=== PATIENT | female | born 1950 | race Caucasian/White ===

== ENCOUNTER 2016-08-28 10:46 | Outpatient (CLI) | payer OTHER | END 2016-08-28 10:47 | disposition home or self-care (01) | DX: C50.911 Malignant neoplasm of unspecified site of right female breast (principal); M89.9 Disorder of bone, unspecified | CPT/HCPCS: 78306; A9503 ==

== ENCOUNTER 2017-01-04 09:24 | Outpatient (CLI) | payer OTHER | END 2017-01-04 09:25 | disposition critical access hospital (66) | LOC: EMS 09:24 | PROVIDERS: ATTEND Surgery | DX: M25.551 Pain in right hip (principal); W17.89XA Other fall from one level to another, initial encounter; Y92.008 Other place in unspecified non-institutional (private) residence as the place of occurrence of the external cause | CPT/HCPCS: A0425; A0429 ==

== ENCOUNTER 2017-01-04 09:53 | Inpatient (IN) | payer OTHER ==
[2017-01-04] MEDS ORDERED: HYDROmorphone 1 MG/ML SYRINGE IVP STA ×2 (10:05→10:54)
[2017-01-04] MEDS ORDERED: HYDROmorphone 1 MG/ML SYRINGE ONE (10:12)
--- NOTE | 2017-01-04 10:17 | ED Physician Documentation ---
History of Present Illness - Stated complaint Stated Complaint: R LEG PX - Chief complaint Chief Complaint: Ext Problem - Additonal information Additional information: hx from pt 66 female metastatic breast cancer - met to bones and liver was standing to get into her car and her R hip gave way causing her to fall no head or neck injury RLE is ext rotated with pain at the hip Review of Systems Constitutional: denies: Fever Cardiac: denies: Chest pain / pressure Respiratory: denies: Dyspnea Musculoskeletal: reports: Joint pain Endocrine: denies: Easy bruising / bleeding Immunocompromised: reports: Immunocompromised (chemo) PD PAST MEDICAL HISTORY - Past Medical History Cardiovascular: Hypertension Respiratory: None Neuro: None Endocrine/Autoimmune: HyPOthyroidism GI: GERD : None, Incontinence HEENT: None Psych: None Musculoskeletal: Osteoarthritis Derm: None - Past Surgical History Past Surgical History: Yes General: EGD, Colonoscopy Ortho: Carpal Tunnel surgery HEENT: Tonsil/Adenoidectomy - Present Medications Home Medications: Ambulatory Orders Medication Instructions Recorded Confirmed Aspirin [Aspir-Low] 81 mg PO DAILY 01/06/13 12/09/16 Calcium Carbonate [Calcium] 600 mg PO BID 01/06/13 01/04/17 Cholecalciferol (Vitamin D3) 2,000 unit PO DAILY 01/06/13 01/04/17 [Vitamin D-3] Levothyroxine [Synthroid] 75 mcg PO Q48H 01/06/13 01/04/17 Multivitamins-Min/FA/Ginkgo 1 each PO DAILY 01/06/13 01/04/17 [Women's 50+ Daily Formula Tab] [place]-3 Fatty Acids/Fish Oil 1 each PO TID 01/06/13 01/04/17 [[place] 3 1,000 mg Softgel] Omeprazole [PriLOSEC] 20 mg PO BID 01/06/13 01/04/17 Simvastatin [Zocor] 20 mg PO QPM 01/06/13 01/04/17 Levothyroxine [Synthroid] 50 mcg PO Q48H 04/22/13 01/04/17 Ondansetron HCl [Zofran] 4 - 8 mg PO Q8H PRN 02/03/14 01/04/17 Scopolamine [Transderm-Scop] 1 each TOP Q72H PRN 02/21/14 01/04/17 Lidocaine/Prilocain 2.5% Cream 1 applic TOP ONCE 10/13/15 01/04/17 [Emla 2.5% Cream] Capecitabine [Xeloda] 1,500 mg PO BID 09/30/16 01/04/17 Urea [Ure-K] 1 applic TOP QID 11/18/16 01/04/17 Aspirin Chewable [St Zaki 1 tab PO DAILY 01/04/17 01/04/17 Aspirin] - Allergies Allergies/Adverse Reactions: Allergies Allergy/AdvReac Type Severity Reaction Status Date / Time everolimus [From Afinitor] Allergy Intermediate Rash Verified 01/04/17 11:04 shellfish derived Allergy Mild Respiratory Verified 01/04/17 11:04 - Social History Does the pt smoke?: No Smoking Status: Never smoker Does the pt drink ETOH?: Yes Does the pt have substance abuse?: No - Immunizations Immunizations are current?: Yes - POLST Patient has POLST: No PD ED PE NORMAL - Vitals Vital signs reviewed: Yes - Neck Neck: Supple, no meningeal sign - Cardiac Cardiac: RRR - Respiratory Respiratory: No respiratory distress, Clear bilaterally - Abdomen Abdomen: Soft, Non tender - Extremities Extremities: Other (severe TTP R hip ext rotated MSV intact) - Neuro Neuro: Alert and oriented X 3, No motor deficit, No sensory deficit Results - Vitals Vitals: Vital Signs - 24 hr 01/04/17 09:55 Temperature 36.5 C Heart Rate 93 Respiratory 16 Rate Blood Pressure 138/108 H O2 Saturation 98 Oxygen O2 Source Room air - Labs Labs: Laboratory Tests 01/04/17 01/04/17 10:50 10:50 WBC 6.6 RBC 3.91 L Hgb 13.7 Hct 39.0 MCV 99.7 H MCH 35.0 H MCHC 35.1 RDW 21.2 H Plt Count 92 L MPV 9.6 Neut # 5.4 Lymph # 0.3 L Door # 0.8 Eos # 0.1 Baso # 0.0 Absolute Nucleated RBC 0.00 Nucleated RBCs 0.0 Manual Slide Review Indicated Platelet Estimate DECREASED (<130,000) Sodium 141 Potassium 3.4 L Chloride 104 Carbon Dioxide 24 Anion Gap 13.0 BUN 14 Creatinine 0.8 Estimated GFR (MDRD) 72 L Glucose 117 H Calcium 9.5 - Rads (name of study) RLE Radiology: See rad report (displaced and angulated right femoral diaphyseal fracture, this site is near focus of increased activity on prior bone scan so pathalogic fracture not excluded, borad sclerotic lesion L iliac bone unchanged) PD MEDICAL DECISION MAKING - ED course ED course: NPO except coffee at 8 seen by ortho end medicine admitted for surgery this afternoon Departure - Departure Disposition: 66 [facility] DC/Xfer Clinical Impression: Metastatic breast cancer Femur fracture, right Qualifiers: Encounter type: initial encounter Femur location: unspecified portion of femur Fracture type: closed Fracture morphology: unspecified fracture morphology Qualified Code(s): S72.91XA - Unspecified fracture of right femur, initial encounter for closed fracture Condition: Fair Discharge Date/Time: 01/04/17 12:37
[2017-01-04] MEDS ORDERED: ONDANSETRON 4 MG/2 ML VIAL ONE (10:49)
[2017-01-04] MEDS ORDERED: ONDANSETRON 4 MG/2 ML VIAL IVP STA (10:54)
[2017-01-04 11:13] LABS: BASOPHILS % (AUTO) 0.6 %; EOSINOPHILS # (AUTO) 0.1 10^3/uL (0.0-0.7); EOSINOPHILS % (AUTO) 1.7 %; HGB - HEMOGLOBIN 13.7 g/dL (12.0-16.0); LYMPHOCYTES # (AUTO) 0.3 10^3/uL (1.5-3.5); LYMPHOCYTES % (AUTO) 5.1 %; MEAN CORPUSCULAR HGB CONC 35.1 g/dL (32.0-36.0); MEAN CORPUSCULAR VOLUME 99.7 fL (81.0-99.0); MEAN PLATELET VOLUME 9.6 fL (7.9-10.8); MONOCYTES # (AUTO) 0.8 10^3/uL (0.0-1.0); MONOCYTES % (AUTO) 11.5 %; NEUTROPHILS # (AUTO) 5.4 10^3/uL (1.5-6.6); NEUTROPHILS % (AUTO) 81.1 %; RED BLOOD COUNT 3.91 10^6/uL (4.20-5.40); RED CELL DISTRIBUTION WIDTH 21.2 % (12.0-15.0); UNCORRECTED WHITE BLOOD COUNT 7.3 x10^3/uL; WHITE BLOOD COUNT 6.6 x10^3/uL (4.8-10.8)
[2017-01-04] MEDS ORDERED: LIDOCAINE/PRILOCAINE 2.5% CREAM 5 GM TUBE TOP PRN (11:16)
[2017-01-04] MEDS ORDERED: SCOPOLAMINE PATCH TOP PRN (11:16)
[2017-01-04 11:18] LABS: CALCIUM 9.5 mg/dL (8.5-10.3); CREATININE 0.8 mg/dL (0.4-1.0); POTASSIUM 3.4 mmol/L (3.5-5.0)
[2017-01-04] MEDS ORDERED: PROMETHAZINE 25 MG/1 ML VIAL IM PRN (11:18)
[2017-01-04] MEDS ORDERED: ONDANSETRON 4 MG/2 ML VIAL IVP PRN ×2 (11:18→18:56)
[2017-01-04] MEDS ORDERED: HYDROcod/ACETAM 10 MG/325 MG TABLET PO PRN (11:18)
[2017-01-04] MEDS ORDERED: SODIUM CHLORIDE FLUSH 0.9% 10 ML SYRINGE IVP PRN ×2 (11:18→18:56)
[2017-01-04] MEDS ORDERED: PROCHLORPERAZINE 10 MG/2 ML VIAL IVP PRN ×2 (11:18→18:56)
[2017-01-04] MEDS ORDERED: HYDROmorphone 1 MG/ML SYRINGE IVP PRN (11:18)
[2017-01-04] MEDS ORDERED: ZOLPIDEM 5 MG TABLET PO PRN (11:18)
[2017-01-04 11:32] LABS: PLATELET ESTIMATE, MANUAL DECREASED (<130,000) (NORMAL)
--- NOTE | 2017-01-04 11:47 | XRAY Preliminary Report ---
Exam: XR Hip w/Pelvis 2-3V RT IMPRESSION: 1. Displaced and angulated proximal right femoral diaphyseal fracture. This is near or possibly just below the level of a focus of increased activity on a previous bone scan. Therefore, a pathologic fra cture is not excluded. 2. Broad sclerotic lesion within the left iliac bone is without significant change. [facility] SITE ID: [id number]
--- NOTE | 2017-01-04 11:50 | XRAY Report ---
EXAM: RIGHT HIP AND PELVIS RADIOGRAPHY EXAM DATE: 01/04/2017 10:45 AM. HISTORY: Fall ext rotation breast CA met to bones. COMPARISONS: No x-ray comparison.. On scan 08/28/2016. CT pelvis 10/24/2016 TECHNIQUE: 1 view of the pelvis and 1 view of the hip. FINDINGS: Bones: Oblique fracture of the proximal femur about 3 cm below the lesser trochanter with substantial angulation and moderate displacement. No gross lytic or blastic femoral lesion demonstrated. Broad s clerosis within left iliac bone is without fifi change. Joints: No dislocation. Mild degenerative disease of the right hip and pubic symphysis. Soft Tissues: Normal. No soft tissue swelling. IMPRESSION: 1. Displaced and angulated proximal right femoral diaphyseal fracture. This is near or possibly just below the level of a focus of increased activity on a previous bone scan. Therefore, a pathologic fra cture is not excluded. 2. Broad sclerotic lesion within the left iliac bone is without significant change. [facility] Referring Provider Line: [phone] SITE ID: [id number]
[2017-01-04] MEDS ORDERED: SODIUM CHLORIDE 0.9% 1,000 ML IV SCH (12:00)
[2017-01-04] MEDS ORDERED: MULTIVITAMIN TABLET PO SCH (12:15)
[2017-01-04] MEDS ORDERED: ATORVASTATIN 40 MG TABLET PO SCH (12:30)
--- NOTE | 2017-01-04 13:01 | PROVIDER PROGRESS NOTE ---
Subjective - Prog Note Date Prog Note Date: 01/04/17 Prog Note Time: 12:59 - Subjective Subjective: Hx of persistent right thigh pain since about Aug 2016. Still working 3 x week at local [employer]. Aparently putting a gym bag into her car this AM and noted sudden onset of increased right thigh pain and her leg coolapsed. Unable to stand or weight bear on right. No new distal weakness/numbness Objective - Vital Signs/Intake & Output Vital Signs: Vital Signs x48h Temp Pulse Resp BP Pulse Ox 01/04/17 12:50 36.5 C 91 16 179/96 H 99 - Lab Results Fish Bones: 01/04/17 10:50 01/04/17 10:50 - Diagnostic Imaging Diagnostic Imaging Comments: XR show probable pathologic fx of proximal 1/3 right femour - Other Results/Comments Other Results/Comments: Exam: Obvious deformity of right thigh. Painful right leg motion. Moves toes well. Sensation ok (has chronic toe /sole numbness from chemo). Cap filling ok Assessment/Plan - Problem List (1) Metastatic breast cancer Impression: Pathoilogic right proximal femur fracture, likely due to metastatic breast Ca PLAN: IM nailing of right femoral shaft fracture, possibly long interTan nailing. Risk and benefits of surgery explained, questions answered for patient and her . Will plan OR this afternoon. Consent signed. (2) Femur fracture, right Qualifiers: Encounter type: initial encounter Femur location: shaft Fracture type: closed Fracture morphology: unspecified fracture morphology Qualified Code(s ): S72.301A - Unspecified fracture of shaft of right femur, initial encounter for closed fracture
[2017-01-04] MEDS: OMEGA-3 ACID ETHYL ESTERS 1 GM CAPSULE PO SCH ×2 (13:52→21:45)
[2017-01-04] MEDS: SODIUM CHLORIDE FLUSH 0.9% 10 ML SYRINGE IVP SCH ×3 (13:56→21:45)
[2017-01-04] MEDS ORDERED: ceFAZolin 2 GM/50 ML 50 ML IV SCH ×2 (14:30→19:00)
[2017-01-04] MEDS ORDERED: INSULIN REGULAR HUMAN 100 UNIT/1 ML 10 ML MDV SUBQ ONE (14:38)
--- NOTE | 2017-01-04 15:23 | CONSULTATION NOTE ---
ORTHOPEDIC CONSULTATION DATE OF CONSULTATION: 01/04/2017 00:00:00 REQUESTING PROVIDER: Dr. Ely of the emergency room. CHIEF COMPLAINT: "My right leg hurts." HISTORY OF PRESENT ILLNESS: The patient is a 66-year-old female, with a history of metastat ic breast cancer, who apparently has had some intermittent but persistent right thigh pain since 2016. 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 She was putting a gym bag into her car on the morning of her admission when she noted immedi ate pain to her right thigh and she collapsed to the ground. She was unable to stand or weightbear du e to a deformity in her right leg as well as pain with an attempt to weightbear. She was taken by gabriella chu to the emergency room here at [facility] where x-rays showed a short oblique-typ e fracture of her proximal third right femoral shaft. This was a closed injury. The patient was neuro vascularly intact distally. It was in the vicinity of a previously hot spot noted on her bone scan in August 2016. She last had coffee in the morning at about 8 o'clock, no solid food today. PHYSICAL EXAMINATION: Physical examination showed an obvious deformity and swelling to her right thig h. Has painful range of motion of her right hip and knee. Moves her toes satisfactorily. Sensation ap peared to be grossly intact and symmetrical (has chronic numbness in her sole that she has had from h er chemotherapy in the past). Good capillary filling noted. X-RAYS: Show an oblique-type fracture of her proximal one-third of the right femoral shaft. Bone scan (taken on August 28, 2016) showed an increased area of uptake in her proximal right femoral shaft. ASSESSMENT 1. Probable pathologic right proximal third femoral shaft fracture. 2. History of metastatic breast cancer. PLAN: I have discussed treatment options with the patient and her . Plan on proceeding with in tramedullary nailing of her right femoral shaft fracture. Because of the step-off and the fracture mo rphology, we may be able to get by with just a straight nailing if her fracture interdigitates satisf actorily. If this is unsuccessful, we will proceed with a long InterTan nailing to lock the nail prox imally and distally to further stabilize her fracture. The risks and benefits of surgery were explain ed to the patient and her . They appear to understand and wish to proceed with surgery. All th eir questions were answered. Consents has been signed. We will plan then on proceeding with surgery later this afternoon after the current cases have been c ompleted. JOB #: [id number] EXT JOB #:[id number]
[2017-01-04] MEDS ORDERED: SCOPOLAMINE PATCH TOP ONE (16:04)
[2017-01-04] MEDS: UREA TOP SCH ×3 (16:15→21:46)
[2017-01-04] MEDS: ALPHA HYDROXY ACIDS TOP SCH ×3 (16:15→21:46)
[2017-01-04] MEDS ORDERED: SODIUM CHLORIDE 0.9% 1,000 ML IV ONE ×3 (16:43)
[2017-01-04] MEDS ORDERED: ONDANSETRON 4 MG/2 ML VIAL IVP ONE (16:45)
[2017-01-04] MEDS ORDERED: ROCURONIUM 50 MG/5 ML VIAL IVP ONE (16:45)
[2017-01-04] MEDS ORDERED: MIDAZOLAM 2 MG/2 ML VIAL IVP ONE (16:45)
[2017-01-04] MEDS ORDERED: KETOROLAC 30 MG/ML VIAL IVP ONE (16:45)
[2017-01-04] MEDS ORDERED: ceFAZolin 1 GM VIAL IV ONE (16:45)
[2017-01-04] MEDS ORDERED: fentaNYL 100 MCG/2 ML VIAL IVP ONE (16:45)
[2017-01-04] MEDS ORDERED: ePHEDrine 50 MG/ML AMP IVP ONE (16:45)
[2017-01-04] MEDS ORDERED: DEXAMETHASONE 4 MG/ML VIAL IVP ONE (16:45)
[2017-01-04] MEDS ORDERED: LIDOCAINE-MPF 2% 5 ML VIAL IM ONE (16:45)
[2017-01-04] MEDS ORDERED: ACETAMINOPHEN 1,000 MG/100 ML VIAL IV ONE (16:45)
[2017-01-04] MEDS ORDERED: PHENYLEPHRINE 50 MG/5 ML VIAL IV ONE (16:45)
[2017-01-04] MEDS ORDERED: ESMOLOL 100 MG/10 ML VIAL IVP ONE (16:45)
[2017-01-04] MEDS ORDERED: BUPIVACAINE 0.25%-EPI 1:200000 PF 10 ML VIAL SUBQ ONE ×2 (17:12→18:14)
[2017-01-04] MEDS ORDERED: LACTATED RINGERS 1,000 ML IV ONE ×3 (17:30→19:00)
[2017-01-04] MEDS ORDERED: ACETAMINOPHEN 325 MG TABLET PO PRN (18:56)
[2017-01-04] MEDS ORDERED: oxyCOD/ACETAMIN 5 MG/325 MG TABLET PO PRN (18:56)
[2017-01-04] MEDS ORDERED: ACETAMINOPHEN 1,000 MG/100 ML 100 ML IV PRN (18:56)
[2017-01-04] MEDS ORDERED: MORPHINE 2 MG/ML SYRINGE IVP PRN (18:56)
[2017-01-04] MEDS ORDERED: DOCUSATE SODIUM 100 MG CAPSULE PO PRN (18:56)
[2017-01-04] MEDS ORDERED: SENNA 8.6 MG TABLET PO PRN (18:56)
[2017-01-04] MEDS ORDERED: PROMETHAZINE 25 MG/1 ML VIAL ONE (19:36)
--- NOTE | 2017-01-04 20:13 | OPERATIVE REPORT ---
Operative Report - General Admit Date: 01/04/17 Procedure Date: 01/04/17 Planned Procedure: IM nailing of right proximal femoral shaft fracture Pre-Op Diagnosis: Cosed right proximal femur fracture Post Op Diagnosis: Same - Procedure Note Primary Surgeon: Mikey Silva Secondary Surgeon: Corona Anesthesia Provider: Delonte Anesthesia Technique: General mask Estimated Blood Loss (in cc): 300 Complications: None
[2017-01-04] MEDS: D5.45NS W/20 MEQ KCL 1,000 ML IV SCH (20:30)
--- NOTE | 2017-01-04 21:07 | OPERATIVE REPORT ---
DATE OF SURGERY: 01/04/2017 00:00:00 PREOPERATIVE DIAGNOSIS: Right proximal femoral shaft fracture. POSTOPERATIVE DIAGNOSIS: Right proximal femoral shaft fracture. NAME OF PROCEDURE: Closed reduction and intramedullary nailing of right proximal femur fracture using a long InterTan nail with only a proximal hip lag screw and gloria. SURGEON: Mikey Silva MD SLOT FLOOR SUPERVISOR: None. ANESTHESIA: General. DESCRIPTION OF PROCEDURE: The patient was taken to the operating room on the afternoon of 01/04/2017 where she was placed under a general anesthetic without any complications. She was then positioned vega pine onto the fracture table. Her left unfractured extremity was then placed in the well leg dickerson w ith the hip flexed and widely abducted. The fractured right lower extremity was then placed into long itudinal traction with the leg adducted about 20 degrees. The fluoroscopic views showed the fracture was out to length in both AP and lateral projection. Using a crutch to support her proximal femoral s haft, this improved the alignment of her fracture in both AP and lateral projections. Satisfied with the position of the fracture now, we then proceeded and prepped and draped the leg in the usual fashi on for our procedure. Making an oblique skin incision proximal to the tip of the greater trochanter, we dissected down to t he tip of the greater trochanter. We then placed the tip of our threaded guide pin on the tip of the greater trochanter. This was confirmed using fluoroscopic view. We then placed a mallet at the apex o f the fracture and had my business services assistant apply downward pressure to help improve the alignment of our frac ture further. We then with power drilled the guide tip pin from the tip of the greater trochanter dante n the proximal end of the femur to the level of the subtrochanteric level. Fluoroscopic view in AP an d lateral projection showed satisfactory position of our guide pin. We then used the guide pin and pl aced a cannulated 16 mm channel reamer and reamed the proximal femur. We then bent the end of our bal l-tipped guide and then manually inserted this guide pin down the hole at the tip of the greater troc hanter and with gentle manipulation was able to pass this guide pin down into the intramedullary tasha l of the femoral shaft. Fluoroscopic view in AP and lateral projections showed the interosseous locat ion of our guide pin. We advanced the pin until it was down into the distal femoral metaphysis at mariam roximately the level of the patella. The direct measuring device was then used and we determined we w ould use a 38 cm in length intramedullary long InterTan nail. We then sequentially reamed the femoral shaft with sequential reamers, starting with a 9 mm end cutting reamer and advanced until we had barbara med the femoral shaft 11.5 mm in diameter. At this point, we then introduced the selected long right InterTan nail which was 10 mm in diameter x 38 cm in length. This was attached to our insertion and a lignment guide and we were able to pass this down while reducing the fracture using the crutch and th e mallet, as we did initially when we passed our ball-tipped guide. We advanced this nail until the p roximal hole in the nail was aligned with the axis of the femoral neck. We removed the ball-tipped gu juliet from within the nail at this point. Making a small incision laterally in the proximal thigh, we advanced the oval drill sleeve in the dis janis end of our alignment guide and advanced the guide to the lateral proximal femoral cortex. We then drilled the threaded tip guidewire through the proximal femur, through the femoral neck and up into the femoral head. This was advanced until it was within a few millimeters of the subchondral bone. AP and lateral projections with the C-arm fluoroscopy showed satisfactory placement of our guide pin an d proper depth. The direct measuring guide was then utilized and we determined we would use a 95 mm l ength x 11 mm subtrochanteric hip lag screw. The channel reamer was then drilled over our inserted gu juliet pin to ream the proximal femur. We then inserted our selected subtrochanteric hip lag screw up in to the proximal femur and into the femoral head. We were having difficulty advancing the last 0.5 cm of this screw because of the patient's very hard trabecular bone. We removed the hip lag screw and jin arredondo placed the tap over our guide pin and tapped the femoral head. After removing the tap, we then wer e more easily able to advance the hip lag screw to within a few millimeters of the subchondral bone i n AP and lateral projections. Satisfied with this, we then locked the hip lag screw to the nail with the set screw in the proximal end of our nail with the hand screwdriver. After we got this snug, we robert martinez backed off by 90 degrees as recommended. At this point, we then removed our insertion/alignment g uide from the nail. We then irrigated the wound out thoroughly with saline. We then closed the wound in layers using buried simple stitch of 0 Vicryl to approximate the deep fascial layer incision proxi enrico. Then we closed the subcutaneous tissues in both wounds using buried simple stitches with 2-0 V icryl. Finally, skin braeden were used to approximate the skin edges of both wounds. We injected a to janis of 30 mL of 0.25% Marcaine with epinephrine to provide local anesthesia in both incision sites. T he patient then had the wounds dressed and was taken off the fracture table and onto her postoperativ e bed. She was taken to the recovery room in satisfactory condition. ESTIMATED BLOOD LOSS: 300-350 mL of blood. REPLACEMENT: 1700 mL of crystalloid. INTRAOPERATIVE COMPLICATIONS: None. PLAN: The patient will be advanced ambulating with a walker, weightbearing as tolerated on the right lower extremity beginning the first day postoperatively. Depending on her independence, she will eith er go to a skilled facility for additional postoperative rehabilitation versus transferred home. She will follow up in orthopedic clinic in approximately 2 weeks' time for removal of her skin braeden an d repeat x-rays as needed. JOB #: [id number] EXT JOB #:[id number]
[2017-01-04 21:42] LABS: CALCIUM 8.1 mg/dL (8.5-10.3); CREATININE 0.7 mg/dL (0.4-1.0); POTASSIUM 3.8 mmol/L (3.5-5.0)
[2017-01-04] MEDS: CAPECITABINE 1500 MG PO SCH (21:45)
[2017-01-04] MEDS: CALCIUM CARBONATE CHEW 500 MG TABLET PO SCH (21:45)
[2017-01-05] MEDS: ceFAZolin 2 GM/50 ML 50 ML IV SCH ×2 (00:34→08:41)
--- NOTE | 2017-01-05 02:26 | HISTORY & PHYSICAL EXAMINATION ---
DATE OF ADMISSION: 01/04/2017 CHIEF COMPLAINT: I was just getting in my car and my leg gave way. History obtained from patient, and Dr. Ramiers notes HISTORY OF PRESENT ILLNESS: The patient is a very pleasant 66-year-old female who was actually on her way to help at the organized run for the [employer] and when going to get in the car when she put weight on her leg, it simply gave out from under her. Of note she has known metastatic breast cancer (with details of the treatment course since 2001 under the care of Juan Pablo Costello as below under [facility]). In the emergency room, imaging of the right hip was very suspicious for pathological fracture, especially as the area of the break is near an area of increased update on a bone scan from 09/06/2016. She has had some pain in the right upper thigh. Dr. Silva of Orthopedic Surgery has been consulted and he will likely be taking her in for repair today. She already indicates that she is extremely eager to already be discharged as soon as tomorrow if possible, saying that she really does not want to have to spend any additional nights in the hospital. She denies any symptoms suggestive of cardiac ischemia, nor TIA, nor PAD she is not diabetic and has no known renal dysfunction (re: surgical risks) Regarding her breast cancer treatment , she is currently on Xeloda, and this is her week off and she reports the only side effect she is experiencing is finger and foot skin peeling. She actually went nearly 10 years cancer free from the time of diagnosis with only bone metastases initially found in 2009 and liver metastases as of 11/2015 again with details of treatment as follows below. Of note, regarding this hip fracture today, she does note that she had had some pain in the right hip area recently. PAST MEDICAL HISTORY: 1. Metastatic breast cancer with details as follows from Dr. Ramires notes. a) Originally diagnosed 04/2002, s/p lumpectomy/XRT and adjumant Adriamycin and Cytoxan x4 b) Subsequently, on tamoxifen x2 years, letrozole x4 years completed in 2007. c) In February of 2010, metastases to the bones identified (site not specified / pelvis per patient,: anastrozole / Faslodex, Afinitor/exemestane with progression. Subsequently she had Navelbine and Xeloda x12 cycles for 11/2013 with a complete response (CR). Maintenance Xeloda from 04/2014-11/2013, stopped due to toxicity (hand/foot syndrome): Xofigo effusions x6 cycles 08/06/2015 followed by chemotherapy vacation. d). Metastases to the liver diagnosed 11/2015 with progression in 03/2016: Faslodex/Ibrance x6 cycles 12/2015 with progression, followed by Navelbine/ Xeloda 03/2016 x10 weeks for which she achieved a partial remission. e) . Maintenance Xeloda 05/2016 to 07/2016, Y90 directive therapy on 08/2016 through 09/2016 and maintenance Xeloda started since 09/2016 with stable disease. 2) Hypothyroidism. 3). History of Hypertension, Atenolol discontinued ~ 1yr ago after a syncope a year ago related to the atenolol 4) Hx presumed vasovagal syncope; w/ follow up ECHO (01/2016 normal LV size and fxn, EF 70% mild aortic regurg, normal pulmonary presure). Pt reports atenolol was suspect/discontinued. 4). Gastroesophageal reflux disease. 5)). Hyperlipidemia. HOME MEDICATIONS: 1. Levothyroxine. She alternates 50 mg with 75 mg and reports that they were not able to find an intermediate dose. She reports she can tell them apart based on the purple and white pills. 2. Aspirin 81 mg daily. 3. Calcium carbonate 600 mg twice daily. 4. Vitamin D3 at 2000 units once daily. 5. Prilosec 20 mg twice daily. 6. Zocor 20 mg once daily. She is not recently needing her Zofran or scopolamine. 7. Vicodin 1-2 tabs every 4 hours if needed for pain. ALLERGIES: SHE IS ALLERGIC TO SHELLFISH AND TO THE CHEMO AGENT EVEROLIMUS. HABITS: She does not smoke, she does not drink alcohol, no history of illicits. SOCIAL HISTORY: [place]. She and her Shiva are both from [facility]. She is continuing to work for [employer] primarily in [employer]. She has a daughter and a son. FAMILY HISTORY: Her younger sister was diagnosed with breast cancer in her 40s. Her mother had breast cancer in her late 80s. REVIEW OF SYSTEMS GENERAL: She denies any unintentional weight loss or weight gain. No fevers, night sweats, or lymphadenopathy. HEAD, EARS, EYES, NOSE AND THROAT: No vision changes. CARDIOVASCULAR: No chest pain or palpitations. No edema. No orthopnea. A syncopal episode a year ago, was attributed to her blood pressure medications which was discontinued, and she has not had any episodes since. GASTROINTESTINAL : She denies nausea, vomiting, constipation. No diarrhea or hematochezia or black stool. GENITOURINARY: No dysuria, frequency, or hesitancy, although she says the coffee this morning had her bladder quite full. MUSCULOSKELETAL: She has had some right hip pain as noted above. SKIN: She notes peeling of her fingers and feet due to the Xeloda. She has been prescribed a special cream, which she cannot remember the name of. She says "I am loosing my finger prints." NEUROLOGIC: No confusion, memory loss of loss of consciousness. No myalgias or arthralgias, other than on the right hip as noted previously. HEMATOLOGIC: She denies easy bruising or bleeding. PHYSICAL EXAMINATION: VITAL SIGNS: She is afebrile 36.5, heart rate 93, respiratory rate 16, 138/108 and 98% oxygenation on room air. GENERAL: She is a very pleasant female who is wearing her makeup from today and her [employer] silas-shirt. She is just a little bit "dopey" from her dose of Dilaudid she received in the emergency room, but she responds to questions through the curtain when I was asking her them when they were working on her Infusaport. HEAD, EARS, EYES, NOSE AND THROAT: She is wearing makeup and appears ramey, although this is due to a concealer. Her pupils are round, and reactive. Extraocular movements are intact. Sclerae anicteric. NECK: Supple with no lymphadenopathy. Oral mucosa is moist. She has upper dentures and her own teeth lower. CHEST: Her chest anteriorly, is clear to auscultation. She was not moved for posterior exam due to the hip fracture, she has an Infusaport in her right upper chest. CARDIAC: Heart is a regular S1, S2 with a rate currently approximately 90 with no appreciable extra sounds. She has no lower extremity edema. SKIN: Warm and dry. ABDOMEN: Modestly rounded. It is soft, nontender. There is no appreciable hepatomegaly. The liver edge is smooth. She does have some suprapubic fullness and again reported due to a large cup of coffee this morning. HIP: Her hip is notable for soft tissue swelling of the upper femur. SKIN: Notable for peeling of the fingers and soles of her feet and her toes with no open sores. DIAGNOSTIC LABORATORY STUDIES: White count 6.6, hemoglobin 13.7, hematocrit 39, platelets 92,000. There were 100,000 in November. Sodium 141, potassium 3.4, chloride 104, bicarbonate 24, BUN 14, creatinine 0.8, calcium 9.5, glucose 117, total bilirubin 1.7, AST 51, ALT 44, alkaline phosphatase 206. These transaminases are consistent with labs since approximately August of 2016. DIAGNOSTIC IMAGING: An x-ray of her hip shows: 1. Displaced and angulated proximal right femoral diaphysis fracture. There is near or possibly just below the level of focus of increased activity on a previous bone scan. Pathological fracture not excluded. 2. Broad sclerotic lesion within the left iliac bone without significant change. A bone scan done 08/28/2016, showed: 1. Sclerotic bone lesion in the left ilium, does not demonstrate abnormal activity. 2. Small focus of mild increased activity proximal right femur. Possibly a small proximal femoral metaphysis. ASSESSMENT AND PLAN: 1. Hip fracture/very likely pathological frature. Dr. Silva is the orthopedic surgeon on-call today and he plans to likely take her to surgery today. Pain management and mobility post op will be per Orthopedics. VTE prophylaxis per surgeon post op 2. Risk assessment for surgery. The patient has no symptoms suggestive of cardiovascular disease. No angina. No symptoms of heart failure. No pulmonary complaints. She is not diabetic. She does not have an elevated creatinine. This is a moderate risk surgery, in a low risk patient which puts her at low risk for perioperative risk of major cardiac event 0.4% by RCRI calculator . On Friday we will contact Dr. Costello if there is an indication for bisphosphate (or if that would be done in [facility]. 3. Gastroesophageal reflux disease. Postoperative she can resume her twice daily Prilosec. She does indicate that she normally takes it twice a day only because "that is what the label says." Possibly we can reduce her to once daily dosing. 5. Hyperlipidemia. She can resume her home statin after surgery. 6. Hypothyroidism. She can resume her home dosing of levothyroxine which she confirms is 50 mcg alternating with 75 mcg. 7. Elevated diastolic blood pressure. I suspect that is currently related to pain and we will follow this and doubt any need for intervention. 8. Mild hypokalemia with a potassium of 3.4. No urgent need for replacement. We will repeat his orally postop. 9. Thrombocytopenia. Her platelet count is stable compared with prior readings in November of 100,000 and would not preclude surgery and with no indication for transfusion at this time. 10. Mild transaminase elevation; stable likley related to known liver metastases 10. CODE STATUS IS FULL. 11. Postop venous thromboembolism prophylaxis will be as per the orthopedic surgeon. JOB #: [id number] EXT JOB #:[id number] MTDComfort
[2017-01-05] MEDS: SODIUM CHLORIDE FLUSH 0.9% 10 ML SYRINGE IVP SCH ×7 (06:06→21:25)
[2017-01-05] MEDS: LEVOTHYROXINE 25 MCG TABLET PO SCH (06:14)
[2017-01-05] MEDS: OMEGA-3 ACID ETHYL ESTERS 1 GM CAPSULE PO SCH ×3 (06:15→21:17)
[2017-01-05] MEDS: PANTOPRAZOLE 40 MG TABLET PO SCH (06:15)
[2017-01-05] MEDS: HYDROcod/ACETAM 5/325 MG TABLET PO PRN (06:21)
[2017-01-05 06:23] LABS: BASOPHILS % (AUTO) 0.1 %; HCT - HEMATOCRIT 31.4 % (37.0-47.0); HGB - HEMOGLOBIN 10.5 g/dL (12.0-16.0); LYMPHOCYTES # (AUTO) 0.2 10^3/uL (1.5-3.5); MEAN CORPUSCULAR HEMOGLOBIN 34.2 pg (27.0-31.0); MEAN CORPUSCULAR HGB CONC 33.5 g/dL (32.0-36.0); MEAN CORPUSCULAR VOLUME 102.1 fL (81.0-99.0); MEAN PLATELET VOLUME 8.6 fL (7.9-10.8); MONOCYTES # (AUTO) 0.7 10^3/uL (0.0-1.0); MONOCYTES % (AUTO) 8.1 %; NEUTROPHILS # (AUTO) 7.2 10^3/uL (1.5-6.6); NEUTROPHILS % (AUTO) 88.8 %; NUCLEATED RED BLOOD CELLS AUTO 0.1 /100WBC; RED BLOOD COUNT 3.08 10^6/uL (4.20-5.40); RED CELL DISTRIBUTION WIDTH 20.9 % (12.0-15.0); UNCORRECTED WHITE BLOOD COUNT 8.1 x10^3/uL; WHITE BLOOD COUNT 8.1 x10^3/uL (4.8-10.8)
[2017-01-05 06:24] LABS: INR 1.3 (0.8-1.2); PT - PROTHROMBIN TIME 14.9 secs (9.9-12.6)
[2017-01-05 06:35] LABS: ALBUMIN/GLOBULIN RATIO 1.1 (1.0-2.2); CALCIUM 7.7 mg/dL (8.5-10.3); CREATININE 0.8 mg/dL (0.4-1.0); MAGNESIUM 1.7 mg/dL (1.7-2.8); PHOSPHORUS 2.6 mg/dL (2.5-4.6); POTASSIUM 4.1 mmol/L (3.5-5.0); TOTAL PROTEIN 5.8 g/dL (6.7-8.2)
--- NOTE | 2017-01-05 08:31 | PROVIDER PROGRESS NOTE ---
Subjective - Prog Note Date Prog Note Date: 01/05/17 Prog Note Time: 08:27 - Subjective Pt reports feeling: Improved (2/10 pain on oral pain meds this AM) Objective - Vital Signs/Intake & Output Vital Signs: Vital Signs x48h Temp Pulse Resp BP Pulse Ox 01/05/17 07:43 36.6 C 90 14 105/66 97 01/05/17 06:00 36.6 C 86 16 115/75 98 01/05/17 01:04 36.5 C 90 16 107/74 98 Intake & Output: Intake & Output 01/02/17 01/03/17 01/04/17 01/05/17 23:59 23:59 23:59 23:59 Intake Total 125 1050 Output Total 450 400 Balance -325 650 - Lab Results Fish Bones: 01/05/17 06:10 01/05/17 06:10 Other Labs: Lab Results x24hrs 01/05/17 01/05/17 01/05/17 Range/Units 06:10 06:10 06:10 WBC 8.1 (4.8-10.8) x10^3/uL RBC 3.08 L (4.20-5.40) 10^6/uL Hgb 10.5 L (12.0-16.0) g/dL Hct 31.4 L (37.0-47.0) % MCV 102.1 H (81.0-99.0) fL MCH 34.2 H (27.0-31.0) pg MCHC 33.5 (32.0-36.0) g/dL RDW 20.9 H (12.0-15.0) % Plt Count 106 L (130-450) 10^3/uL MPV 8.6 (7.9-10.8) fL Neut # 7.2 H (1.5-6.6) 10^3/uL Lymph # 0.2 L (1.5-3.5) 10^3/uL [place] # 0.7 (0.0-1.0) 10^3/uL Eos # 0.0 (0.0-0.7) 10^3/uL Baso # 0.0 (0.0-0.1) 10^3/uL Absolute Nucleated RBC 0.01 x10^3/uL Nucleated RBCs 0.1 /100WBC PT 14.9 H (9.9-12.6) secs INR 1.3 H (0.8-1.2) Sodium 136 (135-145) mmol/L Potassium 4.1 (3.5-5.0) mmol/L Chloride 104 (101-111) mmol/L Carbon Dioxide 25 (21-32) mmol/L Anion Gap 7.0 (6-13) BUN 13 (6-20) mg/dL Creatinine 0.8 (0.4-1.0) mg/dL Estimated GFR (MDRD) 72 L (>89) Glucose 188 H (70-100) mg/dL Calcium 7.7 L (8.5-10.3) mg/dL Phosphorus 2.6 (2.5-4.6) mg/dL Magnesium 1.7 (1.7-2.8) mg/dL Total Bilirubin 1.0 (0.2-1.0) mg/dL AST 44 H (10-42) IU/L ALT 32 (10-60) IU/L Alkaline Phosphatase 146 H (42-121) IU/L Total Protein 5.8 L (6.7-8.2) g/dL Albumin 3.1 L (3.2-5.5) g/dL Globulin 2.7 (2.1-4.2) g/dL Albumin/Globulin Ratio 1.1 (1.0-2.2) 01/04/17 Range/Units 21:25 WBC (4.8-10.8) x10^3/uL RBC (4.20-5.40) 10^6/uL Hgb (12.0-16.0) g/dL Hct (37.0-47.0) % MCV (81.0-99.0) fL MCH (27.0-31.0) pg MCHC (32.0-36.0) g/dL RDW (12.0-15.0) % Plt Count (130-450) 10^3/uL MPV (7.9-10.8) fL Neut # (1.5-6.6) 10^3/uL Lymph # (1.5-3.5) 10^3/uL [place] # (0.0-1.0) 10^3/uL Eos # (0.0-0.7) 10^3/uL Baso # (0.0-0.1) 10^3/uL Absolute Nucleated RBC x10^3/uL Nucleated RBCs /100WBC PT (9.9-12.6) secs INR (0.8-1.2) Sodium 138 (135-145) mmol/L Potassium 3.8 (3.5-5.0) mmol/L Chloride 105 (101-111) mmol/L Carbon Dioxide 24 (21-32) mmol/L Anion Gap 9.0 (6-13) BUN 13 (6-20) mg/dL Creatinine 0.7 (0.4-1.0) mg/dL Estimated GFR (MDRD) 84 L (>89) Glucose 183 H (70-100) mg/dL Calcium 8.1 L (8.5-10.3) mg/dL Phosphorus (2.5-4.6) mg/dL Magnesium (1.7-2.8) mg/dL Total Bilirubin (0.2-1.0) mg/dL AST (10-42) IU/L ALT (10-60) IU/L Alkaline Phosphatase (42-121) IU/L Total Protein (6.7-8.2) g/dL Albumin (3.2-5.5) g/dL Globulin (2.1-4.2) g/dL Albumin/Globulin Ratio (1.0-2.2) - Other Results/Comments Other Results/Comments: Exam: Dressing intact. Minimal pain with hip rotation and flexion. Moving toes well. Sensation same. Good cap filling Assessment/Plan - Problem List (1) Metastatic breast cancer Impression: Doing well post op PLAN: PT to begin mobilizing as tolerated. (2) Femur fracture, right Qualifiers: Encounter type: initial encounter Femur location: shaft Fracture type: closed Fracture morphology: unspecified fracture morphology Qualified Code(s ): S72.301A - Unspecified fracture of shaft of right femur, initial encounter for closed fracture
[2017-01-05] MEDS: D5.45NS W/20 MEQ KCL 1,000 ML IV SCH ×2 (08:39→21:18)
[2017-01-05] MEDS: CHOLECALCIFEROL 1,000 UNIT TABLET PO SCH (08:40)
[2017-01-05] MEDS: POLYETHYLENE GLYCOL 3350 17 GM PACKET PO SCH (08:40)
[2017-01-05] MEDS: CALCIUM CARBONATE CHEW 500 MG TABLET PO SCH ×2 (08:41→21:17)
[2017-01-05] MEDS: ASPIRIN 325 MG TABLET PO SCH ×2 (08:41→17:20)
[2017-01-05] MEDS: UREA TOP SCH ×4 (08:51→21:18)
[2017-01-05] MEDS: ALPHA HYDROXY ACIDS TOP SCH ×4 (08:51→21:18)
[2017-01-05] MEDS ORDERED: ENOXAPARIN 40 MG/0.4 ML SYRINGE SUBQ SCH (09:00)
[2017-01-05] MEDS ORDERED: ASPIRIN CHEW 81 MG TABLET PO SCH (09:00)
[2017-01-05] MEDS: CAPECITABINE 1500 MG PO SCH ×2 (10:49→21:18)
--- NOTE | 2017-01-05 12:28 | PROVIDER PROGRESS NOTE ---
Subjective - Prog Note Date Prog Note Date: 01/05/17 Prog Note Time: 12:23 (seen ~ 930) - Subjective Pt reports feeling: Improved (pain much better since repair, nausea / vomiting last pm, but not this am HAS gotten Xgeva from Dr. Costello Denies lightheadedness when upright todya) Current Medications - Current Medications Current Medications: Active Medications Generic Name Dose Route Start Last Admin Trade Name Freq PRN Reason Stop Dose Admin Acetaminophen 650 mg 01/04/17 11:18 Tylenol PO Q4HR PRN Pain 1 to 4 Acetaminophen 650 - 975 mg 01/04/17 18:56 Tylenol PO Q4HR PRN PAIN Acetaminophen/Hydrocodone Bitart 1 tab 01/04/17 11:18 01/05/17 06:21 Valentines 5/325 PO 1 tab Q4HR PRN Administration Pain 5 to 7 Acetaminophen/Hydrocodone Bitart 1 tab 01/04/17 11:18 Valentines 10 Mg/325 Mg PO Q4HR PRN Pain 8 to 10 Aspirin 325 mg 01/05/17 08:00 01/05/17 08:41 Norma PO 325 mg BIDWM TRENT Administration Calcium Carbonate/Glycine 500 mg 01/04/17 21:00 01/05/17 08:41 Tums PO 500 mg BID TRENT Administration Cholecalciferol 2,000 unit 01/05/17 09:00 01/05/17 08:40 Vitamin D3 PO 2,000 unit DAILY TRENT Administration Docusate Sodium 100 mg 01/04/17 18:56 Colace 100mg Capsule PO BID PRN Constipation Heparin Sodium (Beef Lung) 30 - 50 unit 01/05/17 06:00 01/05/17 05:13 IVP 02/03/17 23:03 Not Given Q8HR TRENT Hydromorphone HCl 1 mg 01/04/17 11:18 01/04/17 15:01 Dilaudid Inj IVP 1 mg Q2HR PRN Administration Pain 8 to 10 Potassium Chloride/Dextrose/Sod Cl 1,000 mls @ 100 mls/hr 01/04/17 19:00 08:39 D5.45ns W/20 Meq Kcl IV 100 mls/hr .Q10H TRENT Administration Acetaminophen 100 mls @ 400 mls/hr 01/04/17 18:56 01/05/17 03:32 Ofirmev IV 400 mls/hr Q6HR PRN Administration PAIN Levothyroxine Sodium 50 mcg 01/05/17 07:00 01/05/17 06:14 Synthroid PO 50 mcg Q48H TRENT Administration Levothyroxine Sodium 75 mcg 01/06/17 07:00 Synthroid PO Q48H TRENT Lidocaine/Prilocaine 1 applic 01/04/17 11:16 Emla 2.5% Cream TOP DAILY PRN PAIN Morphine Sulfate 2 mg 01/04/17 18:56 Morphine IVP Q2HR PRN Breakthrough Pain [id number] Ethyl Esters 1 gm 01/04/17 14:00 01/05/17 06:15 Lovaza PO 1 gm TID TRENT Administration Ondansetron HCl 4 mg 01/04/17 11:18 Zofran Inj IVP Q6HR PRN Nausea / Vomiting Ondansetron HCl 4 mg 01/04/17 18:56 Zofran Inj IVP Q6HR PRN Nausea / Vomiting Oxycodone/Acetaminophen 1 tab 01/04/17 18:56 Percocet 5 Mg/325 Mg PO Q4HR PRN PAIN Pantoprazole Sodium 40 mg 01/05/17 07:00 01/05/17 06:15 Protonix PO 40 mg QDAC TRENT Administration Patient Own Medication 1 each 01/04/17 21:00 01/05/17 10:49 Patient Own Medication PO Not Given BID TRENT Polyethylene Glycol 17 gm 01/05/17 09:00 01/05/17 08:40 Miralax PO 17 gm DAILY TRENT Administration Prochlorperazine Edisylate 10 mg 01/04/17 18:56 Compazine Inj IVP Q6HR PRN Nausea / Vomiting Promethazine HCl 25 mg 01/04/17 11:18 Phenergan Inj IM Q6HR PRN Nausea / Vomiting Senna 17.2 mg 01/04/17 18:56 Senokot PO Q12H PRN Constipation Sodium Chloride 10 ml 01/04/17 11:18 Normal Saline Flush 0.9% IVP PRN PRN NEEDED PER PROVIDER ORDERS Sodium Chloride 10 ml 01/04/17 14:00 01/05/17 06:06 Normal Saline Flush 0.9% IVP 10 ml Q8HR TRENT Administration Sodium Chloride 10 ml 01/04/17 18:56 Normal Saline Flush 0.9% IVP PRN PRN NEEDED PER PROVIDER ORDERS Sodium Chloride 10 ml 01/04/17 22:00 01/05/17 06:06 Normal Saline Flush 0.9% IVP 10 ml Q8HR TRENT Administration Urea 1 applic 01/04/17 13:00 01/05/17 08:51 Atrac-Tain TOP 1 applic QID TRENT Administration Zolpidem Tartrate 5 mg 01/04/17 11:18 Ambien PO QPM PRN Insomnia Aspirin [Aspir-Low] 81 mg PO DAILY 01/06/13 Calcium Carbonate [Calcium] 600 mg PO BID 01/06/13 Cholecalciferol (Vitamin D3) [Vitamin D-3] 2,000 unit PO DAILY 01/06/13 Levothyroxine [Synthroid] 75 mcg PO Q48H 01/06/13 Multivitamins-Min/FA/Ginkgo [Women's 50+ Daily Formula Tab] 1 each PO DAILY [place]phur-3 Fatty Acids/Fish Oil [S[place]ur 3 1,000 mg Softgel] 1 each PO TID 01/06/13 Omeprazole [PriLOSEC] 20 mg PO BID 01/06/13 Simvastatin [Zocor] 20 mg PO QPM 01/06/13 Levothyroxine [Synthroid] 50 mcg PO Q48H 04/22/13 Ondansetron HCl [Zofran] 4 - 8 mg PO Q8H PRN 02/03/14 Scopolamine [Transderm-Scop] 1 each TOP Q72H PRN 02/21/14 Lidocaine/Prilocain 2.5% Cream [Emla 2.5% Cream] 1 applic TOP ONCE 10/13/15 Capecitabine [Xeloda] 1,500 mg PO BID 09/30/16 Urea [Ure-K] 1 applic TOP QID 11/18/16 Aspirin Chewable [St Zaki Aspirin] 1 tab PO DAILY 01/04/17 Objective - Vital Signs/Intake & Output Reviewed Vital Signs: Yes Vital Signs: Vital Signs x48h Temp Pulse Pulse Pulse Resp BP BP 01/05/17 12:00 36.5 C 96 16 107/68 01/05/17 09:50 87 87 118/73 01/05/17 07:43 36.6 C 90 14 105/66 01/05/17 06:00 36.6 C 86 16 115/75 BP Pulse Ox Pulse Ox 01/05/17 12:00 98 01/05/17 09:50 111/73 98 01/05/17 07:43 97 01/05/17 06:00 98 Intake & Output: Intake & Output 01/02/17 01/03/17 01/04/17 01/05/17 23:59 23:59 23:59 23:59 Intake Total 125 1410 Output Total 450 400 Balance -325 1010 - Objective General Appearance: positive: No acute distress, Other (in bed, no acute distress, looks comfortable, in, gonzalez) ENT: positive: Oral lesions (tape jaylyn across cheeks from ET tube (tape removed some of her foundation)) Respiratory: positive: No respiratory distress, Breath sounds nml, Other ( unlabored resps, CTA, no 02) Cardiovascular: positive: Regular rate & rhythm Abdomen: positive: Nml bowel sounds, No distention. negative: Tenderness Skin: positive: Warm, Dry Extremities: positive: Other (has SCD's on AND plexipulses at the bottom of the bed R upper hip no longer deformed in appearance. 4/4 w/ serosang drainage covered by tegaderm over upper hip. No hematoma or ecchymosis) Neurologic/Psychiatric: positive: Oriented x3 - Lab Results Fish Bones: 01/05/17 06:10 01/05/17 06:10 Other Labs: Lab Results x24hrs 01/05/17 01/05/17 01/05/17 Range/Units 06:10 06:10 06:10 WBC 8.1 (4.8-10.8) x10^3/uL RBC 3.08 L (4.20-5.40) 10^6/uL Hgb 10.5 L (12.0-16.0) g/dL Hct 31.4 L (37.0-47.0) % MCV 102.1 H (81.0-99.0) fL MCH 34.2 H (27.0-31.0) pg MCHC 33.5 (32.0-36.0) g/dL RDW 20.9 H (12.0-15.0) % Plt Count 106 L (130-450) 10^3/uL MPV 8.6 (7.9-10.8) fL Neut # 7.2 H (1.5-6.6) 10^3/uL Lymph # 0.2 L (1.5-3.5) 10^3/uL [place] # 0.7 (0.0-1.0) 10^3/uL Eos # 0.0 (0.0-0.7) 10^3/uL Baso # 0.0 (0.0-0.1) 10^3/uL Absolute Nucleated RBC 0.01 x10^3/uL Nucleated RBCs 0.1 /100WBC PT 14.9 H (9.9-12.6) secs INR 1.3 H (0.8-1.2) Sodium 136 (135-145) mmol/L Potassium 4.1 (3.5-5.0) mmol/L Chloride 104 (101-111) mmol/L Carbon Dioxide 25 (21-32) mmol/L Anion Gap 7.0 (6-13) BUN 13 (6-20) mg/dL Creatinine 0.8 (0.4-1.0) mg/dL Estimated GFR (MDRD) 72 L (>89) Glucose 188 H (70-100) mg/dL Calcium 7.7 L (8.5-10.3) mg/dL Phosphorus 2.6 (2.5-4.6) mg/dL Magnesium 1.7 (1.7-2.8) mg/dL Total Bilirubin 1.0 (0.2-1.0) mg/dL AST 44 H (10-42) IU/L ALT 32 (10-60) IU/L Alkaline Phosphatase 146 H (42-121) IU/L Total Protein 5.8 L (6.7-8.2) g/dL Albumin 3.1 L (3.2-5.5) g/dL Globulin 2.7 (2.1-4.2) g/dL Albumin/Globulin Ratio 1.1 (1.0-2.2) 01/04/17 Range/Units 21:25 WBC (4.8-10.8) x10^3/uL RBC (4.20-5.40) 10^6/uL Hgb (12.0-16.0) g/dL Hct (37.0-47.0) % MCV (81.0-99.0) fL MCH (27.0-31.0) pg MCHC (32.0-36.0) g/dL RDW (12.0-15.0) % Plt Count (130-450) 10^3/uL MPV (7.9-10.8) fL Neut # (1.5-6.6) 10^3/uL Lymph # (1.5-3.5) 10^3/uL [place] # (0.0-1.0) 10^3/uL Eos # (0.0-0.7) 10^3/uL Baso # (0.0-0.1) 10^3/uL Absolute Nucleated RBC x10^3/uL Nucleated RBCs /100WBC PT (9.9-12.6) secs INR (0.8-1.2) Sodium 138 (135-145) mmol/L Potassium 3.8 (3.5-5.0) mmol/L Chloride 105 (101-111) mmol/L Carbon Dioxide 24 (21-32) mmol/L Anion Gap 9.0 (6-13) BUN 13 (6-20) mg/dL Creatinine 0.7 (0.4-1.0) mg/dL Estimated GFR (MDRD) 84 L (>89) Glucose 183 H (70-100) mg/dL Calcium 8.1 L (8.5-10.3) mg/dL Phosphorus (2.5-4.6) mg/dL Magnesium (1.7-2.8) mg/dL Total Bilirubin (0.2-1.0) mg/dL AST (10-42) IU/L ALT (10-60) IU/L Alkaline Phosphatase (42-121) IU/L Total Protein (6.7-8.2) g/dL Albumin (3.2-5.5) g/dL Globulin (2.1-4.2) g/dL Albumin/Globulin Ratio (1.0-2.2) Assessment/Plan - Problem List (1) Femur fracture, right Impression: Day 1 s/p IM naiiling of R prox femeroal shaft fracture. Possibly pathologic Fx given bone scan findings in aug (HAS gotten Xgeva) Plan per ortho; PT mobilization ASA 325 BID for VTE prophylaxis per ortho (will d/c lovenox ordered at admit) has both SCD's and plexipulses on; will d/c the plexipulses Patient was hopeful for d/c even on day 1 post op, but per PT eval, notQUITE so enthusiastic to try stairs today so soon post op (2 steps to get into house. Likely dc in am OF note , HAS gotten Xgeva in past by Dr. Costello for bone mets (not exactly a bisphosphonate but works similarly Qualifiers: Encounter type: initial encounter Femur location: shaft Fracture type: closed Fracture morphology: unspecified fracture morphology Qualified Code(s ): S72.301A - Unspecified fracture of shaft of right femur, initial encounter for closed fracture (2) Anemia Impression: 300 EBL blood loss Hct 39> 31 reflects intraop blood loss (300)and dilution (1400 crystalloid intra op and 100cc /hr since minimal blood on gauze over hip hemodynamically stable (SBP a bit lower than admit 100-110,but asymptomatic), plaletets stable, consistent with baseline Other chronic problems; GERD, hypothyroidism; stable , hyperlipidemia; continue home meds (PPI and LT4, statin)
[2017-01-05] MEDS: ACETAMINOPHEN 325 MG TABLET PO PRN (15:10)
[2017-01-06] MEDS: PANTOPRAZOLE 40 MG TABLET PO SCH (06:03)
[2017-01-06] MEDS: LEVOTHYROXINE 25 MCG TABLET PO SCH (06:03)
[2017-01-06] MEDS: ACETAMINOPHEN 325 MG TABLET PO PRN (06:03)
[2017-01-06] MEDS: OMEGA-3 ACID ETHYL ESTERS 1 GM CAPSULE PO SCH ×3 (06:03→21:01)
[2017-01-06] MEDS: D5.45NS W/20 MEQ KCL 1,000 ML IV SCH (06:05)
[2017-01-06] MEDS: SODIUM CHLORIDE FLUSH 0.9% 10 ML SYRINGE IVP SCH ×5 (06:06→21:28)
[2017-01-06 06:46] LABS: BASOPHILS % (AUTO) 0.7 %; EOSINOPHILS # (AUTO) 0.1 10^3/uL (0.0-0.7); EOSINOPHILS % (AUTO) 1.7 %; HCT - HEMATOCRIT 27.3 % (37.0-47.0); HGB - HEMOGLOBIN 9.1 g/dL (12.0-16.0); LYMPHOCYTES # (AUTO) 0.5 10^3/uL (1.5-3.5); LYMPHOCYTES % (AUTO) 6.8 %; MEAN CORPUSCULAR HEMOGLOBIN 34.2 pg (27.0-31.0); MEAN CORPUSCULAR HGB CONC 33.3 g/dL (32.0-36.0); MEAN CORPUSCULAR VOLUME 102.7 fL (81.0-99.0); MEAN PLATELET VOLUME 9.6 fL (7.9-10.8); MONOCYTES # (AUTO) 1.2 10^3/uL (0.0-1.0); MONOCYTES % (AUTO) 15.8 %; NEUTROPHILS # (AUTO) 5.7 10^3/uL (1.5-6.6); NUCLEATED RED BLOOD CELLS AUTO 0.1 /100WBC; RED BLOOD COUNT 2.66 10^6/uL (4.20-5.40); UNCORRECTED WHITE BLOOD COUNT 7.5 x10^3/uL; WHITE BLOOD COUNT 7.5 x10^3/uL (4.8-10.8)
[2017-01-06 06:47] LABS: RED CELL DISTRIBUTION WIDTH 20.8 % (12.0-15.0)
[2017-01-06 06:52] LABS: ALBUMIN/GLOBULIN RATIO 1.3 (1.0-2.2); BILIRUBIN,TOTAL 1.3 mg/dL (0.2-1.0); CALCIUM 8.4 mg/dL (8.5-10.3); CREATININE 0.8 mg/dL (0.4-1.0); POTASSIUM 4.2 mmol/L (3.5-5.0); TOTAL PROTEIN 5.3 g/dL (6.7-8.2)
[2017-01-06] MEDS ORDERED: LEVOTHYROXINE 75 MCG TABLET PO SCH (07:00)
--- NOTE | 2017-01-06 08:56 | XRAY Report ---
TWO-VIEW RIGHT FEMUR: 01/06/2017 CLINICAL INDICATION: Right hip popping. FINDINGS: Frontal and lateral views of the right femur demonstrate dynamic compression screw and compa g IM gloria fixation of the proximal femoral fracture. Alignment is improved from preoperative films. There is no evidence of new fracture or hardware complication. IMPRESSION: EXPECTED POSTOPERATIVE APPEARANCE OF RIGHT FEMORAL FRACTURE FIXATION. JOB #: [id number] EXT JOB #:[id number]
[2017-01-06] MEDS: POLYETHYLENE GLYCOL 3350 17 GM PACKET PO SCH (09:40)
[2017-01-06] MEDS: CALCIUM CARBONATE CHEW 500 MG TABLET PO SCH ×2 (09:41→21:02)
[2017-01-06] MEDS: CHOLECALCIFEROL 1,000 UNIT TABLET PO SCH (09:41)
[2017-01-06] MEDS: UREA TOP SCH ×4 (09:41→21:28)
[2017-01-06] MEDS: ASPIRIN 325 MG TABLET PO SCH ×2 (09:41→17:26)
[2017-01-06] MEDS: ALPHA HYDROXY ACIDS TOP SCH ×4 (09:41→21:28)
--- NOTE | 2017-01-06 09:58 | PROVIDER PROGRESS NOTE ---
Subjective - Prog Note Date Prog Note Date: 01/06/17 Prog Note Time: 09:56 - Subjective Pt reports feeling: Improved (Less pain postop. Did note a "pop" in right thigh while ambulating last evening. Two additional minor "pops" last night. Minimal additional pain in leg. No distal weakness/nubness. Able to continue WB on leg.) Objective - Vital Signs/Intake & Output Vital Signs: Vital Signs x48h Temp Pulse Resp BP Pulse Ox 01/06/17 08:00 36.7 C 89 18 111/80 97 01/06/17 04:15 37.2 C 99 16 112/77 97 Intake & Output: Intake & Output 01/03/17 01/04/17 01/05/17 01/06/17 23:59 23:59 23:59 23:59 Intake Total 125 3851 948 Output Total 450 800 950 Balance -325 3051 -2 - Lab Results Fish Bones: 01/06/17 06:15 01/06/17 06:15 Other Labs: Lab Results x24hrs 01/06/17 01/06/17 Range/Units 06:15 06:15 WBC 7.5 (4.8-10.8) x10^3/uL RBC 2.66 L (4.20-5.40) 10^6/uL Hgb 9.1 L (12.0-16.0) g/dL Hct 27.3 L (37.0-47.0) % MCV 102.7 H (81.0-99.0) fL MCH 34.2 H (27.0-31.0) pg MCHC 33.3 (32.0-36.0) g/dL RDW 20.8 H (12.0-15.0) % Plt Count 88 L (130-450) 10^3/uL MPV 9.6 (7.9-10.8) fL Neut # 5.7 (1.5-6.6) 10^3/uL Lymph # 0.5 L (1.5-3.5) 10^3/uL [place] # 1.2 H (0.0-1.0) 10^3/uL Eos # 0.1 (0.0-0.7) 10^3/uL Baso # 0.0 (0.0-0.1) 10^3/uL Absolute Nucleated RBC 0.00 x10^3/uL Nucleated RBCs 0.1 /100WBC Sodium 139 (135-145) mmol/L Potassium 4.2 (3.5-5.0) mmol/L Chloride 108 (101-111) mmol/L Carbon Dioxide 27 (21-32) mmol/L Anion Gap 4.0 L (6-13) BUN 14 (6-20) mg/dL Creatinine 0.8 (0.4-1.0) mg/dL Estimated GFR (MDRD) 72 L (>89) Glucose 104 H (70-100) mg/dL Calcium 8.4 L (8.5-10.3) mg/dL Total Bilirubin 1.3 H (0.2-1.0) mg/dL AST 45 H (10-42) IU/L ALT 27 (10-60) IU/L Alkaline Phosphatase 135 H (42-121) IU/L Total Protein 5.3 L (6.7-8.2) g/dL Albumin 3.0 L (3.2-5.5) g/dL Globulin 2.3 (2.1-4.2) g/dL Albumin/Globulin Ratio 1.3 (1.0-2.2) - Diagnostic Imaging Diagnostic Imaging Comments: XR showed more impaction of fracture with now [id number] contact laterally. Hardware ok. Fracture alignment good. - Other Results/Comments Other Results/Comments: Exam Usual tenderness over incision. Dressings ok. No pain with hip rotation or flexion. N/V ok distally Assessment/Plan - Problem List (1) Metastatic breast cancer Impression: Doing ok post op. Suspect the "pop" she experienced while walking post op was the "settling" of her fracture as evidenced by her interval change seen on her repea RIGHT FEMUR XR. PLAN: Continue to mobilize as tolerated. Likely able to discharge in 1-2 days (2) Femur fracture, right Qualifiers: Encounter type: initial encounter Femur location: shaft Fracture type: closed Fracture morphology: unspecified fracture morphology Qualified Code(s ): S72.301A - Unspecified fracture of shaft of right femur, initial encounter for closed fracture
--- NOTE | 2017-01-06 11:37 | Discharge Plan ---
Discharge Plan Disposition: Home, Self Care Condition: Fair Prescriptions: HYDROcod/ACETAM 5/325 [[place] 5/325] 1 tab PO Q4HR PRN #20 tablet PRN Reason: Pain 5 to 7 Ferrous Sulfate 325 mg PO BID #28 tablet Diet: Regular Activity Restrictions: Wt Bearing as Tolerated Shower Restrictions: No Driving Restrictions: Yes (Dont drive until ok per surgeon) Additional Instructions or Follow Up instructions: Fracture of Right femur / Intramedullary nailing of right proximal femoral shaft fracture 01/04/[address] Silva for clot prevention (even though you are moving around quite well already) 325 mg (full dose aspirin) twice daily x 2 more weeks. FOLLOW UP: Contact orthopedic clinic for suture removal [phone] in 2 weeks For moderate pain, you have hydrocodone/acetaminophen 5/325 prescription. This can cause constipation While taking it, take the stool softener prescription 1-2 x daily that you already have at home We contacted one of Dr. Ramires partners at the [facility] (Dr. Jacinto) and he indicated to continue the Xeloda CONTACT Dr. Ramires office for follow up once he is back from [place] in early January No change in your other prescription medications. You did have a 300 cc blood loss and are a little anemic after surgery (some of this is still dilutional from IV fluid after surgery) Take iron twice daily x 2 weeks (as on med list/ available over the counter) to help with iron stores No Smoking: If you smoke, Please STOP! Call for help.
[2017-01-06] MEDS: CAPECITABINE 1500 MG PO SCH ×2 (14:29→17:26)
[2017-01-06] MEDS: HYDROcod/ACETAM 5/325 MG TABLET PO PRN (15:54)
--- NOTE | 2017-01-06 16:50 | PROVIDER PROGRESS NOTE ---
Subjective - Prog Note Date Prog Note Date: 01/06/17 Prog Note Time: 16:48 (late entry ; seen ~ 8a, noon, 3p) - Subjective Pt reports feeling: No change (still not keen on doing stairs denies light headedness or palpitations or chestpain or shortness of breath when up [place] a pop in her hip last alejandrina, DR Silva aware, and she says he had not concernt this was a hardware failure or anything serious. hasnt moved bowels yet.) Current Medications - Current Medications Current Medications: Active Medications Generic Name Dose Route Start Last Admin Trade Name Freq PRN Reason Stop Dose Admin Acetaminophen 650 mg 01/04/17 11:18 01/06/17 06:03 Tylenol PO 650 mg Q4HR PRN Administration Pain 1 to 4 Acetaminophen 650 - 975 mg 01/04/17 18:56 Tylenol PO Q4HR PRN PAIN Acetaminophen/Hydrocodone [place] 1 tab 01/04/17 11:18 01/06/17 15:54 [place] 5/325 PO 1 tab Q4HR PRN Administration Pain 5 to 7 Acetaminophen/Hydrocodone [place] 1 tab 01/04/17 11:18 [place] 10 Mg/325 Mg PO Q4HR PRN Pain 8 to 10 Aspirin 325 mg 01/05/17 08:00 01/06/17 09:41 Norma PO 325 mg BIDWM TRENT Administration Calcium Carbonate/Glycine 500 mg 01/04/17 21:00 01/06/17 09:41 Tums PO 500 mg BID TRENT Administration Cholecalciferol 2,000 unit 01/05/17 09:00 01/06/17 09:41 Vitamin D3 PO 2,000 unit DAILY TRENT Administration Docusate Sodium 100 mg 01/04/17 18:56 Colace 100mg Capsule PO BID PRN Constipation Heparin Sodium (Beef Lung) 30 - 50 unit 01/05/17 06:00 01/06/17 14:39 IVP 02/03/17 23:03 50 unit Q8HR TRENT Administration Hydromorphone HCl 1 mg 01/04/17 11:18 01/04/17 15:01 Dilaudid Inj IVP 1 mg Q2HR PRN Administration Pain 8 to 10 Acetaminophen 100 mls @ 400 mls/hr 01/04/17 18:56 01/05/17 03:32 Ofirmev IV 400 mls/hr Q6HR PRN Administration PAIN Levothyroxine Sodium 50 mcg 01/05/17 07:00 01/06/17 06:03 Synthroid PO 50 mcg Q48H TRENT Administration Levothyroxine Sodium 75 mcg 01/06/17 07:00 01/06/17 14:26 Synthroid PO Not Given Q48H TRENT Lidocaine/Prilocaine 1 applic 01/04/17 11:16 Emla 2.5% Cream TOP DAILY PRN PAIN Morphine Sulfate 2 mg 01/04/17 18:56 Morphine IVP Q2HR PRN Breakthrough Pain [id number] Ethyl Esters 1 gm 01/04/17 14:00 01/06/17 14:40 Lovaza PO 1 gm TID TRENT Administration Ondansetron HCl 4 mg 01/04/17 11:18 Zofran Inj IVP Q6HR PRN Nausea / Vomiting Ondansetron HCl 4 mg 01/04/17 18:56 Zofran Inj IVP Q6HR PRN Nausea / Vomiting Oxycodone/Acetaminophen 1 tab 01/04/17 18:56 01/06/17 00:24 Percocet 5 Mg/325 Mg PO 1 tab Q4HR PRN Administration PAIN Pantoprazole Sodium 40 mg 01/05/17 07:00 01/06/17 06:03 Protonix PO 40 mg QDAC TRENT Administration Capecitabine (Xeloda 1 each 01/04/17 21:00 01/06/17 14:29 ) 1500 Mg Tab PO Not Given BID TRENT Polyethylene Glycol 17 gm 01/05/17 09:00 01/06/17 09:40 Miralax PO 17 gm DAILY TRENT Administration Prochlorperazine Edisylate 10 mg 01/04/17 18:56 Compazine Inj IVP Q6HR PRN Nausea / Vomiting Promethazine HCl 25 mg 01/04/17 11:18 Phenergan Inj IM Q6HR PRN Nausea / Vomiting Senna 17.2 mg 01/04/17 18:56 Senokot PO Q12H PRN Constipation Sodium Chloride 10 ml 01/04/17 11:18 Normal Saline Flush 0.9% IVP PRN PRN NEEDED PER PROVIDER ORDERS Sodium Chloride 10 ml 01/04/17 14:00 01/06/17 14:40 Normal Saline Flush 0.9% IVP 10 ml Q8HR TRENT Administration Sodium Chloride 10 ml 01/04/17 18:56 Normal Saline Flush 0.9% IVP PRN PRN NEEDED PER PROVIDER ORDERS Sodium Chloride 10 ml 01/04/17 22:00 01/06/17 14:40 Normal Saline Flush 0.9% IVP 10 ml Q8HR TRENT Administration Urea 1 applic 01/04/17 13:00 01/06/17 14:29 Atrac-Tain TOP 1 applic QID TRENT Administration Zolpidem Tartrate 5 mg 01/04/17 11:18 Ambien PO QPM PRN Insomnia Calcium Carbonate [Calcium] 600 mg PO BID 01/06/13 Cholecalciferol (Vitamin D3) [Vitamin D3] 2,000 unit PO DAILY 01/06/13 Levothyroxine [Synthroid] 75 mcg PO Q48H 01/06/13 Multivitamins-Min/FA/Ginkgo [Women's 50+ Daily Formula Tab] 1 each PO DAILY [place]-3 Fatty Acids/Fish Oil [[place] 3 1,000 mg Softgel] 1 each PO TID 01/06/13 Omeprazole [PriLOSEC] 20 mg PO BID 01/06/13 Simvastatin [Zocor] 20 mg PO QPM 01/06/13 Levothyroxine [Synthroid] 50 mcg PO Q48H 04/22/13 Ondansetron HCl [Zofran] 4 - 8 mg PO Q8H PRN 02/03/14 Lidocaine/Prilocain 2.5% Cream [Emla 2.5% Cream] 1 applic TOP ONCE 10/13/15 Capecitabine [Xeloda] 1,500 mg PO BID 09/30/16 Urea [Ure-K] 1 applic TOP QID 11/18/16 Aspirin Chewable [[place]aki Aspirin] 1 tab PO DAILY 01/04/17 Objective - Vital Signs/Intake & Output Reviewed Vital Signs: Yes Vital Signs: Vital Signs x48h Temp Pulse Resp BP Pulse Ox 01/06/17 13:20 36.8 C 87 18 94/65 94 Intake & Output: Intake & Output 01/03/17 01/04/17 01/05/17 01/06/17 23:59 23:59 23:59 23:59 Intake Total 125 3851 1548 Output Total 450 800 950 Balance -325 3051 598 - Objective General Appearance: positive: Other (seen in am, afternoon, and later in evening , looks tired, "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 negative: Tenderness Skin: positive: Warm, Dry, Other (R hip w/ tegaderm intact, 2x2 w/ serosang drainage) - Lab Results Fish Bones: 01/06/17 06:15 01/06/17 06:15 Other Labs: Lab Results x24hrs 01/06/17 01/06/17 Range/Units 06:15 06:15 WBC 7.5 (4.8-10.8) x10^3/uL RBC 2.66 L (4.20-5.40) 10^6/uL Hgb 9.1 L (12.0-16.0) g/dL Hct 27.3 L (37.0-47.0) % MCV 102.7 H (81.0-99.0) fL MCH 34.2 H (27.0-31.0) pg MCHC 33.3 (32.0-36.0) g/dL RDW 20.8 H (12.0-15.0) % Plt Count 88 L (130-450) 10^3/uL MPV 9.6 (7.9-10.8) fL Neut # 5.7 (1.5-6.6) 10^3/uL Lymph # 0.5 L (1.5-3.5) 10^3/uL [place] # 1.2 H (0.0-1.0) 10^3/uL Eos # 0.1 (0.0-0.7) 10^3/uL Baso # 0.0 (0.0-0.1) 10^3/uL Absolute Nucleated RBC 0.00 x10^3/uL Nucleated RBCs 0.1 /100WBC Sodium 139 (135-145) mmol/L Potassium 4.2 (3.5-5.0) mmol/L Chloride 108 (101-111) mmol/L Carbon Dioxide 27 (21-32) mmol/L Anion Gap 4.0 L (6-13) BUN 14 (6-20) mg/dL Creatinine 0.8 (0.4-1.0) mg/dL Estimated GFR (MDRD) 72 L (>89) Glucose 104 H (70-100) mg/dL Calcium 8.4 L (8.5-10.3) mg/dL Total Bilirubin 1.3 H (0.2-1.0) mg/dL AST 45 H (10-42) IU/L ALT 27 (10-60) IU/L Alkaline Phosphatase 135 H (42-121) IU/L Total Protein 5.3 L (6.7-8.2) g/dL Albumin 3.0 L (3.2-5.5) g/dL Globulin 2.3 (2.1-4.2) g/dL Albumin/Globulin Ratio 1.3 (1.0-2.2) Assessment/Plan - Problem List (1) Femur fracture, right Impression: Day 2 s/p IM pinning Per Dr. Richards ok post op. "Suspect the "pop" she experienced while walking post op was the "settling" of her fracture as evidenced by her interval change seen on her repea RIGHT FEMUR XR." PLAN: Continue to mobilize as tolerated. Likely able to discharge in 1-[address] Silva indicated patient and PT could determine together if she felt ready for d /c home, but still not confident on stairs Calli will reeval in am Per Dr. Silva, continue asa 325 mg bid x 2 wks on d/c Qualifiers: Encounter type: initial encounter Femur location: shaft Fracture type: closed Fracture morphology: unspecified fracture morphology Qualified Code(s ): S72.301A - Unspecified fracture of shaft of right femur, initial encounter for closed fracture (2) Anemia Impression: 01/06 hgb/hct sl decrease today, hip dressing unremarkable scant blood, no hematoma, as noted this still mostly reflects fluid shifts, not further blood loss, will reequilabrate in a few days not symptomatic will rec 325 bid ferrous sulfate ~ 2 weeks (qd if GI symptoms w/ bid) 01/05 300 EBL blood loss Hct 39> 31 reflects intraop blood loss (300)and dilution (1400 crystalloid intra op and 100cc /hr since minimal blood on gauze over hip hemodynamically stable (SBP a bit lower than admit 100-110,but asymptomatic), plaletets stable, consistent with baseline Other chronic problems; GERD, hypothyroidism; stable , hyperlipidemia; continue home meds (PPI and LT4, statin) (3) Metastatic breast cancer Impression: spoke with oncologist at [facility] (DR Csotello is in [place]) OK for her to resume her xeloda (and of note, she has gotten xgeva in past, re: the bone matrix strength noted by Dr. Silva
[2017-01-07] MEDS: ACETAMINOPHEN 325 MG TABLET PO PRN (05:32)
[2017-01-07] MEDS: SODIUM CHLORIDE FLUSH 0.9% 10 ML SYRINGE IVP SCH ×3 (06:08→13:45)
[2017-01-07] MEDS: PANTOPRAZOLE 40 MG TABLET PO SCH (06:08)
[2017-01-07] MEDS: OMEGA-3 ACID ETHYL ESTERS 1 GM CAPSULE PO SCH (06:08)
[2017-01-07 06:30] LABS: BASOPHILS % (AUTO) 0.5 %; EOSINOPHILS # (AUTO) 0.1 10^3/uL (0.0-0.7); HCT - HEMATOCRIT 27.7 % (37.0-47.0); HGB - HEMOGLOBIN 9.3 g/dL (12.0-16.0); LYMPHOCYTES # (AUTO) 0.4 10^3/uL (1.5-3.5); LYMPHOCYTES % (AUTO) 4.9 %; MEAN CORPUSCULAR HEMOGLOBIN 34.3 pg (27.0-31.0); MEAN CORPUSCULAR HGB CONC 33.4 g/dL (32.0-36.0); MEAN CORPUSCULAR VOLUME 102.7 fL (81.0-99.0); MEAN PLATELET VOLUME 9.5 fL (7.9-10.8); MONOCYTES % (AUTO) 11.2 %; NEUTROPHILS # (AUTO) 7.4 10^3/uL (1.5-6.6); NEUTROPHILS % (AUTO) 82.4 %; NUCLEATED RED BLOOD CELLS AUTO 0.1 /100WBC; RED CELL DISTRIBUTION WIDTH 19.9 % (12.0-15.0)
[2017-01-07 06:43] LABS: ALBUMIN/GLOBULIN RATIO 1.1 (1.0-2.2); BILIRUBIN,TOTAL 1.9 mg/dL (0.2-1.0); CALCIUM 8.7 mg/dL (8.5-10.3); CREATININE 0.7 mg/dL (0.4-1.0); POTASSIUM 3.9 mmol/L (3.5-5.0); TOTAL PROTEIN 5.6 g/dL (6.7-8.2)
[2017-01-07] MEDS ORDERED: CYANOCOBALAMIN 1,000 MCG/ML VIAL IM ONE (07:58)
[2017-01-07 08:24] LABS: MAGNESIUM 1.7 mg/dL (1.7-2.8)
[2017-01-07] MEDS ORDERED: CAPECITABINE 500 MG PO SCH (09:00)
[2017-01-07] MEDS: CHOLECALCIFEROL 1,000 UNIT TABLET PO SCH (09:05)
[2017-01-07] MEDS: POLYETHYLENE GLYCOL 3350 17 GM PACKET PO SCH (09:05)
[2017-01-07] MEDS: ASPIRIN 325 MG TABLET PO SCH (09:05)
[2017-01-07] MEDS: CALCIUM CARBONATE CHEW 500 MG TABLET PO SCH (09:05)
[2017-01-07] MEDS: CAPECITABINE 1500 MG PO SCH (09:06)
[2017-01-07] MEDS: ALPHA HYDROXY ACIDS TOP SCH (09:06)
[2017-01-07] MEDS: UREA TOP SCH (09:06)
[2017-01-07] MEDS: HYDROcod/ACETAM 5/325 MG TABLET PO PRN (09:40)
[2017-01-07] MEDS ORDERED: MAGNESIUM SULFATE 2 GRAM 50 ML IV ONE (10:00)
[2017-01-07 12:06] VITALS: BP 117/74
--- NOTE | 2017-01-07 12:17 | XRAY Preliminary Report ---
Exam: XR Hip w/Pelvis 2-3V RT IMPRESSION: Patient has a known recent proximal right femoral diaphyseal fracture located approximately 4 cm infe rior to lesser trochanter on prior exam. 3 intraoperative images of the right femur demonstrate place ment of a femoral IM gloria, and a proximal interlocking screw extending into femoral head. [facility] SITE ID: [id number]
--- NOTE | 2017-01-07 12:19 | XRAY Report ---
EXAM: RIGHT HIP AND PELVIS RADIOGRAPHY EXAM DATE: 01/04/2017 06:26 PM. HISTORY: ORIF HIP RT. COMPARISONS: Right hip series 01/04/2017. TECHNIQUE: 3 intraoperative fluoroscopic views of right femur. FINDINGS/IMPRESSION: Patient has a known recent proximal right femoral diaphyseal fracture located approximately 4 cm infe rior to lesser trochanter on prior exam. 3 intraoperative images of the right femur demonstrate place ment of a femoral IM gloria, and a proximal interlocking screw extending into femoral head. CHRISTIANA Referring Provider Line: [phone] SITE ID: [id number]
--- NOTE | 2017-01-10 18:37 | DISCHARGE SUMMARY ---
DATE OF ADMISSION: 01/04/2017 DATE OF DISCHARGE: 01/07/2017 DISCHARGE PROVIDER: Maribel Gonzales APRN ADMITTING DIAGNOSES: Acute displaced and angulated proximal right femoral diaphysis fracture. DISCHARGE DIAGNOSES: 1. Acute status post fall ground level with right proximal third femoral shaft fracture. 2. Metastatic breast cancer. 3. Gastroesophageal reflux disease. 4. Metastasis to the liver secondary to metastatic breast cancer. 5. Mixed hyperlipidemia. 6. Hypothyroidism, unspecified. 7. Secondary hypertension with hyperlipidemia. CONSULTATIONS: Dr. Silva, Orthopedic; Physical and Occupational Therapy. PROCEDURES: OR for right hip fixation for right femoral diaphysis fracture. HOSPITAL COURSE AND TREATMENT: The patient is a very pleasant 66-year-old female who was admitted through the ER with complaint of right hip pain. The patient had been in her car on the way to work when she was getting in her car, putting weight on her leg and it gave way from out under her. The patient fell onto her right hip. As she was getting up, she felt pain in the right hip and was unable to ambulate appropriately. The patient came to the ER for evaluation. The patient was seen by Dr. Silva, with orthopaedics, for assessment of the right hip fracture. The patient was taken to surgery for fixation of the right hip. The patient's pain management and mobility postop was managed through Orthopedics. She did see physical and occupational therapy for assessment and assist with ambulation. Pain was managed with Vicodin and morphine. For the patient's gastroesophageal reflux disease she remained on Prilosec b.i.d., home medication. For her hyperlipidemia she resumed her home statin dose after surgery. For hypothyroidism she resumed her home dose of levothyroxine 50 mcg and alternating with 75 mcg. For her elevated diastolic blood pressure she continued to be monitored since she does not take any immediate blood pressure medication at the time. For hyperlipidemia she was managed with Zocor and aspirin. The patient did have supplements to include vitamin D3 and calcium carbonate, which continued while inpatient. The patient did have an underlying history with mild hypokalemia. At presentation to the ER that day her potassium was 3.5. Supplementation was given. Thrombocytopenia, platelet count was stable at that time and continued to be monitored prior to surgery. The patient also has slightly elevated liver enzymes, with transaminitis, which is likely related to her known liver metastasis. During the course of inpatient treatment the patient was continued as a FULL CODE. Postop venous thromboembolism prophylaxis was managed with Orthopedic Surgery. The day of discharge, the patient was anxious to go home. Vital signs were within normal limits. She was given discharge information by nursing, Orthopedics and hospitalist staff. She understood she is supposed to followup with Orthopedics and primary care provider within 1 week of discharge. PHYSICAL EXAMINATION: CONSTITUTIONAL: The patient was alert, in no acute distress. EYES: Pupils are equal, round and react to light and accommodation. Conjunctivae and sclerae was nonicteric, not injected. ENT: Nares are patent. No nasal discharge. Extraocular movements intact. NECK: Supple. No lymphadenopathy. Oral mucosa is moist. Dentures noted. RESPIRATORY: Breath sounds are clear and equal bilaterally to auscultation and percussion, no retractions or nasal flaring. CARDIOVASCULAR: S1, S2 noted. No gallops, murmurs or rubs. No lower extremity edema. SKIN: Warm, dry, intact. Normal turgor. No evidence of rash, lesions, or cellulitis. GASTROINTESTINAL: Abdomen was soft, nontender. Bowel sounds present. No hepatosplenomegaly. MUSCULOSKELETAL: EXTREMITIES: The right hip noted to have pain with palpation, otherwise no cyanosis. Pulses were palpable. SKIN: Warm, dry, intact. Normal turgor. No evidence rash, lesions, or cellulitis. PSYCHIATRIC: Behavior is appropriate. Normal affect, pleasant mood. HEMATOLOGIC: No active bleeding. The patient is hemodynamically stable. LYMPHATICS: No cervical, axillary, supraclavicular lymphadenopathy is noted. NEUROLOGIC: The patient was alert, GCS 15. Cranial nerves 2-12 grossly intact. Sensory was intact. MEDICATIONS AT TIME OF DISCHARGE: 1. Calcium carbonate. 2. [place] 3. 3. Omeprazole. 4. Aspirin. 5. Levothyroxine. 6. Vitamin D3. 7. Multivitamin. 8. Xeloda. 9. Zocor. 10. Zofran. 11. [place] 10/325. 12. Tylenol. 13. EMLA cream. 14. Ferrous sulfate. INSTRUCTIONS AND INFORMATION FOR DISCHARGE: 1. Activity to be as tolerated. The patient understands she is to followup with Orthopedics as she is status post right hip fracture. 2. DIET: The patient is to continue to follow a heart healthy diet. Drink plenty of fluids throughout the day, avoid soda and limit caffeine. Since the patient does have history of mixed hyperlipidemia, low fat is recommended. 3. Followup: The patient verbally understood she is to followup with primary care provider, and Orthopaedics within 1 week of discharge. She understands she is to take all home medications as prescribed. The patient understands she is to try to get as much sleep as possible, at least 8 hours at night. She was also given instructions for [id number] sleep aid medication melatonin. TIME SPENT for discharge instructions and education was 40 minutes. The patient was to go home with . The patient was stable at the time of discharge. CODE: THE PATIENT TO REMAIN A FULL CODE AT THIS TIME. JOB #: [id number] EXT JOB #:[id number] VICENTA
--- NOTE | 2017-03-06 14:14 | XRAY Report ---
[facility]: Fluoroscopy time only, no images submitted for interpretation. Fluoroscopy time 1 minute, 3 seconds. VICENTA
== END 2017-01-07 14:15 | disposition home or self-care (01) | DRG 481 ==
LOC: EDUNIT# → ED 09:53 → MS 11:18
PROVIDERS: ADMIT Nurse Practitioner; ATTEND Nurse Practitioner
PROC: 0QS806Z Reposition Right Femoral Shaft with Intramedullary Internal Fixation Device, Open Approach (ICD-10-PCS; principal; 2017-01-04 14:30)
DX: M84.451A Pathological fracture, right femur, initial encounter for fracture (principal); C79.51 Secondary malignant neoplasm of bone; C78.7 Secondary malignant neoplasm of liver and intrahepatic bile duct; K21.9 Gastro-esophageal reflux disease without esophagitis; E78.2 Mixed hyperlipidemia; E03.9 Hypothyroidism, unspecified; I10 Essential (primary) hypertension; E87.6 Hypokalemia; D69.6 Thrombocytopenia, unspecified; D50.0 Iron deficiency anemia secondary to blood loss (chronic); Z85.3 Personal history of malignant neoplasm of breast; Z79.82 Long term (current) use of aspirin; Z79.891 Long term (current) use of opiate analgesic; Z79.899 Other long term (current) drug therapy
CPT/HCPCS: 36415; 80048; 80053; 83540; 83735; 84100; 84466; 85025; 85610; 86850; 86900; 86901; 96374; 96375; 99283; 99284

== ENCOUNTER 2017-03-06 12:33 | Outpatient (CLI) | payer OTHER ==
[2017-03-06] MEDS ORDERED: IOPAMIDOL-300 50 ML VIAL PO ONE (15:44)
[2017-03-06] MEDS ORDERED: IOPAMIDOL-300 100 ML VIAL IVP ONE (15:44)
--- NOTE | 2017-03-07 14:38 | CT Report ---
CT OF THE NECK WITH CONTRAST: 03/06/2017 CLINICAL INDICATION: Metastatic breast cancer. COMPARISON: 06/04/2016. TECHNIQUE: Axial CT images of the neck were obtained with 100 mL of Isovue-300 intravenously. FINDINGS: The visualized orbital contents and paranasal sinuses are unremarkable. The vascular struc tures enhance normally. The nasopharynx, oropharynx, and hypopharynx appear unremarkable. No cervical lymphadenopathy is appreciated. The salivary glands and thyroid appear unremarkable. The tracheal ai r column is widely patent. The osseous structures demonstrate degenerative changes. IMPRESSION: NO EVIDENCE OF CERVICAL LYMPHADENOPATHY. NO SIGNIFICANT INTERVAL CHANGE. In accordance with CT protocol optimization, one or more of the following dose reduction techniques w ere utilized for this exam: automated exposure control, adjustment of mA and/or KV based on patient size, or use of iterative reconstructive technique. JOB #: [id number] EXT JOB #:[id number]
--- NOTE | 2017-03-07 14:38 | CT Report ---
CT OF THE CHEST WITH CONTRAST: 03/06/2017 CLINICAL INDICATION: Metastatic breast cancer. TECHNIQUE: Axial CT images of the chest were obtained with 100 mL of Isovue-300 intravenously. COMPARISON: 10/24/2016. FINDINGS: The heart and great vessels demonstrate minimal atherosclerotic calcification. No hilar or mediastinal lymphadenopathy is present. The lungs demonstrate minimal linear atelectasis at the base s. No pulmonary nodule or mass lesion is present. No effusion or pneumothorax. The osseous structures demonstrate degenerative changes. IMPRESSION: NO EVIDENCE OF METASTATIC DISEASE. NO SIGNIFICANT INTERVAL CHANGE. In accordance with CT protocol optimization, one or more of the following dose reduction techniques w ere utilized for this exam: automated exposure control, adjustment of mA and/or KV based on patient size, or use of iterative reconstructive technique. JOB #: [id number] EXT JOB #:[id number]
--- NOTE | 2017-03-07 14:38 | CT Report ---
CT OF THE ABDOMEN AND PELVIS WITH CONTRAST: 03/06/2017 CLINICAL INDICATION: Metastatic breast cancer. COMPARISON: 10/24/2016. TECHNIQUE: Axial CT images of the abdomen and pelvis were obtained with 100 mL of Isovue-300 intravenously as well as oral contrast. FINDINGS: ABDOMEN: The previously noted lesions in the liver have regressed, with the nodule at the dome of the right lobe measuring 5 mm (previously 7 mm), and the previously enlarging lesion in the left lobe now measuring 7 mm in maximal diameter (previously 12 mm). The liver again appears heterogeneous, with a lobular contour, suggestive of underlying cirrhosis. The spleen, pancreas, and adrenal glands appear unremarkable. The kidneys again demonstrate cortical cysts and extrarenal pelves. No bowel dilatation, free gas, or free fluid is present. No abdominal adenopathy is appreciated. PELVIS: A small amount of free fluid is noted in the pelvis, new from previous. No pelvic adenopathy is seen. The appendix is seen in the right lower quadrant, and is normal in caliber. The osseous structures demonstrate degenerative and postoperative changes, with new right hip fracture fixation. IMPRESSION: 1. INTERVAL REGRESSION OF HEPATIC LESIONS. 2. LOBULAR CONTOUR TO THE LIVER, SUGGESTIVE OF UNDERLYING CIRRHOSIS. 3. SMALL AMOUNT OF FREE FLUID IN THE PELVIS, NEW FROM PREVIOUS. In accordance with CT protocol optimization, one or more of the following dose reduction techniques were utilized for this exam: automated exposure control, adjustment of mA and/or KV based on patient size, or use of iterative reconstructive technique. JOB #: [id number] EXT JOB #: [id number] [facility]
== END 2017-03-06 12:34 | disposition home or self-care (01) ==
LOC: DI 12:33
PROVIDERS: ATTEND Internal Medicine Hematology & Oncology
DX: C50.911 Malignant neoplasm of unspecified site of right female breast (principal); C78.7 Secondary malignant neoplasm of liver and intrahepatic bile duct
CPT/HCPCS: 70491; 71260; 74177; Q9967

== ENCOUNTER 2017-03-07 10:08 | Outpatient (CLI) | payer OTHER ==
--- NOTE | 2017-03-10 18:26 | Nuclear Medicine Report ---
EXAM: BONE SCAN EXAM DATE: 03/07/2017 12:58 p.m. CLINICAL HISTORY: Metastatic right breast cancer to the liver. COMPARISON: 08/28/2016. TECHNIQUE: Following the intravenous administration of 26.8 mCi of technetium 99m MDP and an appropri ate delay, a whole-body scan was performed in anterior and posterior projections. Site-specific spot views of the region of interest were obtained in various projections. FINDINGS: Exam Quality: Normal overall osseous radiotracer uptake. Physiological tracer uptake in bilateral col lecting systems. Skull: No focal uptake. Thorax: No focal lesions in ribs or sternum. Pelvis: Intense proximal right femur activity compatible with hip fracture with fixation. Spine: No focal uptake in the cervical or thoracic or lumbar spine. IMPRESSION: 1. No new focal bone abnormalities concerning for metastatic bone disease. 2. New intense proximal right femur activity compatible with fracture with fixation. [facility] Referring Provider Line: [phone] SITE ID: [id number]
== END 2017-03-07 10:09 | disposition home or self-care (01) ==
LOC: DI 10:08
PROVIDERS: ATTEND Internal Medicine Hematology & Oncology
DX: C50.911 Malignant neoplasm of unspecified site of right female breast (principal); C78.7 Secondary malignant neoplasm of liver and intrahepatic bile duct
CPT/HCPCS: 78306; A9503; 70491; 71260; 74177

== ENCOUNTER 2017-07-03 09:02 | Outpatient (CLI) | payer OTHER ==
--- NOTE | 2017-07-03 16:38 | Nuclear Medicine Report ---
EXAM: BONE SCAN EXAM DATE: 07/03/2017 01:10 PM. CLINICAL HISTORY: Right breast cancer with metastatic disease to the liver. Evaluate bony metastatic staging. COMPARISON: 03/07/2017, 08/28/2016. TECHNIQUE: Following the intravenous administration of 33 mCi of technetium 99m MDP and an appropriat e delay, a whole-body scan was performed in anterior and posterior projections. Site-specific spot vi ews of the region of interest were obtained in various projections. FINDINGS: Exam Quality: Normal overall osseous radiotracer uptake. Physiological tracer uptake in bilateral col lecting systems. Skull: No focal uptake. Thorax: No focal lesions in ribs or sternum. Pelvis: No focal lesions. Spine: Small foci mild increased activity posterior mid cervical spine, stable and consistent with de generative facet arthropathy. Lower extremities: Stable to slightly decreased activity in the right proximal femur at the site of a previous fracture and repair. IMPRESSION: 1. Stable proximal right femoral activity consistent with healing fracture after repair. 2. No other scintigraphic evidence of osseous metastatic disease. [facility] Referring Provider Line: [phone] SITE ID: [id number]
== END 2017-07-03 09:03 | disposition home or self-care (01) ==
LOC: DI 09:02
PROVIDERS: ATTEND Internal Medicine Hematology & Oncology
DX: C50.911 Malignant neoplasm of unspecified site of right female breast (principal); C78.7 Secondary malignant neoplasm of liver and intrahepatic bile duct
CPT/HCPCS: 78306; A9503

== ENCOUNTER 2017-08-07 13:23 | Outpatient (CLI) | payer OTHER ==
--- NOTE | 2017-08-07 15:39 | CONSULTATION NOTE ---
Palliative Care Consultation - Referral Referring Provider: Dr. Juan Pablo Costello Time of Visit: [id number] [place] [facility] [place] Reason: Goals of Care/Metatastic Breast Cancer - Information Sources Records reviewed: Previous records reviewed History/Review of Systems obtained from: Patient, Family ( Shiva present for visit) Exam limitations: No limitations - History of Present Illness Brief History of Present Illness: This is a christian 67-year-old woman with metastatic breast cancer to the liver and bones. Her original diagnosis was actually in April 2002, for which she was treated with a lumpectomy and sentinel lymph node biopsy. She was at that point in time positive for metastatic disease with extranodal involvement. Over the years she has had multiple rounds of chemotherapy, with her liver metastases she has had white 90 liver directed therapy in August and September 2016. She had a right femur pathologic fracture in December 2016 with open reduction internal fixation followed by radiation which finished in April 2017. She is currently on single agent novel being, for which she has had significant pancytopenia and had to have her does help this week. She did present to the oncologist this last week with neurologic symptoms, including near syncope, she had a stat MRI that this was negative in findings. Her symptoms include severe fatigue, she is anemic with her hematocrit sitting at 26.7 and neutropenic with her WBCs at 1.0 and her neutrophils at 0.8. She does not present with any signs or symptoms of infection currently. She does have residual right hip pain from her pathological fracture, does not identify any other areas of discomfort. She does have intermittent shortness of breath, does not perceive herself as depressed, but has long-term been treated over the last several years, does recognize that there is an endpoint at some point. Medical/Surgical History - Past Medical History Cardiovascular: reports: None, Hypertension Respiratory: reports: None Neuro: reports: None Endocrine/Autoimmune: reports: HyPOthyroidism GI: reports: GERD : reports: None, Incontinence HEENT: reports: None Psych: reports: None Musculoskeletal: reports: Osteoarthritis Derm: reports: None MRSA Hx?: No - Past Surgical History General: reports: EGD, Colonoscopy Ortho: reports: Carpal Tunnel surgery HEENT: reports: Tonsil/Adenoidectomy Social History - Living Situation Living arrangement: At home Living Situation: With spouse/s.o. Support System: Her Shiva, who is retired, accompanies patient today. He is very quiet to the visit, feels that this is his baseline. She does have a daughter and son in the area that are quite supportive as well as 1 grandchild. She is well connected as far as relay for life, her work buddies, and friends and family. She has been on [employer] since 1997. She comes [place].She continues to try and work 3 days a week, her boss is quite supportive of this, and does find this as a good distraction and something to look forward to. She has been struggling as far as energy and fatigue, she tends to cope through use of humor and positive attitude. Family History - Family History Family History: Mother: (breast ca lung/liver 91; ), Cancer, Father: , Alzheimer's Disease, Sister: Alive and Well (breast and thyroid cancer ) Medications/Allergies - Medications Home Medications: Ambulatory Orders Medication Instructions Recorded Confirmed Calcium Carbonate [Calcium] 600 mg PO BID 01/06/13 08/07/17 Cholecalciferol (Vitamin D3) 2,000 unit PO DAILY 01/06/13 08/07/17 [Vitamin D3] Levothyroxine [Synthroid] 75 mcg PO Q48H 01/06/13 08/07/17 Multivitamins-Min/FA/Ginkgo 1 each PO DAILY 01/06/13 08/07/17 [Women's 50+ Daily Formula Tab] [place]-3 Fatty Acids/Fish Oil 1 each PO TID 01/06/13 08/07/17 [[place] 3 1,000 mg Softgel] Omeprazole [PriLOSEC] 20 mg PO BID 01/06/13 08/07/17 Levothyroxine [Synthroid] 50 mcg PO Q48H 04/22/13 08/07/17 Ondansetron HCl [Zofran] 8 mg SL Q8H PRN 02/03/14 08/07/17 Aspirin Chewable [St Zaki 1 tab PO DAILY 01/04/17 08/07/17 Aspirin] Acetaminophen [Tylenol] 650 - 975 mg PO Q4HR PRN #0 tablet 01/07/17 08/07/17 Lidocaine/Prilocain 2.5% Cream 1 applic TOP ONCE #1 tube 01/07/17 08/07/17 [Emla 2.5% Cream] Prochlorperazine Maleate 10 mg PO Q6H PRN 05/01/17 08/07/17 [Compazine] Polyethylene Glycol 3350 [Miralax] 17 gm PO PRN PRN 08/07/17 08/07/17 Senna [Senokot] 1 - 2 tab PO DAILY PRN 08/07/17 08/07/17 - Allergies Allergies/Adverse Reactions: Allergies Allergy/AdvReac Type Severity Reaction Status Date / Time everolimus [From Afinitor] Allergy Intermediate Rash Verified 01/04/17 11:04 shellfish derived Allergy Mild Respiratory Verified 01/04/17 11:04 Review of Systems - Constitutional Constitutional: reports: Fatigue, Weight loss (mild per report) - Ears, Nose & Throat Ears, Nose & Throat: reports: Dry mouth - Cardiovascular Cardiovascular: reports: Lightheadedness, Syncope (no further episodes since early in week), Exertional dyspnea, Decr. exercise tolerance - Respiratory Respiratory: reports: Cough (at night; about 5-6 weeks), SOB with exertion - Gastrointestinal Gastrointestinal: reports: Constipation (currently controlled), Nausea (with chemotherapy;currently okay), Bloating, Poor appetite, Early satiety - Musculoskeletal Musculoskeletal: reports: Limited range of motion (right hip), Muscle weakness - Integumentary Integumentary: reports: Dryness, Other (hands with residual cracking from SE xeloda) - Neurological Neurological: reports: General weakness - Psychiatric Psychiatric: reports: Anxiety (at times). denies: Depression - Endocrine Endocrine: reports: Intolerance to cold - Hematologic/Lymphatic Hematologic/Lymphatic: reports: Anemia. denies: Recurrent infections - All Other Systems All Other Systems: reports: Reviewed and negative Physical Exam - Vital Signs Pulse Rate: 87 Respiratory Rate: 18 Blood Pressure: 131/77 - Physical Exam General Appearance: positive: No acute distress Eyes Bilateral: positive: Normal inspection ENT: positive: Dry mucous membranes. negative: Pharyngeal erythema Neck: positive: No JVD, Trachea midline Cardiovascular: positive: Regular rate & rhythm Respiratory: positive: Diminished in bases (right greater than left). negative : Wheezes, Rhonchi Abdomen: positive: Nml bowel sounds, Other (fullness;) Skin: positive: Pallor, Dryness, Other (peeling and cracking of hands) Extremities: positive: Pedal edema Neurologic/Psychiatric: positive: Oriented x3, Mood/affect nml Palliative Care - POLST Patient has POLST: No Pain: Pain unchanged, Location (right hip; does not take anything currently), Severity (1/10) Tiredness/Fatigue: Mild (1-3) Drowsiness/Sedation: None Nausea: None Depression: None Anxiety: None Dyspnea: Mild (1-3) Anorexia: Mild (1-3) Sleep: Variable sleep pattern Constipation: Yes, Managed Feelings of wellbeing/Perceived Quality of Life: Good, Acceptable Performance Status: Patient is ambulatory, she does have gait disturbance given her right hip pain. She is able to attend her own ADLs. She does fatigue with household tasks but is still managing to work. PPS is 70%. - Palliative Care Discussion: Discussed at length patient's goals, she has been on and off treatment for over a decade. She would like to "keep ongoing". Though does seem to have some understanding that she is having more more limited options for oncology treatment. She has significant confidence in Dr. Costello, is somewhat disappointed that she was unable to get treatment this week. She reports she sander with humor, trying to keep a positive attitude. Does appear things are getting a little bit more difficult though with fatigue, and activity intolerance. She has also had some neuro symptoms with no known etiology.She reports she has her wheels done her DPOAE as her Shiva, we did discuss in the context of decision-making if they felt they had any things that they needed to talk further about. She reports she would not want to be supported on machines, current quality of life is acceptable, but would not want to be more dependent.Does report has intermittent depressive symptoms, and underlying anxiety at times, for the most part feels that she is last as she has been doing this journey for a long time and has had other friends and noted other patient's decline over the years. Results - Lab Results Lab results reviewed: Yes Impression and Recommendations - Palliative Care Impression: This is a christian 67-year-old woman with metastatic breast cancer to the liver, bone, currently receiving chemotherapeutic treatment. She does have pancytopenia as result of her most recent treatment, currently does not present with any signs or symptoms of infection. She actually presents with fairly low symptom burden, mostly insomnia, fatigue, and intermittent right hip pain as result of a pathologic fracture. She also has intermittent constipation. Her goals currently are to continue on therapy for as long as possible, hoping at some point they will find a cure for metastatic breast cancer. Though she is able to acknowledge the seriousness of her illness. Recommendations/Counseling Done: 1. Insomnia. Counseling regarding sleep hygiene practices, did discuss in the context of other interventions to try will try some light therapy in the morning with 30 minutes, counseling regarding benefit for resetting circadian rhythms particularly in the context of woman with breast cancer and actively receiving treatment. Patient has used melatonin in the past, if to restart instructed to try at 3 mg at at bedtime. She will at this later if needed. 2. Fatigue, this is multifactorial in origin. She does have anemia is currently been recently treated, does not present with any signs or symptoms of infection at this point in time. She has taken this week off of work, counseling to pace activities as well as to keep up with her hydration status. 3. Constipation. This is most prominent when taking her ondansetron and during chemotherapeutic times. Instructed to obtain MiraLAX use 17 g 1/2-1 capful daily for softening as well as senna 8.6 mg 1-2 tabs in the evening as the "push". Teaching and counseling regarding titrating her meds finished. 4. Neurologic symptoms. These appear to have resolved as of today. Patient does not presents that with headache, dizziness, or recurrent syncope. We did discuss patient's fluid status as a contributing factor, does agree he could be doing a little bit better with this. 5. Advanced care planning. Did broach conversations regarding goals of care, DPOAE for medical legal advisor, decisions in the context of what is acceptable quality of life. Will confirm have current directives and explore further what might be of help to support them in long-term planning. Time Spent: 75 minutes with greater than 50% of this done in counseling regarding goals of care, management of insomnia, constipation, and anticipatory guidance
== END 2017-08-07 13:24 | disposition home or self-care (01) ==
LOC: PC 13:23
PROVIDERS: ATTEND Nurse Practitioner Adult Health
DX: Z51.5 Encounter for palliative care (principal); G47.00 Insomnia, unspecified; R53.83 Other fatigue; K59.00 Constipation, unspecified; D64.9 Anemia, unspecified; C50.919 Malignant neoplasm of unspecified site of unspecified female breast; C78.7 Secondary malignant neoplasm of liver and intrahepatic bile duct; C79.51 Secondary malignant neoplasm of bone; D61.818 Other pancytopenia; M25.551 Pain in right hip; Z79.82 Long term (current) use of aspirin; M62.81 Muscle weakness (generalized); Z79.899 Other long term (current) drug therapy
CPT/HCPCS: 99205

== ENCOUNTER 2017-09-25 10:06 | Emergency (ER) | payer OTHER ==
--- NOTE | 2017-09-25 11:30 | ED Physician Documentation ---
History of Present Illness - Stated complaint Stated Complaint: NECK SWELLING - Chief complaint Chief Complaint: Heent - Additonal information Additional information: hx from pt 67 female metastatic breast CA followed at [facility] [place] a week ago she notice soft swelling L supraclavicular region seen by MAC prt tested and not leaking swelling went down now it is back went to [facility] [place] and snt to PMD who sent pt to the ER no fever no change in pain from the cancer Review of Systems Constitutional: denies: Fever, Chills Cardiac: reports: Other (swelling) PD PAST MEDICAL HISTORY - Past Medical History Past Medical History: Yes Cardiovascular: None, Hypertension Respiratory: None Neuro: None Endocrine/Autoimmune: HyPOthyroidism GI: GERD : None, Incontinence HEENT: None Psych: None Musculoskeletal: Osteoarthritis Derm: None - Past Surgical History Past Surgical History: Yes General: EGD, Colonoscopy Ortho: Carpal Tunnel surgery HEENT: Tonsil/Adenoidectomy - Present Medications Home Medications: Ambulatory Orders Medication Instructions Recorded Confirmed Calcium Carbonate [Calcium] 600 mg PO BID 01/06/13 09/22/17 Cholecalciferol (Vitamin D3) 2,000 unit PO DAILY 01/06/13 09/22/17 [Vitamin D3] Levothyroxine [Synthroid] 75 mcg PO Q48H 01/06/13 09/22/17 Multivitamins-Min/FA/Ginkgo 1 each PO DAILY 01/06/13 09/22/17 [Women's 50+ Daily Formula Tab] [place]-3 Fatty Acids/Fish Oil 1 each PO TID 01/06/13 09/22/17 [[place] 3 1,000 mg Softgel] Omeprazole [PriLOSEC] 20 mg PO BID 01/06/13 09/22/17 Levothyroxine [Synthroid] 50 mcg PO Q48H 04/22/13 09/22/17 Ondansetron HCl [Zofran] 8 mg SL Q8H PRN 02/03/14 09/22/17 Aspirin Chewable [St Zaki 1 tab PO DAILY 01/04/17 09/22/17 Aspirin] Acetaminophen [Tylenol] 650 - 975 mg PO Q4HR PRN #0 tablet 01/07/17 09/22/17 Lidocaine/Prilocain 2.5% Cream 1 applic TOP ONCE #1 tube 01/07/17 09/22/17 [Emla 2.5% Cream] Prochlorperazine Maleate 10 mg PO Q6H PRN 05/01/17 09/22/17 [Compazine] Polyethylene Glycol 3350 [Miralax] 17 gm PO PRN PRN 08/07/17 09/22/17 Senna [Senokot] 1 - 2 tab PO DAILY PRN 08/07/17 09/22/17 Enoxaparin [Lovenox] 70 mg SQ BID #28 syringe 09/25/17 - Allergies Allergies/Adverse Reactions: Allergies Allergy/AdvReac Type Severity Reaction Status Date / Time everolimus [From Afinitor] Allergy Intermediate Rash Verified 09/25/17 10:13 shellfish derived Allergy Mild Respiratory Verified 09/25/17 10:13 iron dextran complex AdvReac Severe Chest Pain Verified 09/25/17 10:13 [From Infed] - Social History Does the pt smoke?: No Smoking Status: Never smoker Does the pt drink ETOH?: Yes Does the pt have substance abuse?: No - Immunizations Immunizations are current?: Yes - POLST Patient has POLST: No PD ED PE NORMAL - Vitals Vital signs reviewed: Yes - General General: Alert and oriented X 3 - HEENT HEENT: PERRL - Neck Neck: Supple, no meningeal sign - Cardiac Cardiac: RRR, Other (soft swelling medial L supraclavicular region no specific nodes felt, distended jugular) - Respiratory Respiratory: No respiratory distress, Clear bilaterally - Abdomen Abdomen: Soft, Non tender Results - Vitals Vitals: Vital Signs - 24 hr 09/25/17 09/25/17 09/25/17 10:09 11:59 15:30 Temperature 36.6 C 36.5 C Heart Rate 85 79 68 Respiratory 16 16 16 Rate Blood Pressure 127/70 146/70 H 139/75 H O2 Saturation 98 94 99 Oxygen O2 Source [] Room air O2 Source Room air - Labs Labs: Laboratory Tests 09/25/17 11:50 Creatinine 0.8 Estimated GFR (MDRD) 72 L - Rads (name of study) CT neck and chest with IV con Radiology: See rad report (thrombus L EJ and s L IJ and probable L subclavian vein thrombus as well, correlate clincially for phelbitis or cellulitis (exam not suggest infection) increasing mediastinal adenopathy and cancer, SVC wnl) PD MEDICAL DECISION MAKING - ED course ED course: GFR was fine in August d/wp Dr Costello oncology and he rec lovenox 1 mg/kg sq bid and fup MAC next week Departure - Departure Disposition: Home, Self Care Clinical Impression: Thrombosis of left subclavian vein Thrombosis of internal and external jugular veins Qualifiers: Laterality: left Qualified Code(s): I82.C12 - Acute embolism and thrombosis of left internal jugular vein Condition: Good Instructions: Enoxaparin injection Prescriptions: Enoxaparin [Lovenox] 70 mg SQ BID #28 syringe Comments: The CT scan shows that your have blood clot in the veins of your neck and upper chest region. Due to those clots there is a lot of edema which is the swelling you can see on the surface There does not appear to be an infection. I discussed with Dr Costello and he would like you to start a blood thinner called lovenox which is a shot you give yourself twice a day And he will see you at the MAC next week
[2017-09-25 12:02] LABS: CREATININE 0.8 mg/dL (0.4-1.0)
[2017-09-25] MEDS ORDERED: IOPAMIDOL-300 100 ML VIAL ONE (12:13)
[2017-09-25] MEDS ORDERED: IOPAMIDOL-300 100 ML VIAL IVP ONE (13:09)
--- NOTE | 2017-09-25 14:10 | CT Preliminary Report ---
Exam: CT NECK SOFT TISSUE W/ Impression: 1. Thrombosis, lower left external jugular vein as described. The intraluminal thrombus extends into the left subclavian vein for about a centimeter, Rashard significant narrowing of the vein (see image 2 1 of series #4 closing. But not completely occluding it. There also is some extension into the medial aspect of the lower left internal jugular vein. The left brachiocephalic vein appears patent. 2. There is edema/stranding in the fat of the left supraclavicular fossa with extension into the uppe r left mediastinum. This probably represents edema related to the thrombosed left external jugular ve in. However, the possibility of thrombophlebitis with associated cellulitis cannot be excluded. Clini maricarmen correlation is required. SITE ID: [id number]
--- NOTE | 2017-09-25 14:16 | CT Preliminary Report ---
Exam: CT CHEST W/ IMPRESSION: 1. Acute or subacute thrombophlebitis involving the left external jugular veins, and probably the lef t subclavian/axillary veins as well. Moderate amount of adjacent circumferential edema. 2. Small amount of clot extending into the inferior most aspect of the left internal jugular vein. 3. Increasing bone metastasis right ninth rib. 4. New mild cardiomegaly. 5. Increasing shotty mediastinal adenopathy. 6. No mechanical compromise nor intraluminal clot of the superior vena cava. 7. Mild ascites. 8. Suspect new metastatic lesion right lobe of the liver. 9. Increasing omental densities and/or edema worrisome for metastatic disease. 10. New mild splenomegaly. 11. Small bilateral pleural effusions. [facility] The above findings were discussed with Dr Ely by Dr. Kiersten Morales at 14:14 hrs on 09/25/17. SITE ID: [id number]
[2017-09-25] MEDS ORDERED: ENOXAPARIN 80 MG/0.8 ML SYRINGE SUBQ STA (14:46)
--- NOTE | 2017-09-25 15:21 | CT Report ---
CT SOFT TISSUE NECK WITH CONTRAST INDICATION: 67-year-old female with metastatic breast cancer and left supraclavicular swelling. TECHNIQUE: 100 mL of Isovue-300 contrast were injected intravenously. The neck was scanned helically and data wa s reconstructed into 5 mm axial images. In addition, sagittal and coronal reformations have been gene rated. In accordance with CT protocol optimization, one or more of the following dose reduction techniques w ere utilized for this exam: automated exposure control, adjustment of mA and/or KV based on patient s ize, or use of iterative reconstructive technique. COMPARISON: 03/06/2017. FINDINGS: There has been interval development of intraluminal thrombus in a vein, located within the fat of the posterior triangle of the lower left neck. This appears to represent the lower aspect of the left ex ternal jugular vein. It was patent on the study of 03/06/2017. It now appears thrombosed over a dista nce of about 4.5 cm from about the level of the cricoid cartilage, inferiorly to the junction between this vein, the left subclavian vein and the lower left internal jugular vein (see image 21 of series 4). The thrombus within this vein appears to extend into the left subclavian vein for a short distan ce. In addition, there is extension into the medial aspect of the lower left internal jugular vein wi th associated mild narrowing of the lower left internal jugular vein. There is more significant narro wing in the left subclavian vein. The imaged left brachiocephalic vein appears patent. There is fairl y extensive stranding in the fat, within the left supraclavicular fossa, probably representing edema related to this venous thrombosis. However, the possibility of infection (i. e. thrombophlebitis) can not be excluded. No abscess is seen in the supraclavicular fossa. The edema extends into the upper l eft mediastinal fat. The right internal jugular vein appears patent. Right-sided chest port is identified in place. The im aged right subclavian vein and right brachiocephalic vein are patent. The nasopharyngeal and oropharyngeal soft tissues are symmetric. The oral tongue is obscured due to b eam-trevizo artifact from metal dental hardware. No tongue base mass is demonstrated. There is parame lit displacement of both focal cords, similar to previous examination. No enhancing laryngeal mass i s demonstrated. The imaged trachea is patent. The thyroid is small without a focal mass. The submandi bular and parotid glands are unremarkable. The carotid arteries and vertebral arteries appear patent. No significant lymphadenopathy is identified in the neck. In particular, no lymph nodes meeting the s ize criterion for malignancy are identified. For imaging of the included upper chest, please refer to the report for the patient's chest CT perfor med at same visit but dictated separately under accession [id number]. Degenerative changes are demonstrated in the cervical spine. The regional bony structures are otherwi se unremarkable. No lytic or destructive bone lesion is demonstrated. There appears to be a small amount of fluid in left-sided mastoid air cells. No evidence of bone dest ruction, overlying soft tissue swelling or other specific finding to suggest the possibility of activ e infection. The right mastoid and both middle ear cavities are essentially clear. Imaged paranasal s inuses appear clear. No mass is identified in either orbit. No obvious acute pathology is seen in the imaged brain. IMPRESSION: 1. Thrombosis, lower left external jugular vein as described. The intraluminal thrombus extends into the left subclavian vein for about one centimeter, causing significant narrowing of the vein (see salazar ge 21 of series 4) but not completely occluding it. There also is some extension into the medial aspe ct of the lower left internal jugular vein. The left brachiocephalic vein appears patent. 2. There is edema/stranding in the fat of the left supraclavicular fossa with extension into the uppe r left mediastinum. This probably represents edema related to the thrombosed left external jugular ve in. However, the possibility of thrombophlebitis with associated cellulitis cannot be excluded. Clini maricarmen correlation is required. Referring Provider Line: [phone] SITE ID: [id number]
[2017-09-25 15:31] VITALS: BP 139/75
--- NOTE | 2017-09-25 17:06 | CT Report ---
EXAM: CT CHEST EXAM DATE: 09/25/2017 01:10 PM. CLINICAL HISTORY: Metastatic breast cancer. Left supraclavicular swelling. COMPARISONS: 07/09/2017. TECHNIQUE: Routine helical CT imaging was performed through the chest. IV contrast: 100 mL Isovue-300 . Reconstructions: Coronal and sagittal. In accordance with CT protocol optimization, one or more of the following dose reduction techniques w ere utilized for this exam: automated exposure control, adjustment of mA and/or KV based on patient s ize, or use of iterative reconstructive technique. FINDINGS: Lungs/Pleura: New small bilateral pleural effusions. Chronic lung disease. No pulmonary nodules, focal consolidation nor pneumothorax. Mediastinum: Heart has increased in caliber, now mildly enlarged without significant pericardial fluid. New mild edema pretracheal region and posterior mediastinum. Increasing shotty pretracheal and aortopulmonary window lymph nodes, measuring less than 1 cm cross-s ectional diameter. Thoracic aorta is of normal caliber without dissection. No central filling defects within the pulmonary arterial vessels. Interval thrombosis of several left inferior external jugular vessels. Moderate amount of edema in th e left thoracic inlet and extending superiorly along the scalenes. Moderate amount of edema surroundi ng the left subclavian vessels down to the left axilla. Left subclavian artery is patent. No contrast in either subclavian vein although the left subclavian vein is less well defined due to t he adjacent edema. Superior vena cava of normal caliber without filling defects. Right jugular Port-A-Cath tip inferior third SVC. No mass lesions compromising the superior vena cava. Bones: Marked increasing caliber of the sclerotic lesion involving the anterior lateral aspect of the right ninth rib. Old left sixth rib fracture. Visualized Abdomen: New mild ascites. Cholecystectomy. New faint inhomogeneous enhancement over a 2 x 3 cm region dome right lobe of the liver, axial image 50. Stable 8 mm low density right lobe as well. New mild splenomegaly. 2 cm right renal cyst. New multiple ill-defined nodular densities in the omentum. Other: Prior right breast surgery. IMPRESSION: 1. Acute or subacute thrombophlebitis involving the left external jugular veins and probably the left subclavian/axillary veins as well. Moderate amount of adjacent circumferential edema. 2. Small amount of clot extending into the inferior-most aspect of the left internal jugular vein. 3. Increasing bone metastasis right ninth rib. 4. New mild cardiomegaly. 5. Increasing shotty mediastinal adenopathy. 6. No mechanical compromise nor intraluminal clot of the superior vena cava. 7. Mild ascites. 8. Suspect new metastatic lesion right lobe of the liver. 9. Increasing omental densities and/or edema worrisome for metastatic disease. 10. New mild splenomegaly. 11. Small bilateral pleural effusions. RADIA The above findings were discussed with Dr Ely by Dr. Kiersten Morales at 14:14 hrs on 09/25/17. Referring Provider Line: [phone] SITE ID: [id number]
== END 2017-09-25 16:30 | disposition home or self-care (01) ==
LOC: ED 10:06
DX: I82.B12 Acute embolism and thrombosis of left subclavian vein (principal); I82.C12 Acute embolism and thrombosis of left internal jugular vein; C79.81 Secondary malignant neoplasm of breast; C79.51 Secondary malignant neoplasm of bone; I10 Essential (primary) hypertension; E03.9 Hypothyroidism, unspecified; K21.9 Gastro-esophageal reflux disease without esophagitis; M19.90 Unspecified osteoarthritis, unspecified site
CPT/HCPCS: 36415; 70491; 71260; 82565; 96372; 99283; J1650; Q9967

== ENCOUNTER 2017-10-02 15:40 | Outpatient (CLI) | payer OTHER ==
--- NOTE | 2017-10-02 17:35 | CONSULTATION NOTE ---
Palliative Care Follow Up - Referral Referring Provider: Dr. Juan Pablo Costello Time of Visit: [id number] Referral setting: [facility] [place] Reason: Metastatic Breast Cancer - Information Sources Records reviewed: Previous records reviewed History/Review of Systems obtained from: Patient, Family (Shiva present for visit) Exam limitations: No limitations - History of Present Illness Update Brief HPI Update: This is a christian 67-year-old woman with metastatic breast cancer to the liver and bones. Her original diagnosis was actually in April 2002. She was originally treated with a lumpectomy and sentinel lymph node biopsy, she was at that time positive for metastatic disease with extranodal involvement. She had a lumpectomy, radiation therapy, and adjuvant chemotherapy as well as follow-up hormonal therapy. She did have further metastatic disease with a diagnosis of stage IV breast cancer to the bone only in February 2012. She has had multiple different kinds of chemotherapy and was diagnosed with metastatic disease to the liver in . She continues to have treatment, including Y 90 liver directed therapy in early 2016, she was on Xeloda maintenance therapy with poor tolerance and progression, she is currently finishing up novel being single agent. Most recently she was having symptoms of dizziness, she did actually present to the ER had a negative MRI of the brain. On 09/25 she did go to the ER with neck swelling in left clavicular area. She was found to have a thrombosis of the left external jugular vein, and intraluminal thrombosis that extended into the left subclavian vein as well as significant edema around the area. He did a CT of the chest as well and found new small bilateral pleural effusions, a sclerotic lesion involving the anterior aspect of the right rib abdominal ascites and a new suspected metastatic lesion of the right lobe of her liver. Of note she also had some increasing omental densities and/edema worrisome for metastatic disease. Patient was started on twice a day Lovenox, she is having some bruising on her abdomen at the site, her is administering the injections. The swelling is going down on examination it is only slightly tender, and only faintly noticeable. Her abdomen is somewhat distended, she does report some pressure, early satiety, I suspect this is related to her ascites. She still is having some dizziness particularly on arising. She does still have a low hematocrit at 24.6, she is keeping up with her fluids, and is currently receiving iron transfusions. Social History - Living Situation Living arrangement: At home Living Situation: With spouse/s.o. (continues to work 3 days a week; close with sisters and children; large community of friends) Medications/Allergies - Medications Home Medications: Ambulatory Orders Medication Instructions Recorded Confirmed Calcium Carbonate [Calcium] 600 mg PO BID 01/06/13 09/29/17 Cholecalciferol (Vitamin D3) 2,000 unit PO DAILY 01/06/13 09/29/17 [Vitamin D3] Levothyroxine [Synthroid] 75 mcg PO Q48H 01/06/13 09/29/17 Multivitamins-Min/FA/Ginkgo 1 each PO DAILY 01/06/13 09/29/17 [Women's 50+ Daily Formula Tab] Knott-3 Fatty Acids/Fish Oil 1 each PO TID 01/06/13 09/29/17 [Knott 3 1,000 mg Softgel] Omeprazole [PriLOSEC] 20 mg PO BID 01/06/13 09/29/17 Levothyroxine [Synthroid] 50 mcg PO Q48H 04/22/13 09/29/17 Ondansetron HCl [Zofran] 8 mg SL Q8H PRN 02/03/14 09/29/17 Acetaminophen [Tylenol] 650 - 975 mg PO Q4HR PRN #0 tablet 01/07/17 09/29/17 Lidocaine/Prilocain 2.5% Cream 1 applic TOP ONCE #1 tube 01/07/17 09/29/17 [Emla 2.5% Cream] Prochlorperazine Maleate 10 mg PO Q6H PRN 05/01/17 09/29/17 [Compazine] Polyethylene Glycol 3350 [Miralax] 17 gm PO PRN PRN 08/07/17 09/29/17 Senna [Senokot] 1 - 2 tab PO DAILY PRN 08/07/17 09/29/17 Enoxaparin [Lovenox] 70 mg SQ BID #28 syringe 09/25/17 09/29/17 Enoxaparin [Lovenox] 70 mg SUBQ Q12H 09/26/17 09/29/17 Enoxaparin [Lovenox] 100 mg SQ DAILY 09/29/17 09/29/17 - Allergies Allergies/Adverse Reactions: Allergies Allergy/AdvReac Type Severity Reaction Status Date / Time everolimus [From Afinitor] Allergy Intermediate Rash Verified 09/25/17 10:13 shellfish derived Allergy Mild Respiratory Verified 09/25/17 10:13 iron dextran complex AdvReac Severe Chest Pain Verified 09/25/17 10:13 [From Infed] Review of Systems - Constitutional Constitutional: reports: Fatigue, Poor appetite - Ears, Nose & Throat Ears, Nose & Throat: reports: Other (no difficulty with swallowing) - Cardiovascular Cardiovascular: reports: Chest pain (episode last week), Lightheadedness, Decr. exercise tolerance - Respiratory Respiratory: reports: SOB with exertion - Gastrointestinal Gastrointestinal: reports: Abdominal distention, Nausea (with last chemotherapy) , Reflux/heartburn, Bloating, Poor appetite, Early satiety - Genitourinary Genitourinary: denies: Incontinence - Musculoskeletal Musculoskeletal: reports: Stiffness, Muscle weakness - Integumentary Integumentary: reports: Dryness - Neurological Neurological: reports: General weakness, Abnormal gait (related to hip surgery) - Psychiatric Psychiatric: reports: Anxiety - Endocrine Endocrine: reports: Hypothyroidism - Hematologic/Lymphatic Hematologic/Lymphatic: reports: Anemia - All Other Systems All Other Systems: reports: Reviewed and negative Physical Exam - Vital Signs Temperature: 36.2 C Pulse Rate: 77 Respiratory Rate: 18 Blood Pressure: 124/72 - Physical Exam General Appearance: positive: Alert, Anxious Eyes Bilateral: positive: Conjunctivae nml, No scleral icterus ENT: positive: ENT inspection nml Neck: positive: No JVD, Trachea midline, Other (only a small amount of residual swelling in left neck area; slightly tender to touch) Cardiovascular: positive: Regular rate & rhythm Respiratory: positive: Diminished in bases. negative: Wheezes, Rales, Rhonchi Abdomen: positive: Soft, Nml bowel sounds, Distended Skin: positive: Pallor, Dryness, Other (bruising over site of lovenox injection ; left greater than right) Extremities: positive: No pedal edema Neurologic/Psychiatric: positive: Oriented x3, Mood/affect nml Palliative Care - POLST Patient has POLST: No Pain: No pain Tiredness/Fatigue: Moderate (4-6) Drowsiness/Sedation: None Nausea: None Depression: Mild (1-3) Anxiety: Moderate (4-6) Dyspnea: Mild (1-3) Anorexia: Mild (1-3) Sleep: Variable sleep pattern Constipation: Yes, Managed Feelings of wellbeing/Perceived Quality of Life: Fair, Acceptable, No change Performance Status: Patient does easily fatigue, does have dizziness from sitting to standing, she does have a somewhat awkward gait both from him some changes in her fatigue and weakness as well as her postop surgery. She is able to attend her own ADLs. - Palliative Care Discussion: Patient does present with some high anxiety about talking about end of life, though she herself actually is the one that introduced the topic this time. She did reported that Dr. Costello had asked her if she had ever thought about with deep. This actually was a great opening as far as being able to discuss the continuum of care, but her concerns are around end-of-life, and explained the with dignity process if she were indeed thinking of pursuing this. We did discuss at length the role of hospice and supporting people who choose to use medications as well as those who choose to focus on comfort and at home. She does have a sister who is a nurse, as well as several other sisters who are weighing in, her is withholding comment. Patient continues to hope for the best, her numbers are actually going down, though it does appear her tumor burden is going up. She is having her sisters come in November and is looking forward to that visit. Working on continuing to build rapport, patient has many questions that she tries to understand both her disease process and her impending decline and choices. Patient's perception is she has more than a year. Results - Lab Results Lab results reviewed: Yes Impression and Recommendations - Palliative Care Impression: This is a 67-year-old woman with metastatic breast cancer to the liver and bones. She has presented acutely to the ED with thrombosis, is currently now on lovenox. Her most recent scans do show progressive disease, though her tumor marker is improving. Patient is quite resilient and positive in her coping, though does appear anxious and has very thoughtful questions regarding her future. Palliative care to provide ongoing support and assist in establishing goals of care. Recommendations/Counseling Done: 1.New thrombosis. Patient currently on heparin, has been concerned about his administration and bruising noted on abdomen. Did discuss traveling across and can give it further up. He reports needles were fairly lengthy, it is difficult to modify this. Reassurance given on his technique, and answered questions regarding administration. 2. Constipation. Patient currently titrating medications appropriately no further intervention needed 3. Insomnia. Patient had tried the light therapy, found it was too harsh for her eyes, she currently feels like she is managing does not need further intervention as far as medications. 4. Early satiety. I suspect this is influenced by her ascites, and counseling given regarding frequent small meals and use of supplements for calories. 5. Advanced care planning. Did follow patient's lead as far as questions regarding end-of-life, with dignity, and end-of-life planning. Anticipatory guidance was provided. Time Spent: 45 minutes with greater than 50% of this done in counseling, follow-up and interpretation of information provided by ED, as well as symptom management and anticipatory guidance
== END 2017-10-02 15:41 | disposition home or self-care (01) ==
LOC: PC 15:40
PROVIDERS: ATTEND Nurse Practitioner Adult Health
DX: Z51.5 Encounter for palliative care (principal); I82.C12 Acute embolism and thrombosis of left internal jugular vein; G47.00 Insomnia, unspecified; R68.81 Early satiety; F41.9 Anxiety disorder, unspecified; C50.919 Malignant neoplasm of unspecified site of unspecified female breast; C78.7 Secondary malignant neoplasm of liver and intrahepatic bile duct; C79.51 Secondary malignant neoplasm of bone; R42 Dizziness and giddiness; R53.83 Other fatigue; E03.9 Hypothyroidism, unspecified; D64.9 Anemia, unspecified; K21.9 Gastro-esophageal reflux disease without esophagitis; M62.81 Muscle weakness (generalized); Z79.01 Long term (current) use of anticoagulants; Z92.3 Personal history of irradiation; Z92.21 Personal history of antineoplastic chemotherapy
CPT/HCPCS: 99215

== ENCOUNTER 2017-10-16 10:56 | Outpatient (CLI) | payer OTHER ==
--- NOTE | 2017-10-16 16:50 | CONSULTATION NOTE ---
Palliative Care Follow Up - Referral Referring Provider: Dr. Juan Pablo Costello Time of Visit: 06-29 Referral setting: [facility] [place]erral Reason: Metastatic Breast Cancer/ Goals of Care - Information Sources Records reviewed: Previous records reviewed History/Review of Systems obtained from: Patient, Family ( Shiva at visit ) Exam limitations: No limitations - History of Present Illness Update Brief HPI Update: This is a christian 67-year-old woman with metastatic breast cancer to the liver and bones. She was initially treated stage II right breast cancer in 04/2002. She recurrent disease with bone metastases only on 02/2012, and diagnosed with liver metastases 11/2015. She has been undergoing treatment on multiple agents , she is also received Y90 liver directed therapy early 2016. She most recently was on Xeloda for maintenance, with significant side effects. She has currently been on a break but will be initiating Cytoxan and methotrexate next week. She has had a negative MRI of the brain, as she was having symptoms of dizziness. She continues to have intermittent dizziness but not as severe. 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 She is currently on Lovenox for this. She does have insight and understanding, that she is getting to the end of her treatment options, though she remains optimistic and hopeful that she will continue to respond and other options may emerge. She presents overall with fairly low symptom burden, mostly fatigue, but continues to struggle with anticipatory grief and mild anxiety Social History - Living Situation Living arrangement: At home Living Situation: With spouse/s.o. Medications/Allergies - Medications Home Medications: Ambulatory Orders Medication Instructions Recorded Confirmed Calcium Carbonate [Calcium] 600 mg PO BID 01/06/13 10/13/17 Cholecalciferol (Vitamin D3) 2,000 unit PO DAILY 01/06/13 10/13/17 [Vitamin D3] Levothyroxine [Synthroid] 75 mcg PO Q48H 01/06/13 10/13/17 Multivitamins-Min/FA/Ginkgo 1 each PO DAILY 01/06/13 10/13/17 [Women's 50+ Daily Formula Tab] [place]-3 Fatty Acids/Fish Oil 1 each PO TID 01/06/13 10/13/17 [[place] 3 1,000 mg Softgel] Omeprazole [PriLOSEC] 20 mg PO BID 01/06/13 10/13/17 Levothyroxine [Synthroid] 50 mcg PO Q48H 04/22/13 10/13/17 Ondansetron HCl [Zofran] 8 mg SL Q8H PRN 02/03/14 10/13/17 Acetaminophen [Tylenol] 650 - 975 mg PO Q4HR PRN #0 tablet 01/07/17 10/13/17 Lidocaine/Prilocain 2.5% Cream 1 applic TOP ONCE #1 tube 01/07/17 10/13/17 [Emla 2.5% Cream] Prochlorperazine Maleate 10 mg PO Q6H PRN 05/01/17 10/13/17 [Compazine] Polyethylene Glycol 3350 [Miralax] 17 gm PO PRN PRN 08/07/17 10/13/17 Senna [Senokot] 1 - 2 tab PO DAILY PRN 08/07/17 10/13/17 Enoxaparin [Lovenox] 100 mg SQ DAILY 09/29/17 10/13/17 Cyclophosphamide 50 mg PO DAILY 10/15/17 10/15/17 Methotrexate [Methotrexate] 2.5 mg PO ONCE 10/15/17 10/15/17 - Allergies Allergies/Adverse Reactions: Allergies Allergy/AdvReac Type Severity Reaction Status Date / Time everolimus [From Afinitor] Allergy Intermediate Rash Verified 09/25/17 10:13 shellfish derived Allergy Mild Respiratory Verified 09/25/17 10:13 iron dextran complex AdvReac Severe Chest Pain Verified 09/25/17 10:13 [From Infed] Review of Systems - Constitutional Constitutional: reports: Fatigue, Poor appetite, Weight loss - Ears, Nose & Throat Ears, Nose & Throat: reports: Dry mouth - Cardiovascular Cardiovascular: reports: Lightheadedness, Exertional dyspnea, Decr. exercise tolerance - Respiratory Respiratory: reports: Cough (dry non productive), SOB with exertion - Gastrointestinal Gastrointestinal: reports: Abdominal distention, Bloating, Poor appetite, Early satiety - Genitourinary Genitourinary: denies: Incontinence - Musculoskeletal Musculoskeletal: reports: Muscle aches, Stiffness, Limited range of motion, Muscle weakness - Integumentary Integumentary: reports: Dryness, Nail changes - Neurological Neurological: reports: General weakness, Headache, Memory problems - Psychiatric Psychiatric: reports: Anxiety - Hematologic/Lymphatic Hematologic/Lymphatic: reports: Anemia. denies: Recurrent infections - All Other Systems All Other Systems: reports: Reviewed and negative Physical Exam - Physical Exam General Appearance: positive: No acute distress, Alert Eyes Bilateral: positive: Normal inspection ENT: positive: No signs of dehydration Neck: positive: No JVD, Trachea midline Cardiovascular: positive: Regular rate & rhythm Respiratory: positive: Breath sounds nml, Diminished in bases Abdomen: positive: Soft, Nml bowel sounds, Distended Skin: positive: Pallor, Dryness, Other (peeling of hands/feet continues) Extremities: positive: No pedal edema Neurologic/Psychiatric: positive: Oriented x3, Weakness Palliative Care - POLST Patient has POLST: Yes POLST Status: DNR, Selective Treatment Pain: No pain Tiredness/Fatigue: Mild (1-3) Drowsiness/Sedation: None Nausea: None Depression: None Anxiety: None Dyspnea: Mild (1-3) Anorexia: Mild (1-3) Sleep: Variable sleep pattern Constipation: No Feelings of wellbeing/Perceived Quality of Life: Good, Acceptable Performance Status: Patient is independent in all ADLs, she has continued to work several times a week depending on her energy. Does find this a supportive environment and helpful as far as her ongoing coping - Palliative Care Discussion: Patient did complete a RHONDA ST, with selective treatments. She did this with Dr. Costello, at the initiation of when the oncology nurses. They did not complete the back side. We did discuss at length and context of her goals, and help to further her understanding regarding the role of the pulse and to clarify her goals. She is quite clear when it hurts time she would like to allow natural , would like to consider a at home with hospice. The continue to explore the continuum of care regarding this, and interpret this for her. She is very much looking forward to time with her sisters, counseling regarding Legacy work, and anticipatory guidance. She does feel it would be of help to have a conversation and support for her daughter, she has been living with this disease along. It time and has some anxiety about her understanding the seriousness and what is to come. They are preparing for travel in January, patient is "plantar", agreed would follow up on some of her questions regarding her Lovenox for her. Results - Lab Results Lab results reviewed: Yes Impression and Recommendations - Palliative Care Impression: This is a christian 67-year-old woman with metastatic breast cancer to the liver and bones. She is to start Cytoxan and methotrexate next week, she has residual fatigue, and continues to explore questions regarding her future. Palliative care to provide support for symptom management and anticipatory guidance. Recommendations/Counseling Done: 1. Metastatic breast cancer with liver and bone metastases. Follow-up with Dr. Costello regarding CT scan of abdomen if indicated, Patient does present with fullness in her abdomen as well as early satiety and recent findings on her CT of her chest. Patient to start Cytoxan and methotrexate, she is to start this Friday. Has not met for chemo teaching, did provide teaching she is on Cytoxan and methotrexate, and strategies for taking as patient does not always eat breakfast. She has been on oral medications before, and does understand safety implications. 2. Fatigue. This is multifactorial in origin, she has remains fairly significantly anemic. This does result in some breathlessness, mild dizziness, and poor activity tolerance. Instruction on pacing activities to tolerance, as well as caution getting from sitting to standing. Encouraged to continue keep up her fluids as well as calories. 3.weight loss. She does have early satiety, we did discuss given she is to restart chemotherapy the need to focus again on nutrition for support. She does have some strategies, encouraged again small frequent meals and supplements as indicated. 4. Advanced care planning. RHONDA BALLESTEROS, completed with oncologist. Follow-up teaching and counseling regarding goals of care and implications of this. Request to bring it in so we can complete the back. Counseling regarding addressing questions around the continuum of care, family support, and planning for her trip in the future, encouraged to continue goal setting and planning. Time Spent: 60 minutes with greater than 50% of this done in counseling and addressing patient's questions regarding anticipatory guidance and follow-up on chemotherapy.
== END 2017-10-16 10:57 | disposition home or self-care (01) ==
LOC: PC 10:56
PROVIDERS: ATTEND Nurse Practitioner Adult Health
DX: Z51.5 Encounter for palliative care (principal); C50.919 Malignant neoplasm of unspecified site of unspecified female breast; C78.7 Secondary malignant neoplasm of liver and intrahepatic bile duct; C79.51 Secondary malignant neoplasm of bone; R53.83 Other fatigue; R63.4 Abnormal weight loss; R42 Dizziness and giddiness; I82.C12 Acute embolism and thrombosis of left internal jugular vein; I82.B12 Acute embolism and thrombosis of left subclavian vein; M62.81 Muscle weakness (generalized); D64.9 Anemia, unspecified; F41.9 Anxiety disorder, unspecified; Z66 Do not resuscitate
CPT/HCPCS: 99215

== ENCOUNTER 2017-12-18 11:01 | Outpatient (CLI) | payer OTHER ==
--- NOTE | 2017-12-18 20:16 | CONSULTATION NOTE ---
Palliative Care Follow Up - Referral Referring Provider: Dr. Juan Pablo Costello Time of Visit: Referral setting: [facility] – [place] Referral Reason: Metastatic Breast Cancer - Information Sources Records reviewed: RN notes reviewed, Previous records reviewed History/Review of Systems obtained from: Patient, Family Exam limitations: No limitations - History of Present Illness Update Brief HPI Update: This is a christian 67-year-old woman with metastatic breast cancer to the liver and bones, she has undergone multiple rounds of chemotherapy, as well as Y90 directed liver therapy. She is currently on maintenance Cytoxan/methotrexate since 10/2017. She is tolerating her treatment with minimal nausea or side effects. She does remain somewhat anemic, but has had no infections, or further complications. 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 She has no further residual swelling or discomfort in that area. She does have insight and understanding that she is getting to the end of her treatment options, though she remains quite optimistic and hopeful and continues to set goals including upcoming travel plans to [place]. Her main complaint today is right shoulder discomfort. She does have limited range of motion, this is most bothersome with reaching or extension over her head. It is interfering with her dressing. She is considering cortisone injection to her shoulder to see if it improves. She does present with low symptom burden, no symptoms of depression or anxiety, and continues to work based on her fluctuating energy status. Social History - Living Situation Living arrangement: At home Living Situation: With spouse/s.o. Medications/Allergies - Medications Home Medications: Ambulatory Orders Medication Instructions Recorded Confirmed Calcium Carbonate [Calcium] 600 mg PO BID 01/06/13 12/18/17 Cholecalciferol (Vitamin D3) 2,000 unit PO DAILY 01/06/13 12/18/17 [Vitamin D3] Levothyroxine [Synthroid] 75 mcg PO Q48H 01/06/13 12/18/17 Multivitamins-Min/FA/Ginkgo 1 each PO DAILY 01/06/13 12/18/17 [Women's 50+ Daily Formula Tab] [place]-3 Fatty Acids/Fish Oil 1 each PO TID 01/06/13 12/18/17 [[place] 3 1,000 mg Softgel] Omeprazole [PriLOSEC] 20 mg PO BID 01/06/13 12/18/17 Levothyroxine [Synthroid] 50 mcg PO Q48H 04/22/13 12/18/17 Ondansetron HCl [Zofran] 8 mg SL Q8H PRN 02/03/14 12/18/17 Acetaminophen [Tylenol] 650 - 975 mg PO Q4HR PRN #0 tablet 01/07/17 12/18/17 Lidocaine/Prilocain 2.5% Cream 1 applic TOP ONCE #1 tube 01/07/17 12/18/17 [Emla 2.5% Cream] Prochlorperazine Maleate 10 mg PO Q6H PRN 05/01/17 12/18/17 [Compazine] Polyethylene Glycol 3350 [Miralax] 17 gm PO PRN PRN 08/07/17 12/18/17 Senna [Senokot] 1 - 2 tab PO DAILY PRN 08/07/17 12/18/17 Enoxaparin [Lovenox] 100 mg SQ DAILY 09/29/17 12/18/17 Cyclophosphamide 50 mg PO DAILY 10/15/17 12/18/17 Methotrexate [Methotrexate] 2.5 mg PO .MON 10/15/17 12/18/17 - Allergies Allergies/Adverse Reactions: Allergies Allergy/AdvReac Type Severity Reaction Status Date / Time everolimus [From Afinitor] Allergy Intermediate Rash Verified 09/25/17 10:13 shellfish derived Allergy Mild Respiratory Verified 09/25/17 10:13 iron dextran complex AdvReac Severe Chest Pain Verified 09/25/17 10:13 [From Infed] Review of Systems - Constitutional Constitutional: reports: Fatigue, Weight stable (146.5) - Ears, Nose & Throat Ears, Nose & Throat: denies: Mouth lesions - Cardiovascular Cardiovascular: reports: Decr. exercise tolerance - Respiratory Respiratory: reports: SOB with exertion - Gastrointestinal Gastrointestinal: reports: Reflux/heartburn, Good appetite. denies: Constipation, Diarrhea - Genitourinary Genitourinary: denies: Incontinence - Musculoskeletal Musculoskeletal: reports: Limited range of motion (right shoulder new last few weeks;), Muscle weakness - Integumentary Integumentary: reports: Hair changes (reports some thinning) - Neurological Neurological: denies: Dizziness - Psychiatric Psychiatric: reports: Anxiety (mild). denies: Depression - Hematologic/Lymphatic Hematologic/Lymphatic: reports: Anemia (hct 32.1; hgb 29.5), Other (alk phos 291 ) - All Other Systems All Other Systems: reports: Reviewed and negative Physical Exam - Vital Signs Pulse Rate: 70 Respiratory Rate: 18 O2 Saturation: 99 (ra @ rest) Blood Pressure: 117/69 - Physical Exam General Appearance: positive: No acute distress, Alert Eyes Bilateral: positive: Normal inspection ENT: positive: No signs of dehydration Neck: positive: Nml inspection (no residual swelling from thrombosis left side) Cardiovascular: positive: Regular rate & rhythm Respiratory: positive: Breath sounds nml Abdomen: positive: Non-tender, Soft, Nml bowel sounds, Distended Skin: positive: Pallor, Dryness Extremities: positive: No pedal edema, Other (gait impacted by left hip surgery ; limited ROM right shoulder/arm) Neurologic/Psychiatric: positive: Oriented x3, Mood/affect nml Palliative Care - POLST Patient has POLST: Yes POLST Status: DNR, Selective Treatment Pain: Location (new discomfort in shoulder right/movement only not needing medication) Tiredness/Fatigue: Moderate (4-6) (paces activities) Drowsiness/Sedation: None Nausea: Moderate (4-6) (mostly with lunch or larger meals; ODT zofran about once a day with good effect) Depression: None Anxiety: Mild (1-3) Dyspnea: None Anorexia: None Sleep: Sleeps well Constipation: No Feelings of wellbeing/Perceived Quality of Life: Good, Acceptable, No change Performance Status: Patient independent in all the ADLs. She does have some activity intolerance, at this point in time she just paces her activity. She does use wheelchair for long distances particular when she had her family visiting. She did get over fatigued, but recognizes limitations. - Palliative Care Discussion: Discussion and counseling regarding normal grief and loss, setting goals, and coping. Addressed patient's questions and concerns, continues to stay engaged in community and family. Patient without high symptom burden, remains quite hopeful, but does recognize the seriousness of her illness. Results - Lab Results Lab results reviewed: Yes Impression and Recommendations - Palliative Care Impression: This is a 67-year-old woman with metastatic breast cancer to the liver and the bones, she does appear to be tolerating her current maintenance chemotherapy. She does recognize she is running out of options, but remains quite hopeful and optimistic though realistic. She is setting goals, plans to travel to [place] at the end of January, staying connected to her community and family. She has low symptom burden, her most significant complaint is her new limited range of motion and discomfort in her right shoulder. Palliative care to provide support and anticipatory guidance on intermittent basis. Recommendations/Counseling Done: 1. Right shoulder pain. Patient does appear to have some point tenderness and limitation of range of motion. Does impact her ADLs, and is patient's biggest complaint currently. Called to Dr. Beebe's office, follow-up with office staff that he does do injections, requested patient follow up with primary care to evaluate appropriateness. 2. Metastatic breast cancer with liver and bone metastases. Patient currently being maintained on her current regimen, continue to monitor through tumor marker, patient is pancytopenic but other than fatigue is tolerating this fine. No recent symptoms of infection, and remains functional. Addressed patient's questions regarding anticipatory guidance. 3. Advanced care planning. Patient does have a RHONDA ST with DNA R/selected treatment. She did fill this out with Dr. Costello, she is requested to bring in the original to be able to further expand on backseat as well as define goals of care. Counseling to provide normal isolation of grief and loss experiences, as well as dealing with anxiety regarding the future Time Spent: 45 minutes with greater than 50% of this done in counseling regarding normalizing feelings of grief and loss, exploring goals of care, and anticipatory guidance
== END 2017-12-18 11:02 | disposition home or self-care (01) ==
LOC: PC 11:01
PROVIDERS: ATTEND Nurse Practitioner Adult Health
DX: Z51.5 Encounter for palliative care (principal); M25.511 Pain in right shoulder; C50.911 Malignant neoplasm of unspecified site of right female breast; C78.7 Secondary malignant neoplasm of liver and intrahepatic bile duct; C79.51 Secondary malignant neoplasm of bone; Z66 Do not resuscitate; Z79.01 Long term (current) use of anticoagulants; Z79.899 Other long term (current) drug therapy; Z86.718 Personal history of other venous thrombosis and embolism
CPT/HCPCS: 99215

== ENCOUNTER 2018-01-21 01:07 | Inpatient (IN) | payer OTHER, MEDICARE ==
[2018-01-21] MEDS ORDERED: SODIUM CHLORIDE 0.9% 1,000 ML IV ONE (01:16)
[2018-01-21] MEDS ORDERED: PANTOPRAZOLE 40 MG VIAL IVP STA (01:16)
[2018-01-21] MEDS ORDERED: ONDANSETRON 4 MG/2 ML VIAL IVP STA ×2 (01:16→02:32)
--- NOTE | 2018-01-21 01:38 | ED Physician Documentation ---
PD HPI GI BLEED - Stated complaint Stated Complaint: VOMITING BLOOD - Chief complaint Chief Complaint: Abd Pain - History obtained from History obtained from: Patient, Family - History of Present Illness Timing - onset: Today Timing - details: Abrupt onset, Intermittant Associated symptoms: Hematemesis Contributing factors: Anticoagulated. No: Sick contact, Bad food, Alcohol use Similar symptoms before: Has not had sx before Recently seen: Not recently seen - Additional information Additional information: Patient is a 67 year old female with a history of metastatic breast ca who is presenting to the emergency department for GI bleeding. According to patient and family patient has had three episodes of bright red blood and clots. patient called the clinical program consultant oncologist who told the patient to come in. patient is on lovenox for recurrent clots. Patient has never had these symptoms before. Patient denies any history of alcoholism. Patient denies chest pain, shortness of breath, dizziness, or syncope. Review of Systems Constitutional: denies: Fever, Myalgias Cardiac: denies: Chest pain / pressure, Palpitations Respiratory: denies: Dyspnea GI: reports: Abdominal Pain, Nausea, Vomiting, Hematemesis. denies: Bloody / black stool Immunocompromised: reports: Chemotherapy PD PAST MEDICAL HISTORY - Past Medical History Cardiovascular: None, Hypertension Respiratory: None Endocrine/Autoimmune: HyPOthyroidism GI: GERD : None, Incontinence HEENT: None Psych: None Musculoskeletal: Osteoarthritis Derm: None - Past Surgical History Past Surgical History: Yes General: EGD, Colonoscopy Ortho: Carpal Tunnel surgery HEENT: Tonsil/Adenoidectomy - Present Medications Home Medications: Ambulatory Orders Medication Instructions Recorded Confirmed Calcium Carbonate [Calcium] 600 mg PO BID 01/06/13 01/19/18 Cholecalciferol (Vitamin D3) 2,000 unit PO DAILY 01/06/13 01/19/18 [Vitamin D3] Levothyroxine [Synthroid] 75 mcg PO Q48H 01/06/13 01/19/18 Multivitamins-Min/FA/Ginkgo 1 each PO DAILY 01/06/13 01/19/18 [Women's 50+ Daily Formula Tab] [place]-3 Fatty Acids/Fish Oil 1 each PO TID 01/06/13 01/19/18 [[place] 3 1,000 mg Softgel] Omeprazole [PriLOSEC] 20 mg PO BID 01/06/13 01/19/18 Levothyroxine [Synthroid] 50 mcg PO Q48H 04/22/13 01/19/18 Ondansetron HCl [Zofran] 8 mg SL Q8H PRN 02/03/14 01/19/18 Acetaminophen [Tylenol] 650 - 975 mg PO Q4HR PRN #0 tablet 01/07/17 01/19/18 Lidocaine/Prilocain 2.5% Cream 1 applic TOP ONCE #1 tube 01/07/17 01/19/18 [Emla 2.5% Cream] Prochlorperazine Maleate 10 mg PO Q6H PRN 05/01/17 01/19/18 [Compazine] Polyethylene Glycol 3350 [Miralax] 17 gm PO PRN PRN 08/07/17 01/19/18 Senna [Senokot] 1 - 2 tab PO DAILY PRN 08/07/17 01/19/18 Enoxaparin [Lovenox] 100 mg SQ DAILY 09/29/17 01/19/18 Cyclophosphamide 50 mg PO DAILY 10/15/17 01/19/18 Methotrexate [Methotrexate] 2.5 mg PO .MON 10/15/17 01/19/18 - Allergies Allergies/Adverse Reactions: Allergies Allergy/AdvReac Type Severity Reaction Status Date / Time everolimus [From Afinitor] Allergy Intermediate Rash Verified 09/25/17 10:13 shellfish derived Allergy Mild Respiratory Verified 09/25/17 10:13 iron dextran complex AdvReac Severe Chest Pain Verified 09/25/17 10:13 [From Infed] - Social History Does the pt smoke?: No Smoking Status: Never smoker Does the pt drink ETOH?: Yes Does the pt have substance abuse?: No - Immunizations Immunizations are current?: Yes - POLST Patient has POLST: Yes PD ED PE NORMAL - Vitals Vital signs reviewed: Yes - General General: Alert and oriented X 3, No acute distress - HEENT HEENT: Atraumatic - Respiratory Respiratory: No respiratory distress - Abdomen Abdomen: Soft - Derm Derm: Normal color, No rash - Extremities Extremities: No deformity, Normal ROM s pain, No calf tenderness / cord - Neuro Neuro: Alert and oriented X 3, No motor deficit, Normal speech Eye Opening: Spontaneous Motor: Obeys Commands Verbal: Oriented GCS Score: 15 PD ED PE EXPANDED - HEENT HEENT: Dry mucous membranes - Cardiac Cardiac: Tachy - Abdomen Abdomen: Tender to palpation, Epigastric. No: Rebound, Guarding Results - Vitals Vitals: Vital Signs - 24 hr 01/21/18 01/21/18 01/21/18 01:11 01:57 02:17 Temperature 36.3 C L Heart Rate 106 H 99 101 H Respiratory 18 16 19 Rate Blood Pressure 109/60 116/67 102/67 O2 Saturation 100 97 99 01/21/18 02:38 Temperature Heart Rate 108 H Respiratory 19 Rate Blood Pressure 99/57 L O2 Saturation 100 Oxygen O2 Source [Without Activity] Room air O2 Source Room air - Labs Labs: Laboratory Tests 01/21/18 01/21/18 01/21/18 01:35 01:35 01:56 WBC 5.5 RBC 2.90 L Hgb 9.7 L Hct 28.9 L MCV 99.6 H MCH 33.5 H MCHC 33.6 RDW 17.5 H Plt Count 85 L MPV 9.3 Neut # (Auto) 4.4 Lymph # (Auto) 0.3 L [place] # (Auto) 0.6 Eos # (Auto) 0.2 Baso # (Auto) 0.0 Absolute Nucleated RBC 0.00 Nucleated RBC % 0.0 PT 14.2 H INR 1.3 H APTT 39.8 H Sodium 139 Potassium 3.6 Chloride 105 Carbon Dioxide 25 Anion Gap 9.0 BUN 13 Creatinine 0.7 Estimated GFR (MDRD) 84 L Glucose 124 H Calcium 8.8 Total Bilirubin 2.2 H AST 70 H ALT 55 Alkaline Phosphatase 254 H Total Protein 6.1 L Albumin 3.1 L Globulin 3.0 Albumin/Globulin Ratio 1.0 Lipase 27 PD MEDICAL DECISION MAKING - ED course Complexity details: reviewed old records, reviewed results, re-evaluated patient , considered differential, d/w patient, d/w family, d/w bridal sales consultant ED course: Patient was seen and examined at bedside. Iv access was gained and labs were drawn. Patient was started on a fluid bolus. patient was treated with zofran and protonix. When patient's labs came back there was a drop in her hemoglobin but it was stll stable. Dr. Dyson was contacted and the case was discussed with him. he stated he would consult on the patient. Hospitalist was contacted and the case was discussed with her. txa was discussed but it was decided to hold it due to patient's significant clotting history. Hospitalist agreed to admission to the intensive care unit. Departure - Departure Disposition: 67 [facility] DC/Jacquie Clinical Impression: Hematemesis with nausea Condition: Critical
[2018-01-21 01:51] LABS: BASOPHILS % (AUTO) 0.7 %; EOSINOPHILS # (AUTO) 0.2 10^3/uL (0.0-0.7); EOSINOPHILS % (AUTO) 3.5 %; HGB - HEMOGLOBIN 9.7 g/dL (12.0-16.0); LYMPHOCYTES # (AUTO) 0.3 10^3/uL (1.5-3.5); LYMPHOCYTES % (AUTO) 5.3 %; MEAN CORPUSCULAR HEMOGLOBIN 33.5 pg (27.0-31.0); MEAN CORPUSCULAR HGB CONC 33.6 g/dL (32.0-36.0); MEAN CORPUSCULAR VOLUME 99.6 fL (81.0-99.0); MEAN PLATELET VOLUME 9.3 fL (7.9-10.8); MONOCYTES # (AUTO) 0.6 10^3/uL (0.0-1.0); NEUTROPHILS # (AUTO) 4.4 10^3/uL (1.5-6.6); NEUTROPHILS % (AUTO) 79.5 %; PLT - PLATELET COUNT 85 10^3/uL (130-450); RED CELL DISTRIBUTION WIDTH 17.5 % (12.0-15.0); WHITE BLOOD COUNT 5.5 x10^3/uL (4.8-10.8)
[2018-01-21 02:02] LABS: ALBUMIN 3.1 g/dL (3.2-5.5); BILIRUBIN,TOTAL 2.2 mg/dL (0.2-1.0); CALCIUM 8.8 mg/dL (8.5-10.3); CREATININE 0.7 mg/dL (0.4-1.0); TOTAL PROTEIN 6.1 g/dL (6.7-8.2)
[2018-01-21 02:12] LABS: INR 1.3 (0.8-1.2); PT - PROTHROMBIN TIME 14.2 secs (9.9-12.6)
[2018-01-21] MEDS ORDERED: ONDANSETRON 4 MG/2 ML VIAL ONE (02:34)
[2018-01-21] MEDS ORDERED: DEXTROSE 5%-0.9% NACL 1,000 ML IV SCH (03:00)
[2018-01-21] MEDS ORDERED: ACETAMINOPHEN 1,000 MG/100 ML 100 ML IV PRN (03:10)
[2018-01-21] MEDS: DEXTROSE 5%-0.9% NACL 1,000 ML IV SCH ×3 (03:49→21:03)
[2018-01-21 05:40] LABS: BASOPHILS % (AUTO) 0.7 %; EOSINOPHILS % (AUTO) 0.6 %; HGB - HEMOGLOBIN 8.1 g/dL (12.0-16.0); LYMPHOCYTES # (AUTO) 0.3 10^3/uL (1.5-3.5); LYMPHOCYTES % (AUTO) 6.2 %; MEAN CORPUSCULAR HEMOGLOBIN 33.2 pg (27.0-31.0); MEAN CORPUSCULAR HGB CONC 33.1 g/dL (32.0-36.0); MEAN CORPUSCULAR VOLUME 100.2 fL (81.0-99.0); MEAN PLATELET VOLUME 9.7 fL (7.9-10.8); MONOCYTES # (AUTO) 0.3 10^3/uL (0.0-1.0); MONOCYTES % (AUTO) 5.7 %; NEUTROPHILS # (AUTO) 4.6 10^3/uL (1.5-6.6); NEUTROPHILS % (AUTO) 86.8 %; PLT - PLATELET COUNT 90 10^3/uL (130-450); RED BLOOD COUNT 2.44 10^6/uL (4.20-5.40); RED CELL DISTRIBUTION WIDTH 17.8 % (12.0-15.0); WHITE BLOOD COUNT 5.3 x10^3/uL (4.8-10.8)
[2018-01-21 05:46] LABS: ALBUMIN 2.8 g/dL (3.2-5.5); BILIRUBIN,DIRECT 0.7 mg/dL (0.1-0.5); CALCIUM 7.9 mg/dL (8.5-10.3); CREATININE 0.9 mg/dL (0.4-1.0); TOTAL PROTEIN 5.3 g/dL (6.7-8.2)
--- NOTE | 2018-01-21 06:48 | ADVANCE CARE PLANNING NOTE ---
Advance Care Planning - Date/Time Date: 01/21/18 Time: 06:25 - Purpose of encounter Text: To establish or confirm patient's wishes regarding management during a Code Blue - Parties in attendance Parties in attendance: I spoke to the patient in her room - Decisional capacity Decisional capacity of: She has full decisional capacity - Subjective/Patient's story Subjective/Patient's story: The patient was in remission of breast CA for 10 years. It recurred and has mets to the bone and liver. She also got a thrombosis of the R jugular and subclavian veins and has been on Lovenox and also on methotrexate for the CA, since Aug 2017. She has discussed her Code wishes with family, Marilee Leal and has written her obituary, which helped her decide that she wants to naturally. - Objective/Medical story Objective/Medical Story: The patient came in with recurrent bloody emesis, which she has never had. She has breast CA with mets and thrombocytopenia and elevated LFTs. - Goals of Care Goals of care determinations: She will follow her doctor's orders, which are to be re-planned by her Oncologist. She currently has no pain except where she ahd recent femur surgery , after it was fractured. - Plan Plan: DNR, DNI, otherwise complete medical care. - Code Status Code Status: Do Not Attempt Resuscitation
[2018-01-21] MEDS: PANTOPRAZOLE 40 MG VIAL IVP SCH ×2 (08:26→21:03)
[2018-01-21] MEDS: SODIUM CHLORIDE FLUSH 0.9% 10 ML SYRINGE IVP SCH ×3 (08:26→21:03)
[2018-01-21] MEDS ORDERED: LEVOTHYROXINE 25 MCG TABLET PO ONE (09:00)
--- NOTE | 2018-01-21 09:46 | HISTORY & PHYSICAL EXAMINATION ---
DATE OF SERVICE: 01/21/2018 Physician: Angeles Aguero MD HISTORY OF PRESENT ILLNESS: This is a 67-year-old white female with a history of metastatic breast cancer, hypothyroidism, femur fracture after a fall and surgery done successfully 1 year ago. The patient has been followed by Oncology and is undergoing methotrexate treatment for metastatic breast cancer to the bone and liver. She had jugular and subclavian clots. is on subq Lovenox. Today, she developed nausea and had 3 hematemesis at home with visible blood and clots and presented to the emergency room after she checking with her oncologist. In the emergency room, she had 1 more episode of witnessed bloody emesis. She received Zofran several times, which improved her nausea. She denied any previous occurrences like this, denies melena, denies cardiopulmonary complaints. She has been compliant with her medications. She is being admitted for GI blood loss anemia. PAST MEDICAL HISTORY: Breast cancer with metastasis to the bone and liver, hypothyroidism, previous hypertension currently on no active medications, hyperlipidemia, intravascular clots, on subq Lovenox. She has an indewelling port. REVIEW OF SYSTEMS: A comprehensive review of systems was performed and the pertinent positives are above. FAMILY HISTORY: Breast cancer in her mother and sister. MEDICATIONS AT HOME: 1. Calcium carbonate. 2. Vitamin D3. 3. Synthroid 125 mcg every other day. 4. Multivitamin daily. 5. [place]-3 daily. 6. Prilosec 20 mg b.i.d. 7. Zofran p.r.n. 8. Tylenol p.r.n. 9. Lidocaine cream p.r.n. 10. Compazine p.r.n. 11. MiraLax p.r.n. 12. Senna p.r.n. 12. Lovenox 100 mg subcutaneous daily. 13. Cyclophosphamide 50 mg daily. 14. Methotrexate 2.5 mg every Friday and Friday. 15. Possibly Simvastatin. ALLERGIES: EVEROLIMUS, SHELLFISH, IRON. SOCIAL HISTORY: The patient is a nonsmoker, drinks rare alcohol, does not use illicit drugs. 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 She lives with her ( retired) , who is very caring and supportive (and he administers the subq Lovenox). PHYSICAL EXAMINATION: GENERAL: Small and thin white female who appears younger than her age. She is icteric. VITAL SIGNS: Blood pressure 103/61, heart rate 105, afebrile, room air saturation 98%. HEENT: Reveals icterus and she also has skin pigmentation consistent with elevated bilirubin. Her oral mucosa is dry. NECK: No JVD in the supine position. No carotid bruits. LUNGS: Clear. HEART: Sounds normal. ABDOMEN: Soft and nontender to light palpation. Normal bowel sounds. No organomegaly. Legs without edema. No clubbing or cyanosis. NEUROLOGIC: Grossly intact. No nystagmus, no asterixis. LABORATORIES: Normal electrolytes. Normal BUN and creatinine, AST 70, ALT 55. Bilirubin 2.2. Just 1 month ago the bilirubin was 1.0. Her alkaline phosphatase is 254, albumin 3.1. INR 1.3, hemoglobin 9.7 (baseline Hgb 10.5), platelet count low at 85. White blood count normal. No EKG was done. No chest x-ray was done. No abdominal imaging was done. IMPRESSION/DIAGNOSES: 1. Hematemesis. Upper GI bleeding, source unknown. 2. Anemia, likely from gastrointestinal blood loss and present previously. 3. Elevated liver tests and thrombocytopenia. 4. Tachycardia, possible volume depletion due to the GI blood loss anemia. 5. Breast cancer with metastasis, on Methotrexate immunosuppressant.. 6. Hypothyroidism, on treatment. 7. Intravascular clot history, on Lovenox. PLAN: Admit the patient to the ICU. Continue with IV fluid hydration, type and cross the patient, follow her CBC every 6 hours for possible blood transfusion. Bowel rest with n.p.o., and start IV H2 blockers. Hold the Lovenox. Surgery consult for an EGD. Continue with her Synthroid, Cyclophosphamide, and Methotrexate. Follow her LFTs daily. CODE STATUS: DNR. ATTESTATION: The patient is expected to be discharged or transferred to another facility within 96 hours: Yes. TD: 01/21/2018 03:31 VICENTA
[2018-01-21 12:17] LABS: BASOPHILS % (AUTO) 0.7 %; EOSINOPHILS % (AUTO) 0.7 %; HGB - HEMOGLOBIN 7.2 g/dL (12.0-16.0); LYMPHOCYTES # (AUTO) 0.5 10^3/uL (1.5-3.5); MEAN CORPUSCULAR HEMOGLOBIN 33.9 pg (27.0-31.0); MEAN CORPUSCULAR HGB CONC 34.2 g/dL (32.0-36.0); MEAN CORPUSCULAR VOLUME 99.2 fL (81.0-99.0); MEAN PLATELET VOLUME 9.6 fL (7.9-10.8); MONOCYTES # (AUTO) 0.5 10^3/uL (0.0-1.0); MONOCYTES % (AUTO) 11.2 %; NEUTROPHILS # (AUTO) 3.5 10^3/uL (1.5-6.6); NEUTROPHILS % (AUTO) 77.4 %; PLT - PLATELET COUNT 77 10^3/uL (130-450); RED BLOOD COUNT 2.13 10^6/uL (4.20-5.40); RED CELL DISTRIBUTION WIDTH 17.7 % (12.0-15.0); WHITE BLOOD COUNT 4.5 x10^3/uL (4.8-10.8)
[2018-01-21] MEDS ORDERED: ACETAMINOPHEN 1,000 MG/100 ML 100 ML IV SCH (13:12)
[2018-01-21] MEDS ORDERED: ACETAMINOPHEN 325 MG TABLET PO PRN (13:12)
[2018-01-21] MEDS ORDERED: diphenhydrAMINE INJ 50 MG/ML VIAL IVP SCH (13:13)
[2018-01-21] MEDS: PROCHLORPERAZINE 10 MG/2 ML VIAL IVP PRN (13:43)
[2018-01-21] MEDS: SODIUM CHLORIDE FLUSH 0.9% 10 ML SYRINGE IVP PRN (13:44)
[2018-01-21] MEDS ORDERED: LORazepam 2 MG/ML VIAL IVP PRN (15:43)
[2018-01-21] MEDS ORDERED: LIDO GARGLE 30 ML BOTTLE ONE (18:15)
[2018-01-21] MEDS ORDERED: LIDO GARGLE 30 ML BOTTLE TOP ONE (18:25)
[2018-01-21] MEDS ORDERED: BENZOCAINE/TETRACAINE/BUTAMBEN 20 GM TOP ONE (18:25)
[2018-01-21] MEDS ORDERED: LIDOCAINE-MPF 2% 5 ML VIAL IM ONE (18:40)
[2018-01-21] MEDS ORDERED: PROPOFOL 200 MG/20 ML VIAL IVP ONE (18:40)
[2018-01-22] MEDS: DEXTROSE 5%-0.9% NACL 1,000 ML IV SCH ×4 (00:17→15:01)
[2018-01-22] MEDS: SODIUM CHLORIDE FLUSH 0.9% 10 ML SYRINGE IVP SCH ×4 (00:17→20:57)
[2018-01-22 05:26] LABS: BASOPHILS % (AUTO) 0.8 %; EOSINOPHILS # (AUTO) 0.1 10^3/uL (0.0-0.7); EOSINOPHILS % (AUTO) 2.9 %; HGB - HEMOGLOBIN 8.5 g/dL (12.0-16.0); LYMPHOCYTES # (AUTO) 0.4 10^3/uL (1.5-3.5); LYMPHOCYTES % (AUTO) 10.7 %; MEAN CORPUSCULAR HEMOGLOBIN 32.7 pg (27.0-31.0); MEAN CORPUSCULAR VOLUME 96.1 fL (81.0-99.0); MEAN PLATELET VOLUME 9.1 fL (7.9-10.8); MONOCYTES # (AUTO) 0.4 10^3/uL (0.0-1.0); MONOCYTES % (AUTO) 12.7 %; NEUTROPHILS # (AUTO) 2.4 10^3/uL (1.5-6.6); NEUTROPHILS % (AUTO) 72.9 %; PLT - PLATELET COUNT 64 10^3/uL (130-450); WHITE BLOOD COUNT 3.3 x10^3/uL (4.8-10.8)
[2018-01-22 05:38] LABS: ALBUMIN 2.3 g/dL (3.2-5.5); BILIRUBIN,DIRECT 0.4 mg/dL (0.1-0.5); BILIRUBIN,TOTAL 1.6 mg/dL (0.2-1.0); CREATININE 0.7 mg/dL (0.4-1.0); MAGNESIUM 1.8 mg/dL (1.7-2.8); PHOSPHORUS 2.6 mg/dL (2.5-4.6); TOTAL PROTEIN 4.5 g/dL (6.7-8.2)
[2018-01-22] MEDS ORDERED: LEVOTHYROXINE 75 MCG TABLET PO SCH (07:00)
[2018-01-22] MEDS ORDERED: IOPAMIDOL-300 100 ML VIAL ONE (09:42)
[2018-01-22] MEDS ORDERED: IOPAMIDOL-300 50 ML VIAL ONE (09:42)
--- NOTE | 2018-01-22 10:06 | Discharge Plan ---
Discharge Plan Disposition: Home, Self Care Condition: Good Prescriptions: Levothyroxine [Synthroid] 75 mcg PO DAILY #30 tablet Diet: Soft Activity Restrictions: No Restrictions Shower Restrictions: No Driving Restrictions: No Weight Bearing: Full Weight Additional Instructions or Follow Up instructions: You were admitted after throwing up blood. A EGD was completed by Dr. Linn. You have esophageal varicies, which is thought to be the most likely source of your bleeding. The Lovenox (stomach injections) should no longer be given. Oncology, Leonela Anderson reviewed your medications. You should NOT take Cyclophosphamide and Methotrexate and expect a phone call from Leonela in the next few days. Palliative care, Marilee Leal was consulted and she made a visit. I checked your thyroid lab, and this was elevated at 6.09, so you should not alternate the Synthroid doses, and just continue on 75mcg daily. Dr. Beebe will get a copy of my discharge summary. Please see your PCP within one week. No Smoking: If you smoke, Please STOP! Call for help. Follow-up with: Jimmy Beebe MD [Primary Care Provider] -
--- NOTE | 2018-01-22 10:15 | DISCHARGE SUMMARY ---
Discharge Summary Admit Date: 01/21/18 Discharge Date: 01/22/18 Discharging Provider: NICOLE Mosqueda Primary Care Provider: Marquis Beebe Code Status: Do Not Attempt Resuscitation Condition at Discharge: Good Discharge Disposition: 01 Home, Self Care - HPI History of Present Illness: Chrissy Antoine is a 67-year-old female with a past medical history of metastatic breast cancer, hypothyroidism, femur fracture after a fall, lumbar disc disorder , epistaxis, right thyroid nodule, GERD, hyperlipidemia, neck/jugular/ subclavian DVT- on Lovenox, and recent right shoulder pain. The patient has been followed by oncology and is being treated with methotrexate for bone and liver mets. Prior to presentation to our ED she developed nausea with at least 3 episodes of hematemesis with fifi blood. Once in the ED, she had one more witnessed episode of bloody emesis. She has recieved Zofran several times, which has improved her nausea. She denies previous episodes of hematemesis, black stools, chest pain, dizziness or shortness of breath. She states that she is very compliant with her medications. Lab results show normal electrolytes, low platelets at 85, a normal WBC count, and slightly lower than base line hemoglobin at 9.7. She will be admitted for symptom management and a general surgery consult with possible scope. - HOSPITAL COURSE Hospital Course: The following diagnoses were prevalent during this hospital stay: Hematemesis- The patient had one more episode of nausea then, a moderate amount of bloody vomiting, became symptomatic; including feeling dizzy, having an increased pale appearance and slightly lower blood pressures. She received 2 units of blood that she was type and crossed for when arriving in the ED. Esophageal varicies- This was discovered via EGD with Dr. Linn and found to be not actively bleeding in the time frame of the scope. Banding or clipping is not ideal as this could further complicate the patient's condition and/or potentially cause a more fatal bleed. Her Lovenox will be on hold indefinitely, she is NOT to continue her oncology medications as per Leonela Anderson , and she and her were told that these could bleed at any moment. - ALLERGIES Allergies/Adverse Reactions: Allergies Allergy/AdvReac Type Severity Reaction Status Date / Time everolimus [From Afinitor] Allergy Intermediate Rash Verified 09/25/17 10:13 shellfish derived Allergy Mild Respiratory Verified 09/25/17 10:13 iron dextran complex AdvReac Severe Chest Pain Verified 09/25/17 10:13 [From Infed] - MEDICATIONS Home Medications: Ambulatory Orders Medication Instructions Recorded Confirmed Omeprazole [PriLOSEC] 20 mg PO BID 01/06/13 01/21/18 Ondansetron HCl [Zofran] 8 mg SL Q8H PRN 02/03/14 01/21/18 Prochlorperazine Maleate 10 mg PO Q6H PRN 05/01/17 01/21/18 [Compazine] Multivitamin [Theragran] 1 tab PO DAILY 01/21/18 01/21/18 Simvastatin 20 mg PO QPM 01/21/18 01/21/18 Levothyroxine [Synthroid] 75 mcg PO DAILY #30 tablet 01/22/18 - PHYSICAL EXAM AT DISCHARGE General Appearance: positive: No acute distress, Alert Eyes Bilateral: positive: Normal inspection, PERRL ENT: positive: ENT inspection nml, Pharynx nml, Dry mucous membranes Neck: positive: Nml inspection, Thyroid nml, No JVD, Trachea midline Respiratory: positive: Chest non-tender, No respiratory distress, Breath sounds nml Cardiovascular: positive: Regular rate & rhythm, No gallop Peripheral Pulses: positive: 2+ Abdomen: positive: Nml bowel sounds, Guarding, Hepatomegaly, Other (bruises in lower bilateral abdomen from previous lovenox injections.) Back: positive: Nml inspection Skin: positive: No rash, Warm, Dry, Pallor Extremities: positive: Non-tender, Full ROM, Nml appearance, No pedal edema Neurologic/Psychiatric: positive: Oriented x3, CN's nml (2-12), Motor nml, Sensation nml, Depressed mood/affect Reflexes: Bicep (R): 3+, Bicep (L): 3+ - LABS Result Diagrams: 01/22/18 04:50 01/22/18 04:50 - DIAGNOSTIC IMAGING Diagnostic Imaging Results: Final report reviewed - TIME SPENT Time Spent in Discharge (Minutes): 60
[2018-01-22] MEDS: PANTOPRAZOLE 40 MG VIAL IVP SCH ×2 (10:26→20:02)
[2018-01-22] MEDS ORDERED: IOPAMIDOL-300 50 ML VIAL PO ONE (12:13)
[2018-01-22] MEDS ORDERED: IOPAMIDOL-300 100 ML VIAL IVP ONE (12:13)
--- NOTE | 2018-01-22 14:27 | CONSULTATION NOTE ---
Referring Provider Name of Referring Provider:: Nani Ortega NP Consult Date: 01/21/18 Chief Complaint - Chief Complaint Chief Complaint: Hematemesis History of Present Illness - Admitted From Admitted From:: [facility] ED - History Obtained From Records Reviewed: Yes History obtained from: Patient Exam Limitations: None - History of Present Illness HPI Comment/Other: Is very pleasant but unfortunate 67-year-old female was evaluated and history was obtained in room 2203 at [facility] unit. She presented to our emergency department after several episodes of hematemesis (3) . This symptom was new to her as she had not had previously. She vomited one more time while she was here. She states that it was fresh blood. Importantly , she is being treated with palliative care for metastatic breast cancer History - Past Medical History Cardiovascular: reports: Hypertension, High cholesterol Respiratory: reports: None Neuro: reports: None Endocrine/Autoimmune: reports: HyPOthyroidism GI: reports: GERD : reports: None HEENT: reports: None Psych: reports: None Musculoskeletal: reports: Osteoarthritis Derm: reports: None MRSA Hx?: Yes Other Past Medical History: Breast CA met to liver and bone - Past Surgical History General: reports: EGD, Colonoscopy Ortho: reports: Carpal Tunnel surgery HEENT: reports: Tonsil/Adenoidectomy - POLST Patient has POLST: Yes Meds/Allgy - Home Medications Home Medications: Ambulatory Orders Medication Instructions Recorded Confirmed Omeprazole [PriLOSEC] 20 mg PO BID 01/06/13 01/21/18 Ondansetron HCl [Zofran] 8 mg SL Q8H PRN 02/03/14 01/21/18 Prochlorperazine Maleate 10 mg PO Q6H PRN 05/01/17 01/21/18 [Compazine] Multivitamin [Theragran] 1 tab PO DAILY 01/21/18 01/21/18 Simvastatin 20 mg PO QPM 01/21/18 01/21/18 Levothyroxine [Synthroid] 75 mcg PO DAILY #30 tablet 01/22/18 - Allergies Allergies/Adverse Reactions: Allergies Allergy/AdvReac Type Severity Reaction Status Date / Time everolimus [From Afinitor] Allergy Intermediate Rash Verified 09/25/17 10:13 shellfish derived Allergy Mild Respiratory Verified 09/25/17 10:13 iron dextran complex AdvReac Severe Chest Pain Verified 09/25/17 10:13 [From Infed] Review of Systems - All Other Systems All Other Systems: reports: Other (Asked constitutional, eyes, ears, nose, mouth , throat, cardiovascular, respiratory, gastrointestinal, genitourinary, musculoskeletal, integumentary, neurological, psychiatric, endocrine, hematologic, lymphatic, allergic, and immunologic and is diffusely positive.) Exam - Vital Signs Reviewed Vital Signs: Yes Vital Signs: Vital Signs x48h Temp Pulse Resp BP Pulse Ox 01/22/18 12:55 37.3 C 101 H 18 121/65 100 01/22/18 07:41 36.6 C 86 16 110/61 99 - Physical Exam General Appearance: positive: No acute distress Eyes Bilateral: positive: No lid inflammation, Conjunctivae nml, Other (Very mildly icteric.) ENT: positive: Dry mucous membranes Neck: positive: Trachea midline Respiratory: positive: Chest non-tender, No respiratory distress, Breath sounds nml Cardiovascular: positive: Regular rate & rhythm (Slightly tachycardic to low 100 's.) Abdomen: positive: Non-tender, Nml bowel sounds Skin: positive: Other (Slightly icteric. May be the light in the room.) Extremities: positive: Nml appearance Neurologic/Psychiatric: positive: Oriented x3 Conclusion/Plan - Diagnosis Diagnosis: Hematemesis - Plan Plan: Esophagogastroduodenoscopy with possible biopsies and/or polypectomies. Indications, procedure, alternatives (such as barium studies and even no procedure at all) and risks including but not limited to perforation requiring operative repair, bleeding with its risks, and were fully explained to her. I explained that her posterior oropharynx would also be anesthetized for the procedure. I explained that MAC anesthesia is associated with a higher incidence of intestinal perforation. Review of her history does not reveal any significant systemic disease that would contraindicate use of conscious sedation or MAC anesthesia. All questions were fully answered. Verbal and written consent was obtained. The patient in preparation for her esophagogastroduodenoscopy will be n.p.o. 35 minutes of domy-af-kgdd time spent with the patient the majority of which was spent in discussion - Lab Results Lab results reviewed: Yes Fish Bones: 01/22/18 04:50 01/22/18 04:50
[2018-01-22 14:42] LABS: BASOPHILS # (AUTO) 0.1 10^3/uL (0.0-0.1); BASOPHILS % (AUTO) 0.6 %; EOSINOPHILS # (AUTO) 0.1 10^3/uL (0.0-0.7); EOSINOPHILS % (AUTO) 1.1 %; HGB - HEMOGLOBIN 8.2 g/dL (12.0-16.0); LYMPHOCYTES # (AUTO) 0.3 10^3/uL (1.5-3.5); LYMPHOCYTES % (AUTO) 3.6 %; MEAN CORPUSCULAR HEMOGLOBIN 32.5 pg (27.0-31.0); MEAN CORPUSCULAR VOLUME 95.5 fL (81.0-99.0); MEAN PLATELET VOLUME 9.3 fL (7.9-10.8); MONOCYTES # (AUTO) 0.9 10^3/uL (0.0-1.0); MONOCYTES % (AUTO) 9.6 %; NEUTROPHILS # (AUTO) 8.3 10^3/uL (1.5-6.6); NEUTROPHILS % (AUTO) 85.1 %; PLT - PLATELET COUNT 115 10^3/uL (130-450); RED BLOOD COUNT 2.52 10^6/uL (4.20-5.40); RED CELL DISTRIBUTION WIDTH 19.1 % (12.0-15.0); WHITE BLOOD COUNT 9.8 x10^3/uL (4.8-10.8)
--- NOTE | 2018-01-22 14:53 | PROVIDER PROGRESS NOTE ---
Subjective - Prog Note Date Prog Note Date: 01/22/18 Prog Note Time: 14:51 - Subjective Pt reports feeling: No change Subjective: Chrissy states, I just want to go home. She denies SOB, chest pain, or a new cough. She has had no further episodes of bloody emesis, although, now has started to have blood stool since beginning her contrast ingestion for her up coming CT scan. Current Medications - Current Medications Current Medications: Omeprazole [PriLOSEC] 20 mg PO BID 01/06/13 Ondansetron HCl [Zofran] 8 mg SL Q8H PRN 02/03/14 Prochlorperazine Maleate [Compazine] 10 mg PO Q6H PRN 05/01/17 Multivitamin [Theragran] 1 tab PO DAILY 01/21/18 Simvastatin 20 mg PO QPM 01/21/18 Objective - Vital Signs/Intake & Output Reviewed Vital Signs: Yes Vital Signs: Vital Signs x48h Temp Pulse Resp BP Pulse Ox 01/22/18 12:55 37.3 C 101 H 18 121/65 100 01/22/18 07:41 36.6 C 86 16 110/61 99 Intake & Output: Intake & Output 01/19/18 01/20/18 01/21/18 01/22/18 23:59 23:59 23:59 23:59 Intake Total 2900 1630 Output Total 375 Balance 2525 1630 - Objective General Appearance: positive: Moderate distress, Anxious, Lethargic Eyes Bilateral: positive: Normal inspection Eyes: OU Conjunctivae pale ENT: positive: ENT inspection nml, Pharynx nml, Dry mucous membranes Neck: positive: Trachea midline Respiratory: positive: Chest non-tender, No respiratory distress Cardiovascular: positive: Regular rate & rhythm, No gallop, Systolic murmur, Decreased pulse(s) Peripheral Pulses: 1+ Radial (R), 1+ Radial (L) Abdomen: positive: Tenderness (low quadrants.), Rebound, Abnml bowel sounds, Other (rounded, obese, soft) Rectal: positive: Bloody stool, Tenderness Back: positive: Nml inspection Skin: positive: No rash, Warm, Dry, Diaphoresis, Pallor Extremities: positive: Non-tender, No pedal edema Neurologic/Psychiatric: positive: Oriented x3, CN's nml (2-12), Motor nml, Sensation nml, Weakness, Depressed mood/affect Reflexes: Bicep (R): 3+, Bicep (L): 3+ - Lab Results Fish Bones: 01/22/18 14:35 01/22/18 04:50 Other Labs: Lab Results x24hrs 01/22/18 01/22/18 01/22/18 Range/Units 14:35 04:50 04:50 WBC 9.8 (4.8-10.8) x10^3/uL RBC 2.52 L (4.20-5.40) 10^6/uL Hgb 8.2 L (12.0-16.0) g/dL Hct 24.1 L (37.0-47.0) % MCV 95.5 (81.0-99.0) fL MCH 32.5 H (27.0-31.0) pg MCHC 34.0 (32.0-36.0) g/dL RDW 19.1 H (12.0-15.0) % Plt Count 115 L (130-450) 10^3/uL MPV 9.3 (7.9-10.8) fL Neut # (Auto) 8.3 H (1.5-6.6) 10^3/uL Lymph # (Auto) 0.3 L (1.5-3.5) 10^3/uL [place] # (Auto) 0.9 (0.0-1.0) 10^3/uL Eos # (Auto) 0.1 (0.0-0.7) 10^3/uL Baso # (Auto) 0.1 (0.0-0.1) 10^3/uL Absolute Nucleated RBC 0.00 x10^3/uL Nucleated RBC % 0.0 /100WBC Sodium 139 (135-145) mmol/L Potassium 3.4 L (3.5-5.0) mmol/L Chloride 111 (101-111) mmol/L Carbon Dioxide 22 (21-32) mmol/L Anion Gap 6.0 (6-13) BUN 15 (6-20) mg/dL Creatinine 0.7 (0.4-1.0) mg/dL Estimated GFR (MDRD) 84 L (>89) Glucose 136 H (70-100) mg/dL Calcium 7.0 L (8.5-10.3) mg/dL Phosphorus 2.6 (2.5-4.6) mg/dL Magnesium 1.8 (1.7-2.8) mg/dL Total Bilirubin 1.6 H (0.2-1.0) mg/dL Direct Bilirubin 0.4 (0.1-0.5) mg/dL GGT 119 H (8-38) IU/L AST 101 H (10-42) IU/L ALT 65 H (10-60) IU/L Alkaline Phosphatase 144 H (42-121) IU/L Total Protein 4.5 L (6.7-8.2) g/dL Albumin 2.3 L (3.2-5.5) g/dL Globulin 2.2 (2.1-4.2) g/dL Triglycerides 81 ( - 149) mg/dL TSH 6.05 H (0.34-5.60) uIU/mL 01/22/18 Range/Units 04:50 WBC 3.3 L (4.8-10.8) x10^3/uL RBC 2.60 L (4.20-5.40) 10^6/uL Hgb 8.5 L (12.0-16.0) g/dL Hct 25.0 L (37.0-47.0) % MCV 96.1 (81.0-99.0) fL MCH 32.7 H (27.0-31.0) pg MCHC 34.0 (32.0-36.0) g/dL RDW 19.0 H (12.0-15.0) % Plt Count 64 L (130-450) 10^3/uL MPV 9.1 (7.9-10.8) fL Neut # (Auto) 2.4 (1.5-6.6) 10^3/uL Lymph # (Auto) 0.4 L (1.5-3.5) 10^3/uL [place] # (Auto) 0.4 (0.0-1.0) 10^3/uL Eos # (Auto) 0.1 (0.0-0.7) 10^3/uL Baso # (Auto) 0.0 (0.0-0.1) 10^3/uL Absolute Nucleated RBC 0.01 x10^3/uL Nucleated RBC % 0.2 /100WBC Sodium (135-145) mmol/L Potassium (3.5-5.0) mmol/L Chloride (101-111) mmol/L Carbon Dioxide (21-32) mmol/L Anion Gap (6-13) BUN (6-20) mg/dL Creatinine (0.4-1.0) mg/dL Estimated GFR (MDRD) (>89) Glucose (70-100) mg/dL Calcium (8.5-10.3) mg/dL Phosphorus (2.5-4.6) mg/dL Magnesium (1.7-2.8) mg/dL Total Bilirubin (0.2-1.0) mg/dL Direct Bilirubin (0.1-0.5) mg/dL GGT (8-38) IU/L AST (10-42) IU/L ALT (10-60) IU/L Alkaline Phosphatase (42-121) IU/L Total Protein (6.7-8.2) g/dL Albumin (3.2-5.5) g/dL Globulin (2.1-4.2) g/dL Triglycerides ( - 149) mg/dL TSH (0.34-5.60) uIU/mL - Diagnostic Imaging Diagnostic Imaging Results: positive: Prelim report reviewed, Final report reviewed ABX Reporting Has patient been on IV antibiotics over the past 48 hours?: No Assessment/Plan - Problem List (1) Esophageal varices determined by endoscopy Impression: The patient underwent an EGD last evening with Dr. Linn, who noted multiple esophageal varicies. (2) Liver metastases Impression: She has a known history of this and is seen by Dr. Juan Pablo Costello, Oncology who is aware of this admission. She has been taking 2 oral agents at home that are now on hold. She is only slightly jaundice appearing and does have a rounded abdomen that is mildly tender upon exam. She has new extensive esophageal varicies likely due to increased portal HTN. Propranolol has been added for this reason. Plan: Continue to hold medications due to esophageal varicies. (3) History of right breast cancer Impression: The patient is now post-op lumpectomy ~10 years ago. The cancer is considered in remission, but now she suffers from metastases to her liver and bone. Plan: Continue to monitor. (4) Hematemesis with nausea Impression: This was the patient's presenting complaint that has now subsided since her EGD last evening. She still remains with a poor appetite and mild nausea of which she can have zofran or compazine for. It was determined that the likely source of bleeding was from her esophageal varicies. The cause of the varicies are medication induced or portal HTN caused by extensive liver mets. Plan: Continue to monitor. (5) Anemia Impression: This anemia is due to acute blood loss, first by vomiting, and today by diarrhea after beginning the bowel prep. She has baseline anemia. She was noted to be down to 7.2 and 21.2, received 2 units of PRBCs and improved to 8.5/ 25.0. But today has been having constant output from her rectum that is mostly contrast and blood. RE-checked H/H and this is now 8.2/24.1. I will replace this since she is staying another night and for symptom management. Plan: Monitor labs and plan for one more unit of blood this evening. Qualifiers: Other causes of anemia: acute posthemorrhagic (6) Metastatic breast cancer Impression: The patient had right breast cancer and underwent treatment with a lumpectomy about 10 years ago. She states that she has been cancer free since. In October of this year, she was found to have advanced bone and liver mets and has been under treatment with our oncology clinic. Plan: Continue to monitor. (7) Thrombocythemia Impression: The patient has a known history of this and has been in the 60's. She may do better with replacement if she continues to bleed, although, I am leery of this due to her recent subclavian/jugular DVT. Generally we would not replace platelets unless the platelets become less than ~10, but with her continued complication of active bleeding by rectum, we may have no other choice. Plan: Replace blood, and replace platelets as a last resort. (8) Hypothyroidism Impression: TSH today was elevated at 6.09, so I will prescribe IV form of Levothyroxine at 1/2 the oral dose of 75mg. This will be given IV due to potential lack of absorption. Plan: Continue IV dose, starting in AM. Qualifiers: Hypothyroidism type: unspecified Qualified Code(s): E03.9 - Hypothyroidism , unspecified (9) Has end of life care plan Impression: Marilee Leal, Palliative care has previously seen this patient and had an extensive talk again today with extended family, and the patient about what her end of life might be like now that she has esophageal varicies. She and her family want to ensure [place] can still [place]. She continues to be realistic about her life expectancy and disease process and uses humor in such trying times. [facility] GI team was called and Hospitalist service who will accept her and she may undergo procedures to rule out any further possibilities of surviving for her late [place] trip [place]. This transfer is pending by the end of this note, but likely a transfer will happen before the AM due to ongoing blood diarrhea. She will get one more unit of blood en route. Plan: Continue to provide support and transfer to a higher level of care for a Colonoscopy due to her new rectal bleeding and our lack of blood products and specialties.
--- NOTE | 2018-01-22 16:22 | CONSULTATION NOTE ---
Palliative Care Follow Up - Referral Referring Provider: Nani RIVERA Time of Visit: [id number]; [id number] Referral setting: Hospitalized patient Referral Reason: Metastatic Breast Cancer/Esoph. Varicies/Pal Care - Information Sources Records reviewed: Previous records reviewed History/Review of Systems obtained from: Patient, Family (daughter Velma, Son Lenny, Shiva present) - History of Present Illness Update Brief HPI Update: This is a christian 67-year-old woman with metastatic breast cancer to the liver and bones, she has undergone multiple rounds of chemotherapy and treatment from her initial stage II right breast cancer diagnosed in 04/2002. She has had Y 90 directed liver therapy in 08/2016 and 09/2016. She is currently on Cytoxan and methotrexate since 10/2017 for maintenance. Her tumor markers have continued to increase. She has currently in the hospital for an acute GI bleed, does present with Esophageal varices is a results of cirrhosis most likely related to her liver metastases/treatment. She had an EGD yesterday, without any active bleeding, she is currently of concern is she is passing some liquid bright red bloody stool with barium, awaiting the results if will need further transfusion, or intervention with call into surgeon. Patient is known to me from outside palliative care setting, she does recognize the seriousness of her illness, though I suspect not the acuteness of her current situation. [address] of the abdomen does show progressive liver metastases, and enlargement. Also shows ascites. In the context of progressive disease, continued bleeding, and patient's goals of care, patient willing to accept further intervention in the hopes to improve her quality and quantity of life, though recognizes the progression of disease. In agreement with her treatment plan will be transferred to higher level of care to evaluate options. Social History - Living Situation Living arrangement: At home Living Situation: With spouse/s.o. (Patient is well loved and respected in her community, she is to her Shiva. She has actually continued to work, they have been very supportive of her over the years as she has had multiple treatments. Her was quite rattled by the occurrence.) Medications/Allergies - Medications Active Medication List: Active Medications Acetaminophen (Tylenol) 650 mg PO Q4HR PRN PRN Reason: Pain or Fever > 38C (100.4F) Acetaminophen (Ofirmev) 100 mls @ 400 mls/hr IV Q6HR PRN PRN Reason: PAIN Dextrose/Sodium Chloride (D5ns) 1,000 mls @ 150 mls/hr IV .Q6H40M [facility] Last Admin: 01/22/18 15:01 Dose: 150 mls/hr Levothyroxine Sodium (Synthroid) 75 mcg PO QDAC [facility] Lorazepam (Ativan Inj (Vial)) 0.5 mg IVP Q2H PRN PRN Reason: Anxiety Last Admin: 01/21/18 15:56 Dose: 0.5 mg Pantoprazole Sodium (Protonix) 40 mg IVP BID [facility] Last Admin: 01/22/18 10:26 Dose: 40 mg (Cyclophosphamide [ Cyclophosphamide] 50 Mg) Capsule 1 each PO DAILY [facility] Last Admin: 01/21/18 10:14 Dose: Not Given Prochlorperazine Edisylate (Compazine Inj) 10 mg IVP Q6HR PRN PRN Reason: Nausea / Vomiting Last Admin: 01/21/18 13:43 Dose: 10 mg Sodium Chloride (Normal Saline Flush 0.9%) 10 ml IVP 0100,0900,1700 [facility] Last Admin: 01/22/18 10:26 Dose: 10 ml Sodium Chloride (Normal Saline Flush 0.9%) 10 ml IVP PRN PRN PRN Reason: NEEDED PER PROVIDER ORDERS Last Admin: 01/21/18 13:44 Dose: 10 ml Omeprazole [PriLOSEC] 20 mg PO BID 01/06/13 Ondansetron HCl [Zofran] 8 mg SL Q8H PRN 02/03/14 Prochlorperazine Maleate [Compazine] 10 mg PO Q6H PRN 05/01/17 Multivitamin [Theragran] 1 tab PO DAILY 01/21/18 Simvastatin 20 mg PO QPM 01/21/18 - Allergies Allergies/Adverse Reactions: Allergies Allergy/AdvReac Type Severity Reaction Status Date / Time everolimus [From Afinitor] Allergy Intermediate Rash Verified 09/25/17 10:13 shellfish derived Allergy Mild Respiratory Verified 09/25/17 10:13 iron dextran complex AdvReac Severe Chest Pain Verified 09/25/17 10:13 [From Infed] Review of Systems - Constitutional Constitutional: reports: Fatigue, Weakness - Ears, Nose & Throat Ears, Nose & Throat: reports: Dry mouth - Cardiovascular Cardiovascular: reports: Lightheadedness, Exertional dyspnea, Decr. exercise tolerance - Respiratory Respiratory: reports: SOB at rest, SOB with exertion - Gastrointestinal Gastrointestinal: reports: Rectal bleeding, Bloody stools. denies: Abdominal pain, Nausea, Reflux/heartburn - Musculoskeletal Musculoskeletal: reports: Muscle weakness - Neurological Neurological: reports: General weakness, Dizziness - Endocrine Endocrine: reports: Intolerance to cold - Hematologic/Lymphatic Hematologic/Lymphatic: reports: Anemia Physical Exam - Vital Signs Vital Signs: Vital Signs x48h Temp Pulse Resp BP Pulse Ox 01/22/18 14:57 104 H 125/83 H 100 01/22/18 12:55 37.3 C 101 H 18 121/65 100 - Physical Exam General Appearance: positive: Moderate distress, Anxious Eyes Bilateral: positive: Normal inspection ENT: positive: No signs of dehydration Neck: positive: No JVD, Trachea midline Cardiovascular: positive: Tachycardia (pulse up t o147 when up to BR) Respiratory: positive: Other (SOB with any exertion) Abdomen: positive: Non-tender, Soft, Abnml bowel sounds (hyperactive) Skin: positive: Pallor Extremities: positive: No pedal edema Neurologic/Psychiatric: positive: Oriented x3, Weakness Palliative Care - POLST Patient has POLST: Yes POLST Status: DNR, Selective Treatment - Palliative Care Discussion: 1430 Awaiting results of exam, patient is starting to have liquid bloody stools. Refocused family has was worried about diet and pending trip, discussed current acute complication more life-threatening. We did discuss in the context of her disease process complications regarding disease can be a pathway to demise. Patients goal has been to go to [place] in two weeks, a very important trip as far as "bucket list". Discussed awaiting results of scan and labs to inform the seriousness of the current situation, and follow up needed. Dr. Costello had relayed to stop the oral chemotherapy, the hospitalist has this information. Patient has been functional, working, though has expected decline, was not at a "transition" point in her decision making, and would most likely accept further intervention for her bleeding. 1800 Family meeting including Shiva, daughter Velma, patient Dr. Dyson surgeon, and hospitalist Nani RIVERA. Discussion regarding current status, progression of disease, worsening ascites, and concern for recurrent and current bleeding. At this point in time, patient would be accepting of further intervention and evaluation regarding her varices and bleeding, does recognize the seriousness of her illness, and the tenuousness of her situation, she does tend to deflect with humor, but is feeling quite vulnerable. Patient was given the option to go home, with the focus only on comfort. Given the acute nature of her problem and patient's goals final decision was made to arrange for transfer. Results - Lab Results Lab results reviewed: Yes Fish Bones: 01/22/18 14:35 01/22/18 04:50 Lab and Imaging Results: Lab Results x24hrs 01/22/18 01/22/18 01/22/18 Range/Units 14:35 04:50 04:50 WBC 9.8 (4.8-10.8) x10^3/uL RBC 2.52 L (4.20-5.40) 10^6/uL Hgb 8.2 L (12.0-16.0) g/dL Hct 24.1 L (37.0-47.0) % MCV 95.5 (81.0-99.0) fL MCH 32.5 H (27.0-31.0) pg MCHC 34.0 (32.0-36.0) g/dL RDW 19.1 H (12.0-15.0) % Plt Count 115 L (130-450) 10^3/uL MPV 9.3 (7.9-10.8) fL Neut # (Auto) 8.3 H (1.5-6.6) 10^3/uL Lymph # (Auto) 0.3 L (1.5-3.5) 10^3/uL Buchanan # (Auto) 0.9 (0.0-1.0) 10^3/uL Eos # (Auto) 0.1 (0.0-0.7) 10^3/uL Baso # (Auto) 0.1 (0.0-0.1) 10^3/uL Absolute Nucleated RBC 0.00 x10^3/uL Nucleated RBC % 0.0 /100WBC Sodium 139 (135-145) mmol/L Potassium 3.4 L (3.5-5.0) mmol/L Chloride 111 (101-111) mmol/L Carbon Dioxide 22 (21-32) mmol/L Anion Gap 6.0 (6-13) BUN 15 (6-20) mg/dL Creatinine 0.7 (0.4-1.0) mg/dL Estimated GFR (MDRD) 84 L (>89) Glucose 136 H (70-100) mg/dL Calcium 7.0 L (8.5-10.3) mg/dL Phosphorus 2.6 (2.5-4.6) mg/dL Magnesium 1.8 (1.7-2.8) mg/dL Total Bilirubin 1.6 H (0.2-1.0) mg/dL Direct Bilirubin 0.4 (0.1-0.5) mg/dL GGT 119 H (8-38) IU/L AST 101 H (10-42) IU/L ALT 65 H (10-60) IU/L Alkaline Phosphatase 144 H (42-121) IU/L Total Protein 4.5 L (6.7-8.2) g/dL Albumin 2.3 L (3.2-5.5) g/dL Globulin 2.2 (2.1-4.2) g/dL Triglycerides 81 ( - 149) mg/dL TSH 6.05 H (0.34-5.60) uIU/mL 01/22/18 Range/Units 04:50 WBC 3.3 L (4.8-10.8) x10^3/uL RBC 2.60 L (4.20-5.40) 10^6/uL Hgb 8.5 L (12.0-16.0) g/dL Hct 25.0 L (37.0-47.0) % MCV 96.1 (81.0-99.0) fL MCH 32.7 H (27.0-31.0) pg MCHC 34.0 (32.0-36.0) g/dL RDW 19.0 H (12.0-15.0) % Plt Count 64 L (130-450) 10^3/uL MPV 9.1 (7.9-10.8) fL Neut # (Auto) 2.4 (1.5-6.6) 10^3/uL Lymph # (Auto) 0.4 L (1.5-3.5) 10^3/uL Buchanan # (Auto) 0.4 (0.0-1.0) 10^3/uL Eos # (Auto) 0.1 (0.0-0.7) 10^3/uL Baso # (Auto) 0.0 (0.0-0.1) 10^3/uL Absolute Nucleated RBC 0.01 x10^3/uL Nucleated RBC % 0.2 /100WBC Sodium (135-145) mmol/L Potassium (3.5-5.0) mmol/L Chloride (101-111) mmol/L Carbon Dioxide (21-32) mmol/L Anion Gap (6-13) BUN (6-20) mg/dL Creatinine (0.4-1.0) mg/dL Estimated GFR (MDRD) (>89) Glucose (70-100) mg/dL Calcium (8.5-10.3) mg/dL Phosphorus (2.5-4.6) mg/dL Magnesium (1.7-2.8) mg/dL Total Bilirubin (0.2-1.0) mg/dL Direct Bilirubin (0.1-0.5) mg/dL GGT (8-38) IU/L AST (10-42) IU/L ALT (10-60) IU/L Alkaline Phosphatase (42-121) IU/L Total Protein (6.7-8.2) g/dL Albumin (3.2-5.5) g/dL Globulin (2.1-4.2) g/dL Triglycerides ( - 149) mg/dL TSH (0.34-5.60) uIU/mL Impression and Recommendations - Palliative Care Impression: This is a 67-year-old woman with metastatic breast cancer with metastases to the liver, and bone. Now presents with acute GI bleeding secondary to esophageal varices as a result of her cirrhosis/metastatic disease. Currently evaluating acuteness of situation, as far as next steps and plan. Palliative care to provide support, ongoing conversation regarding goals of care. Facilitation and support of family meetings provided. Recommendations/Counseling Done: 1Metastatic breast cancer to liver and bones. CT scan did confirm progressive disease, 6 months changes with increased liver metastases, ascites, and enlargement. Patient is discontinued on oral chemotherapeutic agents in light of her acute hospitalization. Had spoken with Dr. Costello, patient's bone marrow is less tolerant of ongoing treatment, as well as patient having increased complications from her disease process, looking forward weighing benefits and burdens of further treatment options vs comfort care. This will be decided after acute bleeding/varices addressed on outpatient basis. 2. Esophageal Varices, acute bleeding. Decision has been made to transfer to higher level of care, to evaluate further options to address current acute status with GI specialist. Patient to be supported with fluids and blood currently in acute care setting. Patient is aware of the seriousness of this nature, and there may or may not be options or of benefit but would like to meet goal of trip to [place]. 3. Advanced care planning. Palliative care has been having ongoing conversations regarding patient's end-of-life wishes over several months, patient has remained quite hopeful as she has had fairly good quality of life, and low symptom burden. Patient does have a RHONDA ST form as DNAR, but would accept treatments to prolong her quantity as well as to improve her quality of life. This is include pursuing further options regarding her current situation. Time Spent: The minutes with greater than 50% of this done in counseling regarding goals of care, addressing concerns, participating in family meetings, and anticipatory guidance
[2018-01-22] MEDS ORDERED: PROPRANOLOL 10 MG TABLET PO SCH (17:00)
--- NOTE | 2018-01-22 17:23 | CT Report ---
CT SCAN ABDOMEN AND PELVIS: 01/22/2018 HISTORY: Followup esophageal varices. Breast cancer. GI Bleed. CONTRAST: 50 mL Isovue 300 p.o. 100 mL Isovue 300 IV. TECHNIQUE: Axial images of the abdomen and pelvis with multiplanar reconstructions. In accordance with CT protocol optimization, one or more of the following dose reduction techniques were utilized for this exam: Automated exposure control, adjustment of mA and/or KV based on patient size, or use of iterative reconstructive technique. New left greater than right pleural effusions. Cirrhotic contour of the liver as before. Multiple tubular structures adjacent to the distal esophagus consistent with esophageal varices. Multiple hepatic lesions/metastases are now present/more conspicuous , the largest measuring approximately 1.2 cm in the right lobe, image 15. The spleen is enlarged in size. Nodular appearance of the adrenal glands stable. No definite pancreatic lesions. Right renal cyst and left extrarenal pelvis; no evidence of hydroureteronephrosis or renal stone is seen. No definite gallstones are appreciated. The bladder appears unremarkable. Uterus is present. There is increasing free fluid in the upper abdomen and in the pelvis. Soft tissue density in the omentum worrisome for metastases. Increasing density abdominal fat question metastases or lymphatic congestion. No evidence of bowel obstruction. Scattered colonic diverticulosis without diverticulitis. Multiple subcutaneous nodules in the anterior abdomen, not present on the preceding study likely recent injections. Bilateral L4 pars interarticularis defects with grade 1 anterolisthesis L4 on L5 and disk space narrowing at this level. Mild scattered degenerative changes. Sclerotic left ilium. S/P ORIF right hip. IMPRESSION: WORSENING APPEARANCE OF THE ABDOMEN AND PELVIC CT COMPARED WITH WITH NEW LEFT GREATER THAN RIGHT PLEURAL EFFUSIONS AND MODERATE ASCITES IN BOTH THE ABDOMEN AND PELVIS. CIRRHOTIC APPEARANCE OF THE LIVER WITH INCREASING METASTATIC DISEASE. SUSPECT OMENTAL TUMOR IMPLANTS. SPLENOMEGALY. ESOPHAGEAL VARICES. TD: 01/22/2018 15:30 [facility]
[2018-01-22] MEDS: PROPRANOLOL 10 MG TABLET PO SCH ×2 (20:07→20:43)
[2018-01-22] MEDS: PROCHLORPERAZINE 10 MG/2 ML VIAL IVP PRN (20:56)
[2018-01-22 23:55] VITALS: BP 97/47
--- NOTE | 2018-01-23 03:38 | DISCHARGE SUMMARY ---
Physician: Angeles Aguero MD DATE OF ADMISSION: 01/21/2018 DATE OF DISCHARGE: 01/23/2018 HISTORY OF PRESENT ILLNESS: This is a 67-year-old white female with a history of hypothyroidism, hyperlipidemia, breast cancer that was in remission for 10 years that recurred approximately half a year ago. She sustained a fall and a pathologic fracture of her femur. She required surgery for this done 1 year ago. She is followed by the Oncology Department at the [facility] here at [facility]. She has undergone chemotherapy. There is a history of jugular and subclavian clots for which she is on subcutaneous Lovenox for about 6 months. There is also a history of bone metastasis and liver metastasis, according to the [facility] Oncology records. The patient presented after developing nausea and then hematemesis 3 times at home, presented to the emergency room and had another episode of witnessed bloody emesis. She received Zofran, which did improve her nausea and was admitted for evaluation and management of GI blood loss anemia. HOSPITAL COURSE AND DISCHARGE DIAGNOSES 1. Hematemesis due to esophageal varices. The patient was seen by ophthalmic surgical assistant who performed EGD on the day after admission and this showed extensive esophageal varices. A biopsy of the stomach and ALFONZO test were done. Her diet was only advanced to a full liquid diet and she was also started on propranolol for treating presumed portal hypertension as well as her tachycardia. The patient had further episodes of hematemesis and also began to have lower GI bleeding. She did require blood transfusions for a dropping hemoglobin on both the second and third day of this hospitalization. 2. Lower gastrointestinal bleeding, source unknown. On the second and third day of admission, she reported bright red blood per rectum and started to have a prep for a colonoscopy. However, after discussion and meetings with the ophthalmic surgical assistant, palliative administrator health care facility, contacting her oncology nurse practitioner, it was determined that she should be transferred for a higher level of care. She was accepted in transfer to [facility] for further management of her gastrointestinal bleeding and colonoscopy. 3. Anemia from gastrointestinal blood loss and also present before this admission. The patient's usual hemoglobin was approximately 9.5, felt to be from her malignancy , anemia of chronic disease. At this admission, her first hemoglobin was 9.7. This dropped to 7.2 in half a day and she was transfused with 2 units of packed red cells. When her bright red blood per rectum also developed, she received a third unit while hospitalized here. The Lovenox was discontinued at admission and the recommendations from her oncologist was to also stop the methotrexate and other cancer management drugs. 4. Thrombocytopenia. Her platelet count was 85 at admission. Clinic notes from her Oncologist stated that this was due to chemotherapy. 5. Elevated liver function tests. The patient had a bilirubin of 2.0 on presentation, which was 1.0 just 1 month previously. Her AST was 70, ALT 54, alkaline phosphatase 214. The patient did have icterus, but no other evidence of chronic liver disease such as asterixis or nystagmus. The patient did have a CT of the abdomen and pelvis to evaluate her abdominal organs and this showed: worsening findings compared to June 2017, new pleural effusions and ascites in the abdomen and pelvis. Cirrhotic appearance of the liver, now with multiple low-density lesions consistent with metastatic disease. Splenomegaly present. Esophageal varices seen. Open reduction internal fixation of the right femoral neck. Sclerosis of the left ilium. Nodular appearance of the adrenal glands was a stable finding. There were no definite pancreatic lesions. There were no gallstones seen. 6. Tachycardia. The patient's heart rate was often over 100 throughout the admission. At the time of transfer, she was tachycardic at a rate of 110. Propranolol had been started for this reason as well. The etiology was felt to be from her gastrointestinal blood loss anemia and possible volume depletion. She was on intravenous fluids during the initial n.p.o. order. 7. Breast cancer with metastasis to liver. This was being treated currently with immuno- suppressants. These were all stopped at admission, advised by her Oncologist. The patient had previously been seen by palliative care. At this admission, she signed a POLST form to be a DNR. 8. Hypothyroidism. Her medication was continued. 9. Subclavian vein thrombosis. She was on Lovenox as an outpatient. The Lovenox was discontinued because of the active bleeding. Deep venous thrombosis prophylaxis was done using sequential compression devices. ALLERGIES 1. EVEROLIMUS. 2. SHELLFISH. 3. IRON. MEDICATIONS AT THE TIME OF TRANSFER 1. Tylenol IV p.r.n. 2. Tylenol p.o. p.r.n. 3. Synthroid 37.5 mcg IV daily. 4. Lorazepam 0.5 mg q.2h. p.r.n. anxiety. 5. Protonix 40 mg IV b.i.d. 6. Compazine p.r.n. 7. Propranolol 10 mg p.o. b.i.d. (she only received 1 dose while here). PHYSICAL EXAMINATION AT DISCHARGE VITAL SIGNS: Blood pressure 97/47, heart rate 85-110 in sinus rhythm, afebrile , respiratory rate 16, room air saturation 95%. HEENT: Scleral icterus and pale but moist mucous membranes. NECK: Without JVD. She has a right-sided port inserted. LUNGS: Breath sounds are normal. HEART: Heart sounds are normal. No audible murmur. ABDOMEN: Mildly distended, nontender. Normal bowel sounds. EXTREMITIES: No clubbing, cyanosis, or edema. NEUROLOGIC: Intact. CODE STATUS: DNR. FOLLOWUP: This will be determined after her stay at [facility]. Time required to complete this entire discharge, transfer orders, chart review: 60 minutes. cc: Jimmy Beebe MD TD: 01/23/2018 02:10 MTDD
[2018-01-23] MEDS: PROCHLORPERAZINE 10 MG/2 ML VIAL IVP PRN (04:02)
[2018-01-23] MEDS: SODIUM CHLORIDE FLUSH 0.9% 10 ML SYRINGE IVP PRN (04:03)
[2018-01-23] MEDS: SODIUM CHLORIDE FLUSH 0.9% 10 ML SYRINGE IVP SCH (04:11)
[2018-01-23] MEDS ORDERED: LEVOTHYROXINE 75 MCG TABLET PO SCH (07:00)
[2018-01-23] MEDS ORDERED: LEVOTHYROXINE 100 MCG VIAL IVP SCH (07:00)
[2018-01-23] MEDS ORDERED: LEVOTHYROXINE 25 MCG TABLET PO SCH (07:00)
[2018-01-26] MEDS ORDERED: METHOTREXATE 2.5 MG TABLET PO SCH (09:00)
== END 2018-01-23 04:25 | disposition short-term general hospital (02) | DRG 369 ==
LOC: ED 01:07 → ICU 02:58 → MS2 18:21
PROVIDERS: ADMIT Internal Medicine; ATTEND Nurse Practitioner
PROC: 30243N1 Transfusion of Nonautologous Red Blood Cells into Central Vein, Percutaneous Approach (ICD-10-PCS; 2018-01-21)
PROC: 0DB68ZX Excision of Stomach, Via Natural or Artificial Opening Endoscopic, Diagnostic (ICD-10-PCS; principal; 2018-01-21 15:15)
DX: I85.01 Esophageal varices with bleeding (principal); D62 Acute posthemorrhagic anemia; C78.7 Secondary malignant neoplasm of liver and intrahepatic bile duct; C79.51 Secondary malignant neoplasm of bone; R17 Unspecified jaundice; J90 Pleural effusion, not elsewhere classified; R18.8 Other ascites; R00.0 Tachycardia, unspecified; R16.1 Splenomegaly, not elsewhere classified; E03.9 Hypothyroidism, unspecified; E78.5 Hyperlipidemia, unspecified; C50.919 Malignant neoplasm of unspecified site of unspecified female breast; I27.20 Pulmonary hypertension, unspecified; K92.1 Melena; D63.0 Anemia in neoplastic disease; D69.59 Other secondary thrombocytopenia; K21.9 Gastro-esophageal reflux disease without esophagitis; M19.90 Unspecified osteoarthritis, unspecified site; Z66 Do not resuscitate; T45.1X5D Adverse effect of antineoplastic and immunosuppressive drugs, subsequent encounter; Z79.01 Long term (current) use of anticoagulants; Z87.81 Personal history of (healed) traumatic fracture; Z86.718 Personal history of other venous thrombosis and embolism
CPT/HCPCS: 36415; 36569; 74177; 80048; 80053; 80076; 82977; 83690; 83735; 84100; 84443; 84478; 84484; 85025; 85610; 85730; 86850; 86900; 86901; 86920; 87081; 87150; 96361; 96374; 96376; 99233; 99284

== ENCOUNTER 2018-01-28 19:43 | Emergency (ER) | payer OTHER ==
--- NOTE | 2018-01-28 21:34 | XRAY Report ---
Procedure Date: 01/28/2018 Accession Number: [id number] / [id number] Procedure: XR - Chest 1 View X-Ray CPT Code: 49091 FULL RESULT: EXAM: CHEST RADIOGRAPHY EXAM DATE: 01/28/2018 09:00 PM. CLINICAL HISTORY: Sob. COMPARISON: CT 09/25/2017. TECHNIQUE: 1 view. FINDINGS: Lungs/Pleura: Low lung volumes. Mild left basilar opacity with blunting at the costophrenic angle. No pneumothorax. Mediastinum: Cardiac silhouette size appears stable. Right port catheter appears stable. Other: Surgical clips again noted projecting at the right lung base. IMPRESSION: 1. Low lung volumes. Mild left basilar opacity with mild blunting at the costophrenic angle. This may reflect pneumonia with small effusion in the proper setting. Mild atelectasis also likely present. RADIA
--- NOTE | 2018-01-28 21:48 | ED Physician Documentation ---
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 Patient was recently admitted here and then transferred to the [facility] after having a GI bleed. patient was inpatient for awhile before recently going home. Patient states that her abdomen was slightly distended and it was causing her to be short of breath. Izzy talked to the substation superintendent nurse who told her to come to the emergency department. patient denies nausea, vomiting, fever chills or cough. Review of Systems Constitutional: denies: Fever, Chills Respiratory: reports: Dyspnea. denies: Cough, Wheezing GI: reports: Abdominal Swelling. denies: Abdominal Pain, Nausea, Vomiting, Constipation, Diarrhea : denies: Dysuria, Frequency, Hesitancy Skin: denies: Rash, Lesions Musculoskeletal: reports: Reviewed and negative PD PAST MEDICAL HISTORY - Past Medical History Past Medical History: Yes Cardiovascular: Hypertension, High cholesterol Respiratory: None Neuro: None Endocrine/Autoimmune: HyPOthyroidism GI: GERD : None HEENT: None Psych: None Musculoskeletal: Osteoarthritis Derm: None - Past Surgical History Past Surgical History: Yes General: EGD, Colonoscopy Ortho: Carpal Tunnel surgery HEENT: Tonsil/Adenoidectomy - Present Medications Home Medications: Ambulatory Orders Medication Instructions Recorded Confirmed Omeprazole [PriLOSEC] 20 mg PO BID 01/06/13 01/21/18 Ondansetron HCl [Zofran] 8 mg SL Q8H PRN 02/03/14 01/21/18 Prochlorperazine Maleate 10 mg PO Q6H PRN 05/01/17 01/21/18 [Compazine] Multivitamin [Theragran] 1 tab PO DAILY 01/21/18 01/21/18 Simvastatin 20 mg PO QPM 01/21/18 01/21/18 Levothyroxine [Synthroid] 75 mcg PO DAILY #30 tablet 01/22/18 - Allergies Allergies/Adverse Reactions: Allergies Allergy/AdvReac Type Severity Reaction Status Date / Time everolimus [From Afinitor] Allergy Intermediate Rash Verified 01/28/18 19:51 shellfish derived Allergy Mild Respiratory Verified 01/28/18 19:51 - Social History Does the pt smoke?: No Smoking Status: Never smoker Does the pt drink ETOH?: Yes Does the pt have substance abuse?: No - Immunizations Immunizations are current?: Yes - POLST Patient has POLST: Yes PD ED PE NORMAL - Vitals Vital signs reviewed: Yes - General General: Alert and oriented X 3, No acute distress - HEENT HEENT: Atraumatic - Neck Neck: Supple, no meningeal sign - Cardiac Cardiac: RRR - Respiratory Respiratory: No respiratory distress, Clear bilaterally PD ED PE EXPANDED - Abdomen Abdomen: Distended. No: Tender to palpation - Derm Derm: Bruising (lower abdomen, likely secondary to inpatient anticoagulation) - Extremities Extremities: Pedal edema bilateral Results - Vitals Vitals: Vital Signs - 24 hr 01/28/18 01/28/18 01/28/18 19:45 20:03 21:49 Temperature 36.8 C Heart Rate 91 80 76 Respiratory 22 16 16 Rate Blood Pressure 133/75 H 125/62 125/61 O2 Saturation 96 94 95 Oxygen O2 Source [Without Activity] Room air O2 Source Room air - Rads (name of study) chest x-ray Radiology: Final report received (mild edema vs atelecatsis) PD MEDICAL DECISION MAKING - ED course Complexity details: reviewed old records, reviewed results, re-evaluated patient , considered differential, d/w patient, d/w family ED course: Patient was seen and examined at bedside. Patient's abdomen was viewed at bedside and there was no large drainable pocket that did not have bowel floating throughout. Patient was made aware that the paracentisis would need to be performed outpatient. diagnostic imaging was contacted and the procedure was ordered. Patient's PMD was contacted and the substation superintendent doctor stated that they would call [facility] to get clearance. chest x-ray was performed and showed possible infiltrate but patient had no fever or other sign of infection. Patient and family were given detailed discharge and follow up instructions. Patient required no further work up and was stable for discharge with outpatient follow up. - Sepsis Event Vital Signs: Vital Signs - 24 hr 01/28/18 01/28/18 01/28/18 19:45 20:03 21:49 Temperature 36.8 C Heart Rate 91 80 76 Respiratory 22 16 16 Rate Blood Pressure 133/75 H 125/62 125/61 O2 Saturation 96 94 95 Oxygen O2 Source [Without Activity] Room air O2 Source Room air Departure - Departure Disposition: 01 Home, Self Care Clinical Impression: Ascites Condition: Good Instructions: ED Ascites Follow-Up: Jimmy Beebe MD [Primary Care Provider] - Tomorrow Comments: Your symptoms are being caused at least in part by ascites. An order has been placed for a paracentisis for tomorrow. You should be getting a phone call, but you should also call Dr. De Los Santos office. You had a small amount of fluid on your chest x-ray but without any fevers no antibiotics have been started. You will likely need to start diuretics and can talk to your doctor about that. You may return to the emergency department at any time for new, worsening or uncontrollable symptoms. Discharge Date/Time: 01/28/18 21:52
[2018-01-28 21:51] VITALS: BP 125/61
== END 2018-01-28 21:52 | disposition home or self-care (01) ==
LOC: ED 19:43
DX: R18.8 Other ascites (principal); C78.7 Secondary malignant neoplasm of liver and intrahepatic bile duct; K72.90 Hepatic failure, unspecified without coma; I10 Essential (primary) hypertension; Z95.828 Presence of other vascular implants and grafts
CPT/HCPCS: 71045; 99283

== ENCOUNTER 2018-01-29 13:47 | Outpatient (CLI) | payer OTHER ==
[2018-01-29 14:22] LABS: INR 1.3 (0.8-1.2); PT - PROTHROMBIN TIME 14.5 secs (9.9-12.6)
--- NOTE | 2018-01-29 16:39 | Ultrasound Report ---
Procedure Date: 01/29/2018 Accession Number: [id number] / [id number] Procedure: US - Abdominal Paracentesis CPT Code: FULL RESULT: EXAM: Abdominal Paracentesis DATE: 01/29/2018 4:26 PM CLINICAL HISTORY: ASCITES COMPARISON: CT 01/22/2018 FINDINGS: Following obtaining informed consent, a suitable site in the patient's right lower abdomen was selected with ultrasound. The skin was prepped and draped in the usual sterile fashion. The skin and soft tissues were anesthetized with buffered lidocaine. A Safetycentesis catheter was inserted into the peritoneal cavity, and approximately 1100 mL of fluid was removed without difficulty. The patient tolerated the procedure well. No immediate complications. Fluid submitted to the lab for further evaluation as directed by the clinical service. IMPRESSION: Successful ultrasound-guided paracentesis, yielding approximately 1100 mL of fluid.
[2018-01-29 18:02] LABS: CC,BF RBC 389 /mm^3
[2018-01-29 18:11] VITALS: BP 132/63
[2018-01-29 18:25] LABS: BF COLOR YELLOW; BF SOURCE PERITONEAL
[2018-01-29 19:10] LABS: LYMPHOCYTES %,BODY FLUID 4
[2018-01-29 19:11] LABS: MESOTHELIAL %, BF 8 %; MONOCYTES %,BODY FLUID 82 %
[2018-01-29] MEDS ORDERED: BUFFERED LIDOCAINE 10 ML SYRINGE IU ONE (19:23)
== END 2018-01-29 13:48 | disposition home or self-care (01) ==
LOC: LAB 13:47
PROVIDERS: ATTEND Family Medicine
DX: R18.8 Other ascites (principal); C50.919 Malignant neoplasm of unspecified site of unspecified female breast
CPT/HCPCS: 36415; 49083; 85610; 85730; 87070; 87205; 88108; 88305; 89051

== ENCOUNTER 2018-02-02 11:15 | Outpatient (CLI) | payer OTHER ==
--- NOTE | 2018-02-02 14:57 | Ultrasound Report ---
Procedure Date: 02/02/2018 Accession Number: [id number] / [id number] Procedure: US - Abdominal Paracentesis CPT Code: FULL RESULT: EXAM: Abdominal Paracentesis DATE: 02/02/2018 12:55 PM CLINICAL HISTORY: BREAST CANCER COMPARISON: 01/22/2018 CT scan abdomen and pelvis FINDINGS: Initial ultrasound demonstrates a small amount of fluid in the abdomen and pelvis. Following obtaining informed consent, the largest fluid pocket in the patient's right abdomen was selected with ultrasound. The skin was prepped and draped in the usual sterile fashion. The skin and soft tissues were anesthetized with buffered lidocaine. A [id number] catheter was inserted into the peritoneal cavity with catheter position confirmed by ultrasound. Unfortunately no fluid could be aspirated. The fluid may be loculated and/or peritoneal implants may be present. The patient tolerated the procedure well. No immediate complications. IMPRESSION: Unsuccessful ultrasound-guided paracentesis. Fluid was not obtained despite confirmation of catheter tip position with ultrasound.
[2018-02-02] MEDS ORDERED: BUFFERED LIDOCAINE 10 ML SYRINGE IU ONE (16:31)
== END 2018-02-02 11:16 | disposition home or self-care (01) ==
LOC: DI 11:15
PROVIDERS: ATTEND Internal Medicine Hematology & Oncology
DX: C50.919 Malignant neoplasm of unspecified site of unspecified female breast (principal)
CPT/HCPCS: 49083

== ENCOUNTER 2018-02-09 16:04 | Outpatient (CLI) | payer OTHER | END 2018-02-09 16:05 | disposition critical access hospital (66) | LOC: EMS 16:04 | PROVIDERS: ATTEND Surgery | DX: S79.912A Unspecified injury of left hip, initial encounter (principal); W18.30XA Fall on same level, unspecified, initial encounter; Y92.510 Bank as the place of occurrence of the external cause; Y99.0 Civilian activity done for income or pay | CPT/HCPCS: A0425; A0427 ==

== ENCOUNTER 2018-02-09 16:27 | Inpatient (IN) | payer MEDICARE, OTHER ==
--- NOTE | 2018-02-09 16:42 | ED Physician Documentation ---
PD HPI LOWER EXT INJURY - Stated complaint Stated Complaint: GLF/ POSS FEMUR FX - History obtained from History obtained from: Patient, Family, EMS - History of Present Illness PD HPI LOW EXT INJURY LOCATION: Left (This is a 67-year-old woman whose had a long go of it with metastatic breast cancer. She has had a rather rapid progression lately with peritoneal carcinomatosis and ascites as well as liver lesions. She has been having paracenteses and despite therapy has had rapid progression. She has had metastases to bone and had a pathologic fracture of the right hip last year status post nailing. A bone scan done in June of last year was negative. Today she was at work and she got up to go to the bathroom and her leg collapsed on her and she has severe left hip pain status post [address] of [address] on the way here and declines pain medication on initial evaluation. No other injuries.) Review of Systems Ten Systems: 10 systems reviewed and negative Constitutional: denies: Fever, Chills Cardiac: denies: Chest pain / pressure, Palpitations Respiratory: denies: Dyspnea, Cough PD PAST MEDICAL HISTORY - Past Medical History Cardiovascular: Hypertension, High cholesterol Respiratory: None Neuro: None Endocrine/Autoimmune: HyPOthyroidism GI: GERD, Esophageal varices : None HEENT: None Psych: None Musculoskeletal: Osteoarthritis Derm: None - Past Surgical History Past Surgical History: Yes General: EGD, Colonoscopy Ortho: Carpal Tunnel surgery HEENT: Tonsil/Adenoidectomy - Present Medications Home Medications: Ambulatory Orders Medication Instructions Recorded Confirmed Omeprazole [PriLOSEC] 20 mg PO BIDAC 01/06/13 02/09/18 Ondansetron HCl [Zofran] 8 mg SL Q8H PRN 02/03/14 02/09/18 Prochlorperazine Maleate 10 mg PO Q6H PRN 05/01/17 02/09/18 [Compazine] Multivitamin [Theragran] 1 tab PO DAILY 01/21/18 02/09/18 Simvastatin 20 mg PO QPM 01/21/18 02/09/18 Furosemide [Lasix] 20 mg PO BIDDIURETIC 02/02/18 02/09/18 Spironolactone 50 mg PO BID 02/02/18 02/09/18 Cyclophosphamide [Cyclophosphamide] 50 mg PO DAILY 02/09/18 Denosumab [Xgeva] 120 mg SUBQ Q90D 02/09/18 02/09/18 Levothyroxine [Synthroid] 75 mcg PO QDAC 02/09/18 02/09/18 Methotrexate [Methotrexate] 2.5 mg PO MOTU@0900,2100 02/09/18 - Allergies Allergies/Adverse Reactions: Allergies Allergy/AdvReac Type Severity Reaction Status Date / Time everolimus [From Afinitor] Allergy Intermediate Rash Verified 01/28/18 19:51 shellfish derived Allergy Mild Respiratory Verified 01/28/18 19:51 - Social History Does the pt smoke?: No Smoking Status: Never smoker Does the pt drink ETOH?: Yes Does the pt have substance abuse?: No - Family History Family history: reports: Non contributory - Immunizations Immunizations are current?: Yes - POLST Patient has POLST: Yes PD ED PE NORMAL - Vitals Vital signs reviewed: Yes - General General: Alert and oriented X 3, No acute distress - HEENT HEENT: PERRL, EOMI - Neck Neck: Supple, no meningeal sign, No bony TTP - Cardiac Cardiac: RRR, No murmur - Respiratory Respiratory: No respiratory distress, Clear bilaterally - Abdomen Abdomen: Non tender, Other (She has ascites, it is not tense.) - Back Back: No CVA TTP, No spinal TTP - Derm Derm: Normal color, Warm and dry - Extremities Extremities: Other (The left hip is obviously deformed, shortened and slightly rotated and she has severe pain with internal and external rotation of the left knee.) - Neuro Neuro: Alert and oriented X 3, Normal speech - Psych Psych: Normal mood, Normal affect Results - Vitals Vitals: Vital Signs - 24 hr 02/09/18 16:33 Temperature 36.5 C Heart Rate 115 H Respiratory 22 Rate Blood Pressure 144/101 H O2 Saturation 98 Oxygen O2 Source [Without Activity] Room air O2 Source Room air - EKG (time done) 1647 Rate: Rate (enter#) (110) Rhythm: Sinus tachycardia [place]: Normal Intervals: Normal AR QRS: Normal Ischemia: Non specific changes. No: ST elevation c/w ischemia Computer interpretation: Agree with computer - Labs Labs: Laboratory Tests 02/09/18 02/09/18 02/09/18 16:46 16:46 16:46 WBC 6.0 RBC 4.03 L Hgb 12.8 Hct 38.5 MCV 95.4 MCH 31.9 H MCHC 33.4 RDW 18.9 H Plt Count 130 MPV 8.8 Neut # (Auto) 4.3 Lymph # (Auto) 0.6 L [place] # (Auto) 0.8 Eos # (Auto) 0.1 Baso # (Auto) 0.1 Absolute Nucleated RBC 0.01 Nucleated RBC % 0.2 PT 13.5 H INR 1.2 Sodium 133 L Potassium 2.8 L Chloride 97 L Carbon Dioxide 23 Anion Gap 13.0 BUN 10 Creatinine 1.0 Estimated GFR (MDRD) 55 L Glucose 135 H Calcium 8.9 Total Bilirubin 1.9 H AST 86 H ALT 47 Alkaline Phosphatase 319 H Total Protein 6.3 L Albumin 3.1 L Globulin 3.2 Albumin/Globulin Ratio 1.0 Lipase 24 PD MEDICAL DECISION MAKING - ED course ED course: 67-year-old woman with metastatic breast cancer and recently a rapid progression of disease presents with a history of what looks like a pathologic fracture of the left hip just now. She was given pain medication and prepped for surgery, x-ray shows angulated proximal femur fracture. Case discussed with the on-call orthopedist, Dr. Mckeon by phone at 5:20 PM who will take her to the OR and with Dr. Welsh the hospitalist who will admit at 5:[address] Mckeon did recommend Menezes's traction on the floor and this was passed along to Dr. Welsh. - Sepsis Event Vital Signs: Vital Signs - 24 hr 02/09/18 16:33 Temperature 36.5 C Heart Rate 115 H Respiratory 22 Rate Blood Pressure 144/101 H O2 Saturation 98 Oxygen O2 Source [Without Activity] Room air O2 Source Room air Departure - Departure Disposition: 67 [facility] DC/Xfer Clinical Impression: Liver metastases, History of right breast cancer, Metastatic breast cancer Ascites Qualifiers: Ascites type: malignant Qualified Code(s): R18.0 - Malignant ascites Closed left femoral fracture Qualifiers: Encounter type: initial encounter Femur location: shaft Fracture morphology: comminuted Fracture alignment: displaced Qualified Code(s): S72.352A - Displaced comminuted fracture of shaft of left femur, initial encounter for closed fracture Condition: Serious
[2018-02-09 16:54] LABS: BASOPHILS # (AUTO) 0.1 10^3/uL (0.0-0.1); BASOPHILS % (AUTO) 1.1 %; EOSINOPHILS # (AUTO) 0.1 10^3/uL (0.0-0.7); EOSINOPHILS % (AUTO) 1.8 %; HGB - HEMOGLOBIN 12.8 g/dL (12.0-16.0); LYMPHOCYTES # (AUTO) 0.6 10^3/uL (1.5-3.5); LYMPHOCYTES % (AUTO) 10.9 %; MEAN CORPUSCULAR HEMOGLOBIN 31.9 pg (27.0-31.0); MEAN CORPUSCULAR HGB CONC 33.4 g/dL (32.0-36.0); MEAN CORPUSCULAR VOLUME 95.4 fL (81.0-99.0); MEAN PLATELET VOLUME 8.8 fL (7.9-10.8); MONOCYTES # (AUTO) 0.8 10^3/uL (0.0-1.0); MONOCYTES % (AUTO) 14.3 %; NEUTROPHILS # (AUTO) 4.3 10^3/uL (1.5-6.6); NEUTROPHILS % (AUTO) 71.9 %; PLT - PLATELET COUNT 130 10^3/uL (130-450); RED BLOOD COUNT 4.03 10^6/uL (4.20-5.40); RED CELL DISTRIBUTION WIDTH 18.9 % (12.0-15.0)
[2018-02-09 17:01] LABS: INR 1.2 (0.8-1.2); PT - PROTHROMBIN TIME 13.5 secs (9.9-12.6)
[2018-02-09 17:07] LABS: ALBUMIN 3.1 g/dL (3.2-5.5); BILIRUBIN,TOTAL 1.9 mg/dL (0.2-1.0); CALCIUM 8.9 mg/dL (8.5-10.3); TOTAL PROTEIN 6.3 g/dL (6.7-8.2)
[2018-02-09] MEDS ORDERED: POTASSIUM CHLOR 10 MEQ/100 ML 10 MEQ/100 ML BAG IV ONE (17:11)
[2018-02-09] MEDS ORDERED: HYDROmorphone 2 MG/ML VIAL IVP STA (17:25)
[2018-02-09] MEDS ORDERED: ONDANSETRON 4 MG/2 ML VIAL IVP STA (17:25)
[2018-02-09] MEDS ORDERED: ACETAMINOPHEN 325 MG TABLET PO PRN (17:29)
[2018-02-09] MEDS ORDERED: IBUPROFEN 600 MG TABLET PO PRN (17:29)
[2018-02-09] MEDS ORDERED: PROMETHAZINE 25 MG/1 ML VIAL IM PRN (17:29)
[2018-02-09] MEDS ORDERED: ZOLPIDEM 5 MG TABLET PO PRN (17:29)
--- NOTE | 2018-02-09 17:35 | XRAY Report ---
Procedure Date: 02/09/2018 Accession Number: [id number] / [id number] Procedure: XR - Hip w/Pelvis 2-3V LT CPT Code: FULL RESULT: EXAM: LEFT HIP AND PELVIS RADIOGRAPHY EXAM DATE: 02/09/2018 05:23 PM. HISTORY: Hip injury. COMPARISONS: None. TECHNIQUE: 1 view of the pelvis and 1 view of the hip. FINDINGS: Bones: There is an acute, comminuted proximal left femur diaphyseal fracture with mild medial angulation. No involvement of the left femoral neck appreciated. No fracture of the bony pelvis. Postoperative fixation of a right femur neck fracture is noted. Joints: The bilateral hip, pubis symphysis, and sacroiliac joints are preserved. Soft Tissues: Normal. No soft tissue swelling. IMPRESSION: 1. Acute, mildly comminuted proximal left femur diaphyseal fracture with mild to moderate medial angulation. No definite lytic lesion to suggest a pathologic process. 2. Normal alignment of both hip joints. No new bony pelvis fracture. 3. Previous operative fixation of a right femur neck fracture. RADIA
--- NOTE | 2018-02-09 17:44 | XRAY Report ---
Procedure Date: 02/09/2018 Accession Number: [id number] / [id number] Procedure: XR - Chest 1 View X-Ray CPT Code: 78670 FULL RESULT: EXAM: CHEST RADIOGRAPHY EXAM DATE: 02/09/2018 04:52 PM. CLINICAL HISTORY: Preop. COMPARISON: 09/25/2017. TECHNIQUE: 1 view. FINDINGS: Lungs/Pleura: Hazy opacities are present in the mid and lower lung on the left. No pneumothorax. Possible blunting of the left costophrenic angle. Mediastinum: Stable cardiac silhouette. Other: Postoperative changes noted in the right breast. Right-sided port terminates in the upper SVC. IMPRESSION: 1. Left mid and lower lung opacities could represent a combination of infiltrates, atelectasis and effusion. 2. No pneumothorax. RADIA
[2018-02-09] MEDS ORDERED: SODIUM CHLORIDE 0.9% 1,000 ML IV ONE (17:55)
[2018-02-09 19:23] LABS: HGB - HEMOGLOBIN 12.1 g/dL (12.0-16.0); MEAN CORPUSCULAR HEMOGLOBIN 32.2 pg (27.0-31.0); MEAN CORPUSCULAR HGB CONC 33.5 g/dL (32.0-36.0); MEAN PLATELET VOLUME 8.5 fL (7.9-10.8); RED BLOOD COUNT 3.75 10^6/uL (4.20-5.40); RED CELL DISTRIBUTION WIDTH 18.3 % (12.0-15.0); WHITE BLOOD COUNT 7.3 x10^3/uL (4.8-10.8)
[2018-02-09] MEDS: MORPHINE 2 MG/ML SYRINGE IVP PRN (19:51)
[2018-02-09] MEDS: SODIUM CHLORIDE FLUSH 0.9% 10 ML SYRINGE IVP PRN ×2 (19:51→20:09)
[2018-02-09] MEDS ORDERED: HYDROmorphone 1 MG/ML CARPUJECT ONE (20:14)
[2018-02-09] MEDS: ONDANSETRON 4 MG/2 ML VIAL IVP PRN (20:47)
[2018-02-09] MEDS ORDERED: HYDROmorphone 2 MG/ML VIAL IVP SCH (21:00)
[2018-02-09] MEDS: ATORVASTATIN 10 MG TABLET PO SCH (21:06)
[2018-02-09] MEDS: FUROSEMIDE 20 MG TABLET PO SCH (21:06)
--- NOTE | 2018-02-09 23:45 | HISTORY & PHYSICAL EXAMINATION ---
Chief Complaint - Chief Complaint Chief Complaint: Left hip pain History of Present Illness - Admitted From Admitted From:: Home - History Obtained From History obtained from: Patient, ED physician - History of Present Illness HPI Comment/Other: Mrs. Chrissy Antoine is a very pleasant but unfortunate 67-year-old female with a history of metastatic breast cancer who was walking earlier today and suddenly fell down. X-rays in the emergency department found the patient to have a fractured left hip. The patient did have a pathologic fracture to her right hip approximately 1 year ago and does have liver metastasis. Of note is that she was also seen here at [facility] a couple of weeks ago with bleeding esophageal varices. She was stabilized and transferred to [place] where she successfully underwent banding. [facility] orthopedic surgery was called and has asked the hospitalist group to consult for medical management. At this time the patient's pain is fairly well-managed, and she denies any fever or chills, nausea or vomiting. History - Past Medical History Cardiovascular: reports: Hypertension, High cholesterol Respiratory: reports: None Neuro: reports: None Endocrine/Autoimmune: reports: HyPOthyroidism GI: reports: GERD, Esophageal varices : reports: None HEENT: reports: None Psych: reports: None Musculoskeletal: reports: Osteoarthritis Derm: reports: None MRSA Hx?: Yes Other Past Medical History: Metastis into liver/bone - Past Surgical History General: reports: EGD, Colonoscopy Ortho: reports: Carpal Tunnel surgery HEENT: reports: Tonsil/Adenoidectomy - Family & Social History Family History: Mother: (Mother of breast cancer at age 87, father of unknown causes), Father: , Sister: , Asthma, Cancer (One sister with breast cancer and thyroid cancer), Other family: Asthma Family History Comment/Other: There is extensive breast cancer throughout the patient's family including the patient's mother and sister. Living arrangement: At home Living Situation: With spouse/s.o. - Substance History Use: Uses substance without health or social issues: NONE Abuse: Recurrent use of substance despite neg consequences: NONE Dependence: Experiences withdrawal or developed tolerances: NONE - POLST Patient has POLST: Yes POLST Status: DNR Meds/Allgy - Home Medications Home Medications: Ambulatory Orders Medication Instructions Recorded Confirmed Omeprazole [PriLOSEC] 20 mg PO BIDAC 01/06/13 02/09/18 Ondansetron HCl [Zofran] 8 mg SL Q8H PRN 02/03/14 02/09/18 Prochlorperazine Maleate 10 mg PO Q6H PRN 05/01/17 02/09/18 [Compazine] Multivitamin [Theragran] 1 tab PO DAILY 01/21/18 02/09/18 Simvastatin 20 mg PO QPM 01/21/18 02/09/18 Furosemide [Lasix] 20 mg PO BIDDIURETIC 02/02/18 02/09/18 Spironolactone 50 mg PO BID 02/02/18 02/09/18 Denosumab [Xgeva] 120 mg SUBQ Q90D 02/09/18 02/09/18 Levothyroxine [Synthroid] 75 mcg PO QDAC 02/09/18 02/09/18 - Allergies Allergies/Adverse Reactions: Allergies Allergy/AdvReac Type Severity Reaction Status Date / Time shellfish derived Allergy Mild Respiratory Verified 01/28/18 19:51 Review of Systems - Constitutional Constitutional: denies: Fatigue, Fever, Chills, Malaise, Weakness - Eyes Eyes: denies: Pain, Irritation, Amaurosis, Blurred vision, Vision loss, Dipolpia - Ears, Nose & Throat Ears, Nose & Throat: denies: Ear pain, Hearing loss, Hearing aids, Tinnitus, Vertigo, Nasal pain, Nasal discharge - Cardiovascular Cariovascular: denies: Palpitations, Chest pain, Edema, Syncope - Respiratory Respiratory: denies: Cough, Sputum production, Wheezing, Snoring, Hemoptysis, SOB at rest, SOB with exertion - Gastrointestinal Gastrointestinal: denies: Abdominal pain, Abdominal distention, Constipation, Diarrhea, Change in bowel habits, Rectal bleeding, Black stools, Bloody stools - Genitourinary Genitourinary: denies: Dysuria, Frequency, Urgency, Hematuria - Musculoskeletal Musculoskeletal: reports: Limited range of motion, Joint pain (Left hip), Joint swelling, Other (Patient has a left hip fracture, suspect pathologic) - Integumentary Integumentary: denies: Rash, Pruritis, Lesions, Dryness - Neurological Neurological: denies: General weakness, Focal weakness, Headache, Dizziness, Numbness, Memory problems - Psychiatric Psychiatric: denies: Depression, Anxiety, Suicidal, Hallucinations - Endocrine Endocrine: denies: Polyuria, Polydypsia, Polyphagia - Hematologic/Lymphatic Hematologic/Lymphatic: denies: Anemia, Bruising, Petechiae, Lymphadenopathy - All Other Systems All Other Systems: reports: Reviewed and negative Exam - Vital Signs Reviewed Vital Signs: Yes Vital Signs: Vital Signs x48h Temp Pulse Pulse Resp BP BP Pulse Ox 02/09/18 19:48 36.7 C 108 H 18 149/82 H 98 02/09/18 19:30 36.7 C 108 H 18 149/82 H 98 02/09/18 18:44 102 H 16 95 - Physical Exam General Appearance: positive: No acute distress, Alert Eyes Bilateral: positive: Normal inspection, PERRL, EOMI, No lid inflammation, Conjunctivae nml, No scleral icterus ENT: positive: ENT inspection nml, Pharynx nml, No signs of dehydration Neck: positive: Nml inspection, Thyroid nml, No JVD, Trachea midline. negative : Thyromegaly Respiratory: positive: Chest non-tender, No respiratory distress, Breath sounds nml. negative: Wheezes, Rales, Rhonchi Cardiovascular: positive: Regular rate & rhythm, No murmur, No gallop Peripheral Pulses: positive: 1+ Abdomen: positive: Non-tender, No organomegaly, Nml bowel sounds, No distention. negative: Guarding, Rebound Back: positive: Nml inspection. negative: CVA tenderness (R), CVA tenderness (L ) Skin: positive: Color nml, No rash, Warm, Dry. negative: Cyanosis Extremities: positive: No pedal edema, Joint swelling (Left hip). negative: Full ROM, Nml appearance Neurologic/Psychiatric: positive: Oriented x3, CN's nml (2-12), Motor nml, Sensation nml, Mood/affect nml Conclusion/Plan - Problem List (1) Closed left femoral fracture Conclusion/Plan: The patient will be seen by orthopedics tomorrow, and appears to be low risk for cardiac event during surgery with a revised cardiac risk index of 0.4%. At this time her pain is well-managed and she has no new complaints. Qualifiers: Encounter type: initial encounter Femur location: shaft Fracture morphology: comminuted Fracture alignment: displaced Qualified Code(s): S72.352A - Displaced comminuted fracture of shaft of left femur, initial encounter for closed fracture (2) Metastatic breast cancer Conclusion/Plan: The patient most likely has a pathologic fracture to her left hip, although none was seen on x-ray. She also has widespread metastasis, especially in her liver. We will continue to monitor closely and address any issues as they arise. (3) Liver metastases Conclusion/Plan: We will continue the patient on her home dosing of spironolactone and furosemide.We will correct any electrolyte abnormalities. (4) Hypothyroidism Conclusion/Plan: Presumably well-managed, we will continue the patient on her home dosing of Synthroid, and check a TSH. Qualifiers: Hypothyroidism type: unspecified Qualified Code(s): E03.9 - Hypothyroidism , unspecified (5) Hyperlipidemia Conclusion/Plan: Presumably well-managed, we will continue the patient on his simvastatin. - Lab Results Lab results reviewed: Yes Fish Bones: 02/09/18 19:15 02/09/18 16:46 - Diagnostic Imaging Results Diagnostic Imaging Results: positive: Final report reviewed Diagnostic Imaging Results Comments: EXAM: LEFT HIP AND PELVIS RADIOGRAPHY EXAM DATE: 02/09/2018 05:23 PM. HISTORY: Hip injury. COMPARISONS: None. TECHNIQUE: 1 view of the pelvis and 1 view of the hip. FINDINGS: Bones: There is an acute, comminuted proximal left femur diaphyseal fracture with mild medial angulation. No involvement of the left femoral neck appreciated. No fracture of the bony pelvis. Postoperative fixation of a right femur neck fracture is noted. Joints: The bilateral hip, pubis symphysis, and sacroiliac joints are preserved. Soft Tissues: Normal. No soft tissue swelling. IMPRESSION: 1. Acute, mildly comminuted proximal left femur diaphyseal fracture with mild to moderate medial angulation. No definite lytic lesion to suggest a pathologic process. 2. Normal alignment of both hip joints. No new bony pelvis fracture. 3. Previous operative fixation of a right femur neck fracture. EXAM: CHEST RADIOGRAPHY EXAM DATE: 02/09/2018 04:52 PM. CLINICAL HISTORY: Preop. COMPARISON: 09/25/2017. TECHNIQUE: 1 view. FINDINGS: Lungs/Pleura: Hazy opacities are present in the mid and lower lung on the left. No pneumothorax. Possible blunting of the left costophrenic angle. Mediastinum: Stable cardiac silhouette. Other: Postoperative changes noted in the right breast. Right-sided port terminates in the upper SVC. IMPRESSION: 1. Left mid and lower lung opacities could represent a combination of infiltrates, atelectasis and effusion. 2. No pneumothorax. - EKG Results EKG Interpreted Independently: Yes EKG Comparison: Old EKG unavailable (Sinus tachycardia, rate 110) EKG Findings: Sinus tachycardia, rate 110 Core Measures - Anticipated LOS I expect patient to be DC'd or transferred within 96 hours.: Yes - DVT/VTE - Prophylaxis VTE/DVT Device ordered at admit?: Yes
[2018-02-10] MEDS: LISINOPRIL 5 MG TABLET PO SCH ×2 (00:22→08:10)
[2018-02-10] MEDS: POTASSIUM CHLOR 10 MEQ/100 ML 10 MEQ/100 ML BAG IV SCH ×4 (00:27→03:57)
[2018-02-10] MEDS: SODIUM CHLORIDE FLUSH 0.9% 10 ML SYRINGE IVP SCH ×3 (00:29→16:09)
[2018-02-10] MEDS: SODIUM CHLORIDE FLUSH 0.9% 10 ML SYRINGE IVP PRN ×2 (01:09→06:02)
[2018-02-10] MEDS: PROCHLORPERAZINE 10 MG/2 ML VIAL IVP PRN (01:10)
[2018-02-10] MEDS: LEVOTHYROXINE 75 MCG TABLET PO SCH (06:01)
[2018-02-10 06:19] LABS: BASOPHILS % (AUTO) 0.5 %; EOSINOPHILS % (AUTO) 0.2 %; HGB - HEMOGLOBIN 11.8 g/dL (12.0-16.0); LYMPHOCYTES # (AUTO) 0.4 10^3/uL (1.5-3.5); LYMPHOCYTES % (AUTO) 5.3 %; MEAN CORPUSCULAR HEMOGLOBIN 32.2 pg (27.0-31.0); MEAN CORPUSCULAR HGB CONC 33.3 g/dL (32.0-36.0); MEAN CORPUSCULAR VOLUME 96.6 fL (81.0-99.0); MEAN PLATELET VOLUME 8.6 fL (7.9-10.8); MONOCYTES # (AUTO) 0.9 10^3/uL (0.0-1.0); MONOCYTES % (AUTO) 11.4 %; NEUTROPHILS # (AUTO) 6.3 10^3/uL (1.5-6.6); NEUTROPHILS % (AUTO) 82.6 %; PLT - PLATELET COUNT 120 10^3/uL (130-450); RED BLOOD COUNT 3.68 10^6/uL (4.20-5.40); RED CELL DISTRIBUTION WIDTH 18.6 % (12.0-15.0); WHITE BLOOD COUNT 7.7 x10^3/uL (4.8-10.8)
[2018-02-10 06:34] LABS: ALBUMIN 2.6 g/dL (3.2-5.5); ALBUMIN/GLOBULIN RATIO 0.9 (1.0-2.2); BILIRUBIN,TOTAL 1.8 mg/dL (0.2-1.0); CALCIUM 8.1 mg/dL (8.5-10.3); CREATININE 0.6 mg/dL (0.4-1.0); MAGNESIUM 1.7 mg/dL (1.7-2.8); PHOSPHORUS 3.6 mg/dL (2.5-4.6); TOTAL PROTEIN 5.6 g/dL (6.7-8.2)
[2018-02-10] MEDS ORDERED: LEVOTHYROXINE 75 MCG TABLET PO SCH (07:00)
[2018-02-10 07:31] LABS: INR 1.2 (0.8-1.2); PT - PROTHROMBIN TIME 13.9 secs (9.9-12.6)
[2018-02-10] MEDS: FAMOTIDINE 20 MG TABLET PO SCH (08:09)
[2018-02-10] MEDS: POTASSIUM CHLORIDE 20 MEQ TABLET PO SCH ×2 (08:09→20:46)
[2018-02-10] MEDS: POLYETHYLENE GLYCOL 3350 17 GM PACKET PO SCH (08:09)
[2018-02-10] MEDS: SPIRONOLACTONE 25 MG TABLET PO SCH ×2 (08:09→20:45)
[2018-02-10] MEDS: FUROSEMIDE 20 MG TABLET PO SCH ×2 (08:09→20:46)
[2018-02-10] MEDS: MULTIVITAMIN TABLET PO SCH (08:10)
[2018-02-10] MEDS ORDERED: BUPIVACAINE 0.25%-EPI 1:200000 PF 10 ML VIAL SUBQ ONE (12:18)
[2018-02-10] MEDS ORDERED: LACTATED RINGERS 1,000 ML IV ONE ×2 (12:18→14:10)
[2018-02-10] MEDS ORDERED: fentaNYL 100 MCG/2 ML VIAL IVP ONE (13:50)
[2018-02-10] MEDS ORDERED: NEOSTIGMINE 1 MG/1 ML 10 ML MDV IVP ONE (13:50)
[2018-02-10] MEDS ORDERED: MIDAZOLAM 2 MG/2 ML VIAL IVP ONE (13:50)
[2018-02-10] MEDS ORDERED: TRANEXAMIC ACID 1,000 MG/10 ML VIAL IV ONE (13:50)
[2018-02-10] MEDS ORDERED: ROCURONIUM 50 MG/5 ML VIAL IVP ONE (13:50)
[2018-02-10] MEDS ORDERED: GLYCOPYRROLATE 1 MG/5 ML VIAL IVP ONE (13:50)
[2018-02-10] MEDS ORDERED: PROPOFOL 200 MG/20 ML VIAL IVP ONE (13:50)
[2018-02-10] MEDS ORDERED: ceFAZolin 1 GM VIAL IV ONE (13:50)
[2018-02-10] MEDS ORDERED: ACETAMINOPHEN 1,000 MG/100 ML 100 ML IV ONE (13:50)
[2018-02-10] MEDS ORDERED: ONDANSETRON 4 MG/2 ML VIAL IVP ONE (13:50)
--- NOTE | 2018-02-10 14:44 | XRAY Report ---
Procedure Date: 02/10/2018 Accession Number: [id number] / [id number] Procedure: FL - OR C-Arm Procedure CPT Code: FULL RESULT: EXAM: Femur 2V LT, OR C-Arm Procedure DATE: 02/10/2018 2:12 PM CLINICAL HISTORY: SURGERY TECHNIQUE: 1 minute 39 seconds of intraoperative fluoroscopy was provided to Dr. Mckeon. 3 spot images obtained. COMPARISON: 02/09/2018 FINDINGS: Intraoperative imaging of dynamic compression screw and IM gloria fixation of the left femoral fracture. IMPRESSION: Intraoperative imaging of fracture fixation.
--- NOTE | 2018-02-10 14:50 | OPERATIVE REPORT ---
Operative Report - General Admit Date: 02/09/18 Procedure Date: 02/10/18 Planned Procedure: im rodding left femur Pre-Op Diagnosis: left proximal femoral shaft fracture Procedure Performed: intramedullary rodding left femur Post Op Diagnosis: closed transverse fracture left femoral shaft - Procedure Note Primary Surgeon: mary Anesthesia Technique: General ET tube Estimated Blood Loss (mL): 160
[2018-02-10] MEDS ORDERED: ENOXAPARIN 40 MG/0.4 ML SYRINGE SUBQ SCH (17:29)
--- NOTE | 2018-02-10 17:32 | PROVIDER PROGRESS NOTE ---
Assessment/Plan - Problem List (1) Closed left femoral fracture Qualifiers: Encounter type: initial encounter Femur location: shaft Fracture morphology: comminuted Fracture alignment: displaced Qualified Code(s): S72.352A - Displaced comminuted fracture of shaft of left femur, initial encounter for closed fracture Assessment/Plan: Pt had hip surgery today. Increase activity as per Dr Mckeon. (2) Shoulder pain, right Qualifiers: Chronicity: acute Qualified Code(s): M25.511 - Pain in right shoulder Assessment/Plan: Will XRay if not done in ER. Pain meds prn. (3) Esophageal varices determined by endoscopy Assessment/Plan: Pt had these banded in [place] then declined a repeat EGD since her Oncologist told her she has "3 months to live". Begin a diet, soft, due to varices. (4) Liver metastases Assessment/Plan: This is causing ascites and she was started on a diuretic. Monitor LFTs. (5) Metastatic breast cancer Assessment/Plan: Diagnosed after the liver mets were found. No further treatment planned. - Current Meds Current Meds: Current Medications Generic Name Dose Route Start Last Admin Trade Name Freq PRN Reason Stop Dose Admin Atorvastatin Calcium 10 mg 02/09/18 21:00 02/09/18 21:06 Lipitor PO Not Given QPM TRENT Famotidine 20 mg 02/10/18 09:00 02/10/18 08:09 Pepcid PO 20 mg DAILY TRENT Administration Furosemide 20 mg 02/09/18 21:00 02/10/18 08:09 Lasix PO 20 mg BID TRENT Administration Levothyroxine Sodium 75 mcg 02/10/18 07:00 02/10/18 06:01 Synthroid PO 75 mcg QDAC TRENT Administration Lisinopril 10 mg 02/09/18 23:00 02/10/18 08:10 Zestril PO Not Given DAILY TRENT Morphine Sulfate 2 mg 02/09/18 17:29 02/09/18 19:51 Morphine IVP 2 mg Q2H PRN Administration Pain 8 to 10 Multivitamins 1 tab 02/10/18 09:00 02/10/18 08:10 Theragran PO Not Given DAILY TRENT Ondansetron HCl 4 mg 02/09/18 17:29 02/09/18 20:47 Zofran Inj IVP 4 mg Q6HR PRN Administration Nausea / Vomiting Polyethylene Glycol 17 gm 02/10/18 09:00 02/10/18 08:09 Miralax PO Not Given DAILY TRENT Potassium Chloride 20 meq 02/10/18 09:00 02/10/18 08:09 K-Dur PO 20 meq BID TRENT Administration Prochlorperazine Edisylate 10 mg 02/09/18 17:29 02/10/18 01:10 Compazine Inj IVP 10 mg Q6HR PRN Administration Nausea / Vomiting Sodium Chloride 10 ml 02/09/18 17:29 02/10/18 06:02 Normal Saline Flush 0.9% IVP 30 ml PRN PRN Administration NEEDED PER PROVIDER ORDERS Sodium Chloride 10 ml 02/10/18 01:00 02/10/18 16:09 Normal Saline Flush 0.9% IVP 10 ml 0100,0900,1700 TRENT Administration Spironolactone 50 mg 02/10/18 09:00 02/10/18 08:09 Aldactone PO 50 mg BID TRENT Administration - Lab Result Fish Bone Diagrams: 02/10/18 06:14 02/10/18 06:15 Subjective - Subjective Patient Reports: Resting Comfortably Nursing Reports: Other (R shoulder pain, thinks she hit it on doorknob as she fell, or laid on it a long time.) Objective Vital Signs: Vital Signs - 24 hr 02/09/18 02/09/18 02/09/18 18:44 19:30 19:48 Temperature 36.7 C 36.7 C Heart Rate 102 H Heart Rate [ 108 H 108 H Brachial] Respiratory 16 18 18 Rate Blood Pressure 149/82 H [Left Brachial artery] Blood Pressure 149/82 H [Right Brachial artery] O2 Saturation 95 98 98 02/10/18 02/10/18 02/10/18 00:00 05:00 07:33 Temperature 36.6 C 36.6 C 36.7 C Heart Rate Heart Rate [ 109 H 94 99 Brachial] Respiratory 16 16 16 Rate Blood Pressure 123/73 112/58 L 129/66 [Left Brachial artery] Blood Pressure [Right Brachial artery] O2 Saturation 94 94 94 02/10/18 02/10/18 02/10/18 13:50 13:55 14:00 Temperature Heart Rate Heart Rate [ Brachial] Respiratory Rate Blood Pressure [Left Brachial artery] Blood Pressure [Right Brachial artery] O2 Saturation 100 97 97 06/26/18 06/26/18 06/26/18 14:05 14:10 14:15 Temperature Heart Rate Heart Rate [ Brachial] Respiratory Rate Blood Pressure [Left Brachial artery] Blood Pressure [Right Brachial artery] O2 Saturation 97 98 98 02/10/18 02/10/18 02/10/18 14:20 14:25 14:30 Temperature Heart Rate Heart Rate [ Brachial] Respiratory Rate Blood Pressure [Left Brachial artery] Blood Pressure [Right Brachial artery] O2 Saturation 99 97 98 02/10/18 02/10/18 02/10/18 14:35 14:40 14:56 Temperature 36.4 C L Heart Rate Heart Rate [ 92 Brachial] Respiratory 18 Rate Blood Pressure 128/78 [Left Brachial artery] Blood Pressure [Right Brachial artery] O2 Saturation 98 95 96 02/10/18 02/10/18 02/10/18 14:59 15:14 16:04 Temperature 36.5 C 36.5 C Heart Rate Heart Rate [ 93 93 95 Brachial] Respiratory 14 14 16 Rate Blood Pressure 128/78 138/61 H 139/71 H [Left Brachial artery] Blood Pressure [Right Brachial artery] O2 Saturation 98 96 98 02/10/18 17:14 Temperature Heart Rate Heart Rate [ 99 Brachial] Respiratory 18 Rate Blood Pressure 124/71 [Left Brachial artery] Blood Pressure [Right Brachial artery] O2 Saturation 99 Oxygen O2 Source Nasal cannula I&O (Last 24 Hrs): Intake and Output Totals x24h 02/08/18 02/09/18 02/10/18 23:59 23:59 23:59 Intake Total 100 400 Output Total 200 150 Balance -100 250 General: Alert, Oriented x3 HEENT: Mucous membr. moist/pink Neck: Supple, No JVD Neuro: Non Focal Cardiovascular: Regular rate, No murmurs Respiratory: No respiratory distress, Breath sounds nml Abdomen: Soft Extremities: No edema, Other (R shoulder not dislocated or bruised.) - Results Results: Laboratory Results WBC 7.7 x10^3/uL (4.8-10.8) 02/10/18 06:14 RBC 3.68 10^6/uL (4.20-5.40) L 02/10/18 06:14 Hgb 11.8 g/dL (12.0-16.0) L 02/10/18 06:14 Hct 35.5 % (37.0-47.0) L 02/10/18 06:14 MCV 96.6 fL (81.0-99.0) 02/10/18 06:14 MCH 32.2 pg (27.0-31.0) H 02/10/18 06:14 MCHC 33.3 g/dL (32.0-36.0) 02/10/18 06:14 RDW 18.6 % (12.0-15.0) H 02/10/18 06:14 Plt Count 120 10^3/uL (130-450) L 02/10/18 06:14 MPV 8.6 fL (7.9-10.8) 02/10/18 06:14 Neut # (Auto) 6.3 10^3/uL (1.5-6.6) 02/10/18 06:14 Lymph # (Auto) 0.4 10^3/uL (1.5-3.5) L 02/10/18 06:14 Blanco # (Auto) 0.9 10^3/uL (0.0-1.0) 02/10/18 06:14 Eos # (Auto) 0.0 10^3/uL (0.0-0.7) 02/10/18 06:14 Baso # (Auto) 0.0 10^3/uL (0.0-0.1) 02/10/18 06:14 Absolute Nucleated RBC 0.01 x10^3/uL 02/10/18 06:14 Nucleated RBC % 0.1 /100WBC 02/10/18 06:14 PT 13.9 secs (9.9-12.6) H 02/10/18 06:14 INR 1.2 (0.8-1.2) 02/10/18 06:14 Sodium 134 mmol/L (135-145) L 02/10/18 06:15 Potassium 4.3 mmol/L (3.5-5.0) 02/10/18 06:15 Chloride 100 mmol/L (101-111) L 02/10/18 06:15 Carbon Dioxide 27 mmol/L (21-32) 02/10/18 06:15 Anion Gap 7.0 (6-13) 02/10/18 06:15 BUN 10 mg/dL (6-20) 02/10/18 06:15 Creatinine 0.6 mg/dL (0.4-1.0) 02/10/18 06:15 Estimated GFR (MDRD) 100 (>89) 02/10/18 06:15 Glucose 105 mg/dL (70-100) H 02/10/18 06:15 Calcium 8.1 mg/dL (8.5-10.3) L 02/10/18 06:15 Phosphorus 3.6 mg/dL (2.5-4.6) 02/10/18 06:15 Magnesium 1.7 mg/dL (1.7-2.8) 02/10/18 06:15 Total Bilirubin 1.8 mg/dL (0.2-1.0) H 02/10/18 06:15 AST 73 IU/L (10-42) H 02/10/18 06:15 ALT 41 IU/L (10-60) 02/10/18 06:15 Alkaline Phosphatase 264 IU/L (42-121) H 02/10/18 06:15 Total Protein 5.6 g/dL (6.7-8.2) L 02/10/18 06:15 Albumin 2.6 g/dL (3.2-5.5) L 02/10/18 06:15 Globulin 3.0 g/dL (2.1-4.2) 02/10/18 06:15 Albumin/Globulin Ratio 0.9 (1.0-2.2) L 02/10/18 06:15 Lipase 24 U/L (22-51) 02/09/18 16:46 TSH 16.05 uIU/mL (0.34-5.60) H 02/10/18 06:14 Blood Type O NEGATIVE 02/09/18 17:37 Antibody Screen NEGATIVE 02/09/18 17:37 - Procedures Procedures: Procedures EXCISION OF STOMACH, ENDO, DIAGN (01/21/18) INSERTION OF TOTALLY IMPLANTABLE VASC ACCESS DEVIC (04/23/13) REPOSITION R FEMUR SHAFT WITH INTRAMED FIX, OPEN APPROACH (01/04/17) TRANSFUSE NONAUT RED BLOOD CELLS IN CENTRAL VEIN, PERC (01/21/18)
--- NOTE | 2018-02-10 18:55 | XRAY Report ---
Procedure Date: 02/10/2018 Accession Number: [id number] / [id number] Procedure: XR - Femur 2V LT CPT Code: FULL RESULT: EXAM: Femur 2V LT, OR C-Arm Procedure DATE: 02/10/2018 2:12 PM CLINICAL HISTORY: SURGERY TECHNIQUE: 1 minute 39 seconds of intraoperative fluoroscopy was provided to Dr. Mckeon. 3 spot images obtained. COMPARISON: 02/09/2018 FINDINGS: Intraoperative imaging of dynamic compression screw and IM gloria fixation of the left femoral fracture. IMPRESSION: Intraoperative imaging of fracture fixation.
[2018-02-10] MEDS: ATORVASTATIN 10 MG TABLET PO SCH (20:46)
[2018-02-10] MEDS: oxyCODONE 5 MG TABLET PO PRN (20:46)
[2018-02-11] MEDS: SODIUM CHLORIDE FLUSH 0.9% 10 ML SYRINGE IVP SCH ×4 (00:23→23:49)
[2018-02-11] MEDS: oxyCODONE 5 MG TABLET PO PRN ×3 (00:28→10:15)
[2018-02-11] MEDS: SODIUM CHLORIDE FLUSH 0.9% 10 ML SYRINGE IVP PRN ×3 (00:29→10:31)
--- NOTE | 2018-02-11 02:00 | XRAY Report ---
Procedure Date: 02/10/2018 Accession Number: [id number] / [id number] Procedure: XR - Shoulder 3 View RT CPT Code: FULL RESULT: EXAM: RIGHT SHOULDER RADIOGRAPHY EXAM DATE: 02/10/2018 09:33 PM. CLINICAL HISTORY: R shoulder pain after a fall yesterday. COMPARISON: None. TECHNIQUE: 3 views. FINDINGS: Bones: No acute fracture seen. Joints: No dislocation. Mild degenerative joint disease in the acromioclavicular joint. Soft tissues: Right-sided PowerPort in place. IMPRESSION: 1. Mild degenerative changes. No acute fracture or dislocation seen. RADIA
--- NOTE | 2018-02-11 03:04 | OPERATIVE REPORT ---
DATE OF SERVICE: 02/09/2018 Physician: Timothy Mckeon MD PREOPERATIVE DIAGNOSIS: Left proximal femoral shaft closed fracture. POSTOPERATIVE DIAGNOSIS: Left proximal femoral shaft closed fracture. PROCEDURE PERFORMED: Intramedullary rodding of the left femur. OPERATING SURGEON: Timothy Mckeon MD ANESTHESIA: General by Luke Chauhan CRNA INDICATIONS FOR SURGERY: The patient is a 67-year-old female who unfortunately has metastatic severe breast cancer in its terminal stages, and she also has been on chronic bisphosphonate therapy and has previously a year ago suffered a right proximal third femoral shaft transverse fracture and now yesterday suffered a minor twisting event and fell to the ground, suffering a left proximal femur fracture of the same configuration. These fractures have not occurred through metastatic lesions. She has done well with previous IM rodding and has been an ambulator and has actually returned to employment 3 days a week. She states that she has a chronic limp but does not have pain. Based on evaluation, it was felt that she should have stabilizing intramedullary rodding of her left femur. FINDINGS AT SURGERY: The patient's fracture was transverse, and the configuration was typical in that it was very hard to reduce and made for a difficult rodding. The patient's bone quality appeared good, and the femoral head in particular had very hard bone. The size gloria accommodated was similar to what was used on the opposite femur, 38 cm x 10 mm diameter gloria. DESCRIPTION OF OPERATIVE PROCEDURE: The patient was taken to the operating room, given a general anesthetic. She was positioned on the fracture table supine, and her torso was bent towards the well hip. Her hip was placed in traction and lightly adducted and the well leg positioned out of the way for C-arm access. Initial images showed very good position of the fracture as viewed from the AP plane and complete offset as viewed from the lateral plane, with the proximal fragment flexed and externally rotated. The patient was sterilely prepped and draped in standard fashion. Surgical timeout was held. The approach was extending above the greater trochanter a longitudinal oriented incision with dissection down to the tip of the trochanter. Access was difficult because of the extreme external rotation of the proximal fragment and flexion, and this had to be controlled by placing a bone hook on the fragment and bringing it up into a better position for a trochanteric entry. Ultimately, a satisfactory position was gained. It was not optimal, as it was somewhat lateralized, but entry was gained into the femur and a guide gloria worked down to the fracture site. With attempts we made with the reduction finger and a guide gloria to bypass and cross the fracture site multiple times, with complete paralysis of the patient and with various devices to reduce the fracture with traction on and off, ultimately reduction was gained with traction mostly released and a digital small opening planned to be where the trochanteric crosslink would be and through this window accessing the fracture and helping the guide gloria across. When this was accomplished, the surgery proceeded with reaming up to 12 mm of the canal, sizing a 38 mm gloria, 130-degree offset head and neck angle, and inserting the gloria uneventfully across the fracture and seating it well. A 95 mm screw was measured for and reamed. A guide pin was placed central in the head and neck, and then reaming and, in this case, tapping were performed because of hard bone. The screw was inserted through the gloria into the femoral neck. It was locked in place with a proximal screw. It was elected not to interlock distally, as the patient had a very tight isthmus and a very tight fit of the gloria. It was felt to have essentially captured things by distal fixation of the gloria. C-arm images confirmed placement of the gloria, alignment. Rotation had been reestablished. The wounds were irrigated and closed with Vicryl deep and Vicryl subcutaneous braeden in skin and sterile dressings. The patient was taken off the fracture table then and placed into a hospital bed and taken to the recovery room in stable condition. ESTIMATED BLOOD LOSS: 120 mL COMPLICATIONS: None. TD: 02/10/2018 15:37
[2018-02-11] MEDS: LEVOTHYROXINE 75 MCG TABLET PO SCH (06:09)
[2018-02-11 06:18] LABS: BASOPHILS % (AUTO) 0.5 %; LYMPHOCYTES # (AUTO) 0.5 10^3/uL (1.5-3.5); LYMPHOCYTES % (AUTO) 5.4 %; MEAN CORPUSCULAR HEMOGLOBIN 31.9 pg (27.0-31.0); MEAN CORPUSCULAR HGB CONC 32.9 g/dL (32.0-36.0); MEAN CORPUSCULAR VOLUME 96.9 fL (81.0-99.0); MONOCYTES # (AUTO) 1.4 10^3/uL (0.0-1.0); MONOCYTES % (AUTO) 14.6 %; NEUTROPHILS # (AUTO) 7.4 10^3/uL (1.5-6.6); NEUTROPHILS % (AUTO) 79.5 %; PLT - PLATELET COUNT 173 10^3/uL (130-450); RED BLOOD COUNT 3.44 10^6/uL (4.20-5.40); RED CELL DISTRIBUTION WIDTH 18.6 % (12.0-15.0); WHITE BLOOD COUNT 9.3 x10^3/uL (4.8-10.8)
[2018-02-11 06:33] LABS: ALBUMIN 2.3 g/dL (3.2-5.5); ALBUMIN/GLOBULIN RATIO 0.9 (1.0-2.2); BILIRUBIN,TOTAL 2.3 mg/dL (0.2-1.0); CALCIUM 7.4 mg/dL (8.5-10.3); CREATININE 0.9 mg/dL (0.4-1.0); MAGNESIUM 1.5 mg/dL (1.7-2.8); PHOSPHORUS 2.6 mg/dL (2.5-4.6)
--- NOTE | 2018-02-11 07:43 | PROVIDER PROGRESS NOTE ---
Subjective - General Admit Date: 02/09/18 Procedure Date: 02/10/18 Post Op Days: 1 Procedure Performed: left femur Intramedullary rodding - Review of Systems Wound/Incisions: positive: Dressing dry and intact Musculoskeletal: positive: Joint pain All Other Systems: positive: Reviewed and negative Objective - Patient Data Reviewed Vital Signs: Yes Vital Signs: Vital Signs x48h Temp Pulse Resp BP Pulse Ox 02/11/18 00:10 37.2 C 109 H 16 119/65 94 Weight: Weight 02/09/18 02/10/18 02/11/18 23:59 23:59 23:59 Weight (kg) 71 kg Intake & Output: Intake and Output Totals x24h 02/09/18 02/10/18 02/11/18 23:59 23:59 23:59 Intake Total 100 400 350 Output Total 200 750 375 Balance -100 -350 -25 - Lab Results Lab Results: 02/11/18 06:08 02/11/18 06:08 Other Lab Results: Lab Results x24hrs 02/11/18 02/11/18 Range/Units 06:08 06:08 WBC 9.3 (4.8-10.8) x10^3/uL RBC 3.44 L (4.20-5.40) 10^6/uL Hgb 11.0 L (12.0-16.0) g/dL Hct 33.4 L (37.0-47.0) % MCV 96.9 (81.0-99.0) fL MCH 31.9 H (27.0-31.0) pg MCHC 32.9 (32.0-36.0) g/dL RDW 18.6 H (12.0-15.0) % Plt Count 173 (130-450) 10^3/uL MPV 9.0 (7.9-10.8) fL Neut # (Auto) 7.4 H (1.5-6.6) 10^3/uL Lymph # (Auto) 0.5 L (1.5-3.5) 10^3/uL [place] # (Auto) 1.4 H (0.0-1.0) 10^3/uL Eos # (Auto) 0.0 (0.0-0.7) 10^3/uL Baso # (Auto) 0.0 (0.0-0.1) 10^3/uL Absolute Nucleated RBC 0.00 x10^3/uL Nucleated RBC % 0.0 /100WBC Sodium 133 L (135-145) mmol/L Potassium 4.6 (3.5-5.0) mmol/L Chloride 101 (101-111) mmol/L Carbon Dioxide 25 (21-32) mmol/L Anion Gap 7.0 (6-13) BUN 11 (6-20) mg/dL Creatinine 0.9 (0.4-1.0) mg/dL Estimated GFR (MDRD) 63 L (>89) Glucose 112 H (70-100) mg/dL Calcium 7.4 L (8.5-10.3) mg/dL Phosphorus 2.6 (2.5-4.6) mg/dL Magnesium 1.5 L (1.7-2.8) mg/dL Total Bilirubin 2.3 H (0.2-1.0) mg/dL AST 99 H (10-42) IU/L ALT 36 (10-60) IU/L Alkaline Phosphatase 197 H (42-121) IU/L Total Protein 5.0 L (6.7-8.2) g/dL Albumin 2.3 L (3.2-5.5) g/dL Globulin 2.7 (2.1-4.2) g/dL Albumin/Globulin Ratio 0.9 L (1.0-2.2) - Imaging Results Radiology Imaging: positive: EMP read indepedently - Current Medications Current Medications: Current Medications Generic Name Dose Route Start Last Admin Trade Name Freq PRN Reason Stop Dose Admin Atorvastatin Calcium 10 mg 02/09/18 21:00 02/10/18 20:46 Lipitor PO 10 mg QPM TRENT Administration Famotidine 20 mg 02/10/18 09:00 02/10/18 08:09 Pepcid PO 20 mg DAILY TRENT Administration Furosemide 20 mg 02/09/18 21:00 02/10/18 20:46 Lasix PO 20 mg BID TRENT Administration Heparin Sodium (Beef Lung) 30 - 50 unit 02/11/18 05:38 02/11/18 05:56 IVP 50 unit PRN PRN Administration Port Protocol (<24 hours) Levothyroxine Sodium 75 mcg 02/10/18 07:00 02/11/18 06:09 Synthroid PO 75 mcg QDAC TRENT Administration Lisinopril 10 mg 02/09/18 23:00 02/10/18 08:10 Zestril PO Not Given DAILY [facility] Morphine Sulfate 2 mg 02/09/18 17:29 02/09/18 19:51 Morphine IVP 2 mg Q2H PRN Administration Pain 8 to 10 Multivitamins 1 tab 02/10/18 09:00 02/10/18 08:10 Theragran PO Not Given DAILY [facility] Ondansetron HCl 4 mg 02/09/18 17:29 02/09/18 20:47 Zofran Inj IVP 4 mg Q6HR PRN Administration Nausea / Vomiting Oxycodone HCl 5 mg 02/09/18 17:29 02/11/18 06:10 Roxicodone PO 5 mg Q4HR PRN Administration Pain 5 to 7 Polyethylene Glycol 17 gm 02/10/18 09:00 02/10/18 08:09 Miralax PO Not Given DAILY [facility] Potassium Chloride 20 meq 02/10/18 09:00 02/10/18 20:46 K-Dur PO 20 meq BID [facility] Administration Prochlorperazine Edisylate 10 mg 02/09/18 17:29 02/10/18 01:10 Compazine Inj IVP 10 mg Q6HR PRN Administration Nausea / Vomiting Sodium Chloride 10 ml 02/09/18 17:29 02/11/18 05:56 Normal Saline Flush 0.9% IVP 30 ml PRN PRN Administration NEEDED PER PROVIDER ORDERS Sodium Chloride 10 ml 02/10/18 01:00 02/11/18 00:23 Normal Saline Flush 0.9% IVP 10 ml 0100,0900,1700 TRENT Administration Spironolactone 50 mg 02/10/18 09:00 02/10/18 20:45 Aldactone PO 50 mg BID TRENT Administration - Physical Exam Wound/Incisions: positive: Dressing dry and intact General Appearance: positive: No acute distress Skin: positive: Warm, Dry Extremities: positive: Joint swelling Neurologic/Psychiatric: positive: Motor nml, Sensation nml, Mood/affect nml Impression/Plan - Problem List Problem List: POD #1 Pt is more comfortable and able to control leg slightly. n/v exam is normal. Plan for early PT.
[2018-02-11] MEDS: FAMOTIDINE 20 MG TABLET PO SCH (08:54)
[2018-02-11] MEDS: ENOXAPARIN 40 MG/0.4 ML SYRINGE SUBQ SCH ×2 (08:54→09:00)
[2018-02-11] MEDS: SPIRONOLACTONE 25 MG TABLET PO SCH ×2 (08:54→20:04)
[2018-02-11] MEDS: MULTIVITAMIN TABLET PO SCH (08:55)
[2018-02-11] MEDS: MAGNESIUM OXIDE 400 MG TABLET PO SCH (08:55)
[2018-02-11] MEDS: POTASSIUM CHLORIDE 20 MEQ TABLET PO SCH ×2 (08:55→20:04)
[2018-02-11] MEDS: FUROSEMIDE 20 MG TABLET PO SCH ×2 (08:55→20:04)
[2018-02-11] MEDS: LISINOPRIL 5 MG TABLET PO SCH (08:56)
[2018-02-11] MEDS: POLYETHYLENE GLYCOL 3350 17 GM PACKET PO SCH (08:56)
[2018-02-11] MEDS: ONDANSETRON 4 MG/2 ML VIAL IVP PRN (10:45)
--- NOTE | 2018-02-11 17:28 | XRAY Report ---
Procedure Date: 02/11/2018 Accession Number: [id number] / [id number] Procedure: XR - Chest 1 View X-Ray CPT Code: 61781 FULL RESULT: EXAM: CHEST RADIOGRAPHY EXAM DATE: 02/11/2018 04:51 PM. CLINICAL HISTORY: Follow up lung infiltrates. COMPARISON: 02/09/2018. TECHNIQUE: 1 view. FINDINGS: Lungs/Pleura: Right lung remains clear. Moderate decrease in the degree of opacification involving the inferior half left lung. Suspect small posterior pleural effusion contributing to this appearance. No vascular congestion nor pneumothorax. Mediastinum: Within exam limitations, the cardiomediastinal contour is normal. Other: Right jugular Port-A-Cath tip remains superior third SVC. Right mastectomy. Cholecystectomy. IMPRESSION: Decreasing effusion and consolidation left lung base. RADIA
[2018-02-12] MEDS: LEVOTHYROXINE 75 MCG TABLET PO SCH (06:05)
[2018-02-12 06:22] LABS: BASOPHILS % (AUTO) 0.4 %; EOSINOPHILS % (AUTO) 0.2 %; HGB - HEMOGLOBIN 11.3 g/dL (12.0-16.0); LYMPHOCYTES # (AUTO) 0.5 10^3/uL (1.5-3.5); LYMPHOCYTES % (AUTO) 4.3 %; MEAN CORPUSCULAR HEMOGLOBIN 32.5 pg (27.0-31.0); MEAN CORPUSCULAR HGB CONC 33.7 g/dL (32.0-36.0); MEAN CORPUSCULAR VOLUME 96.3 fL (81.0-99.0); MEAN PLATELET VOLUME 8.9 fL (7.9-10.8); MONOCYTES # (AUTO) 1.4 10^3/uL (0.0-1.0); MONOCYTES % (AUTO) 13.4 %; NEUTROPHILS # (AUTO) 8.7 10^3/uL (1.5-6.6); NEUTROPHILS % (AUTO) 81.7 %; PLT - PLATELET COUNT 146 10^3/uL (130-450); RED BLOOD COUNT 3.49 10^6/uL (4.20-5.40); RED CELL DISTRIBUTION WIDTH 18.8 % (12.0-15.0); WHITE BLOOD COUNT 10.6 x10^3/uL (4.8-10.8)
[2018-02-12 06:35] LABS: ALBUMIN 2.4 g/dL (3.2-5.5); ALBUMIN/GLOBULIN RATIO 0.8 (1.0-2.2); CREATININE 0.8 mg/dL (0.4-1.0); MAGNESIUM 1.9 mg/dL (1.7-2.8); TOTAL PROTEIN 5.6 g/dL (6.7-8.2)
--- NOTE | 2018-02-12 08:35 | PROVIDER PROGRESS NOTE ---
Subjective - General Admit Date: 02/09/18 Procedure Date: 02/10/18 Post Op Days: 2 Procedure Performed: left femur Intramedullary rodding - Review of Systems Wound/Incisions: positive: Dressing dry and intact Musculoskeletal: positive: Joint pain All Other Systems: positive: Reviewed and negative Objective - Patient Data Reviewed Vital Signs: Yes Intake & Output: Intake and Output Totals x24h 02/10/18 02/11/18 02/12/18 23:59 23:59 23:59 Intake Total 400 1240 200 Output Total 750 675 250 Balance -350 565 -50 - Lab Results Lab Results: 02/12/18 06:00 02/12/18 06:00 Other Lab Results: Lab Results x24hrs 02/12/18 02/12/18 Range/Units 06:00 06:00 WBC 10.6 (4.8-10.8) x10^3/uL RBC 3.49 L (4.20-5.40) 10^6/uL Hgb 11.3 L (12.0-16.0) g/dL Hct 33.6 L (37.0-47.0) % MCV 96.3 (81.0-99.0) fL MCH 32.5 H (27.0-31.0) pg MCHC 33.7 (32.0-36.0) g/dL RDW 18.8 H (12.0-15.0) % Plt Count 146 (130-450) 10^3/uL MPV 8.9 (7.9-10.8) fL Neut # (Auto) 8.7 H (1.5-6.6) 10^3/uL Lymph # (Auto) 0.5 L (1.5-3.5) 10^3/uL Esmeralda # (Auto) 1.4 H (0.0-1.0) 10^3/uL Eos # (Auto) 0.0 (0.0-0.7) 10^3/uL Baso # (Auto) 0.0 (0.0-0.1) 10^3/uL Absolute Nucleated RBC 0.00 x10^3/uL Nucleated RBC % 0.0 /100WBC Sodium 130 L (135-145) mmol/L Potassium 5.0 (3.5-5.0) mmol/L Chloride 97 L (101-111) mmol/L Carbon Dioxide 27 (21-32) mmol/L Anion Gap 6.0 (6-13) BUN 14 (6-20) mg/dL Creatinine 0.8 (0.4-1.0) mg/dL Estimated GFR (MDRD) 72 L (>89) Glucose 141 H (70-100) mg/dL Calcium 8.0 L (8.5-10.3) mg/dL Magnesium 1.9 (1.7-2.8) mg/dL Total Bilirubin 3.0 H (0.2-1.0) mg/dL AST 168 H (10-42) IU/L ALT 56 (10-60) IU/L Alkaline Phosphatase 186 H (42-121) IU/L Total Protein 5.6 L (6.7-8.2) g/dL Albumin 2.4 L (3.2-5.5) g/dL Globulin 3.2 (2.1-4.2) g/dL Albumin/Globulin Ratio 0.8 L (1.0-2.2) - Current Medications Current Medications: Current Medications Generic Name Dose Route Start Last Admin Trade Name Freq PRN Reason Stop Dose Admin Famotidine 20 mg 02/10/18 09:00 02/11/18 08:54 Pepcid PO 20 mg DAILY TRENT Administration Furosemide 20 mg 02/09/18 21:00 02/11/18 20:04 Lasix PO 20 mg BID TRENT Administration Heparin Sodium (Beef Lung) 30 - 50 unit 02/11/18 05:38 02/11/18 23:49 IVP 50 unit PRN PRN Administration Port Protocol (<24 hours) Levothyroxine Sodium 75 mcg 02/10/18 07:00 02/12/18 06:05 Synthroid PO 75 mcg QDAC TRENT Administration Magnesium Oxide 400 mg 02/11/18 09:00 02/11/18 08:55 Mag Ox PO 400 mg DAILYWM TRENT Administration Morphine Sulfate 2 mg 02/09/18 17:29 02/09/18 19:51 Morphine IVP 2 mg Q2H PRN Administration Pain 8 to 10 Multivitamins 1 tab 02/10/18 09:00 02/11/18 08:55 Theragran PO 1 tab DAILY [facility] Administration Ondansetron HCl 4 mg 02/09/18 17:29 02/11/18 10:45 Zofran Inj IVP 4 mg Q6HR PRN Administration Nausea / Vomiting Oxycodone HCl 5 mg 02/09/18 17:29 02/11/18 06:10 Roxicodone PO 5 mg Q4HR PRN Administration Pain 5 to 7 Oxycodone HCl 10 mg 02/09/18 17:29 02/11/18 10:15 Roxicodone PO 10 mg Q4HR PRN Administration Pain 8 to 10 Polyethylene Glycol 17 gm 02/10/18 09:00 02/11/18 08:56 Miralax PO Not Given DAILY [facility] Potassium Chloride 20 meq 02/10/18 09:00 02/11/18 20:04 K-Dur PO 20 meq BID TRENT Administration Prochlorperazine Edisylate 10 mg 02/09/18 17:29 02/10/18 01:10 Compazine Inj IVP 10 mg Q6HR PRN Administration Nausea / Vomiting Sodium Chloride 10 ml 02/09/18 17:29 02/11/18 10:31 Normal Saline Flush 0.9% IVP 10 ml PRN PRN Administration NEEDED PER PROVIDER ORDERS Sodium Chloride 10 ml 02/10/18 01:00 02/11/18 23:49 Normal Saline Flush 0.9% IVP 10 ml 0100,0900,1700 TRENT Administration Spironolactone 50 mg 02/10/18 09:00 02/11/18 20:04 Aldactone PO 50 mg BID TRENT Administration - Physical Exam Wound/Incisions: positive: Dressing dry and intact Skin: positive: Warm, Dry Extremities: positive: Joint swelling Neurologic/Psychiatric: positive: Motor nml, Sensation nml, Mood/affect nml Impression/Plan - Problem List Problem List: POD #2 Pt is improving with less pain. Dressing has mild stains. thigh swelling normal for surgery post op
[2018-02-12] MEDS ORDERED: LEVOTHYROXINE 25 MCG TABLET PO ONE (09:15)
[2018-02-12] MEDS: FAMOTIDINE 20 MG TABLET PO SCH (09:35)
[2018-02-12] MEDS: MULTIVITAMIN TABLET PO SCH (09:35)
[2018-02-12] MEDS: MAGNESIUM OXIDE 400 MG TABLET PO SCH (09:35)
[2018-02-12] MEDS: POTASSIUM CHLORIDE 20 MEQ TABLET PO SCH (09:35)
[2018-02-12] MEDS: FUROSEMIDE 20 MG TABLET PO SCH (09:35)
[2018-02-12] MEDS: SPIRONOLACTONE 25 MG TABLET PO SCH (09:35)
[2018-02-12] MEDS: D5.45NS W/20 MEQ KCL 1,000 ML IV SCH ×2 (10:08→17:54)
[2018-02-12] MEDS: oxyCODONE 5 MG TABLET PO PRN ×2 (10:09→21:31)
[2018-02-12] MEDS: SODIUM CHLORIDE FLUSH 0.9% 10 ML SYRINGE IVP SCH ×2 (10:11→16:03)
[2018-02-12] MEDS: POLYETHYLENE GLYCOL 3350 17 GM PACKET PO SCH (10:15)
[2018-02-12] MEDS: SODIUM CHLORIDE 1 GM TABLET PO SCH ×2 (10:53→21:29)
[2018-02-12] MEDS: ONDANSETRON 4 MG/2 ML VIAL IVP PRN ×2 (10:58→21:19)
--- NOTE | 2018-02-12 11:21 | PROVIDER PROGRESS NOTE ---
Assessment/Plan - Problem List (1) Closed left femoral fracture Qualifiers: Encounter type: subsequent encounter Femur location: shaft Fracture morphology: comminuted Fracture alignment: displaced Qualified Code(s): S72.352A - Displaced comminuted fracture of shaft of left femur, initial encounter for closed fracture Assessment/Plan: Continue progress with OOB to chair and PT when OK with Orthopedist. Continue pain meds, which may be the cause of her nausea however. A CXR was obtained due to RN noticing "crackles at lung bases", but this showed improvement in her atalectasis, no worsening. Continue Incentive Spirometry. (2) Shoulder pain, right Qualifiers: Chronicity: unspecified Qualified Code(s): M25.511 - Pain in right shoulder Assessment/Plan: No fracture or dislocation by imaging yesterday. (3) Esophageal varices determined by endoscopy Assessment/Plan: Stable without UGI bleeding. (4) Liver metastases Assessment/Plan: Continue low dose Lasix for known ascites. (5) Metastatic breast cancer Assessment/Plan: Poor prognosis and continue symptomatic care. - Current Meds Current Meds: Current Medications Generic Name Dose Route Start Last Admin Trade Name Freq PRN Reason Stop Dose Admin Famotidine 20 mg 02/10/18 09:00 02/12/18 09:35 Pepcid PO 20 mg DAILY TRENT Administration Heparin Sodium (Beef Lung) 30 - 50 unit 02/11/18 05:38 02/11/18 23:49 IVP 50 unit PRN PRN Administration Port Protocol (<24 hours) Potassium Chloride/Dextrose/Sod Cl 1,000 mls @ 125 mls/hr 02/12/18 09:00 10:08 D5.45ns W/20 Meq Kcl IV 125 mls/hr .Q8H TRENT Administration Magnesium Oxide 400 mg 02/11/18 09:00 02/12/18 09:35 Mag Ox PO 400 mg DAILYWM TRENT Administration Morphine Sulfate 2 mg 02/09/18 17:29 02/09/18 19:51 Morphine IVP 2 mg Q2H PRN Administration Pain 8 to 10 Multivitamins 1 tab 02/10/18 09:00 02/12/18 09:35 Theragran PO 1 tab DAILY [facility] Administration Ondansetron HCl 4 mg 02/09/18 17:29 02/12/18 10:58 Zofran Inj IVP 4 mg Q6HR PRN Administration Nausea / Vomiting Oxycodone HCl 5 mg 02/09/18 17:29 02/11/18 06:10 Roxicodone PO 5 mg Q4HR PRN Administration Pain 5 to 7 Oxycodone HCl 10 mg 02/09/18 17:29 02/12/18 10:09 Roxicodone PO 10 mg Q4HR PRN Administration Pain 8 to 10 Polyethylene Glycol 17 gm 02/10/18 09:00 02/12/18 10:15 Miralax PO Not Given DAILY TRENT Prochlorperazine Edisylate 10 mg 02/09/18 17:29 02/10/18 01:10 Compazine Inj IVP 10 mg Q6HR PRN Administration Nausea / Vomiting Sodium Chloride 10 ml 02/09/18 17:29 02/11/18 10:31 Normal Saline Flush 0.9% IVP 10 ml PRN PRN Administration NEEDED PER PROVIDER ORDERS Sodium Chloride 10 ml 02/10/18 01:00 02/12/18 10:11 Normal Saline Flush 0.9% IVP 10 ml 0100,0900,1700 TRENT Administration Sodium Chloride 1 gm 02/12/18 09:00 02/12/18 10:53 Salt Tab PO 1 gm BID TRENT Administration - Lab Result Fish Bone Diagrams: 02/12/18 06:00 02/12/18 06:00 - Additional Planning My Orders: My Active Orders 02/11/18 16:25 IS [Incentive Spirometry - RT] [RC] .TID Subjective - Subjective Patient Reports: Nausea Nursing Reports: Other (Lung bases have crackles.) Objective Vital Signs: Vital Signs - 24 hr 02/11/18 02/11/18 02/11/18 12:47 15:49 19:52 Temperature 36.7 C Heart Rate [ 108 H 109 H Brachial] Heart Rate [ 110 H Sitting] Heart Rate [ 96 Supine] Respiratory 20 17 Rate Blood Pressure 124/63 140/51 H [Left Brachial artery] Blood Pressure 124/71 [Sitting] Blood Pressure 113/67 [Supine] O2 Saturation 96 95 O2 Saturation [ 95 With Activity] O2 Saturation [ 90 L Without Activity] 02/11/18 02/12/18 23:40 08:36 Temperature 36.7 C 36.8 C Heart Rate [ 106 H 99 Brachial] Heart Rate [ Sitting] Heart Rate [ Supine] Respiratory 16 18 Rate Blood Pressure 138/63 H 131/64 H [Left Brachial artery] Blood Pressure [Sitting] Blood Pressure [Supine] O2 Saturation 95 98 O2 Saturation [ With Activity] O2 Saturation [ Without Activity] Oxygen O2 Source [With Activity] Nasal cannula O2 Source [Without Activity] Room air O2 Source Nasal cannula I&O (Last 24 Hrs): Intake and Output Totals x24h 02/10/18 02/11/18 02/12/18 23:59 23:59 23:59 Intake Total 400 1240 440 Output Total 750 675 250 Balance -350 565 190 General: Alert, Oriented x3 HEENT: Mucous membr. moist/pink Neck: Supple, No JVD Neuro: Non Focal Cardiovascular: Regular rate, No murmurs Respiratory: No respiratory distress, Breath sounds nml Abdomen: Soft, No tenderness Extremities: No edema - Results Results: Laboratory Results WBC 10.6 x10^3/uL (4.8-10.8) 02/12/18 06:00 RBC 3.49 10^6/uL (4.20-5.40) L 02/12/18 06:00 Hgb 11.3 g/dL (12.0-16.0) L 02/12/18 06:00 Hct 33.6 % (37.0-47.0) L 02/12/18 06:00 MCV 96.3 fL (81.0-99.0) 02/12/18 06:00 MCH 32.5 pg (27.0-31.0) H 02/12/18 06:00 MCHC 33.7 g/dL (32.0-36.0) 02/12/18 06:00 RDW 18.8 % (12.0-15.0) H 02/12/18 06:00 Plt Count 146 10^3/uL (130-450) 02/12/18 06:00 MPV 8.9 fL (7.9-10.8) 02/12/18 06:00 Neut # (Auto) 8.7 10^3/uL (1.5-6.6) H 02/12/18 06:00 Lymph # (Auto) 0.5 10^3/uL (1.5-3.5) L 02/12/18 06:00 Prentiss # (Auto) 1.4 10^3/uL (0.0-1.0) H 02/12/18 06:00 Eos # (Auto) 0.0 10^3/uL (0.0-0.7) 02/12/18 06:00 Baso # (Auto) 0.0 10^3/uL (0.0-0.1) 02/12/18 06:00 Absolute Nucleated RBC 0.00 x10^3/uL 02/12/18 06:00 Nucleated RBC % 0.0 /100WBC 02/12/18 06:00 PT 13.9 secs (9.9-12.6) H 02/10/18 06:14 INR 1.2 (0.8-1.2) 02/10/18 06:14 Sodium 130 mmol/L (135-145) L 02/12/18 06:00 Potassium 5.0 mmol/L (3.5-5.0) 02/12/18 06:00 Chloride 97 mmol/L (101-111) L 02/12/18 06:00 Carbon Dioxide 27 mmol/L (21-32) 02/12/18 06:00 Anion Gap 6.0 (6-13) 02/12/18 06:00 BUN 14 mg/dL (6-20) 02/12/18 06:00 Creatinine 0.8 mg/dL (0.4-1.0) 02/12/18 06:00 Estimated GFR (MDRD) 72 (>89) L 02/12/18 06:00 Glucose 141 mg/dL (70-100) H 02/12/18 06:00 Calcium 8.0 mg/dL (8.5-10.3) L 02/12/18 06:00 Phosphorus 2.6 mg/dL (2.5-4.6) 02/11/18 06:08 Magnesium 1.9 mg/dL (1.7-2.8) 02/12/18 06:00 Total Bilirubin 3.0 mg/dL (0.2-1.0) H 02/12/18 06:00 AST 168 IU/L (10-42) H 02/12/18 06:00 ALT 56 IU/L (10-60) 02/12/18 06:00 Alkaline Phosphatase 186 IU/L (42-121) H 02/12/18 06:00 Total Protein 5.6 g/dL (6.7-8.2) L 02/12/18 06:00 Albumin 2.4 g/dL (3.2-5.5) L 02/12/18 06:00 Globulin 3.2 g/dL (2.1-4.2) 02/12/18 06:00 Albumin/Globulin Ratio 0.8 (1.0-2.2) L 02/12/18 06:00 Lipase 24 U/L (22-51) 02/09/18 16:46 TSH 16.05 uIU/mL (0.34-5.60) H 02/10/18 06:14 Blood Type O NEGATIVE 02/09/18 17:37 Antibody Screen NEGATIVE 02/09/18 17:37 - Procedures Procedures: Procedures EXCISION OF STOMACH, ENDO, DIAGN (01/21/18) INSERTION OF TOTALLY IMPLANTABLE VASC ACCESS DEVIC (04/23/13) REPOSITION R FEMUR SHAFT WITH INTRAMED FIX, OPEN APPROACH (01/04/17) TRANSFUSE NONAUT RED BLOOD CELLS IN CENTRAL VEIN, PERC (01/21/18) ABX Reporting Has patient been on IV antibiotics over the past 48 hours?: No
--- NOTE | 2018-02-12 14:06 | PROVIDER PROGRESS NOTE ---
Subjective - Prog Note Date Prog Note Date: 02/12/18 Prog Note Time: 12:00 - Subjective Pt reports feeling: Improved Subjective: Patient says she is feeling better today. She says her pain is very well controlled; she says she has no pain at this time. She denies any fever, chills , shortness of breath, nausea or vomiting. She says she slept well last night. Current Medications - Current Medications Current Medications: Active Medications Generic Name Dose Route Start Last Admin Trade Name Freq PRN Reason Stop Dose Admin Acetaminophen 650 mg 02/09/18 17:29 Tylenol PO Q4HR PRN Pain 1 to 4 Famotidine 20 mg 02/10/18 09:00 02/12/18 09:35 Pepcid PO 20 mg DAILY TRENT Administration Furosemide 20 mg 02/13/18 09:00 Lasix PO DAILY TRENT Glycerin 1 supp 02/12/18 11:03 NE DAILY PRN Constipation Heparin Sodium (Beef Lung) 30 - 50 unit 02/11/18 05:38 02/11/18 23:49 IVP 50 unit PRN PRN Administration Port Protocol (<24 hours) Potassium Chloride/Dextrose/Sod Cl 1,000 mls @ 125 mls/hr 02/12/18 09:00 10:08 D5.45ns W/20 Meq Kcl IV 125 mls/hr .Q8H TRENT Administration Ibuprofen 600 mg 02/09/18 17:29 02/12/18 12:30 Motrin PO 600 mg Q6HR PRN Administration Pain 1 to 4 Levothyroxine Sodium 100 mcg 02/13/18 07:00 Synthroid PO QDAC TRENT Magnesium Oxide 400 mg 02/11/18 09:00 02/12/18 09:35 Mag Ox PO 400 mg DAILYWM TRENT Administration Morphine Sulfate 2 mg 02/09/18 17:29 02/09/18 19:51 Morphine IVP 2 mg Q2H PRN Administration Pain 8 to 10 Multivitamins 1 tab 02/10/18 09:00 02/12/18 09:35 Theragran PO 1 tab DAILY TRENT Administration Ondansetron HCl 4 mg 02/09/18 17:29 02/12/18 10:58 Zofran Inj IVP 4 mg Q6HR PRN Administration Nausea / Vomiting Oxycodone HCl 5 mg 02/09/18 17:29 02/11/18 06:10 Roxicodone PO 5 mg Q4HR PRN Administration Pain 5 to 7 Oxycodone HCl 10 mg 02/09/18 17:29 02/12/18 10:09 Roxicodone PO 10 mg Q4HR PRN Administration Pain 8 to 10 Polyethylene Glycol 17 gm 02/10/18 09:00 02/12/18 10:15 Miralax PO Not Given DAILY TRENT Prochlorperazine Edisylate 10 mg 02/09/18 17:29 02/10/18 01:10 Compazine Inj IVP 10 mg Q6HR PRN Administration Nausea / Vomiting Promethazine HCl 25 mg 02/09/18 17:29 Phenergan Inj IM Q6HR PRN Nausea / Vomiting Sodium Chloride 10 ml 02/09/18 17:29 02/11/18 10:31 Normal Saline Flush 0.9% IVP 10 ml PRN PRN Administration NEEDED PER PROVIDER ORDERS Sodium Chloride 10 ml 02/10/18 01:00 02/12/18 10:11 Normal Saline Flush 0.9% IVP 10 ml 0100,0900,1700 TRENT Administration Sodium Chloride 1 gm 02/12/18 09:00 02/12/18 10:53 Salt Tab PO 1 gm BID TRENT Administration Zolpidem Tartrate 5 mg 02/09/18 17:29 Ambien PO QPM PRN Insomnia Omeprazole [PriLOSEC] 20 mg PO BIDAC 01/06/13 Ondansetron HCl [Zofran] 8 mg SL Q8H PRN 02/03/14 Prochlorperazine Maleate [Compazine] 10 mg PO Q6H PRN 05/01/17 Multivitamin [Theragran] 1 tab PO DAILY 01/21/18 Simvastatin 20 mg PO QPM 01/21/18 Furosemide [Lasix] 20 mg PO BIDDIURETIC 02/02/18 Spironolactone 50 mg PO BID 02/02/18 Denosumab [Xgeva] 120 mg SUBQ Q90D 02/09/18 Levothyroxine [Synthroid] 75 mcg PO QDAC 02/09/18 Objective - Vital Signs/Intake & Output Reviewed Vital Signs: Yes Vital Signs: Vital Signs x48h Temp Pulse Resp BP Pulse Ox 02/12/18 08:36 36.8 C 99 18 131/64 H 98 Intake & Output: Intake & Output 02/09/18 02/10/18 02/11/18 02/12/18 23:59 23:59 23:59 23:59 Intake Total 063 743 2366 440 Output Total 200 750 675 250 Balance -100 -350 565 190 - Objective General Appearance: positive: No acute distress, Alert Eyes Bilateral: positive: Normal inspection, PERRL, EOMI, No lid inflammation, Conjunctivae nml, No scleral icterus ENT: positive: ENT inspection nml, Pharynx nml, No signs of dehydration Neck: positive: Nml inspection, Thyroid nml, No JVD, Trachea midline. negative : Thyromegaly Respiratory: positive: Chest non-tender, No respiratory distress, Breath sounds nml. negative: Wheezes, Rales, Rhonchi Cardiovascular: positive: Regular rate & rhythm, No murmur, No gallop Abdomen: positive: Non-tender, No organomegaly, Nml bowel sounds, No distention. negative: Guarding, Rebound Back: positive: Nml inspection. negative: CVA tenderness (R), CVA tenderness (L ) Skin: positive: Color nml, No rash, Warm, Dry. negative: Cyanosis Extremities: positive: Non-tender, Full ROM, Nml appearance, No pedal edema Neurologic/Psychiatric: positive: Oriented x3, CN's nml (2-12), Motor nml, Sensation nml, Mood/affect nml - Lab Results Fish Bones: 02/12/18 06:00 02/12/18 06:00 Other Labs: Lab Results x24hrs 02/12/18 02/12/18 Range/Units 06:00 06:00 WBC 10.6 (4.8-10.8) x10^3/uL RBC 3.49 L (4.20-5.40) 10^6/uL Hgb 11.3 L (12.0-16.0) g/dL Hct 33.6 L (37.0-47.0) % MCV 96.3 (81.0-99.0) fL MCH 32.5 H (27.0-31.0) pg MCHC 33.7 (32.0-36.0) g/dL RDW 18.8 H (12.0-15.0) % Plt Count 146 (130-450) 10^3/uL MPV 8.9 (7.9-10.8) fL Neut # (Auto) 8.7 H (1.5-6.6) 10^3/uL Lymph # (Auto) 0.5 L (1.5-3.5) 10^3/uL Union # (Auto) 1.4 H (0.0-1.0) 10^3/uL Eos # (Auto) 0.0 (0.0-0.7) 10^3/uL Baso # (Auto) 0.0 (0.0-0.1) 10^3/uL Absolute Nucleated RBC 0.00 x10^3/uL Nucleated RBC % 0.0 /100WBC Sodium 130 L (135-145) mmol/L Potassium 5.0 (3.5-5.0) mmol/L Chloride 97 L (101-111) mmol/L Carbon Dioxide 27 (21-32) mmol/L Anion Gap 6.0 (6-13) BUN 14 (6-20) mg/dL Creatinine 0.8 (0.4-1.0) mg/dL Estimated GFR (MDRD) 72 L (>89) Glucose 141 H (70-100) mg/dL Calcium 8.0 L (8.5-10.3) mg/dL Magnesium 1.9 (1.7-2.8) mg/dL Total Bilirubin 3.0 H (0.2-1.0) mg/dL AST 168 H (10-42) IU/L ALT 56 (10-60) IU/L Alkaline Phosphatase 186 H (42-121) IU/L Total Protein 5.6 L (6.7-8.2) g/dL Albumin 2.4 L (3.2-5.5) g/dL Globulin 3.2 (2.1-4.2) g/dL Albumin/Globulin Ratio 0.8 L (1.0-2.2) - Diagnostic Imaging Diagnostic Imaging Results: positive: Final report reviewed Diagnostic Imaging Comments: EXAM: Femur 2V LT, OR C-Arm Procedure DATE: 02/10/2018 2:12 PM CLINICAL HISTORY: SURGERY TECHNIQUE: 1 minute 39 seconds of intraoperative fluoroscopy was provided to Dr. Mckeon. 3 spot images obtained. COMPARISON: 02/09/2018 FINDINGS: Intraoperative imaging of dynamic compression screw and IM gloria fixation of the left femoral fracture. IMPRESSION: Intraoperative imaging of fracture fixation. EXAM: RIGHT SHOULDER RADIOGRAPHY EXAM DATE: 02/10/2018 09:33 PM. CLINICAL HISTORY: R shoulder pain after a fall yesterday. COMPARISON: None. TECHNIQUE: 3 views. FINDINGS: Bones: No acute fracture seen. Joints: No dislocation. Mild degenerative joint disease in the acromioclavicular joint. Soft tissues: Right-sided PowerPort in place. IMPRESSION: 1. Mild degenerative changes. No acute fracture or dislocation seen. EXAM: CHEST RADIOGRAPHY EXAM DATE: 02/11/2018 04:51 PM. CLINICAL HISTORY: Follow up lung infiltrates. COMPARISON: 02/09/2018. TECHNIQUE: 1 view. FINDINGS: Lungs/Pleura: Right lung remains clear. Moderate decrease in the degree of opacification involving the inferior half left lung. Suspect small posterior pleural effusion contributing to this appearance. No vascular congestion nor pneumothorax. Mediastinum: Within exam limitations, the cardiomediastinal contour is normal. Other: Right jugular Port-A-Cath tip remains superior third SVC. Right mastectomy. Cholecystectomy. IMPRESSION: Decreasing effusion and consolidation left lung base. ABX Reporting Has patient been on IV antibiotics over the past 48 hours?: No Assessment/Plan - Problem List (1) Metastatic breast cancer Impression: The patient has an extremely poor prognosis and is estimated to have just a few months to live. I asked palliative care to see the patient today and she is considering hospice. (2) Closed left femoral fracture Impression: The patient underwent intramedullary rodding with Dr. Mckeon. She has been getting up out of bed to the bedside chair working with physical therapy. She will be discharged when orthopedics clears her. Qualifiers: Encounter type: subsequent encounter Femur location: shaft Fracture morphology: comminuted Fracture alignment: displaced Qualified Code(s): S72.352A - Displaced comminuted fracture of shaft of left femur, initial encounter for closed fracture (3) Liver metastases Impression: We are giving the patient diuretics to help prevent/slow down collection of ascites, otherwise no interventions necessary at this time. (4) Hyperlipidemia Impression: Presumably well-managed, we will continue the patient on his simvastatin. (5) Hypothyroidism Impression: The patient's TSH was elevated at 16.05 and I have increased her levothyroxine from 75 mcg 200 mcg daily. She will recheck the TSH level in 6 weeks. Qualifiers: Hypothyroidism type: unspecified Qualified Code(s): E03.9 - Hypothyroidism , unspecified
[2018-02-12] MEDS: MORPHINE 2 MG/ML SYRINGE IVP PRN (15:57)
--- NOTE | 2018-02-12 17:08 | CONSULTATION NOTE ---
Palliative Care Follow Up - Referral Referring Provider: Dr. Myrna Griffin Time of Visit: [id number] Referral setting: Hospitalized patient Referral Reason: Met Breast Cancer with peritoneal carcinomatosis; ascites; liver/bone - Information Sources Records reviewed: Previous records reviewed History/Review of Systems obtained from: Patient Exam limitations: No limitations - History of Present Illness Update Brief HPI Update: This is a christian 67-year-old woman with metastatic breast cancer to the liver and bones, her history includes multiple rounds of chemotherapy and treatment for her initial stage II right breast cancer diagnosed in 04/2002. Se gardneras most recently hospitalized for an acute GI bleed 01/21, from esophageal varices as a result of cirrhosis most likely related to her liver metastases and past treatment with Y-90. She did receive banding of down at [facility] after transfer from [facility], and has had no further bleeding. Unfortunately she has also significant peritoneal carcinomatosis, and increasing ascites, putting her at risk for obstruction. Her last paracentesis was on 01/27/2018, on last exam they were unable to drain secondary to the fluid being loculated. Her bilirubin today is at a 3.0, she is having increased nausea and vomiting, is difficult to differentiate if this is related to her disease progression or from her acute postop medications and stress. I have been seeing Chrissy for the last 6 months, we have been working towards supporting her for her end-of-life plans. We had a standing appointment already , to discuss considering transitioning to hospice. She did see her oncologist on 625 he did offer her perhaps a vaccine trial, given her most recent complications, her increasing bilirubin, and her high symptom burden and I suspect at this time she would not meet criteria. Social History - Living Situation Living arrangement: At home Living Situation: With spouse/s.o. (Patient's spouse Shiva, is very supportive and willing to support any decision that Chrissy wants to make. She has just recently retired from work, her daughter Velma has very concerned as well. She is very supportive family and friends.) Medications/Allergies - Medications Active Medication List: Active Medications Acetaminophen (Tylenol) 650 mg PO Q4HR PRN PRN Reason: Pain 1 to 4 Famotidine (Pepcid) 20 mg PO DAILY TRENT Last Admin: 02/12/18 09:35 Dose: 20 mg Furosemide (Lasix) 20 mg PO DAILY TRENT Glycerin () 1 supp OR DAILY PRN PRN Reason: Constipation Heparin Sodium (Beef Lung) () 30 - 50 unit IVP PRN PRN PRN Reason: Port Protocol (<24 hours) Last Admin: 02/11/18 23:49 Dose: 50 unit Potassium Chloride/Dextrose/Sod Cl (D5.45ns W/20 Meq Kcl) 1,000 mls @ 125 mls/ hr IV .Q8H [facility] Last Admin: 02/12/18 10:08 Dose: 125 mls/hr Ibuprofen (Motrin) 600 mg PO Q6HR PRN PRN Reason: Pain 1 to 4 Last Admin: 02/12/18 12:30 Dose: 600 mg Levothyroxine Sodium (Synthroid) 100 mcg PO QDAC [facility] Magnesium Oxide (Mag Ox) 400 mg PO DAILYWM [facility] Last Admin: 02/12/18 09:35 Dose: 400 mg Morphine Sulfate (Morphine) 2 mg IVP Q2H PRN PRN Reason: Pain 8 to 10 Last Admin: 02/12/18 15:57 Dose: 2 mg Multivitamins (Theragran) 1 tab PO DAILY [facility] Last Admin: 02/12/18 09:35 Dose: 1 tab Ondansetron HCl (Zofran Inj) 4 mg IVP Q6HR PRN PRN Reason: Nausea / Vomiting Last Admin: 02/12/18 10:58 Dose: 4 mg Oxycodone HCl (Roxicodone) 5 mg PO Q4HR PRN PRN Reason: Pain 5 to 7 Last Admin: 02/11/18 06:10 Dose: 5 mg Oxycodone HCl (Roxicodone) 10 mg PO Q4HR PRN PRN Reason: Pain 8 to 10 Last Admin: 02/12/18 10:09 Dose: 10 mg Polyethylene Glycol (Miralax) 17 gm PO DAILY [facility] Last Admin: 02/12/18 10:15 Dose: Not Given Prochlorperazine Edisylate (Compazine Inj) 10 mg IVP Q6HR PRN PRN Reason: Nausea / Vomiting Last Admin: 02/10/18 01:10 Dose: 10 mg Promethazine HCl (Phenergan Inj) 25 mg IM Q6HR PRN PRN Reason: Nausea / Vomiting Last Admin: 02/12/18 15:57 Dose: 25 mg Sodium Chloride (Normal Saline Flush 0.9%) 10 ml IVP PRN PRN PRN Reason: NEEDED PER PROVIDER ORDERS Last Admin: 02/11/18 10:31 Dose: 10 ml Sodium Chloride (Normal Saline Flush 0.9%) 10 ml IVP 0100,0900,1700 [facility] Last Admin: 02/12/18 16:03 Dose: Not Given Sodium Chloride (Salt Tab) 1 gm PO BID [facility] Last Admin: 02/12/18 10:53 Dose: 1 gm Zolpidem Tartrate (Ambien) 5 mg PO QPM PRN PRN Reason: Insomnia Omeprazole [PriLOSEC] 20 mg PO BIDAC 01/06/13 Ondansetron HCl [Zofran] 8 mg SL Q8H PRN 02/03/14 Prochlorperazine Maleate [Compazine] 10 mg PO Q6H PRN 05/01/17 Multivitamin [Theragran] 1 tab PO DAILY 01/21/18 Simvastatin 20 mg PO QPM 01/21/18 Furosemide [Lasix] 20 mg PO BIDDIURETIC 02/02/18 Spironolactone 50 mg PO BID 02/02/18 Denosumab [Xgeva] 120 mg SUBQ Q90D 02/09/18 Levothyroxine [Synthroid] 75 mcg PO QDAC 02/09/18 - Allergies Allergies/Adverse Reactions: Allergies Allergy/AdvReac Type Severity Reaction Status Date / Time shellfish derived Allergy Mild Respiratory Verified 01/28/18 19:51 Review of Systems - Constitutional Constitutional: reports: Fatigue, Poor appetite, Weight loss - Ears, Nose & Throat Ears, Nose & Throat: reports: Dry mouth - Cardiovascular Cardiovascular: reports: Decr. exercise tolerance - Respiratory Respiratory: reports: SOB with exertion, Other (right sided chest pain at old incisional site) - Gastrointestinal Gastrointestinal: reports: Abdominal distention, Constipation, Nausea, Vomiting , Bloating, Poor appetite, Other (ascited) - Genitourinary Genitourinary: reports: Other (loza catheter with increased bili/dark anamaria in color) - Musculoskeletal Musculoskeletal: reports: Stiffness, Limited range of motion (working with PT; up in dontae), Muscle weakness, Other (has equipment at home from last hip) - Integumentary Integumentary: reports: Dryness, Other (surgical incision left hip) - Neurological Neurological: reports: General weakness - Psychiatric Psychiatric: reports: Anxiety - Endocrine Endocrine: reports: Hypothyroidism (recently adjusted med today) - Hematologic/Lymphatic Hematologic/Lymphatic: reports: Anemia, Blood clots (hx of left subclavian clot) - All Other Systems All Other Systems: reports: Reviewed and negative Physical Exam - Vital Signs Vital Signs: Vital Signs x48h Temp Pulse Resp BP Pulse Ox 02/12/18 15:42 37.0 C 95 20 145/79 H 100 - Physical Exam General Appearance: positive: Moderate distress (having difficulty with nausea/ vomiting) Eyes Bilateral: positive: Normal inspection ENT: positive: Dry mucous membranes Neck: positive: No JVD, Trachea midline Cardiovascular: positive: Tachycardia Respiratory: positive: Other (decreased breath sound right about 1/3 up; diminished base on left;no respiratory distress) Abdomen: positive: Abnml bowel sounds (sluggish), Distended, Taut (increased firmness over yesterday;) Skin: positive: Pallor, Dryness Extremities: positive: Other (has scds on) Neurologic/Psychiatric: positive: Oriented x3, Weakness, Other (feeling somewhat overwhelmed) Palliative Care - POLST Patient has POLST: Yes POLST Status: DNR, Selective Treatment Pain: Location (left hip controlled; new pain right breast-sharp shooting not relieved with oxycodone 10 mg two hours ago has been present since am; not painful with increased depth of respiration; not relieved with position changes) Tiredness/Fatigue: Severe (7-10) Drowsiness/Sedation: Mild (1-3) Nausea: Severe (7-10), With vomiting Depression: Moderate (4-6) Anxiety: Moderate (4-6) Dyspnea: None Anorexia: Severe (7-10) Constipation: Yes, Unmanaged Performance Status: Patient did transfer to the chair today, she is working with PT but this is impacted by her underlying nausea and vomiting and severe fatigue. She does have known 2 steps into her house, is feeling quite weak and shaky. - Palliative Care Discussion: Discussion included reviewing options in the continuum of care, including transition to rehab, home with home health PT, or consider discharging with hospice. Pros and cons were evaluated, counseling regarding the hospice benefit and implications, questions were addressed. Focus on goals of care, given her limited prognosis and life expectancy, where she might want to spend the rest of her time. Will continue to follow, but are leaning towards discharge to the hospice team Results - Lab Results Lab results reviewed: Yes Fish Bones: 02/12/18 06:00 02/12/18 06:00 Lab and Imaging Results: Lab Results x24hrs 02/12/18 02/12/18 Range/Units 06:00 06:00 WBC 10.6 (4.8-10.8) x10^3/uL RBC 3.49 L (4.20-5.40) 10^6/uL Hgb 11.3 L (12.0-16.0) g/dL Hct 33.6 L (37.0-47.0) % MCV 96.3 (81.0-99.0) fL MCH 32.5 H (27.0-31.0) pg MCHC 33.7 (32.0-36.0) g/dL RDW 18.8 H (12.0-15.0) % Plt Count 146 (130-450) 10^3/uL MPV 8.9 (7.9-10.8) fL Neut # (Auto) 8.7 H (1.5-6.6) 10^3/uL Lymph # (Auto) 0.5 L (1.5-3.5) 10^3/uL Mcdonald # (Auto) 1.4 H (0.0-1.0) 10^3/uL Eos # (Auto) 0.0 (0.0-0.7) 10^3/uL Baso # (Auto) 0.0 (0.0-0.1) 10^3/uL Absolute Nucleated RBC 0.00 x10^3/uL Nucleated RBC % 0.0 /100WBC Sodium 130 L (135-145) mmol/L Potassium 5.0 (3.5-5.0) mmol/L Chloride 97 L (101-111) mmol/L Carbon Dioxide 27 (21-32) mmol/L Anion Gap 6.0 (6-13) BUN 14 (6-20) mg/dL Creatinine 0.8 (0.4-1.0) mg/dL Estimated GFR (MDRD) 72 L (>89) Glucose 141 H (70-100) mg/dL Calcium 8.0 L (8.5-10.3) mg/dL Magnesium 1.9 (1.7-2.8) mg/dL Total Bilirubin 3.0 H (0.2-1.0) mg/dL AST 168 H (10-42) IU/L ALT 56 (10-60) IU/L Alkaline Phosphatase 186 H (42-121) IU/L Total Protein 5.6 L (6.7-8.2) g/dL Albumin 2.4 L (3.2-5.5) g/dL Globulin 3.2 (2.1-4.2) g/dL Albumin/Globulin Ratio 0.8 L (1.0-2.2) Impression and Recommendations - Palliative Care Impression: This is a christian 67-year-old woman who has had a long journey with her 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 She presents today with high symptom burden, she does have high risk as a sequela of her disease for obstruction, liver failure, bleeding from varices, and clots secondary to currently off anticoagulant therapy. Palliative care to provide support regarding pain and symptom management and transition to hospice when appropriate Recommendations/Counseling Done: 1. Nausea and vomiting multifactorial in origin. Patient does present with constipation, will need aggressive bowel program. Currently patient having difficulty with oral medications, may benefit from scheduled metoclopramide both for N/V and increase peristalsis. When able needs to start Miralax/Senna. Discussed with hospitalist, will ordered scheduled antiemetics. 2. Ascites. Patient is having reaccumulating fluid, with increased pressure and distention. May need to limit aggressive hydration, as well as would suggest prior to discharge consider paracentesis for comfort. 3. Right side chest pain unknown etiology, at old lumpectomy scar. Does have present with risk for PE/pleural effusions receiving repeat medication for pain , will need monitoring. 4. Advanced care planning. Counseling done regarding goals of care, counseling regarding end-of-life wishes, reviewed hospice benefit and questions addressed. Tentative plan to discharge from hospital to hospice support, will continue to evaluate if this meets patients goals, hospice contacted in the context if will need hospital bed on discharge/and availability for weekend admit. Time Spent: 45 minutes with greater than 50% of this done in counseling and coordination of care and anticipatory guidance.
[2018-02-12] MEDS: GLYCERIN ADULT SUPP PR PRN (17:54)
[2018-02-13] MEDS: PROCHLORPERAZINE 10 MG/2 ML VIAL IVP PRN (00:50)
[2018-02-13] MEDS: D5.45NS W/20 MEQ KCL 1,000 ML IV SCH (01:38)
[2018-02-13 06:20] LABS: BASOPHILS % (AUTO) 0.2 %; EOSINOPHILS # (AUTO) 0.1 10^3/uL (0.0-0.7); EOSINOPHILS % (AUTO) 1.4 %; HGB - HEMOGLOBIN 9.6 g/dL (12.0-16.0); LYMPHOCYTES # (AUTO) 0.4 10^3/uL (1.5-3.5); LYMPHOCYTES % (AUTO) 4.8 %; MEAN CORPUSCULAR HEMOGLOBIN 32.1 pg (27.0-31.0); MEAN CORPUSCULAR HGB CONC 32.9 g/dL (32.0-36.0); MEAN CORPUSCULAR VOLUME 97.5 fL (81.0-99.0); MEAN PLATELET VOLUME 8.8 fL (7.9-10.8); MONOCYTES # (AUTO) 0.9 10^3/uL (0.0-1.0); MONOCYTES % (AUTO) 12.1 %; NEUTROPHILS # (AUTO) 6.3 10^3/uL (1.5-6.6); NEUTROPHILS % (AUTO) 81.5 %; PLT - PLATELET COUNT 99 10^3/uL (130-450); RED BLOOD COUNT 2.99 10^6/uL (4.20-5.40); RED CELL DISTRIBUTION WIDTH 17.8 % (12.0-15.0); WHITE BLOOD COUNT 7.7 x10^3/uL (4.8-10.8)
[2018-02-13 06:21] LABS: ALBUMIN 2.2 g/dL (3.2-5.5); ALBUMIN/GLOBULIN RATIO 0.8 (1.0-2.2); BILIRUBIN,TOTAL 2.8 mg/dL (0.2-1.0); CALCIUM 7.7 mg/dL (8.5-10.3); CREATININE 0.6 mg/dL (0.4-1.0); MAGNESIUM 1.9 mg/dL (1.7-2.8)
[2018-02-13] MEDS: SODIUM CHLORIDE FLUSH 0.9% 10 ML SYRINGE IVP SCH ×4 (06:38→17:22)
[2018-02-13] MEDS: LEVOTHYROXINE 100 MCG TABLET PO SCH (07:58)
[2018-02-13] MEDS: POLYETHYLENE GLYCOL 3350 17 GM PACKET PO SCH (09:05)
[2018-02-13] MEDS: SODIUM CHLORIDE 1 GM TABLET PO SCH ×2 (09:07→21:29)
[2018-02-13] MEDS: FAMOTIDINE 20 MG TABLET PO SCH (09:08)
[2018-02-13] MEDS: MAGNESIUM OXIDE 400 MG TABLET PO SCH (09:08)
[2018-02-13] MEDS: MULTIVITAMIN TABLET PO SCH (09:08)
[2018-02-13] MEDS: FUROSEMIDE 20 MG TABLET PO SCH (09:08)
--- NOTE | 2018-02-13 09:48 | PROVIDER PROGRESS NOTE ---
Subjective - General Admit Date: 02/09/18 Procedure Date: 02/10/18 Post Op Days: 3 Procedure Performed: left femur Intramedullary rodding - Review of Systems Wound/Incisions: positive: Dressing dry and intact Musculoskeletal: positive: Joint pain All Other Systems: positive: Reviewed and negative Objective - Patient Data Reviewed Vital Signs: Yes Vital Signs: Vital Signs x48h Temp Pulse Resp BP Pulse Ox 02/13/18 08:02 36.7 C 91 16 116/68 96 Intake & Output: Intake and Output Totals x24h 02/11/18 02/12/18 02/13/18 23:59 23:59 23:59 Intake Total 1240 0588.909 0231 Output Total 675 1300 530 Balance 565 707.558 2469 - Lab Results Lab Results: 02/13/18 05:35 02/13/18 05:35 Other Lab Results: Lab Results x24hrs 02/13/18 02/13/18 Range/Units 05:35 05:35 WBC 7.7 (4.8-10.8) x10^3/uL RBC 2.99 L (4.20-5.40) 10^6/uL Hgb 9.6 L (12.0-16.0) g/dL Hct 29.2 L (37.0-47.0) % MCV 97.5 (81.0-99.0) fL MCH 32.1 H (27.0-31.0) pg MCHC 32.9 (32.0-36.0) g/dL RDW 17.8 H (12.0-15.0) % Plt Count 99 L (130-450) 10^3/uL MPV 8.8 (7.9-10.8) fL Neut # (Auto) 6.3 (1.5-6.6) 10^3/uL Lymph # (Auto) 0.4 L (1.5-3.5) 10^3/uL [facility] # (Auto) 0.9 (0.0-1.0) 10^3/uL Eos # (Auto) 0.1 (0.0-0.7) 10^3/uL Baso # (Auto) 0.0 (0.0-0.1) 10^3/uL Absolute Nucleated RBC 0.00 x10^3/uL Nucleated RBC % 0.0 /100WBC Sodium 129 L (135-145) mmol/L Potassium 4.8 (3.5-5.0) mmol/L Chloride 98 L (101-111) mmol/L Carbon Dioxide 27 (21-32) mmol/L Anion Gap 4.0 L (6-13) BUN 12 (6-20) mg/dL Creatinine 0.6 (0.4-1.0) mg/dL Estimated GFR (MDRD) 100 (>89) Glucose 138 H (70-100) mg/dL Calcium 7.7 L (8.5-10.3) mg/dL Magnesium 1.9 (1.7-2.8) mg/dL Total Bilirubin 2.8 H (0.2-1.0) mg/dL AST 114 H (10-42) IU/L ALT 47 (10-60) IU/L Alkaline Phosphatase 167 H (42-121) IU/L Total Protein 5.0 L (6.7-8.2) g/dL Albumin 2.2 L (3.2-5.5) g/dL Globulin 2.8 (2.1-4.2) g/dL Albumin/Globulin Ratio 0.8 L (1.0-2.2) - Current Medications Current Medications: Current Medications Generic Name Dose Route Start Last Admin Trade Name Kraigq PRN Reason Stop Dose Admin Famotidine 20 mg 02/10/18 09:00 02/13/18 09:08 Pepcid PO 20 mg DAILY TRENT Administration Furosemide 20 mg 02/13/18 09:00 02/13/18 09:08 Lasix PO 20 mg DAILY TRENT Administration Glycerin 1 supp 02/12/18 11:03 02/12/18 17:54 DC 1 supp DAILY PRN Administration Constipation Heparin Sodium (Beef Lung) 30 - 50 unit 02/11/18 05:38 02/13/18 09:20 IVP 50 unit PRN PRN Administration Port Protocol (<24 hours) Ibuprofen 600 mg 02/09/18 17:29 02/12/18 12:30 Motrin PO 600 mg Q6HR PRN Administration Pain 1 to 4 Levothyroxine Sodium 100 mcg 02/13/18 07:00 02/13/18 07:58 Synthroid PO Not Given QDAC TRENT Magnesium Oxide 400 mg 02/11/18 09:00 02/13/18 09:08 Mag Ox PO 400 mg DAILYWM TRENT Administration Morphine Sulfate 2 mg 02/09/18 17:29 02/12/18 15:57 Morphine IVP 2 mg Q2H PRN Administration Pain 8 to 10 Multivitamins 1 tab 02/10/18 09:00 02/13/18 09:08 Theragran PO 1 tab DAILY TRENT Administration Ondansetron HCl 4 mg 02/09/18 17:29 02/12/18 21:19 Zofran Inj IVP 4 mg Q6HR PRN Administration Nausea / Vomiting Oxycodone HCl 5 mg 02/09/18 17:29 02/11/18 06:10 Roxicodone PO 5 mg Q4HR PRN Administration Pain 5 to 7 Oxycodone HCl 10 mg 02/09/18 17:29 02/12/18 21:31 Roxicodone PO 10 mg Q4HR PRN Administration Pain 8 to 10 Polyethylene Glycol 17 gm 02/10/18 09:00 02/13/18 09:05 Miralax PO 17 gm DAILY TRENT Administration Prochlorperazine Edisylate 10 mg 02/09/18 17:29 02/13/18 00:50 Compazine Inj IVP 10 mg Q6HR PRN Administration Nausea / Vomiting Promethazine HCl 25 mg 02/09/18 17:29 02/12/18 15:57 Phenergan Inj IM 25 mg Q6HR PRN Administration Nausea / Vomiting Sodium Chloride 10 ml 02/09/18 17:29 02/11/18 10:31 Normal Saline Flush 0.9% IVP 10 ml PRN PRN Administration NEEDED PER PROVIDER ORDERS Sodium Chloride 10 ml 02/10/18 01:00 02/13/18 09:14 Normal Saline Flush 0.9% IVP 10 ml 0100,0900,1700 TRENT Administration Sodium Chloride 1 gm 02/12/18 09:00 02/13/18 09:07 Salt Tab PO 1 gm BID TERNT Administration
--- NOTE | 2018-02-13 09:54 | CONSULTATION NOTE ---
Palliative Care Follow Up - Referral Referring Provider: Dr. Myrna Griffin Time of Visit: [id number] Referral setting: Hospitalized patient Referral Reason: Met Breast Ca/Liver Mets/Ascites/Goals of Care - Information Sources Records reviewed: RN notes reviewed, Previous records reviewed History/Review of Systems obtained from: Patient Exam limitations: No limitations - History of Present Illness Update Brief HPI Update: Patient here for acute left fracture and repair. Please see HPI from 02/12 for hx on Met. Breast with progressive liver mets. Reports N/V improved, ascites more firm today, diminished BS RLL concerning for effusion. Pain controlled. Social History - Living Situation Living arrangement: At home Living Situation: With spouse/s.o. Support System: Shiva has helped patient with previous care last year with hip fx. Discussion regarding EOL wishes, would like to go home vs rehab though both aware will be slow recovery and has generalized decline from progressive illness. Conversation regarding hospital bed, remain ambivalent, will have PT weigh in as well. Medications/Allergies - Medications Active Medication List: Active Medications Acetaminophen (Tylenol) 650 mg PO Q4HR PRN PRN Reason: Pain 1 to 4 Famotidine (Pepcid) 20 mg PO DAILY [facility] Last Admin: 02/13/18 09:08 Dose: 20 mg Furosemide (Lasix) 20 mg PO DAILY [facility] Last Admin: 02/13/18 09:08 Dose: 20 mg Glycerin () 1 supp MT DAILY PRN PRN Reason: Constipation Last Admin: 02/12/18 17:54 Dose: 1 supp Heparin Sodium (Beef Lung) () 30 - 50 unit IVP PRN PRN PRN Reason: Port Protocol (<24 hours) Last Admin: 02/13/18 09:20 Dose: 50 unit Ibuprofen (Motrin) 600 mg PO Q6HR PRN PRN Reason: Pain 1 to 4 Last Admin: 02/12/18 12:30 Dose: 600 mg Levothyroxine Sodium (Synthroid) 100 mcg PO QDAC [facility] Last Admin: 02/13/18 07:58 Dose: Not Given Magnesium Oxide (Mag Ox) 400 mg PO DAILYWM [facility] Last Admin: 02/13/18 09:08 Dose: 400 mg Morphine Sulfate (Morphine) 2 mg IVP Q2H PRN PRN Reason: Pain 8 to 10 Last Admin: 02/12/18 15:57 Dose: 2 mg Multivitamins (Theragran) 1 tab PO DAILY [facility] Last Admin: 02/13/18 09:08 Dose: 1 tab Ondansetron HCl (Zofran Inj) 4 mg IVP Q6HR PRN PRN Reason: Nausea / Vomiting Last Admin: 02/12/18 21:19 Dose: 4 mg Oxycodone HCl (Roxicodone) 5 mg PO Q4HR PRN PRN Reason: Pain 5 to 7 Last Admin: 02/11/18 06:10 Dose: 5 mg Oxycodone HCl (Roxicodone) 10 mg PO Q4HR PRN PRN Reason: Pain 8 to 10 Last Admin: 02/12/18 21:31 Dose: 10 mg Polyethylene Glycol (Miralax) 17 gm PO DAILY [facility] Last Admin: 02/13/18 09:05 Dose: 17 gm Prochlorperazine Edisylate (Compazine Inj) 10 mg IVP Q6HR PRN PRN Reason: Nausea / Vomiting Last Admin: 02/13/18 00:50 Dose: 10 mg Promethazine HCl (Phenergan Inj) 25 mg IM Q6HR PRN PRN Reason: Nausea / Vomiting Last Admin: 02/12/18 15:57 Dose: 25 mg Sodium Chloride (Normal Saline Flush 0.9%) 10 ml IVP PRN PRN PRN Reason: NEEDED PER PROVIDER ORDERS Last Admin: 02/11/18 10:31 Dose: 10 ml Sodium Chloride (Normal Saline Flush 0.9%) 10 ml IVP 0100,0900,1700 [facility] Last Admin: 02/13/18 09:14 Dose: 10 ml Sodium Chloride (Salt Tab) 1 gm PO BID [facility] Last Admin: 02/13/18 09:07 Dose: 1 gm Zolpidem Tartrate (Ambien) 5 mg PO QPM PRN PRN Reason: Insomnia Omeprazole [PriLOSEC] 20 mg PO BIDAC 01/06/13 Ondansetron HCl [Zofran] 8 mg SL Q8H PRN 02/03/14 Prochlorperazine Maleate [Compazine] 10 mg PO Q6H PRN 05/01/17 Multivitamin [Theragran] 1 tab PO DAILY 01/21/18 Simvastatin 20 mg PO QPM 01/21/18 Furosemide [Lasix] 20 mg PO BIDDIURETIC 02/02/18 Spironolactone 50 mg PO BID 02/02/18 Denosumab [Xgeva] 120 mg SUBQ Q90D 02/09/18 Levothyroxine [Synthroid] 75 mcg PO QDAC 02/09/18 - Allergies Allergies/Adverse Reactions: Allergies Allergy/AdvReac Type Severity Reaction Status Date / Time shellfish derived Allergy Mild Respiratory Verified 01/28/18 19:51 Review of Systems - Constitutional Constitutional: reports: Fatigue - Respiratory Respiratory: reports: SOB with exertion, Other (mild breathlessness noted with conversation) - Gastrointestinal Gastrointestinal: reports: Abdominal distention (more firm and distended; no LE edema), Nausea (improved; significant last night; better this am), Bloating, Early satiety. denies: Constipation - Genitourinary Genitourinary: reports: Other (has loza catheter; awaiting removal) - Musculoskeletal Musculoskeletal: reports: Muscle weakness, Transfer issues (working with PT; goal to maximize function and safety) - Neurological Neurological: reports: General weakness. denies: Memory problems - Psychiatric Psychiatric: reports: Anxiety. denies: Depression - Endocrine Endocrine: reports: Hypothyroidism - Hematologic/Lymphatic Hematologic/Lymphatic: reports: Anemia, Blood clots (hx) - All Other Systems All Other Systems: reports: Reviewed and negative Physical Exam - Vital Signs Vital Signs: Vital Signs x48h Temp Pulse Resp BP Pulse Ox 02/13/18 08:02 36.7 C 91 16 116/68 96 - Physical Exam General Appearance: positive: No acute distress Eyes Bilateral: positive: Normal inspection ENT: positive: No signs of dehydration Neck: positive: No JVD, Trachea midline Cardiovascular: positive: Regular rate & rhythm Respiratory: positive: Other (diminished RLL; breathless with conversatioin) Abdomen: positive: Nml bowel sounds, Distended, Taut Skin: positive: Wound (drsg intact) Extremities: positive: No pedal edema, Other (scds on) Neurologic/Psychiatric: positive: Oriented x3, Sensation nml, Weakness, Other ( deflects anxiety with humor) Palliative Care - POLST Patient has POLST: Yes POLST Status: DNR, Selective Treatment Pain: Pain improved, Location (left hip) Tiredness/Fatigue: Moderate (4-6) Drowsiness/Sedation: Mild (1-3) - Palliative Care Discussion: Patient did not talk with daughter/family yesterday about moving on to hospice. Remains tentative though this is what aligns with her goals and where she wants to go. Discussed can defer and revisit when home, but if needing equipment etc. and would be helpful to have clinical support in transition from acute setting. Letting patient still settle in, aware of her prognosis and impending decline. Will complete paperwork per request for benefits, checked with MAC will complete and then I will finish on Friday. Counseling for support and anticipatory guidance. Results - Lab Results Lab results reviewed: Yes Fish Bones: 02/13/18 05:35 02/13/18 05:35 Lab and Imaging Results: Lab Results x24hrs 02/13/18 02/13/18 Range/Units 05:35 05:35 WBC 7.7 (4.8-10.8) x10^3/uL RBC 2.99 L (4.20-5.40) 10^6/uL Hgb 9.6 L (12.0-16.0) g/dL Hct 29.2 L (37.0-47.0) % MCV 97.5 (81.0-99.0) fL MCH 32.1 H (27.0-31.0) pg MCHC 32.9 (32.0-36.0) g/dL RDW 17.8 H (12.0-15.0) % Plt Count 99 L (130-450) 10^3/uL MPV 8.8 (7.9-10.8) fL Neut # (Auto) 6.3 (1.5-6.6) 10^3/uL Lymph # (Auto) 0.4 L (1.5-3.5) 10^3/uL [place] # (Auto) 0.9 (0.0-1.0) 10^3/uL Eos # (Auto) 0.1 (0.0-0.7) 10^3/uL Baso # (Auto) 0.0 (0.0-0.1) 10^3/uL Absolute Nucleated RBC 0.00 x10^3/uL Nucleated RBC % 0.0 /100WBC Sodium 129 L (135-145) mmol/L Potassium 4.8 (3.5-5.0) mmol/L Chloride 98 L (101-111) mmol/L Carbon Dioxide 27 (21-32) mmol/L Anion Gap 4.0 L (6-13) BUN 12 (6-20) mg/dL Creatinine 0.6 (0.4-1.0) mg/dL Estimated GFR (MDRD) 100 (>89) Glucose 138 H (70-100) mg/dL Calcium 7.7 L (8.5-10.3) mg/dL Magnesium 1.9 (1.7-2.8) mg/dL Total Bilirubin 2.8 H (0.2-1.0) mg/dL AST 114 H (10-42) IU/L ALT 47 (10-60) IU/L Alkaline Phosphatase 167 H (42-121) IU/L Total Protein 5.0 L (6.7-8.2) g/dL Albumin 2.2 L (3.2-5.5) g/dL Globulin 2.8 (2.1-4.2) g/dL Albumin/Globulin Ratio 0.8 L (1.0-2.2) Impression and Recommendations - Palliative Care Impression: This is a christian 67-year-old woman who has had a long journey with her 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 She presents today feeling somewhat better, though worsening ascites. Palliative care to provide support regarding pain and symptom management and transition to hospice when ready. Recommendations/Counseling Done: 1. Ascites. Consult with hospitalist for possible paracentesis prior to discharge, has been scheduled for weekly, difficult last time so fluroscopy would be preferred, is showing some signs of third spacing / fluid overload. IV capped today. 2. Constipation. Reports bowels moved with relief yesterday, encouraged to take Miralax secondary to continued pain meds. 3. Advanced care planning. Revisited timing and referral to hospice, does want to make that transition, remains ambivalent as far as timing etc. Appointment made for Friday if discharged over the weekend, will follow up with home visit if decides to wait this week. She is hesistant related to her family, daughter on vacation this weekend, sister who is RN may be coming to provide some support. Counseling continued regarding hospice benefit. Time Spent: 45 minutes with greater than 50% done in counseling and coordination of care.
[2018-02-13] MEDS: MORPHINE 2 MG/ML SYRINGE IVP PRN (12:28)
--- NOTE | 2018-02-13 16:11 | PROVIDER PROGRESS NOTE ---
Subjective - Prog Note Date Prog Note Date: 02/13/18 Prog Note Time: 15:45 - Subjective Pt reports feeling: Improved Subjective: The patient says her pain is well-managed. She has no pain at rest and does get uncomfortable when she ambulates. She denies any fevers, chills, shortness of breath, or chest pain. Her appetite is fair and she has moved her bowels since the surgery. Current Medications - Current Medications Current Medications: Active Medications Generic Name Dose Route Start Last Admin Trade Name Freq PRN Reason Stop Dose Admin Acetaminophen 650 mg 02/09/18 17:29 Tylenol PO Q4HR PRN Pain 1 to 4 Famotidine 20 mg 02/10/18 09:00 02/13/18 09:08 Pepcid PO 20 mg DAILY TRENT Administration Furosemide 20 mg 02/13/18 09:00 02/13/18 09:08 Lasix PO 20 mg DAILY TRENT Administration Glycerin 1 supp 02/12/18 11:03 02/12/18 17:54 ME 1 supp DAILY PRN Administration Constipation Heparin Sodium (Beef Lung) 30 - 50 unit 02/11/18 05:38 02/13/18 09:20 IVP 50 unit PRN PRN Administration Port Protocol (<24 hours) Ibuprofen 600 mg 02/09/18 17:29 02/12/18 12:30 Motrin PO 600 mg Q6HR PRN Administration Pain 1 to 4 Levothyroxine Sodium 100 mcg 02/13/18 07:00 02/13/18 07:58 Synthroid PO Not Given QDAC TRENT Magnesium Oxide 400 mg 02/11/18 09:00 02/13/18 09:08 Mag Ox PO 400 mg DAILYWM TRENT Administration Morphine Sulfate 2 mg 02/09/18 17:29 02/13/18 12:28 Morphine IVP 2 mg Q2H PRN Administration Pain 8 to 10 Multivitamins 1 tab 02/10/18 09:00 02/13/18 09:08 Theragran PO 1 tab DAILY TRENT Administration Ondansetron HCl 4 mg 02/09/18 17:29 02/12/18 21:19 Zofran Inj IVP 4 mg Q6HR PRN Administration Nausea / Vomiting Oxycodone HCl 5 mg 02/09/18 17:29 02/11/18 06:10 Roxicodone PO 5 mg Q4HR PRN Administration Pain 5 to 7 Oxycodone HCl 10 mg 02/09/18 17:29 02/12/18 21:31 Roxicodone PO 10 mg Q4HR PRN Administration Pain 8 to 10 Polyethylene Glycol 17 gm 02/10/18 09:00 02/13/18 09:05 Miralax PO 17 gm DAILY TRENT Administration Prochlorperazine Edisylate 10 mg 02/09/18 17:29 02/13/18 00:50 Compazine Inj IVP 10 mg Q6HR PRN Administration Nausea / Vomiting Promethazine HCl 25 mg 02/09/18 17:29 02/12/18 15:57 Phenergan Inj IM 25 mg Q6HR PRN Administration Nausea / Vomiting Sodium Chloride 10 ml 02/09/18 17:29 02/11/18 10:31 Normal Saline Flush 0.9% IVP 10 ml PRN PRN Administration NEEDED PER PROVIDER ORDERS Sodium Chloride 10 ml 02/10/18 01:00 02/13/18 12:28 Normal Saline Flush 0.9% IVP 10 ml 0100,0900,1700 TRENT Administration Sodium Chloride 1 gm 02/12/18 09:00 02/13/18 09:07 Salt Tab PO 1 gm BID TRENT Administration Zolpidem Tartrate 5 mg 02/09/18 17:29 Ambien PO QPM PRN Insomnia Omeprazole [PriLOSEC] 20 mg PO BIDAC 01/06/13 Ondansetron HCl [Zofran] 8 mg SL Q8H PRN 02/03/14 Prochlorperazine Maleate [Compazine] 10 mg PO Q6H PRN 05/01/17 Multivitamin [Theragran] 1 tab PO DAILY 01/21/18 Simvastatin 20 mg PO QPM 01/21/18 Furosemide [Lasix] 20 mg PO BIDDIURETIC 02/02/18 Spironolactone 50 mg PO BID 02/02/18 Denosumab [Xgeva] 120 mg SUBQ Q90D 02/09/18 Levothyroxine [Synthroid] 75 mcg PO QDAC 02/09/18 Objective - Vital Signs/Intake & Output Reviewed Vital Signs: Yes Vital Signs: Vital Signs x48h Temp Pulse Resp BP Pulse Ox 02/13/18 15:21 36.9 C 106 H 16 122/75 94 Intake & Output: Intake & Output 02/10/18 02/11/18 02/12/18 02/13/18 23:59 23:59 23:59 23:59 Intake Total 400 1240 4492.761 7612 Output Total 419 073 9874 1430 Balance -350 565 475.217 5580 - Objective General Appearance: positive: No acute distress, Alert Eyes Bilateral: positive: Normal inspection, PERRL, EOMI, No lid inflammation, Conjunctivae nml, No scleral icterus ENT: positive: ENT inspection nml, Pharynx nml, No signs of dehydration Neck: positive: Nml inspection, Thyroid nml, No JVD, Trachea midline. negative : Thyromegaly Respiratory: positive: Chest non-tender, No respiratory distress, Breath sounds nml. negative: Wheezes, Rales, Rhonchi Cardiovascular: positive: Regular rate & rhythm, No murmur, No gallop Abdomen: positive: Non-tender, No organomegaly, Nml bowel sounds, No distention. negative: Guarding, Rebound Back: positive: Nml inspection. negative: CVA tenderness (R), CVA tenderness (L ) Skin: positive: Color nml, No rash, Warm, Dry. negative: Cyanosis Extremities: positive: Non-tender, Full ROM, Nml appearance, No pedal edema, Other (Left lower extremity immobilized, status post surgical repair of a hip fracture) Neurologic/Psychiatric: positive: Oriented x3, CN's nml (2-12), Motor nml, Sensation nml, Mood/affect nml - Lab Results Fish Bones: 02/13/18 05:35 02/13/18 05:35 Other Labs: Lab Results x24hrs 02/13/18 02/13/18 Range/Units 05:35 05:35 WBC 7.7 (4.8-10.8) x10^3/uL RBC 2.99 L (4.20-5.40) 10^6/uL Hgb 9.6 L (12.0-16.0) g/dL Hct 29.2 L (37.0-47.0) % MCV 97.5 (81.0-99.0) fL MCH 32.1 H (27.0-31.0) pg MCHC 32.9 (32.0-36.0) g/dL RDW 17.8 H (12.0-15.0) % Plt Count 99 L (130-450) 10^3/uL MPV 8.8 (7.9-10.8) fL Neut # (Auto) 6.3 (1.5-6.6) 10^3/uL Lymph # (Auto) 0.4 L (1.5-3.5) 10^3/uL [place] # (Auto) 0.9 (0.0-1.0) 10^3/uL Eos # (Auto) 0.1 (0.0-0.7) 10^3/uL Baso # (Auto) 0.0 (0.0-0.1) 10^3/uL Absolute Nucleated RBC 0.00 x10^3/uL Nucleated RBC % 0.0 /100WBC Sodium 129 L (135-145) mmol/L Potassium 4.8 (3.5-5.0) mmol/L Chloride 98 L (101-111) mmol/L Carbon Dioxide 27 (21-32) mmol/L Anion Gap 4.0 L (6-13) BUN 12 (6-20) mg/dL Creatinine 0.6 (0.4-1.0) mg/dL Estimated GFR (MDRD) 100 (>89) Glucose 138 H (70-100) mg/dL Calcium 7.7 L (8.5-10.3) mg/dL Magnesium 1.9 (1.7-2.8) mg/dL Total Bilirubin 2.8 H (0.2-1.0) mg/dL AST 114 H (10-42) IU/L ALT 47 (10-60) IU/L Alkaline Phosphatase 167 H (42-121) IU/L Total Protein 5.0 L (6.7-8.2) g/dL Albumin 2.2 L (3.2-5.5) g/dL Globulin 2.8 (2.1-4.2) g/dL Albumin/Globulin Ratio 0.8 L (1.0-2.2) - Diagnostic Imaging Diagnostic Imaging Results: positive: Final report reviewed Diagnostic Imaging Comments: EXAM: Femur 2V LT, OR C-Arm Procedure DATE: 02/10/2018 2:12 PM CLINICAL HISTORY: SURGERY TECHNIQUE: 1 minute 39 seconds of intraoperative fluoroscopy was provided to Dr. Mckeon. 3 spot images obtained. COMPARISON: 02/09/2018 FINDINGS: Intraoperative imaging of dynamic compression screw and IM gloria fixation of the left femoral fracture. IMPRESSION: Intraoperative imaging of fracture fixation. EXAM: RIGHT SHOULDER RADIOGRAPHY EXAM DATE: 02/10/2018 09:33 PM. CLINICAL HISTORY: R shoulder pain after a fall yesterday. COMPARISON: None. TECHNIQUE: 3 views. FINDINGS: Bones: No acute fracture seen. Joints: No dislocation. Mild degenerative joint disease in the acromioclavicular joint. Soft tissues: Right-sided PowerPort in place. IMPRESSION: 1. Mild degenerative changes. No acute fracture or dislocation seen. EXAM: CHEST RADIOGRAPHY EXAM DATE: 02/11/2018 04:51 PM. CLINICAL HISTORY: Follow up lung infiltrates. COMPARISON: 02/09/2018. TECHNIQUE: 1 view. FINDINGS: Lungs/Pleura: Right lung remains clear. Moderate decrease in the degree of opacification involving the inferior half left lung. Suspect small posterior pleural effusion contributing to this appearance. No vascular congestion nor pneumothorax. Mediastinum: Within exam limitations, the cardiomediastinal contour is normal. Other: Right jugular Port-A-Cath tip remains superior third SVC. Right mastectomy. Cholecystectomy. IMPRESSION: Decreasing effusion and consolidation left lung base. ABX Reporting Has patient been on IV antibiotics over the past 48 hours?: No Assessment/Plan - Problem List (1) Metastatic breast cancer Impression: I had previously ordered a palliative care consult with Marilee Leal for the patient and they had a nice conversation according to Ms. Leal. In following up with the patient she is now requesting hospice services, and I have ordered a consultation. (2) Closed left femoral fracture Impression: The patient underwent intramedullary rodding with Dr. Mckeon. She has been getting up out of bed to the bedside chair working with physical therapy. She will be discharged home with hospice care when orthopedics clears her. Qualifiers: Encounter type: subsequent encounter Femur location: shaft Fracture morphology: comminuted Fracture alignment: displaced Qualified Code(s): S72.352A - Displaced comminuted fracture of shaft of left femur, initial encounter for closed fracture (3) Liver metastases Impression: We are giving the patient diuretics to help prevent/slow down collection of ascites, and she has been having weekly paracenteses done (which she missed earlier this week) so I have ordered a paracentesis while she is here inpatient. (4) Hyperlipidemia Impression: Presumably well-managed, we will continue the patient on her simvastatin.
[2018-02-13] MEDS: ZINC OXIDE 20% OINT 28.35 GM TUBE TOP PRN (17:22)
[2018-02-13] MEDS: ONDANSETRON 4 MG/2 ML VIAL IVP PRN (22:36)
[2018-02-13] MEDS: SODIUM CHLORIDE FLUSH 0.9% 10 ML SYRINGE IVP PRN (22:36)
[2018-02-14] MEDS: LEVOTHYROXINE 100 MCG TABLET PO SCH (06:04)
[2018-02-14] MEDS: oxyCODONE 5 MG TABLET PO PRN ×2 (06:06→11:20)
[2018-02-14] MEDS: SODIUM CHLORIDE FLUSH 0.9% 10 ML SYRINGE IVP SCH ×3 (06:59→16:14)
[2018-02-14] MEDS: SPIRONOLACTONE 25 MG TABLET PO SCH (09:26)
[2018-02-14] MEDS: FUROSEMIDE 20 MG TABLET PO SCH (09:27)
[2018-02-14] MEDS: MAGNESIUM OXIDE 400 MG TABLET PO SCH (09:27)
[2018-02-14] MEDS: FAMOTIDINE 20 MG TABLET PO SCH (09:27)
[2018-02-14] MEDS: MULTIVITAMIN TABLET PO SCH (09:27)
[2018-02-14] MEDS: SODIUM CHLORIDE 1 GM TABLET PO SCH (09:28)
[2018-02-14] MEDS: POLYETHYLENE GLYCOL 3350 17 GM PACKET PO SCH (09:28)
[2018-02-14] MEDS: ZINC OXIDE 20% OINT 28.35 GM TUBE TOP PRN (11:19)
[2018-02-14] MEDS: NS W/20 MEQ KCL 1,000 ML IV SCH (16:14)
--- NOTE | 2018-02-14 17:00 | PROVIDER PROGRESS NOTE ---
Subjective - Prog Note Date Prog Note Date: 02/14/18 Prog Note Time: 12:30 - Subjective Pt reports feeling: Improved Subjective: Patient says her pain has been well managed, and only has pain when she is ambulating. She denies any fevers, chills, shortness of breath, chest pain, nausea, or vomiting. Current Medications - Current Medications Current Medications: Active Medications Generic Name Dose Route Start Last Admin Trade Name Freq PRN Reason Stop Dose Admin Acetaminophen 650 mg 02/09/18 17:29 Tylenol PO Q4HR PRN Pain 1 to 4 Famotidine 20 mg 02/10/18 09:00 02/14/18 09:27 Pepcid PO 20 mg DAILY TRENT Administration Furosemide 20 mg 02/13/18 09:00 02/14/18 09:27 Lasix PO 20 mg DAILY TRENT Administration Glycerin 1 supp 02/12/18 11:03 02/12/18 17:54 [place] 1 supp DAILY PRN Administration Constipation Heparin Sodium (Beef Lung) 30 - 50 unit 02/11/18 05:38 02/13/18 09:20 IVP 50 unit PRN PRN Administration Port Protocol (<24 hours) Potassium Chloride/Sodium Chloride 1,000 mls @ 125 mls/hr 02/14/18 16:00 16:14 Normal Saline 0.9% W/20 Meq Kcl IV 125 mls/hr .Q8H TRENT Administration Ibuprofen 600 mg 02/09/18 17:29 02/12/18 12:30 Motrin PO 600 mg Q6HR PRN Administration Pain 1 to 4 Levothyroxine Sodium 100 mcg 02/13/18 07:00 02/14/18 06:04 Synthroid PO 100 mcg QDAC TRENT Administration Magnesium Oxide 400 mg 02/11/18 09:00 02/14/18 09:27 Mag Ox PO 400 mg DAILYWM TRENT Administration Morphine Sulfate 2 mg 02/09/18 17:29 02/13/18 12:28 Morphine IVP 2 mg Q2H PRN Administration Pain 8 to 10 Multi-Ingredient Ointment 1 applic 02/13/18 16:56 02/14/18 11:19 Zinc Oxide TOP 1 applic PRN PRN Administration Skin Care Multivitamins 1 tab 02/10/18 09:00 02/14/18 09:27 Theragran PO 1 tab DAILY TRENT Administration Ondansetron HCl 4 mg 02/09/18 17:29 02/13/18 22:36 Zofran Inj IVP 4 mg Q6HR PRN Administration Nausea / Vomiting Oxycodone HCl 5 mg 02/09/18 17:29 02/14/18 06:06 Roxicodone PO 5 mg Q4HR PRN Administration Pain 5 to 7 Oxycodone HCl 10 mg 02/09/18 17:29 02/14/18 11:20 Roxicodone PO 10 mg Q4HR PRN Administration Pain 8 to 10 Polyethylene Glycol 17 gm 02/10/18 09:00 02/14/18 09:28 Miralax PO Not Given DAILY TRENT Prochlorperazine Edisylate 10 mg 02/09/18 17:29 02/13/18 00:50 Compazine Inj IVP 10 mg Q6HR PRN Administration Nausea / Vomiting Promethazine HCl 25 mg 02/09/18 17:29 02/12/18 15:57 Phenergan Inj IM 25 mg Q6HR PRN Administration Nausea / Vomiting Sodium Chloride 10 ml 02/09/18 17:29 02/13/18 22:36 Normal Saline Flush 0.9% IVP 10 ml PRN PRN Administration NEEDED PER PROVIDER ORDERS Sodium Chloride 10 ml 02/10/18 01:00 02/14/18 16:14 Normal Saline Flush 0.9% IVP 10 ml 0100,0900,1700 TRENT Administration Spironolactone 50 mg 02/14/18 09:00 02/14/18 09:26 Aldactone PO 50 mg DAILY TRENT Administration Zolpidem Tartrate 5 mg 02/09/18 17:29 Ambien PO QPM PRN Insomnia Omeprazole [PriLOSEC] 20 mg PO BIDAC 01/06/13 Ondansetron HCl [Zofran] 8 mg SL Q8H PRN 02/03/14 Prochlorperazine Maleate [Compazine] 10 mg PO Q6H PRN 05/01/17 Multivitamin [Theragran] 1 tab PO DAILY 01/21/18 Simvastatin 20 mg PO QPM 01/21/18 Furosemide [Lasix] 20 mg PO BIDDIURETIC 02/02/18 Spironolactone 50 mg PO BID 02/02/18 Denosumab [Xgeva] 120 mg SUBQ Q90D 02/09/18 Levothyroxine [Synthroid] 75 mcg PO QDAC 02/09/18 Objective - Vital Signs/Intake & Output Reviewed Vital Signs: Yes Vital Signs: Vital Signs x48h Temp Pulse Resp BP Pulse Ox 02/14/18 15:55 36.8 C 99 18 106/62 93 02/14/18 13:00 36.9 C 103 H 18 100/66 93 02/14/18 11:37 95 02/14/18 08:18 36.5 C 103 H 20 111/57 L 93 Intake & Output: Intake & Output 02/11/18 02/12/18 02/13/18 02/14/18 23:59 23:59 23:59 23:59 Intake Total 1240 1100.876 7197 1400 Output Total 675 1300 1780 1700 Balance 565 050.104 6200 -300 - Objective General Appearance: positive: No acute distress, Alert Eyes Bilateral: positive: Normal inspection, PERRL, EOMI, No lid inflammation, Conjunctivae nml, No scleral icterus ENT: positive: ENT inspection nml, Pharynx nml, No signs of dehydration Neck: positive: Nml inspection, Thyroid nml, No JVD, Trachea midline. negative : Thyromegaly Respiratory: positive: Chest non-tender, No respiratory distress, Breath sounds nml. negative: Wheezes, Rales, Rhonchi Cardiovascular: positive: Regular rate & rhythm, No murmur, No gallop Abdomen: positive: Non-tender, No organomegaly, Nml bowel sounds, No distention. negative: Guarding, Rebound Back: positive: Nml inspection. negative: CVA tenderness (R), CVA tenderness (L ) Skin: positive: Color nml, No rash, Warm, Dry. negative: Cyanosis Extremities: positive: Non-tender, Full ROM, Nml appearance, No pedal edema Neurologic/Psychiatric: positive: Oriented x3, CN's nml (2-12), Motor nml, Sensation nml, Mood/affect nml - Lab Results Fish Bones: 02/13/18 05:35 02/13/18 05:35 ABX Reporting Has patient been on IV antibiotics over the past 48 hours?: No Assessment/Plan - Problem List (1) Metastatic breast cancer Impression: The patient has stage IV breast cancer and is not a candidate for any further treatment per oncology. She has had a consultation with palliative care and I have ordered a hospice consultation as well. (2) Closed left femoral fracture Impression: The patient underwent intramedullary rodding with Dr. Mckeon. She has been getting up out of bed to the bedside chair working with physical therapy. She will be discharged home with hospice care when orthopedics clears her. Qualifiers: Encounter type: subsequent encounter Femur location: shaft Fracture morphology: comminuted Fracture alignment: displaced Qualified Code(s): S72.352A - Displaced comminuted fracture of shaft of left femur, initial encounter for closed fracture (3) Liver metastases Impression: We are giving the patient diuretics to help prevent/slow down collection of ascites, and she has been having weekly paracenteses done (which she missed last week) so I have ordered a paracentesis which will be done Friday. (4) Hyperlipidemia Impression: Resume yearly well-managed, the patient takes simvastatin at home. We will restart her on that same dosage while she is inpatient.
[2018-02-15] MEDS: NS W/20 MEQ KCL 1,000 ML IV SCH ×2 (00:14→08:18)
[2018-02-15] MEDS: SODIUM CHLORIDE FLUSH 0.9% 10 ML SYRINGE IVP SCH ×3 (01:52→15:39)
[2018-02-15] MEDS ORDERED: MIN OIL/DIMETHICON/COCONUT OIL 92 GM TUBE TOP PRN (02:51)
[2018-02-15] MEDS: ZINC OXIDE 20% OINT 28.35 GM TUBE TOP PRN ×3 (03:05→09:17)
[2018-02-15] MEDS: PARAB/CET ALC/STRYL ALC/PG/SLS 473 ML BOTTLE TOP PRN ×2 (03:15→09:09)
[2018-02-15] MEDS: LEVOTHYROXINE 100 MCG TABLET PO SCH (06:54)
[2018-02-15] MEDS: MAGNESIUM OXIDE 400 MG TABLET PO SCH (08:19)
[2018-02-15] MEDS: SPIRONOLACTONE 25 MG TABLET PO SCH (08:19)
[2018-02-15] MEDS: MULTIVITAMIN TABLET PO SCH (08:19)
[2018-02-15] MEDS: FAMOTIDINE 20 MG TABLET PO SCH (08:19)
[2018-02-15] MEDS: FUROSEMIDE 20 MG TABLET PO SCH (08:20)
[2018-02-15] MEDS: POLYETHYLENE GLYCOL 3350 17 GM PACKET PO SCH (08:20)
[2018-02-15] MEDS: MORPHINE 2 MG/ML SYRINGE IVP PRN ×2 (09:26→13:23)
--- NOTE | 2018-02-15 14:47 | PROVIDER PROGRESS NOTE ---
Assessment/Plan - Problem List (1) Closed left femoral fracture Qualifiers: Encounter type: subsequent encounter Femur location: shaft Fracture morphology: comminuted Fracture alignment: displaced Assessment/Plan: Will reXray L hip and pelvis, to R/O deformity, since the "clunk" sound was heard, it may be adding to the worsening pain of L hip. Hold on PT today, just OOB to chair. (2) Liver metastases Assessment/Plan: Ascites may be increasing. A paracentesis witb US guidance was ordered, to be done tomorrow. Continue Spirnolactone. (3) Metastatic breast cancer Assessment/Plan: Pt will be accepted into Hospice this coming week, per Case Management. (4) Hyponatremia Assessment/Plan: Pt was started on iv hydration yesterday, possibly to treat low Na. The Na went even lower today. Will stop iv fluids, due to ascites. Will order free water restriction. Monitor daily BMP labs. - Current Meds Current Meds: Current Medications Generic Name Dose Route Start Last Admin Trade Name Freq PRN Reason Stop Dose Admin Famotidine 20 mg 02/10/18 09:00 02/15/18 08:19 Pepcid PO 20 mg DAILY TRENT Administration Furosemide 20 mg 02/13/18 09:00 02/15/18 08:20 Lasix PO 20 mg DAILY TRENT Administration Glycerin 1 supp 02/12/18 11:03 02/12/18 17:54 [place] 1 supp DAILY PRN Administration Constipation Heparin Sodium (Beef Lung) 30 - 50 unit 02/11/18 05:38 02/13/18 09:20 IVP 50 unit PRN PRN Administration Port Protocol (<24 hours) Potassium Chloride/Sodium Chloride 1,000 mls @ 125 mls/hr 02/14/18 16:00 09/04 08:18 Normal Saline 0.9% W/20 Meq Kcl IV 125 mls/hr .Q8H TRENT Administration Ibuprofen 600 mg 02/09/18 17:29 02/12/18 12:30 Motrin PO 600 mg Q6HR PRN Administration Pain 1 to 4 Levothyroxine Sodium 100 mcg 02/13/18 07:00 02/15/18 06:54 Synthroid PO 100 mcg QDAC TRENT Administration Magnesium Oxide 400 mg 02/11/18 09:00 02/15/18 08:19 Mag Ox PO 400 mg DAILYWM TRENT Administration Morphine Sulfate 2 mg 02/09/18 17:29 02/15/18 13:23 Morphine IVP 2 mg Q2H PRN Administration Pain 8 to 10 Multi-Ingredient Lotion 473 ml 02/15/18 02:51 02/15/18 09:09 Cetaphil TOP 1 applic PRN PRN Administration Skin Care Multi-Ingredient Ointment 1 applic 02/13/18 16:56 02/15/18 09:17 Zinc Oxide TOP 1 applic PRN PRN Administration Skin Care Multivitamins 1 tab 02/10/18 09:00 02/15/18 08:19 Theragran PO 1 tab DAILY TRENT Administration Ondansetron HCl 4 mg 02/09/18 17:29 02/13/18 22:36 Zofran Inj IVP 4 mg Q6HR PRN Administration Nausea / Vomiting Oxycodone HCl 5 mg 02/09/18 17:29 02/14/18 06:06 Roxicodone PO 5 mg Q4HR PRN Administration Pain 5 to 7 Oxycodone HCl 10 mg 02/09/18 17:29 02/14/18 11:20 Roxicodone PO 10 mg Q4HR PRN Administration Pain 8 to 10 Polyethylene Glycol 17 gm 02/10/18 09:00 02/15/18 08:20 Miralax PO Not Given DAILY TRENT Prochlorperazine Edisylate 10 mg 02/09/18 17:29 02/13/18 00:50 Compazine Inj IVP 10 mg Q6HR PRN Administration Nausea / Vomiting Promethazine HCl 25 mg 02/09/18 17:29 02/12/18 15:57 Phenergan Inj IM 25 mg Q6HR PRN Administration Nausea / Vomiting Sodium Chloride 10 ml 02/09/18 17:29 02/13/18 22:36 Normal Saline Flush 0.9% IVP 10 ml PRN PRN Administration NEEDED PER PROVIDER ORDERS Sodium Chloride 10 ml 02/10/18 01:00 02/15/18 13:55 Normal Saline Flush 0.9% IVP Not Given 0100,0900,1700 TRENT Spironolactone 50 mg 02/14/18 09:00 02/15/18 08:19 Aldactone PO 50 mg DAILY TRENT Administration - Lab Result Fish Bone Diagrams: 02/13/18 05:35 02/13/18 05:35 - Additional Planning My Orders: My Active Orders 02/15/18 11:50 Hip w/Pelvis 2-3V LT [XR] Stat Subjective - Subjective Patient Reports: Other (Feels weaker, More pain in area of surgery thanyesterday.) Nursing Reports: Other (PT Zack, heard a "clunk in patient" while walking with Pt yesterday.) Objective Vital Signs: Vital Signs - 24 hr 02/14/18 02/14/18 02/15/18 15:55 20:09 00:47 Temperature 36.8 C 37.0 C 36.6 C Heart Rate [ 99 99 97 Brachial] Respiratory 18 18 18 Rate Blood Pressure 106/62 126/56 L 111/64 [Left Brachial artery] O2 Saturation 93 96 92 02/15/18 08:24 Temperature 36.9 C Heart Rate [ 88 Brachial] Respiratory 20 Rate Blood Pressure 111/63 [Left Brachial artery] O2 Saturation 97 Oxygen O2 Source [With Activity] Nasal cannula O2 Source [Without Activity] Room air O2 Source Nasal cannula I&O (Last 24 Hrs): Intake and Output Totals x24h 02/13/18 02/14/18 02/15/18 23:59 23:59 23:59 Intake Total 3820 1850 2777 Output Total 1780 1950 2500 Balance 2040 -100 277 General: Alert, Oriented x3 HEENT: Mucous membr. moist/pink Neck: Supple, No JVD Cardiovascular: No murmurs Respiratory: No respiratory distress, Breath sounds nml Abdomen: Soft, Other (Distended, no pain.) Extremities: No edema - Results Results: Laboratory Results WBC 7.7 x10^3/uL (4.8-10.8) 02/13/18 05:35 RBC 2.99 10^6/uL (4.20-5.40) L 02/13/18 05:35 Hgb 9.6 g/dL (12.0-16.0) L 02/13/18 05:35 Hct 29.2 % (37.0-47.0) L 02/13/18 05:35 MCV 97.5 fL (81.0-99.0) 02/13/18 05:35 MCH 32.1 pg (27.0-31.0) H 02/13/18 05:35 MCHC 32.9 g/dL (32.0-36.0) 02/13/18 05:35 RDW 17.8 % (12.0-15.0) H 02/13/18 05:35 Plt Count 99 10^3/uL (130-450) L 02/13/18 05:35 MPV 8.8 fL (7.9-10.8) 02/13/18 05:35 Neut # (Auto) 6.3 10^3/uL (1.5-6.6) 02/13/18 05:35 Lymph # (Auto) 0.4 10^3/uL (1.5-3.5) L 02/13/18 05:35 [place] # (Auto) 0.9 10^3/uL (0.0-1.0) 02/13/18 05:35 Eos # (Auto) 0.1 10^3/uL (0.0-0.7) 02/13/18 05:35 Baso # (Auto) 0.0 10^3/uL (0.0-0.1) 02/13/18 05:35 Absolute Nucleated RBC 0.00 x10^3/uL 02/13/18 05:35 Nucleated RBC % 0.0 /100WBC 02/13/18 05:35 PT 13.9 secs (9.9-12.6) H 02/10/18 06:14 INR 1.2 (0.8-1.2) 02/10/18 06:14 Sodium 129 mmol/L (135-145) L 02/13/18 05:35 Potassium 4.8 mmol/L (3.5-5.0) 02/13/18 05:35 Chloride 98 mmol/L (101-111) L 02/13/18 05:35 Carbon Dioxide 27 mmol/L (21-32) 02/13/18 05:35 Anion Gap 4.0 (6-13) L 02/13/18 05:35 BUN 12 mg/dL (6-20) 02/13/18 05:35 Creatinine 0.6 mg/dL (0.4-1.0) 02/13/18 05:35 Estimated GFR (MDRD) 100 (>89) 02/13/18 05:35 Glucose 138 mg/dL (70-100) H 02/13/18 05:35 Calcium 7.7 mg/dL (8.5-10.3) L 02/13/18 05:35 Phosphorus 2.6 mg/dL (2.5-4.6) 02/11/18 06:08 Magnesium 1.9 mg/dL (1.7-2.8) 02/13/18 05:35 Total Bilirubin 2.8 mg/dL (0.2-1.0) H 02/13/18 05:35 AST 114 IU/L (10-42) H 02/13/18 05:35 ALT 47 IU/L (10-60) 02/13/18 05:35 Alkaline Phosphatase 167 IU/L (42-121) H 02/13/18 05:35 Total Protein 5.0 g/dL (6.7-8.2) L 02/13/18 05:35 Albumin 2.2 g/dL (3.2-5.5) L 02/13/18 05:35 Globulin 2.8 g/dL (2.1-4.2) 02/13/18 05:35 Albumin/Globulin Ratio 0.8 (1.0-2.2) L 02/13/18 05:35 Lipase 24 U/L (22-51) 02/09/18 16:46 TSH 16.05 uIU/mL (0.34-5.60) H 02/10/18 06:14 Blood Type O NEGATIVE 02/09/18 17:37 Antibody Screen NEGATIVE 02/09/18 17:37 - Procedures Procedures: Procedures EXCISION OF STOMACH, ENDO, DIAGN (01/21/18) INSERTION OF TOTALLY IMPLANTABLE VASC ACCESS DEVIC (04/23/13) REPOSITION R FEMUR SHAFT WITH INTRAMED FIX, OPEN APPROACH (01/04/17) TRANSFUSE NONAUT RED BLOOD CELLS IN CENTRAL VEIN, PERC (01/21/18) ABX Reporting Has patient been on IV antibiotics over the past 48 hours?: No
--- NOTE | 2018-02-15 15:42 | XRAY Report ---
Procedure Date: 02/15/2018 Accession Number: [id number] / [id number] Procedure: XR - Hip w/Pelvis 2-3V LT CPT Code: FULL RESULT: EXAM: LEFT HIP AND PELVIS RADIOGRAPHY EXAM DATE: 02/15/2018 01:54 PM. HISTORY: More pain and heard a clunk while walking yesterday. COMPARISONS: 02/09/2018. TECHNIQUE: 1 view of the pelvis and 1 view of the hip. 3 images are provided. FINDINGS: Bones: Interval ORIF of the subtrochanteric left femur fracture with placement of a dynamic screw and femoral medullary gloria. There is no postoperative imaging available for comparison, but alignment is near anatomic with mild angulation at the fracture site and no significant displacement. Visualized portions of the hardware are without evidence of loosening or failure. Subacute/chronic fracture of the proximal right femur status post ORIF partially imaged. No other acute fracture. Joints: No dislocation. Soft Tissues: Left lateral soft tissue swelling may be postoperative. IMPRESSION: 1. Interval ORIF of the left femur fracture. Alignment is near-anatomic. 2. No evidence of new fracture. RADIA
[2018-02-15] MEDS: IBUPROFEN 400 MG TABLET PO SCH (17:12)
[2018-02-15] MEDS: GLYCERIN ADULT SUPP PR PRN (18:27)
[2018-02-16] MEDS: LEVOTHYROXINE 100 MCG TABLET PO SCH (07:05)
[2018-02-16] MEDS: oxyCODONE 5 MG TABLET PO PRN (07:11)
[2018-02-16] MEDS: SODIUM CHLORIDE FLUSH 0.9% 10 ML SYRINGE IVP SCH ×3 (07:42→16:24)
[2018-02-16] MEDS: IBUPROFEN 400 MG TABLET PO SCH ×5 (07:42→16:23)
[2018-02-16] MEDS: POLYETHYLENE GLYCOL 3350 17 GM PACKET PO SCH (08:23)
[2018-02-16] MEDS: FAMOTIDINE 20 MG TABLET PO SCH (08:41)
[2018-02-16] MEDS: MULTIVITAMIN TABLET PO SCH (08:42)
[2018-02-16] MEDS: MAGNESIUM OXIDE 400 MG TABLET PO SCH (08:42)
[2018-02-16] MEDS: FUROSEMIDE 20 MG TABLET PO SCH (08:42)
[2018-02-16] MEDS: SPIRONOLACTONE 25 MG TABLET PO SCH (08:42)
--- NOTE | 2018-02-16 10:38 | CONSULTATION NOTE ---
Palliative Care Follow Up - Referral Referring Provider: Dr. Myrna Griffin Time of Visit: [id number] Referral setting: Hospitalized patient Referral Reason: Met. Breast Cancer/Mets to liver/Goals of Care - Information Sources Records reviewed: Previous records reviewed History/Review of Systems obtained from: Patient Exam limitations: No limitations - History of Present Illness Update Brief HPI Update: This is a christian 67-year-old woman with metastatic breast cancer to the liver and bones, most recently diagnosed with esophageal varices as a result of cirrhosis most likely as a sequela of her liver metastases and past treatment with Y-90, a radiation isotope. She did receive banding Latv[place] early January, she has had no recurrent bleeding. She also has significant peritoneal carcinomatosis, with increasing ascites. Her last paracentesis was on 2017 and unfortunately on last exam they were unable to drain secondary to fluid being loculated. The hope is to be able to drain her ascites prior to discharge, this is scheduled for later today. She has been on multiple lines of therapy, and currently has limited options. They have been looking at the vaccine trial, with her elevated bilirubin she most likely is not a candidate at this point. Patient's goals to focus on quality of life, she does understand her life is limited, she understood from the oncologist she has 3 months or less. She is opted to move forward on hospice referral. She will be admitted to hospice on discharge from hospital. Social History - Living Situation Living arrangement: At home Living Situation: With spouse/s.o. (Shiva her has cared for her previously with right hip fracture; Has daughter and son but currently not involved in her care, daughter exploring FMLA when timing seems right) Medications/Allergies - Medications Active Medication List: Active Medications Acetaminophen (Tylenol) 650 mg PO Q4HR PRN PRN Reason: Pain 1 to 4 Famotidine (Pepcid) 20 mg PO DAILY TRENT Last Admin: 02/16/18 08:41 Dose: 20 mg Furosemide (Lasix) 20 mg PO DAILY TRENT Last Admin: 02/16/18 08:42 Dose: 20 mg Glycerin () 1 supp [place] DAILY PRN PRN Reason: Constipation Last Admin: 02/15/18 18:27 Dose: 1 supp Heparin Sodium (Beef Lung) () 30 - 50 unit IVP PRN PRN PRN Reason: Port Protocol (<24 hours) Last Admin: 02/16/18 00:38 Dose: 40 unit Ibuprofen (Motrin) 600 mg PO Q6HR PRN PRN Reason: Pain 1 to 4 Last Admin: 02/12/18 12:30 Dose: 600 mg Ibuprofen (Motrin) 400 mg PO Q6HR [facility] Last Admin: 02/16/18 08:42 Dose: 400 mg Levothyroxine Sodium (Synthroid) 100 mcg PO QDAC [facility] Last Admin: 02/16/18 07:05 Dose: 100 mcg Magnesium Oxide (Mag Ox) 400 mg PO DAILYWM [facility] Last Admin: 02/16/18 08:42 Dose: 400 mg Mineral Oil (Cavilon) 1 applic TOP PRN PRN PRN Reason: Skin Care Morphine Sulfate (Morphine) 2 mg IVP Q2H PRN PRN Reason: Pain 8 to 10 Last Admin: 02/15/18 13:23 Dose: 2 mg Multi-Ingredient Lotion (Cetaphil) 473 ml TOP PRN PRN PRN Reason: Skin Care Last Admin: 02/15/18 09:09 Dose: 1 applic Multi-Ingredient Ointment (Zinc Oxide) 1 applic TOP PRN PRN PRN Reason: Skin Care Last Admin: 02/15/18 09:17 Dose: 1 applic Multivitamins (Theragran) 1 tab PO DAILY [facility] Last Admin: 02/16/18 08:42 Dose: 1 tab Ondansetron HCl (Zofran Inj) 4 mg IVP Q6HR PRN PRN Reason: Nausea / Vomiting Last Admin: 02/13/18 22:36 Dose: 4 mg Oxycodone HCl (Roxicodone) 5 mg PO Q4HR PRN PRN Reason: Pain 5 to 7 Last Admin: 02/16/18 07:11 Dose: 5 mg Oxycodone HCl (Roxicodone) 10 mg PO Q4HR PRN PRN Reason: Pain 8 to 10 Last Admin: 02/14/18 11:20 Dose: 10 mg Polyethylene Glycol (Miralax) 17 gm PO DAILY [facility] Last Admin: 02/16/18 08:23 Dose: Not Given Prochlorperazine Edisylate (Compazine Inj) 10 mg IVP Q6HR PRN PRN Reason: Nausea / Vomiting Last Admin: 02/13/18 00:50 Dose: 10 mg Promethazine HCl (Phenergan Inj) 25 mg IM Q6HR PRN PRN Reason: Nausea / Vomiting Last Admin: 02/12/18 15:57 Dose: 25 mg Sodium Chloride (Normal Saline Flush 0.9%) 10 ml IVP PRN PRN PRN Reason: NEEDED PER PROVIDER ORDERS Last Admin: 02/13/18 22:36 Dose: 10 ml Sodium Chloride (Normal Saline Flush 0.9%) 10 ml IVP 0100,0900,1700 [facility] Last Admin: 02/16/18 08:42 Dose: 10 ml Spironolactone (Aldactone) 50 mg PO DAILY [facility] Last Admin: 02/16/18 08:42 Dose: 50 mg Zolpidem Tartrate (Ambien) 5 mg PO QPM PRN PRN Reason: Insomnia Omeprazole [PriLOSEC] 20 mg PO BIDAC 01/06/13 Ondansetron HCl [Zofran] 8 mg SL Q8H PRN 02/03/14 Prochlorperazine Maleate [Compazine] 10 mg PO Q6H PRN 05/01/17 Multivitamin [Theragran] 1 tab PO DAILY 01/21/18 Simvastatin 20 mg PO QPM 01/21/18 Furosemide [Lasix] 20 mg PO BIDDIURETIC 02/02/18 Spironolactone 50 mg PO BID 02/02/18 Denosumab [Xgeva] 120 mg SUBQ Q90D 02/09/18 Levothyroxine [Synthroid] 75 mcg PO QDAC 02/09/18 - Allergies Allergies/Adverse Reactions: Allergies Allergy/AdvReac Type Severity Reaction Status Date / Time shellfish derived Allergy Mild Respiratory Verified 01/28/18 19:51 Review of Systems - Constitutional Constitutional: reports: Fatigue. denies: Fever, Chills - Ears, Nose & Throat Ears, Nose & Throat: reports: Dry mouth - Cardiovascular Cardiovascular: reports: Decr. exercise tolerance. denies: Chest pain - Respiratory Respiratory: reports: SOB with exertion, Other (off oxygen). denies: SOB at rest - Gastrointestinal Gastrointestinal: reports: Abdominal distention (ascites; softened now off of IV fluids today;), Nausea (resovled with stopping NA tablets), Bloating, Early satiety. denies: Constipation, Reflux/heartburn - Genitourinary Genitourinary: reports: Other (still has loza catheter; if more mobile today will discontinue) - Musculoskeletal Musculoskeletal: reports: Limited range of motion, Muscle weakness, Assistive devices (using walker when up) - Integumentary Integumentary: reports: Other (reports new skin breakdown on buttocks) - Neurological Neurological: reports: General weakness - Psychiatric Psychiatric: reports: Depression (feeling somewhat overwhelmed; peaked yesterday some improvement today), Anxiety - Endocrine Endocrine: reports: Hypothyroidism - Hematologic/Lymphatic Hematologic/Lymphatic: reports: Anemia, Blood clots (hx. off anticoags secondary to esophageal varicies) - All Other Systems All Other Systems: reports: Reviewed and negative Physical Exam - Vital Signs Vital Signs: Vital Signs x48h Temp Pulse Resp BP Pulse Ox 02/16/18 08:45 36.5 C 96 20 114/93 H 96 - Physical Exam General Appearance: positive: No acute distress Eyes Bilateral: positive: Normal inspection ENT: positive: No signs of dehydration Neck: positive: No JVD, Trachea midline Cardiovascular: positive: Tachycardia Respiratory: positive: Diminished in bases (right greater than left; 1/[address] way up) . negative: Wheezes, Rales, Rhonchi Abdomen: positive: Non-tender, Soft, Nml bowel sounds, Distended Skin: positive: Pallor, Dryness, Pressure wound (dressing not observed). negative: Jaundice Extremities: positive: No pedal edema, Other (has scds on) Neurologic/Psychiatric: positive: Oriented x3, Mood/affect nml Palliative Care - POLST Patient has POLST: Yes POLST Status: DNR, Selective Treatment Pain: Pain improved, Location (left hip; with movement and weight bearing; tolerable and none at rest) Tiredness/Fatigue: Moderate (4-6) Drowsiness/Sedation: None Nausea: None Depression: Moderate (4-6) Anxiety: Moderate (4-6) Performance Status: patient with limited ambulation; has walked back and forth to BR last few hours and up in chair. Patient's goal is to regain as much functional status as possible knowing she has expected decline, hoping to be able to do some things for herself and regain some independence. - Palliative Care Discussion: Patient had a very rough day yesterday, reports this was both physically and emotionally. Continues to feel somewhat overwhelmed with her impending decline. At this point in time the plan is to transition to hospice after discharge from hospital. Counseling reviewed again about hospice benefit, patient still has many questions, but is not planning to pursue further treatment. And focuses on quality of life and comfort. Results - Lab Results Lab results reviewed: Yes Skyler Bones: 02/13/18 05:35 02/13/18 05:35 Impression and Recommendations - Palliative Care Impression: This is a 67-year-old woman with metastatic prostate cancer to the liver and bones, she also has peritoneal carcinomatosis, ascites, and most recently diagnosed with esophageal varices. She is recovering from a repair of her left hip fracture, this is been somewhat slow for her, she is hoping for some improvement in her functional status. Palliative care to provide support regarding pain and symptom management and transition to hospice. Recommendations/Counseling Done: 1. Acute on chronic pain. Patient's most acute pain is in her left hip, this is worse with weightbearing. She also has underlying pain and discomfort from her new decub on her bottom, is having to shift on a regular basis. She reports the dressing is intact and has helped. She also has mild discomfort related to her ascites and pressure pain. This is been responding to intermittent ibuprofen and oxycodone, would recommend short acting opioid on discharge from hospital. 2. Nausea. This is resolved since the discontinue of the salt tablets, she continues to have some anorexia, but is eating and drinking fairly well. He is not needing any antiemetic in the last 2448 hrs. 3. Early satiety. This is most likely as a result of her ascites, she likes to drink milk, she is encouraged to have small frequent meals and supplements and transition home. 4. Ascites. Awaiting outcome of ultrasound, to see if patient is a candidate for paracentesis prior to discharge. Patient to continue on diuretics, as they have been effective up to this point, will evaluate in the home setting. 5. Advanced care planning. Patient is to discharge to home, will be admitted to hospice. Hospice to connect regarding delivery of the hospital bed and pressure relief mattress as well as over the bed table. Will be admitted for ongoing support and symptom management. Hospice orders sent. Counseling done regarding again the hospice benefit, did follow-up with Walter at the [facility] regarding her paperwork, Dr. Costello will sign appropriate forms, am available if further assistance needed Time Spent: 45 minutes was given 50% of this done in counseling regarding goals of care, anticipatory guidance, and for anxiety and depression.
[2018-02-16] MEDS: MORPHINE 2 MG/ML SYRINGE IVP PRN (13:55)
[2018-02-16] MEDS: SODIUM CHLORIDE FLUSH 0.9% 10 ML SYRINGE IVP PRN (13:56)
--- NOTE | 2018-02-16 15:24 | Ultrasound Report ---
Procedure Date: 02/16/2018 Accession Number: [id number] / [id number] Procedure: US - Abdominal Paracentesis CPT Code: FULL RESULT: EXAM: Abdominal Paracentesis DATE: 02/16/2018 2:55 PM CLINICAL HISTORY: ASCITES DUE TO LIVER METASTASIS COMPARISON: 02/02/2018, 01/29/2018 FINDINGS: Following obtaining informed consent, a suitable site in the patient's left lower abdomen was selected with ultrasound. The skin was prepped and draped in the usual sterile fashion. The skin and soft tissues were anesthetized with buffered lidocaine. A Safetycentesis catheter was inserted into the peritoneal cavity, and approximately 2800 mL of fluid was removed without difficulty. The patient tolerated the procedure well. No immediate complications. IMPRESSION: Successful ultrasound-guided paracentesis, yielding approximately 2800 mL of fluid.
[2018-02-16] MEDS ORDERED: BUFFERED LIDOCAINE 10 ML SYRINGE IU ONE (16:36)
--- NOTE | 2018-02-16 17:27 | PROVIDER PROGRESS NOTE ---
Assessment/Plan - Problem List (1) Closed left femoral fracture Qualifiers: Encounter type: subsequent encounter Femur location: shaft Fracture morphology: comminuted Fracture alignment: displaced Assessment/Plan: Pt was able to walk again today without as much pain as yesterday. Plan DCh to home tomorrow. (2) Liver metastases Assessment/Plan: Pt had paracentesis of ascites, for symptom relief. Watch for a day for hypotension, to determine if may be DCh home (3) Metastatic breast cancer Assessment/Plan: Pt to be accepted by Hospice tomorrow, per Marilee Leal NP. Hospital beds was advised by Marilee Leal NP and by Physical Therapist, which is to be ordered as part of Hospiace "bund;le" by critical care clinical nurse specialist, per Case Management. - Current Meds Current Meds: Current Medications Generic Name Dose Route Start Last Admin Trade Name Freq PRN Reason Stop Dose Admin Famotidine 20 mg 02/10/18 09:00 02/16/18 08:41 Pepcid PO 20 mg DAILY TRENT Administration Furosemide 20 mg 02/13/18 09:00 02/16/18 08:42 Lasix PO 20 mg DAILY TRENT Administration Glycerin 1 supp 02/12/18 11:03 02/15/18 18:27 LA 1 supp DAILY PRN Administration Constipation Heparin Sodium (Beef Lung) 30 - 50 unit 02/11/18 05:38 02/16/18 00:38 IVP 40 unit PRN PRN Administration Port Protocol (<24 hours) Ibuprofen 600 mg 02/09/18 17:29 02/12/18 12:30 Motrin PO 600 mg Q6HR PRN Administration Pain 1 to 4 Ibuprofen 400 mg 02/15/18 18:00 02/16/18 16:23 Motrin PO 400 mg Q6HR TRENT Administration Levothyroxine Sodium 100 mcg 02/13/18 07:00 02/16/18 07:05 Synthroid PO 100 mcg QDAC TRENT Administration Magnesium Oxide 400 mg 02/11/18 09:00 02/16/18 08:42 Mag Ox PO 400 mg DAILYWM TRENT Administration Morphine Sulfate 2 mg 02/09/18 17:29 02/16/18 13:55 Morphine IVP 2 mg Q2H PRN Administration Pain 8 to 10 Multi-Ingredient Lotion 473 ml 02/15/18 02:51 02/15/18 09:09 Cetaphil TOP 1 applic PRN PRN Administration Skin Care Multi-Ingredient Ointment 1 applic 02/13/18 16:56 02/15/18 09:17 Zinc Oxide TOP 1 applic PRN PRN Administration Skin Care Multivitamins 1 tab 02/10/18 09:00 02/16/18 08:42 Theragran PO 1 tab DAILY TRENT Administration Ondansetron HCl 4 mg 02/09/18 17:29 02/13/18 22:36 Zofran Inj IVP 4 mg Q6HR PRN Administration Nausea / Vomiting Oxycodone HCl 5 mg 02/09/18 17:29 02/16/18 07:11 Roxicodone PO 5 mg Q4HR PRN Administration Pain 5 to 7 Oxycodone HCl 10 mg 02/09/18 17:29 02/14/18 11:20 Roxicodone PO 10 mg Q4HR PRN Administration Pain 8 to 10 Polyethylene Glycol 17 gm 02/10/18 09:00 02/16/18 08:23 Miralax PO Not Given DAILY TRENT Prochlorperazine Edisylate 10 mg 02/09/18 17:29 02/13/18 00:50 Compazine Inj IVP 10 mg Q6HR PRN Administration Nausea / Vomiting Promethazine HCl 25 mg 02/09/18 17:29 02/12/18 15:57 Phenergan Inj IM 25 mg Q6HR PRN Administration Nausea / Vomiting Sodium Chloride 10 ml 02/09/18 17:29 02/16/18 13:56 Normal Saline Flush 0.9% IVP 10 ml PRN PRN Administration NEEDED PER PROVIDER ORDERS Sodium Chloride 10 ml 02/10/18 01:00 02/16/18 16:24 Normal Saline Flush 0.9% IVP 10 ml 0100,0900,1700 TRENT Administration Spironolactone 50 mg 02/14/18 09:00 02/16/18 08:42 Aldactone PO 50 mg DAILY TRENT Administration - Lab Result Fish Bone Diagrams: 02/13/18 05:35 02/13/18 05:35 - Additional Planning My Orders: My Active Orders 02/15/18 18:00 Ibuprofen [Motrin] 400 mg PO Q6HR Subjective - Subjective Patient Reports: Feeling Better Nursing Reports: Other (Had bedside paracentesis of 2200cc cloudy yellow fluid) Objective Vital Signs: Vital Signs - 24 hr 02/16/18 02/16/18 02/16/18 01:05 08:45 15:41 Temperature 36.5 C 36.5 C 36.6 C Heart Rate [ 84 96 87 Brachial] Respiratory 16 20 20 Rate Blood Pressure 120/64 114/93 H 109/60 [Left Brachial artery] O2 Saturation 94 96 94 Oxygen O2 Source [With Activity] Nasal cannula O2 Source [Without Activity] Room air O2 Source Room air I&O (Last 24 Hrs): Intake and Output Totals x24h 02/14/18 02/15/18 02/16/18 23:59 23:59 23:59 Intake Total 1850 4127 610 Output Total 1950 3800 1500 Balance -100 327 -890 General: Alert, Oriented x3 HEENT: Mucous membr. moist/pink Neck: Supple, No JVD Neuro: Non Focal Cardiovascular: Regular rate, No murmurs Respiratory: No respiratory distress, Breath sounds nml Abdomen: Soft, No tenderness, No hepatospenomegaly Extremities: No edema - Results Results: Laboratory Results WBC 7.7 x10^3/uL (4.8-10.8) 02/13/18 05:35 RBC 2.99 10^6/uL (4.20-5.40) L 02/13/18 05:35 Hgb 9.6 g/dL (12.0-16.0) L 02/13/18 05:35 Hct 29.2 % (37.0-47.0) L 02/13/18 05:35 MCV 97.5 fL (81.0-99.0) 02/13/18 05:35 MCH 32.1 pg (27.0-31.0) H 02/13/18 05:35 MCHC 32.9 g/dL (32.0-36.0) 02/13/18 05:35 RDW 17.8 % (12.0-15.0) H 02/13/18 05:35 Plt Count 99 10^3/uL (130-450) L 02/13/18 05:35 MPV 8.8 fL (7.9-10.8) 02/13/18 05:35 Neut # (Auto) 6.3 10^3/uL (1.5-6.6) 02/13/18 05:35 Lymph # (Auto) 0.4 10^3/uL (1.5-3.5) L 02/13/18 05:35 Archuleta # (Auto) 0.9 10^3/uL (0.0-1.0) 02/13/18 05:35 Eos # (Auto) 0.1 10^3/uL (0.0-0.7) 02/13/18 05:35 Baso # (Auto) 0.0 10^3/uL (0.0-0.1) 02/13/18 05:35 Absolute Nucleated RBC 0.00 x10^3/uL 02/13/18 05:35 Nucleated RBC % 0.0 /100WBC 02/13/18 05:35 PT 13.9 secs (9.9-12.6) H 02/10/18 06:14 INR 1.2 (0.8-1.2) 02/10/18 06:14 Sodium 129 mmol/L (135-145) L 02/13/18 05:35 Potassium 4.8 mmol/L (3.5-5.0) 02/13/18 05:35 Chloride 98 mmol/L (101-111) L 02/13/18 05:35 Carbon Dioxide 27 mmol/L (21-32) 02/13/18 05:35 Anion Gap 4.0 (6-13) L 02/13/18 05:35 BUN 12 mg/dL (6-20) 02/13/18 05:35 Creatinine 0.6 mg/dL (0.4-1.0) 02/13/18 05:35 Estimated GFR (MDRD) 100 (>89) 02/13/18 05:35 Glucose 138 mg/dL (70-100) H 02/13/18 05:35 Calcium 7.7 mg/dL (8.5-10.3) L 02/13/18 05:35 Phosphorus 2.6 mg/dL (2.5-4.6) 02/11/18 06:08 Magnesium 1.9 mg/dL (1.7-2.8) 02/13/18 05:35 Total Bilirubin 2.8 mg/dL (0.2-1.0) H 02/13/18 05:35 AST 114 IU/L (10-42) H 02/13/18 05:35 ALT 47 IU/L (10-60) 02/13/18 05:35 Alkaline Phosphatase 167 IU/L (42-121) H 02/13/18 05:35 Total Protein 5.0 g/dL (6.7-8.2) L 02/13/18 05:35 Albumin 2.2 g/dL (3.2-5.5) L 02/13/18 05:35 Globulin 2.8 g/dL (2.1-4.2) 02/13/18 05:35 Albumin/Globulin Ratio 0.8 (1.0-2.2) L 02/13/18 05:35 Lipase 24 U/L (22-51) 02/09/18 16:46 TSH 16.05 uIU/mL (0.34-5.60) H 02/10/18 06:14 Blood Type O NEGATIVE 02/09/18 17:37 Antibody Screen NEGATIVE 02/09/18 17:37 - Procedures Procedures: Procedures EXCISION OF STOMACH, ENDO, DIAGN (01/21/18) INSERTION OF TOTALLY IMPLANTABLE VASC ACCESS DEVIC (04/23/13) REPOSITION R FEMUR SHAFT WITH INTRAMED FIX, OPEN APPROACH (01/04/17) TRANSFUSE NONAUT RED BLOOD CELLS IN CENTRAL VEIN, PERC (01/21/18) ABX Reporting Has patient been on IV antibiotics over the past 48 hours?: No
[2018-02-17] MEDS: SODIUM CHLORIDE FLUSH 0.9% 10 ML SYRINGE IVP SCH ×2 (01:00→09:44)
[2018-02-17] MEDS: IBUPROFEN 400 MG TABLET PO SCH ×3 (01:00→12:40)
[2018-02-17] MEDS: LEVOTHYROXINE 100 MCG TABLET PO SCH (06:03)
[2018-02-17 08:02] VITALS: BP 97/78
[2018-02-17 08:53] LABS: HGB - HEMOGLOBIN 10.1 g/dL (12.0-16.0); MEAN CORPUSCULAR HGB CONC 32.9 g/dL (32.0-36.0); MEAN CORPUSCULAR VOLUME 97.5 fL (81.0-99.0); MEAN PLATELET VOLUME 8.9 fL (7.9-10.8); RED BLOOD COUNT 3.15 10^6/uL (4.20-5.40); RED CELL DISTRIBUTION WIDTH 18.7 % (12.0-15.0); WHITE BLOOD COUNT 6.6 x10^3/uL (4.8-10.8)
[2018-02-17 09:04] LABS: ALBUMIN/GLOBULIN RATIO 0.6 (1.0-2.2); ALKALINE PHOSPHATASE 435 IU/L (42-121); ALT ALANINE AMINOTRANSFERASE 68 IU/L (10-60); AST ASPARTATE AMINOTRANSFERASE 104 IU/L (10-42); BILIRUBIN,TOTAL 2.8 mg/dL (0.2-1.0); BUN - BLOOD UREA NITROGEN 18 mg/dL (6-20); CALCIUM 8.7 mg/dL (8.5-10.3); CARBON DIOXIDE - CO2 28 mmol/L (21-32); CHLORIDE 96 mmol/L (101-111); CREATININE 0.7 mg/dL (0.4-1.0); GFR - MDRD 84 (>89); GLUCOSE 150 mg/dL (70-100); SODIUM 132 mmol/L (135-145); TOTAL PROTEIN 5.3 g/dL (6.7-8.2)
[2018-02-17] MEDS: SPIRONOLACTONE 25 MG TABLET PO SCH (09:44)
[2018-02-17] MEDS: POLYETHYLENE GLYCOL 3350 17 GM PACKET PO SCH (09:44)
[2018-02-17] MEDS: FUROSEMIDE 20 MG TABLET PO SCH (09:45)
[2018-02-17] MEDS: MAGNESIUM OXIDE 400 MG TABLET PO SCH (09:45)
[2018-02-17] MEDS: FAMOTIDINE 20 MG TABLET PO SCH (09:45)
[2018-02-17] MEDS: MULTIVITAMIN TABLET PO SCH (09:45)
--- NOTE | 2018-02-17 11:01 | Discharge Plan ---
Discharge Plan Disposition: 01 Home, Self Care Condition: Serious Prescriptions: oxyCODONE [Roxicodone] 5 mg PO Q4HR PRN #20 tablet PRN Reason: Pain 5 to 7 Spironolactone [Aldactone] 50 mg PO DAILY #30 tablet Diet: Regular Activity Restrictions: Activity as Tolerated Shower Restrictions: No Driving Restrictions: No Assistance Devices: Wheelchair, Walker Weight Bearing: Partial Weight No Smoking: If you smoke, Please STOP! Call for help. Follow-up with: Jimmy Beebe MD [Primary Care Provider] -
--- NOTE | 2018-02-17 11:52 | DISCHARGE SUMMARY ---
"Discharge Summary Admit Date: 02/09/18 Discharge Date: 02/17/18 Discharging Provider: Myrna Griffin DO Primary Care Provider: Jimmy Beebe MD Code Status: Do Not Attempt Resuscitation Condition at Discharge: Serious Discharge Disposition: 01 Home, Self Care - DIAGNOSES Admission Diagnoses: 1. Closed left femoral fracture 2. Metastatic breast cancer 3. Liver metastasis 4. Hypothyroidism 5. Hyperlipidemia Discharge Diagnoses with Status of Each Condition: 1. Closed left femoral fracture- Surgically repaired, stable. The patient has been ambulating with physical therapy daily. 2. Metastatic breast cancer - Stage IV, the patient will be going home with hospice as she is no longer a candidate for any further treatment. Her prognosis is grim. 3. Liver metastasis - We have continued the patient on spironolactone and she underwent paracentesis yesterday with 2800 cc of abdominal fluid removed.She will follow-up with her usual paracentesis treatment regimen. 4. Hypothyroidism - We initially restarted the patient on her home dosing of levothyroxine however recheck of her TSH found that her level was elevated at 16.05 and her Synthroid levels were increased accordingly. 5. Hyperlipidemia- Patient continues on her simvastatin however given her stage IV cancer with liver metastasis it may be prudent to stop this. I will leave that decision up to her oncologist. - HPI History of Present Illness: Mrs. Chrissy Antoine is a very pleasant but unfortunate 67-year-old female with a history of metastatic breast cancer who was walking earlier today and suddenly fell down. X-rays in the emergency department found the patient to have a fractured left hip. The patient did have a pathologic fracture to her right hip approximately 1 year ago and does have liver metastasis. Of note is that she was also seen here at [facility] a couple of weeks ago with bleeding esophageal varices. She was stabilized and transferred to [facility] where she successfully underwent banding. [facility] orthopedic surgery was called and has asked the hospitalist group to consult for medical management. At this time the patient's pain is fairly well-managed, and she denies any fever or chills, nausea or vomiting. - CONSULTS | PROCEDURES Consultations: Dr. Timothy Mckeon was consulted for surgical repair of the hip fracture. Procedures: intramedullary rodding left femur - HOSPITAL COURSE Hospital Course: The patient was admitted to the hospital and her fractured leg was placed in Menezes's traction. She underwent intramedullary rodding with Dr. Mckeon. She slowly returned to baseline and prior to discharge decided that she wished for hospice services to be started. We did a palliative paracentesis yesterday and the patient will be discharged home today on hospice care. - ALLERGIES Allergies/Adverse Reactions: Allergies Allergy/AdvReac Type Severity Reaction Status Date / Time shellfish derived Allergy Mild Respiratory Verified 01/28/18 19:51 - MEDICATIONS Home Medications: Ambulatory Orders Medication Instructions Recorded Confirmed Omeprazole [PriLOSEC] 20 mg PO BIDAC 01/06/13 02/09/18 Ondansetron HCl [Zofran] 8 mg SL Q8H PRN 02/03/14 02/09/18 Prochlorperazine Maleate 10 mg PO Q6H PRN 05/01/17 02/09/18 [Compazine] Multivitamin [Theragran] 1 tab PO DAILY 01/21/18 02/09/18 Simvastatin 20 mg PO QPM 01/21/18 02/09/18 Furosemide [Lasix] 20 mg PO BIDDIURETIC 02/02/18 02/09/18 Spironolactone 50 mg PO BID 02/02/18 02/09/18 Denosumab [Xgeva] 120 mg SUBQ Q90D 02/09/18 02/09/18 Levothyroxine [Synthroid] 75 mcg PO QDAC 02/09/18 02/09/18 Spironolactone [Aldactone] 50 mg PO DAILY #30 tablet 02/17/18 oxyCODONE [Roxicodone] 5 mg PO Q4HR PRN #20 tablet 02/17/18 - PHYSICAL EXAM AT DISCHARGE General Appearance: positive: No acute distress, Alert Eyes Bilateral: positive: Normal inspection, PERRL, EOMI, No lid inflammation, Conjunctivae nml, No scleral icterus ENT: positive: ENT inspection nml, Pharynx nml, No signs of dehydration Neck: positive: Nml inspection, Thyroid nml, No JVD, Trachea midline. negative : Thyromegaly Respiratory: positive: Chest non-tender, No respiratory distress, Breath sounds nml. negative: Wheezes, Rales, Rhonchi Cardiovascular: positive: Regular rate & rhythm, No murmur, No gallop Peripheral Pulses: positive: 1+ Abdomen: positive: Non-tender, No organomegaly, Nml bowel sounds, No distention. negative: Guarding, Rebound Back: positive: Nml inspection. negative: CVA tenderness (R), CVA tenderness (L ) Skin: positive: Color nml, No rash, Warm, Dry. negative: Cyanosis Extremities: positive: Non-tender, Full ROM, Nml appearance, No pedal edema Neurologic/Psychiatric: positive: Oriented x3, CN's nml (2-12), Motor nml, Sensation nml, Mood/affect nml - LABS Result Diagrams: 02/17/18 08:46 02/17/18 08:46 - DIAGNOSTIC IMAGING Diagnostic Imaging Results: Final report reviewed Diagnostic Imaging Results Comments: EXAM: Femur 2V LT, OR C-Arm Procedure DATE: 02/10/2018 2:12 PM CLINICAL HISTORY: SURGERY TECHNIQUE: 1 minute 39 seconds of intraoperative fluoroscopy was provided to Dr. Mckeon. 3 spot images obtained. COMPARISON: 02/09/2018 FINDINGS: Intraoperative imaging of dynamic compression screw and IM gloria fixation of the left femoral fracture. IMPRESSION: Intraoperative imaging of fracture fixation. EXAM: RIGHT SHOULDER RADIOGRAPHY EXAM DATE: 02/10/2018 09:33 PM. CLINICAL HISTORY: R shoulder pain after a fall yesterday. COMPARISON: None. TECHNIQUE: 3 views. FINDINGS: Bones: No acute fracture seen. Joints: No dislocation. Mild degenerative joint disease in the acromioclavicular joint. Soft tissues: Right-sided PowerPort in place. IMPRESSION: 1. Mild degenerative changes. No acute fracture or dislocation seen. EXAM: CHEST RADIOGRAPHY EXAM DATE: 02/11/2018 04:51 PM. CLINICAL HISTORY: Follow up lung infiltrates. COMPARISON: 02/09/2018. TECHNIQUE: 1 view. FINDINGS: Lungs/Pleura: Right lung remains clear. Moderate decrease in the degree of opacification involving the inferior half left lung. Suspect small posterior pleural effusion contributing to this appearance. No vascular congestion nor pneumothorax. Mediastinum: Within exam limitations, the cardiomediastinal contour is normal. Other: Right jugular Port-A-Cath tip remains superior third SVC. Right mastectomy. Cholecystectomy. IMPRESSION: Decreasing effusion and consolidation left lung base. - FOLLOW UP Follow Up: Follow-up with Dr. Beebe in 1-2 weeks. Follow-up with Dr. Siggard in 1-2 weeks. - TIME SPENT Time Spent in Discharge (Minutes): 45"
[2018-02-17] MEDS: oxyCODONE 5 MG TABLET PO PRN (12:40)
--- NOTE | 2018-02-17 12:41 | CONSULTATION NOTE ---
Palliative Care Follow Up - Referral Referring Provider: Dr. Myrna Griffin Time of Visit: 11:30-1215 Referral setting: Hospitalized patient Referral Reason: Met. Breast Cancer with liver/bone mets/Goals of care - Information Sources Records reviewed: RN notes reviewed, Previous records reviewed History/Review of Systems obtained from: Patient Exam limitations: No limitations - History of Present Illness Update Brief HPI Update: This is a christian 67-year-old woman with metastatic breast cancer, with metastases to the liver worsening liver enzymes, known cirrhosis with esophageal varices, as well as bone metastases. She did receive banding [facility] early January, has had no recurrent bleeding, her hct has remained stable. She did receive a paracentesis yesterday, this is better tolerated with premedication and longer time for lidocaine to work, they were able to drain 2800 mils. She reports she has increased comfort as far as pressure, increased ability to move about, and increased ability to breathe. She does note though it does appear to be reaccumulating pretty quickly, I am hopeful with discontinuation of IV fluids she may have a little bit of a relief for prolonged period time. She has restarted on her diuretics as well. She does present with anxiety about pending discharge, worried about making to bathroom in time, is keeping the loza until home, will have hospice nurse remove it if doing okay tomorrow. Social History - Living Situation Living arrangement: At home Living Situation: With spouse/s.o. Support System: Shiva , hard of hearing so needs to be invited to ask questions and make sure in vicinity of conversations. Velma her daughter, will be around for a couple of days to assist. All are anxious about her impending decline, but hopeful to settle in to some quality time in meantime. Has supportive network of friends from [employer], she was a big part of this for years, and sisters who check on her regularly. Medications/Allergies - Medications Active Medication List: Active Medications Acetaminophen (Tylenol) 650 mg PO Q4HR PRN PRN Reason: Pain 1 to 4 Famotidine (Pepcid) 20 mg PO DAILY TRNET Last Admin: 02/17/18 09:45 Dose: 20 mg Furosemide (Lasix) 20 mg PO DAILY TRENT Last Admin: 02/17/18 09:45 Dose: 20 mg Glycerin () 1 supp DE DAILY PRN PRN Reason: Constipation Last Admin: 02/15/18 18:27 Dose: 1 supp Heparin Sodium (Beef Lung) () 30 - 50 unit IVP PRN PRN PRN Reason: Port Protocol (<24 hours) Last Admin: 02/16/18 00:38 Dose: 40 unit Heparin Sodium (Beef Lung) () 300 - 500 unit IVP PRN PRN PRN Reason: Port Protocol (>24 hours) Ibuprofen (Motrin) 600 mg PO Q6HR PRN PRN Reason: Pain 1 to 4 Last Admin: 02/12/18 12:30 Dose: 600 mg Ibuprofen (Motrin) 400 mg PO Q6HR [facility] Last Admin: 02/17/18 06:03 Dose: 400 mg Levothyroxine Sodium (Synthroid) 100 mcg PO QDAC [facility] Last Admin: 02/17/18 06:03 Dose: 100 mcg Magnesium Oxide (Mag Ox) 400 mg PO DAILYWM [facility] Last Admin: 02/17/18 09:45 Dose: 400 mg Mineral Oil (Cavilon) 1 applic TOP PRN PRN PRN Reason: Skin Care Morphine Sulfate (Morphine) 2 mg IVP Q2H PRN PRN Reason: Pain 8 to 10 Last Admin: 02/16/18 13:55 Dose: 2 mg Multi-Ingredient Lotion (Cetaphil) 473 ml TOP PRN PRN PRN Reason: Skin Care Last Admin: 02/15/18 09:09 Dose: 1 applic Multi-Ingredient Ointment (Zinc Oxide) 1 applic TOP PRN PRN PRN Reason: Skin Care Last Admin: 02/15/18 09:17 Dose: 1 applic Multivitamins (Theragran) 1 tab PO DAILY [facility] Last Admin: 02/17/18 09:45 Dose: 1 tab Ondansetron HCl (Zofran Inj) 4 mg IVP Q6HR PRN PRN Reason: Nausea / Vomiting Last Admin: 02/13/18 22:36 Dose: 4 mg Oxycodone HCl (Roxicodone) 5 mg PO Q4HR PRN PRN Reason: Pain 5 to 7 Last Admin: 02/16/18 07:11 Dose: 5 mg Oxycodone HCl (Roxicodone) 10 mg PO Q4HR PRN PRN Reason: Pain 8 to 10 Last Admin: 02/14/18 11:20 Dose: 10 mg Polyethylene Glycol (Miralax) 17 gm PO DAILY [facility] Last Admin: 02/17/18 09:44 Dose: Not Given Prochlorperazine Edisylate (Compazine Inj) 10 mg IVP Q6HR PRN PRN Reason: Nausea / Vomiting Last Admin: 02/13/18 00:50 Dose: 10 mg Promethazine HCl (Phenergan Inj) 25 mg IM Q6HR PRN PRN Reason: Nausea / Vomiting Last Admin: 02/12/18 15:57 Dose: 25 mg Sodium Chloride (Normal Saline Flush 0.9%) 10 ml IVP PRN PRN PRN Reason: NEEDED PER PROVIDER ORDERS Last Admin: 02/16/18 13:56 Dose: 10 ml Sodium Chloride (Normal Saline Flush 0.9%) 10 ml IVP 0100,0900,1700 [facility] Last Admin: 02/17/18 09:44 Dose: 10 ml Spironolactone (Aldactone) 50 mg PO DAILY [facility] Last Admin: 02/17/18 09:44 Dose: 50 mg Zolpidem Tartrate (Ambien) 5 mg PO QPM PRN PRN Reason: Insomnia Omeprazole [PriLOSEC] 20 mg PO BIDAC 01/06/13 Ondansetron HCl [Zofran] 8 mg SL Q8H PRN 02/03/14 Prochlorperazine Maleate [Compazine] 10 mg PO Q6H PRN 05/01/17 Multivitamin [Theragran] 1 tab PO DAILY 01/21/18 Simvastatin 20 mg PO QPM 01/21/18 Furosemide [Lasix] 20 mg PO BIDDIURETIC 02/02/18 Spironolactone 50 mg PO BID 02/02/18 Denosumab [Xgeva] 120 mg SUBQ Q90D 02/09/18 Levothyroxine [Synthroid] 75 mcg PO QDAC 02/09/18 - Allergies Allergies/Adverse Reactions: Allergies Allergy/AdvReac Type Severity Reaction Status Date / Time shellfish derived Allergy Mild Respiratory Verified 01/28/18 19:51 Review of Systems - Constitutional Constitutional: reports: Fatigue, Poor appetite, Weight loss - Cardiovascular Cardiovascular: reports: Decr. exercise tolerance, Other (has portacath, will be deaccessed prior to discharge). denies: Chest pain, Edema - Respiratory Respiratory: reports: SOB at rest (improved with paracentesis), SOB with exertion. denies: Cough - Gastrointestinal Gastrointestinal: reports: Abdominal distention, Bloating, Early satiety, Other (taste changes for several weeks) - Genitourinary Genitourinary: reports: Other (going home with catheter) - Musculoskeletal Musculoskeletal: reports: Stiffness, Muscle weakness, Assistive devices (using walker; doing better with ambulation and transfers but concerned about transfers in car/steps at home; reviewed can get lift assist from 911 if problems) - Integumentary Integumentary: reports: Other (has decub; nurse to change dressing before leaves ) - Neurological Neurological: reports: General weakness - Psychiatric Psychiatric: reports: Depression (mild), Anxiety - Endocrine Endocrine: reports: Hypothyroidism (recent increase in thyroid med) - Hematologic/Lymphatic Hematologic/Lymphatic: reports: Anemia (Hgb 10.1; Hct 30.7), Blood clots (hx earlier this year; stopped lovenox because of GI bleeding). denies: Recurrent infections - All Other Systems All Other Systems: reports: Reviewed and negative Physical Exam - Vital Signs Vital Signs: Vital Signs x48h Temp Pulse Resp BP Pulse Ox 02/17/18 08:01 36.6 C 90 18 97/78 94 - Physical Exam General Appearance: positive: No acute distress, Anxious Eyes Bilateral: positive: Normal inspection. negative: No scleral icterus ENT: positive: No signs of dehydration Neck: positive: No JVD, Trachea midline Respiratory: positive: Diminished in bases (much improved air excursion). negative: Wheezes, Rales, Rhonchi Abdomen: positive: Non-tender, Soft, Nml bowel sounds, Distended (softer) Skin: positive: Dryness, Pressure wound (drsg intact buttocks). negative: Jaundice Extremities: positive: No pedal edema Neurologic/Psychiatric: positive: Oriented x3, Mood/affect nml, Weakness Palliative Care - POLST Patient has POLST: Yes POLST Status: DNR, Selective Treatment Pain: Location Tiredness/Fatigue: Moderate (4-6) Drowsiness/Sedation: Mild (1-3) Nausea: Mild (1-3) Depression: Mild (1-3) Anxiety: Moderate (4-6) Dyspnea: Moderate (4-6) Anorexia: Moderate (4-6), Weight loss Constipation: Yes, Opoid induced, Managed - Palliative Care Discussion: Discussion regarding patient's feelings of anxiety, counseling to normalize her current feelings of anticipatory grief and anxiety. Patient has been distracted with her most recent hospitalization, is unclear what her priorities are going to be as she transitions home, somewhat anxious about pending hospice admit. Results - Lab Results Lab results reviewed: Yes Fish Bones: 02/17/18 08:46 02/17/18 08:46 Lab and Imaging Results: Lab Results x24hrs 02/17/18 02/17/18 Range/Units 08:46 08:46 WBC 6.6 (4.8-10.8) x10^3/uL RBC 3.15 L (4.20-5.40) 10^6/uL Hgb 10.1 L (12.0-16.0) g/dL Hct 30.7 L (37.0-47.0) % MCV 97.5 (81.0-99.0) fL MCH 32.0 H (27.0-31.0) pg MCHC 32.9 (32.0-36.0) g/dL RDW 18.7 H (12.0-15.0) % Plt Count 140 (130-450) 10^3/uL MPV 8.9 (7.9-10.8) fL Sodium 132 L (135-145) mmol/L Potassium 4.6 (3.5-5.0) mmol/L Chloride 96 L (101-111) mmol/L Carbon Dioxide 28 (21-32) mmol/L Anion Gap 8.0 (6-13) BUN 18 (6-20) mg/dL Creatinine 0.7 (0.4-1.0) mg/dL Estimated GFR (MDRD) 84 L (>89) Glucose 150 H (70-100) mg/dL Calcium 8.7 (8.5-10.3) mg/dL Ionized Calcium NO Total Bilirubin 2.8 H (0.2-1.0) mg/dL AST 104 H (10-42) IU/L ALT 68 H (10-60) IU/L Alkaline Phosphatase 435 H (42-121) IU/L Total Protein 5.3 L (6.7-8.2) g/dL Albumin 2.0 L (3.2-5.5) g/dL Globulin 3.3 (2.1-4.2) g/dL Albumin/Globulin Ratio 0.6 L (1.0-2.2) Impression and Recommendations - Palliative Care Impression: This is a 67-year-old woman with metastatic breast cancer to the liver and bones , she also has peritoneal carcinomatosis, ascites, most recently diagnosed with esophageal varices. She is recovering from a repair of her left hip fracture, this is going much better, she is also had a recent tap with relief of her symptoms from her ascites. Patient to transition to hospice, pending admit for tomorrow. Discussed attending, given patient's fpc relationship with myself and concerns, will continue as attending. Recommendations/Counseling Done: 1. Ascites. Patient does have several paracentesis scheduled out, we discussed weighing benefits and burdens of moving forward as her symptoms increased. Patient will continue on her furosemide and Spironolactone, will need to make sure she is not hypotensive on her current dosing. 2. Acute on chronic pain. Patient's pain is mostly located in her left hip, with weightbearing. Currently her Roxicodone is addressing her discomfort, she also has discomfort from her decub. She does have antiemetics at home, ondansetron and Lorazepam. Reviewed use. Also discussed need for bowel program , has senna and MiraLAX available. 3. Anxiety. Patient does have Lorazepam 0.5 mg at home from previous antibiotic regimens. Discussed trying half tab if feeling overwhelmed and too anxious, counseling done to normalize her feelings of anticipatory grief and loss as well as anxiety and transition to hospice. 4. Left hip fracture. Patient has had previous experience last year after right hip fracture. She has worked well with PT/OT on the floor. May benefit from OT follow-up regarding hip precautions, safe transfers, and ADL management. 5. Metastatic breast cancer with metastases to the liver, peritoneal carcinomatosis, and bone mets. She does have progressive increase in her liver enzymes, Patient does understand the seriousness of her illness and her limited prognosis. 5. Advanced care planning. Patient to transition to hospice, given hospice number. We will continue to work with patient regarding goals of care particularly on end of life. Currently tentatively scheduled for tomorrow afternoon. Follow up with hospice medical practitioners regarding goals and patient status. Time Spent: 45 minutes with greater than 50% of this done in counseling regarding anxiety, transition to hospice, anticipatory guidance as well as coordination of care with hospitalist and hospice clinical team
== END 2018-02-17 13:20 | disposition home or self-care (01) | DRG 481 ==
LOC: ED 16:27 → MS2 17:30
PROVIDERS: ADMIT Internal Medicine; ATTEND Hospitalist
PROC: 0QS936Z Reposition Left Femoral Shaft with Intramedullary Internal Fixation Device, Percutaneous Approach (ICD-10-PCS; principal; 2018-02-09)
DX: M84.552A Pathological fracture in neoplastic disease, left femur, initial encounter for fracture (principal); C78.7 Secondary malignant neoplasm of liver and intrahepatic bile duct; R18.8 Other ascites; C79.51 Secondary malignant neoplasm of bone; I85.00 Esophageal varices without bleeding; E87.1 Hypo-osmolality and hyponatremia; C78.6 Secondary malignant neoplasm of retroperitoneum and peritoneum; I82.B12 Acute embolism and thrombosis of left subclavian vein; D61.818 Other pancytopenia; I82.C12 Acute embolism and thrombosis of left internal jugular vein; C50.911 Malignant neoplasm of unspecified site of right female breast; E03.9 Hypothyroidism, unspecified; E78.5 Hyperlipidemia, unspecified; K21.9 Gastro-esophageal reflux disease without esophagitis; M19.90 Unspecified osteoarthritis, unspecified site; M25.511 Pain in right shoulder; Z66 Do not resuscitate; Z51.5 Encounter for palliative care; Z79.899 Other long term (current) drug therapy; W18.30XA Fall on same level, unspecified, initial encounter; Y93.01 Activity, walking, marching and hiking; Y92.513 Shop (commercial) as the place of occurrence of the external cause; Y99.0 Civilian activity done for income or pay; Z91.81 History of falling; Z87.311 Personal history of (healed) other pathological fracture; K74.60 Unspecified cirrhosis of liver
CPT/HCPCS: 36415; 49083; 51702; 71045; 80053; 83690; 83735; 84100; 84443; 85025; 85027; 85610; 86850; 86900; 86901; 93005; 99211; 99215; 99232; 99233; 99283; 99285

== ENCOUNTER 2018-03-13 12:11 | Outpatient (CLI) | payer OTHER ==
[2018-03-13] MEDS ORDERED: BUFFERED LIDOCAINE 10 ML SYRINGE IU ONE (12:30)
--- NOTE | 2018-03-13 16:02 | Ultrasound Report ---
Procedure Date: 03/13/2018 Accession Number: [id number] / [id number] Procedure: US - Abdominal Paracentesis CPT Code: FULL RESULT: EXAM: Abdominal Paracentesis DATE: 03/13/2018 2:07 PM CLINICAL HISTORY: ASCITES COMPARISON: None. FINDINGS: Following obtaining informed consent, a suitable site in the patient's right lower quadrant of the abdomen was selected with ultrasound. The skin was prepped and draped in the usual sterile fashion. The skin and soft tissues were anesthetized with buffered lidocaine. A [place] catheter was inserted into the peritoneal cavity, and approximately 3100 mL of fluid was removed without difficulty. The patient tolerated the procedure well. No immediate complications. IMPRESSION: Successful ultrasound-guided paracentesis, yielding approximately 3100 mL of fluid.
== END 2018-03-13 12:12 | disposition home or self-care (01) ==
LOC: DI 12:11
PROVIDERS: ATTEND Family Medicine
DX: R18.8 Other ascites (principal)
CPT/HCPCS: 49083